=== PATIENT | female | born 1950 | race Caucasian/White ===

== ENCOUNTER 2016-09-03 08:16 | Observation (INO) ==
--- NOTE | 2016-09-03 08:42 | Emergency Department Note ---
Disposition Clinical Impression: Glomerulonephritis, NEYMAR (acute kidney injury) Disposition: Admitted As Inpatient Condition: Fair Time of Disposition: 10:10 General Adult HPI - General Chief complaint: ED Recheck/Abnormal Lab/Rx Stated complaint: Needs Steroids Time Seen by Provider: 09/03/16 08:20 Source: patient Limitations: no limitations Nursing Notes Reviewed: Yes Vital Signs Reviewed: Yes - History of Present Illness HPI Narrative: 66-year-old history of diabetes, hypertension, hypothyroid, has been evaluated by nephrology Dr. Cook, found have acute glomerulonephritis on biopsy, was sent to the ED for further evaluation including high-dose steroids, and further workup. Patient case was called into the night physician Dr. Arellano, and also stated that we are to contact Dr. Bowers. Essentially the patient at the current time is fairly symptomatic, she has had some elevated blood pressures but did not take her medications morning. Denies fever chills weight loss, hematuria, nausea vomiting diarrhea constipation Onset (ago): day(s) Pain Scale: 0 Consistency: intermittent Improves with: nothing Worsens with: nothing Associated symptoms: Reports: denies other symptoms. Denies: confusion, chest pain Treatments Prior to Arrival: none - Related Data Home Medications Medication Instructions Recorded Confirmed Lisinopril 11/25/15 11/25/15 Synthroid 11/25/15 Previous Rx's Medication Instructions Recorded Amoxicillin 875 mg PO BID #20 tablet 11/25/15 GuaiFENesin ER [Mucinex] 1,200 mg PO BID #20 tbbp.12hr 11/25/15 Loratadine [Claritin] 10 mg PO DAILY #30 tablet 11/25/15 Allergies Allergy/AdvReac Type Severity Reaction Status Date / Time codeine AdvReac Vomiting Verified 09/03/16 10:06 Review of Systems: All systems were reviewed with historian and negative except as per below, or as documented in the HPI. Constitutional: Denies: fever, chills, weight changes Eyes: Denies: vision changes, eye pain GI: Denies: abdominal pain, N/V/D/C dark urine, Denies: dysuria, hematuria MSK: Denies: back pain, neck pain, extremity pain Skin: Denies: new rashes, new lesions Neuro: Denies: FRANK, weakness, sensory changes, gait difficulty Psych: Denies: anxiety, depression All systems ED: reviewed and negative except as stated. Past Medical History - Past Medical History Attestation: Yes The following information was validated with the patient. Source: patient Medical history: Reports: diabetes, hypertension, thyroid disease Psychiatric history: Reports: anxiety - Social History Smoking Status: Never smoker Smokeless Tobacco Status: No Alcohol use: Reports: none Drug use: Reports: none Physical Exam Constitutional: Obese female in no acute distress, vital signs show elevated blood pressure. Neck: normal inspection, neck is supple, trachea midline Resp: normal chest inspection, CTA bilaterally, no resp distress CV: RRR, no m/g/r GI: Obese, normal inspection, Soft, NTND, BS present Back: normal inspection, no tenderness to palpation of CVA bilaterally Neuro: A&O3, no gross motor or sensory deficits bilaterally Skin: No rashes, skin warm, dry, intact - General Limitations: no limitations General appearance: alert, in no apparent distress Course Course Narrative: 66-year-old female with hypertension diabetes, found to have glomerulonephritis biopsy sent by nephrology, I did speak with Dr.Emily Burns and she will leave the workup, and add additional labs and pulse dose steroids at her preference, recommended admission to hospitalist service they will consult. Vital Signs Temperature 98.3 F 09/03/16 08:20 Pulse Rate 58 09/03/16 08:20 Respiratory Rate 16 09/03/16 08:20 Blood Pressure 202/104 09/03/16 08:20 O2 Sat by Pulse Oximetry 99 09/03/16 08:20 Temperature 98.3 F 09/03/16 08:20 Pulse Rate 58 09/03/16 08:20 Respiratory Rate 16 09/03/16 09:44 Blood Pressure 172/82 09/03/16 09:44 O2 Sat by Pulse Oximetry 99 09/03/16 08:20 Oxygen Delivery Oxygen Delivery Room Air Medical Decision Making - MDM Narrative Medical decision making narrative: 66-year-old female with glomerulonephritis admitted in stable condition to hospitalist service with nephrology consult. - Medical Records Medical records reviewed: Yes I reviewed the patient's medical records. - Lab Data Lab results reviewed: Yes I reviewed the patient's lab results. Result diagrams: 09/03/16 08:55 09/03/16 08:55 Lab Results 09/03/16 09/03/16 Range/Units 08:55 08:55 WBC 7.5 (4.3-11.1) K/mcL RBC 3.65 L (3.82-4.97) M/mcL Hgb 10.9 L (11.5-15.4) g/dL Hct 33.6 L (35.3-44.9) % MCV 92.1 (83.0-100.0) fL MCH 29.9 (28.0-33.3) pg MCHC 32.4 (31.6-35.5) g/dL RDW 12.8 (11.5-14.5) % Plt Count 248 (140-400) K/mcL MPV 10.7 (9.4-12.4) fL Immature Gran % 0.3 (0-4) % Seg Neutrophils % 66.3 % Lymphocytes % 20.2 % Monocytes % 9.9 % Eosinophils % 2.8 % Basophils % 0.5 % Neutrophils # 5.0 (1.6-8.9) K/mcL Lymphocytes # 1.5 (0.6-4.6) K/mcL Monocytes # 0.7 (0.0-1.3) K/mcL Eosinophils # 0.2 (0.0-0.6) K/mcL Basophils # 0.0 (0.0-0.2) K/mcL Sodium 142 (136-145) mEq/L Potassium 4.4 (3.5-4.5) mEq/L Chloride 108 (98-109) mEq/L Carbon Dioxide 24 (19-29) mEq/L BUN 40 H (7-20) mg/dL Creatinine 2.79 H (0.57-1.11) mg/dL Est GFR ( Amer) 21 L (> 60) Est GFR (Non-Af Amer) 17 L (> 60) BUN/Creatinine Ratio 14 (6-26) Glucose 115 H (70-99) mg/dL Calculated Osmolality 305 H (280-300) Calcium 8.6 (8.6-10.8) mg/dL
--- NOTE | 2016-09-03 08:49 | Emergency Department Note ---
Disposition Clinical Impression: Glomerulonephritis, NEYMAR (acute kidney injury) Disposition: Admitted As Inpatient Condition: Fair General Adult HPI - General Chief complaint: ED Recheck/Abnormal Lab/Rx Stated complaint: Needs Steroids Source: patient Limitations: no limitations - History of Present Illness Pain Scale: 0 - Related Data Home Medications Medication Instructions Recorded Confirmed Levothyroxine [Synthroid] 112 mcg PO DAILY 11/25/15 09/03/16 Cholecalciferol (D-3) [Vitamin D] 2,000 unit PO DAILY 09/03/16 09/03/16 Hydralazine HCl 50 mg PO DAILY PRN 09/03/16 09/03/16 LORazepam [Ativan] 0.5 mg PO BID PRN 09/03/16 09/03/16 Lisinopril [Zestril] 5 mg PO DAILY 09/03/16 09/03/16 Propranolol [Inderal] 40 mg PO BID 09/03/16 09/03/16 Allergies Allergy/AdvReac Type Severity Reaction Status Date / Time codeine AdvReac Vomiting Verified 09/03/16 10:06 Past Medical History - Past Medical History Medical history: Reports: diabetes, hypertension, thyroid disease Psychiatric history: Reports: anxiety - Social History Smoking Status: Never smoker Smokeless Tobacco Status: No Alcohol use: Reports: none Drug use: Reports: none Physical Exam - General Limitations: no limitations General appearance: alert, in no apparent distress Course - Reevaluation(s) Reevaluation #1: Social patient with resident, Dr. Marquez. Patient has a recent diagnosis of glomerulonephritis. Patient was sent in for pulse dose steroids. Patient denies any acute illness over the past couple of days. Patient is unremarkable. We have spoken with the airport skilled maintenance supervisor on-call to get laboratory and steroid orders. Patient will be admitted to the hospitalist service. Time: 08:48 Vital Signs Temperature 98.3 F 09/03/16 08:20 Pulse Rate 58 09/03/16 08:20 Respiratory Rate 16 09/03/16 08:20 Blood Pressure 202/104 09/03/16 08:20 O2 Sat by Pulse Oximetry 99 09/03/16 08:20 Temperature 97.4 F L 09/03/16 10:27 Pulse Rate 58 09/03/16 08:20 Respiratory Rate 16 09/03/16 10:27 Blood Pressure 133/71 09/03/16 10:27 O2 Sat by Pulse Oximetry 97 09/03/16 10:27 Oxygen Delivery Oxygen Delivery Room Air Medical Decision Making - Lab Data Result diagrams: 09/03/16 08:55 09/03/16 08:55 Lab Results 09/03/16 09/03/16 09/03/16 Range/Units 08:55 08:55 10:25 WBC 7.5 (4.3-11.1) K/mcL RBC 3.65 L (3.82-4.97) M/mcL Hgb 10.9 L (11.5-15.4) g/dL Hct 33.6 L (35.3-44.9) % MCV 92.1 (83.0-100.0) fL MCH 29.9 (28.0-33.3) pg MCHC 32.4 (31.6-35.5) g/dL RDW 12.8 (11.5-14.5) % Plt Count 248 (140-400) K/mcL MPV 10.7 (9.4-12.4) fL Immature Gran % 0.3 (0-4) % Seg Neutrophils % 66.3 % Lymphocytes % 20.2 % Monocytes % 9.9 % Eosinophils % 2.8 % Basophils % 0.5 % Neutrophils # 5.0 (1.6-8.9) K/mcL Lymphocytes # 1.5 (0.6-4.6) K/mcL Monocytes # 0.7 (0.0-1.3) K/mcL Eosinophils # 0.2 (0.0-0.6) K/mcL Basophils # 0.0 (0.0-0.2) K/mcL Sodium 142 (136-145) mEq/L Potassium 4.4 (3.5-4.5) mEq/L Chloride 108 (98-109) mEq/L Carbon Dioxide 24 (19-29) mEq/L BUN 40 H (7-20) mg/dL Creatinine 2.79 H (0.57-1.11) mg/dL Est GFR ( Amer) 21 L (> 60) Est GFR (Non-Af Amer) 17 L (> 60) BUN/Creatinine Ratio 14 (6-26) Glucose 115 H (70-99) mg/dL POC Glucose 107 H (58-89) Calculated Osmolality 305 H (280-300) Calcium 8.6 (8.6-10.8) mg/dL Attestation Statement - Attestation Attestation: I, Dr. Trent, examined this patient [id number] and my medical decision- making was reviewed with Dr. Marquez, Resident Physician. I agree with the documented findings, disposition and treatment plan as described except to the extent set forth below. Please see my progress notes for details.
[2016-09-03 09:09] LABS: Basophils % 0.5 %; Eosinophils # 0.2 K/mcL (0.0-0.6); Eosinophils % 2.8 %; Hematocrit 33.6 % (35.3-44.9); Hemoglobin 10.9 g/dL (11.5-15.4); Immature Granulocytes % 0.3 % (0-4); Lymphocytes # 1.5 K/mcL (0.6-4.6); Lymphocytes % 20.2 %; Mean Corpuscular HGB Conc 32.4 g/dL (31.6-35.5); Mean Corpuscular Hemoglobin 29.9 pg (28.0-33.3); Mean Corpuscular Volume 92.1 fL (83.0-100.0); Mean Platelet Volume 10.7 fL (9.4-12.4); Monocytes # 0.7 K/mcL (0.0-1.3); Monocytes % 9.9 %; Platelet Count 248 K/mcL (140-400); Red Blood Count 3.65 M/mcL (3.82-4.97); Red Cell Distribution Width 12.8 % (11.5-14.5); Segmented Neutrophils % 66.3 %
[2016-09-03 09:22] LABS: Calcium 8.6 mg/dL (8.6-10.8); Potassium 4.4 mEq/L (3.5-4.5)
[2016-09-03] MEDS ORDERED: Acetaminophen 325 MG TABLET PO PRN (12:48)
[2016-09-03] MEDS ORDERED: Naloxone 0.4 MG/ML INJ IVP PRN (12:48)
[2016-09-03] MEDS ORDERED: *HR* LORazepam 0.5 MG TABLET PO PRN (12:51)
[2016-09-03] MEDS: Cholecalciferol (D-3) 1,000 UNIT TABLET PO SCH (13:51)
[2016-09-03] MEDS: hydrALAZINE 25 MG TABLET PO SCH ×2 (13:51→21:20)
[2016-09-03] MEDS: methylPREDNISolone 250 MG in 0.9 % Sodium Chloride 50 ML IVPB SCH ×2 (13:52→17:22)
[2016-09-03] MEDS: Famotidine 20 MG/2 ML VIAL IVP SCH (13:52)
[2016-09-03] MEDS ORDERED: D5% in Water 1,000 ML IV PRN (14:22)
[2016-09-03] MEDS ORDERED: *HR* Dextrose 50 % in Water (Syg) 50 ML SYRINGE IVP PRN (14:22)
[2016-09-03] MEDS ORDERED: Dextrose Gel 15 GM PO PRN ×2 (14:22)
--- NOTE | 2016-09-03 14:24 | Nephrology Consult Note ---
<Sonya Hall - Last Filed: 09/03/16 16:01> Date of Encounter: 09/03/16 Time of Encounter: 12:00 Assessment and Plan (1) Glomerulonephritis Current Visit: Yes Status: Acute Patient is a patient of Dr. Cook's who had a CT-guided renal biopsy on . Dr. 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 There were also findings of underlying diabetic nephropathy as well. His initial work up on her in 2014 from [facility]: negative SPEP, U M/C ratio of 46, microscopic hematuria, BENI negative, C4 36, C3 133. He called her and instructed her to present to the ER for admission. Final pathology results are still pending. CXR negative for acute infectious process. SCr and GFR have been rising over the last several months: 03/10/16: SCr 1.52, GFR 35 07/08/16: SCr 2.11, GFR 24 08/09/16:SCr 2.33, GFR 21 09/03/16: SCr 2.79, GFR 17 08/09/16: UCr 71.2, Urine total protein 367.8, Prot/Cr ratio 5.1; UA: blood, granular and hyaline casts, amorphus sediment crystals; UC: E. 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 The patient has had worsening serum creatinine and GFR over the last month. Her GFR was 21 on and is 17 today. Will initiate steroid pulse treatment in conjunction with cyclophosphamide therapy. If the final pathology report comes back as an anti-GBM GN, the patient may require additional treatment of plasmapharesis and will need to be transferred to [facility] for this therapy as it is not offered at [facility]. Plan: -Obtain labwork: anti-gbm antibiodies, ANCA, C3 & C4 complement, BENI, Urine microalbumin, urine prot/Cr ratio, UA with micro and culture, TB Quant -Will start steroid pulse: 250mg methylprednisone IV [id number] doses (3 days) -Start cyclophosphamide 50mg BID PO -Accuchecks ACHS with steroids -Hold lisinopril -Strict I/Os and daily weights -Avoid NSAIDS and nephrotoxic agents -Renally dose medications (2) CKD (chronic kidney disease), stage IV Current Visit: Yes Status: Acute (3) NEYMAR (acute kidney injury) Current Visit: Yes Status: Acute (4) HTN (hypertension) Current Visit: Yes Status: Acute hold lisinopril Qualifiers: Hypertension type: essential hypertension Qualified Code(s): I10 - Essential (primary) hypertension (5) Diabetes mellitus Current Visit: Yes Status: Acute Qualifiers: Diabetes mellitus type: type 2 Diabetes mellitus complication status: with unspecified complications Diabetes 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 Juan Cook - History of Present Illness Ms. Oreilly is a 66 y/o female with a PMH of CKD IV, DM, HTN and hypothyroidism who presented to the ED today after receiving a call by Dr. Cook instructing her to present to the ED for admission to treat her glomerulonephritis. The patient has been seen by Dr. Cook for CKD, however did not follow up routinely. She was seen in June of this year and found to have worsening renal function with nephritis level protein in her urine. She has had worsening creatinine and GFR, that has dramatically worsened in the last 2 months. Her GFR dropped from 24 in June to 21 in July and is 17 today. The patient had a renal biopsy performed on 09/01/16 to evaluate for suspected glomerulonephritis. The renal pathologist at [facility] contacted Dr. 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 There were also findings of underlying diabetic nephropathy as well. She denies FRANK, CP, SOB, Abd pain, dysuria, hematuria. The patient denies any symptoms currently. She has been hypertensive, but has not taken her blood pressure medications today. She has a family history of a sister with CKD that is atypical HUS per the patient and has had a fistula in place anticipating a need for dialysis. She also notes a niece and nephew who both had renal transplants. Past Med Surg Social Fam HX - Past Medical History Source: patient Medical history: diabetes, hypertension, renal disease (CKD IV), thyroid disease Psychiatric history: anxiety - Social History Smoking Status: Never smoker Smokeless Tobacco Status: No Alcohol use: none Drug use: none - Family History Mother Hx Family Cancer: Yes Father Hx Family Endocrine Disorder: Yes Medications and Allergies Levothyroxine [Synthroid] 112 mcg PO DAILY 11/25/15 [History] Cholecalciferol (D-3) [Vitamin D] 2,000 unit PO DAILY 09/03/16 [History] Hydralazine HCl 50 mg PO DAILY PRN 09/03/16 [History] LORazepam [Ativan] 0.5 mg PO BID PRN 09/03/16 [History] Lisinopril [Zestril] 5 mg PO DAILY 09/03/16 [History] Propranolol [Inderal] 40 mg PO BID 09/03/16 [History] Allergies codeine Adverse Reaction (Verified 09/03/16 10:06) Vomiting Review of Systems All Systems: reviewed and no additional remarkable complaints except as stated Exam - Vital Signs Vital signs: Initial Vital Signs Temp Pulse Resp BP Pulse Ox 98.3 F 58 16 202/104 99 09/03/16 08:20 09/03/16 08:20 09/03/16 08:20 09/03/16 08:20 09/03/16 08:20 - General Appearance General appearance: well-developed, well-nourished, appears started age, obese EENT: ATNC, PERRL, mucous membranes moist Neck: no JVD, supple Respiratory: no kyphosis, no scoliosis, clear Cardiology: no murmurs, no rub, no gallops, edema (b/l LE), regular rate, regular rhythm, normal S1, normal S2 Gastrointestinal: normoactive bowel sounds, no tenderness, no guarding, obese Integumentary: no rash, warm and dry Neurologic: no focal deficit, alert and oriented x3 Musculoskeletal: no deformities, no erythema, no cyanosis, no clubbing Psychiatric: mood/affect appropriate, cooperative Results - Lab Results 09/03/16 08:55 09/03/16 08:55 Most recent lab results Calcium 8.6 mg/dL (8.6-10.8) 09/03/16 08:55 Consult Discharge Plan - Plan Referrals: Marcos Pierre MD [Primary Care Provider] - <ThomcoryEz Bowers - Last Filed: 09/05/16 14:02> Exam - Vital Signs Vital signs: Initial Vital Signs Temp Pulse Resp BP Pulse Ox 98.3 F 58 16 202/104 99 09/03/16 08:20 09/03/16 08:20 09/03/16 08:20 09/03/16 08:20 09/03/16 08:20 Vital Signs - Last 8 Hours Temp Pulse Resp BP Pulse Ox 09/05/16 11:06 97.6 F 64 18 151/78 96 09/05/16 07:05 97.9 F 64 18 160/81 96 Intake and Output 09/04/16 09/05/16 09/05/16 22:59 07:59 15:59 Intake Total 534 / 534 Output Total 0 / 0 Balance 534 / 534 Intake: IV Fluids 54 / 54 Solu-MEDROL 250 MG In 0.9 54 / 54 % Sodium Chloride 50 ML @ 108 mls/hr IVPB Q6H TY Rx#:[id number] Oral 480 / 480 Output: Urine 0 / 0 Other: Meal Lunch Percent of Meal Consumed 100% # Voids Weight Blood Glucose* 265 Patient Weight 09/06/16 00:59 Weight 122.5 kg Results - Lab Results 09/04/16 06:42 09/05/16 06:27 Most recent lab results Calcium 8.3 mg/dL (8.6-10.8) L 09/05/16 06:27 Urine Creatinine 78 mg/dL 09/03/16 21:16 Urine Total Protein 411 mg/dL (1-14) H 09/03/16 21:16 - Attending Attestation I examined this patient and my medical decision-making was reviewed with the SHOT LIGHTER/PA/Advanced Practice Nurse/Resident Physician. I agree with the documented findings, disposition and treatment plan as described except to the extent set forth below. Pt seen and examined with family (sister) at bedside. 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 SCr noted dropping rapidly consistent with RPGN. Agree with pulsed steroids, started. Pt aware of side effects as discussed in great details. will also start cytotan 50mg bid. will check quantiferon gold for TB. Will start pecid for possible acid reflux while on high dose steroids. Will monitor blood sugars as well. Will hold lisinopril for now given worsening renal fxn but resume her beta-batsheva and hydralazine for BP control. No indication for TAX ADJUSTER at this time but pt aware. Will await repeat antiGBM results along with final renal biopsy result to determine whether plasmapheresis will be needed in which case a transfer to [facility] would be needed. will also followup BENI, complements and ANCA results.
--- NOTE | 2016-09-03 14:33 | Internal Med History&Physical ---
<Tammy Herbert M - Last Filed: 09/04/16 00:52> Date of Encounter: 09/03/16 Time of Encounter: 14:24 Internal Medicine - H&P: HPI Chief complaint: kidney disease Admitted From: Emergency Dept Plans for Post Hospital Care: Home History of present illness: Ms. Oreilly is a 66 year old female with hypertension, type 2 diabetes, hypothyroid, and chronic kidney disease, who presented to the emergency room on the instruction of her pega developer after getting results of her kidney biopsy back showing acute anti-GBM glomerulopathy. Patient denies any complaints upon 11 point review of symptoms. Patient denies any recent fever, chills or sweats. Nephrology plans 3 days of pulse dose steroids. Evaluation in the ED showed BUN 40 Cr 2.79. CXR showed mild bibasilar airspace disease, mild cardiopericardial enlargement. On exam, patient is alert and oriented, in no distress. Heart has regular rate and rhythm, lungs are clear to auscultation bilaterally. (1) Acute GN - according to ECW note, biopsy results showed "findings of crescents both old and new on light microscopy and on IF there was linear staining of IgG suggestive of Anti-GBM glomerulopathy. There was also findings of underlying diabetic nephropathy as well." Nephrology is consulted and planning pulse steroids and further work up. Avoid NSAIDs and nephrotoxic agents Renal diabetic diet (2) Hypertension Hold home lisinopril. Hydralazine adjusted to 50mg BID Continue home dose of Propranolol 40mg (3) Type 2 Diabetes Patient reports she is diet controlled and just checks her morning blood sugars. However, as she will be on steroids during this admission, we will check blood sugars ACHS and put her on a sliding scale correction dose. Renal diabetic diet hypoglycemic protocol (4) DVT Prophylaxis Ambulate anti-embolic stockings Heparin 5,000u SQ TID Past Med Surg Social Fam HX - Past Medical History Medical history: diabetes, hypertension, thyroid disease Psychiatric history: anxiety - Past Surgical History Surgical History: other (tubal ligation) - Social History Smoking Status: Never smoker Smokeless Tobacco Status: No Alcohol use: none Drug use: none - Family History Mother Hx Family Cancer: Yes Father Hx Family Endocrine Disorder: Yes Internal Medicine - H&P: Meds Levothyroxine [Synthroid] 112 mcg PO DAILY 11/25/15 [History] Cholecalciferol (D-3) [Vitamin D] 2,000 unit PO DAILY 09/03/16 [History] Hydralazine HCl 50 mg PO DAILY PRN 09/03/16 [History] LORazepam [Ativan] 0.5 mg PO BID PRN 09/03/16 [History] Propranolol [Inderal] 40 mg PO BID 09/03/16 [History] Cyclophosphamide 50 mg PO BID #60 capsule 09/06/16 [Rx] PredniSONE 60 mg PO DAILY #30 tablet 09/06/16 [Rx] Sulfamethoxazole/Trimeth DS [Bactrim DS] 1 each PO 3XW #90 tablet 09/06/16 [Rx] Allergies codeine Adverse Reaction (Verified 09/03/16 10:06) Vomiting All Systems PM: A 10-system review of systems was performed and is negative for pertinent findings except as documented above in the HPI. - Constitutional Constitutional: no chills, no fever(s), no night sweats - EENT Eyes: no change in vision, no discharge, no pain, no photophobia Ears: no ear discharge, no ear pain, no tinnitus Nose, mouth and throat: no dysphagia, no nasal discharge, no neck pain, no sore throat - Cardiovascular Cardiovascular ROS IM: no chest pain, no diaphoresis, no dyspnea, no lightheadedness, no palpitations, no syncope - Respiratory Respiratory: no cough, no dyspnea, no wheezing, no excessive phlegm production - Gastrointestinal Gastrointestinal: no abdominal pain, no diarrhea, no hematemesis, no hematochezia, no melena, no nausea, no vomiting - Genitourinary Genitourinary: no change in urinary stream, no dysuria, no flank pain, no hematuria - Musculoskeletal Musculoskeletal ROS IM: no numbness, no tingling - Integumentary Integumentary IM: no rash, no unusual bruising - Neurological Neurological ROS: no confusion, no convulsions, no focal weakness, no numbness, no tingling, no tremor(s) - Hematologic/Lymphatic Hematologic/Lymphatic: no easy bruising - Constitutional Vitals: Temp Pulse Resp BP Pulse Ox 97.4 F L 58 16 133/71 97 09/03/16 10:27 09/03/16 08:20 09/03/16 10:27 09/03/16 10:27 09/03/16 10:27 General appearance: Present: A&O X 3, morbidly obese, no acute distress - Head Head exam: Present: atraumatic, normocephalic - Eye Eye exam: Present: PERRL, conjuntiva pink, sclera anicteric Pupils: Present: PERRL - Neck Neck exam general surgery: Present: supple, trachea midline. Absent: lymphadenopathy - Respiratory Respiratory exam: Present: CTAB. Absent: accessory muscle use, rales, rhonchi, wheezes - Cardiovascular Cardiovascular exam: Present: RRR, +S1, +S2. Absent: diastolic murmur, gallop, rubs, systolic murmur - GI/Abdominal GI/Abdominal exam: Present: normal bowel sounds, soft, no peritoneal signs. Absent: distended, tenderness - Extremities Exam Extremities exam: Present: warm, radial pulses palpable and symetrical. Absent : calf tenderness, cyanotic, pedal edema - Neurological Exam Neurological exam: Present: CN II-XII intact, oriented X3, no focal deficits. Absent: facial droop, speech deficit - Skin Skin exam: Present: dry, intact Internal Med - H&P Results - Labs CBC & Chem 7: 09/03/16 08:55 09/03/16 08:55 Labs: All Lab Results (24 Hours) 09/03/16 09/03/16 09/03/16 Range/Units 08:55 08:55 10:25 WBC 7.5 (4.3-11.1) K/mcL RBC 3.65 L (3.82-4.97) M/mcL Hgb 10.9 L (11.5-15.4) g/dL Hct 33.6 L (35.3-44.9) % MCV 92.1 (83.0-100.0) fL MCH 29.9 (28.0-33.3) pg MCHC 32.4 (31.6-35.5) g/dL RDW 12.8 (11.5-14.5) % Plt Count 248 (140-400) K/mcL MPV 10.7 (9.4-12.4) fL Immature Gran % 0.3 (0-4) % Seg Neutrophils % 66.3 % Lymphocytes % 20.2 % Monocytes % 9.9 % Eosinophils % 2.8 % Basophils % 0.5 % Neutrophils # 5.0 (1.6-8.9) K/mcL Lymphocytes # 1.5 (0.6-4.6) K/mcL Monocytes # 0.7 (0.0-1.3) K/mcL Eosinophils # 0.2 (0.0-0.6) K/mcL Basophils # 0.0 (0.0-0.2) K/mcL Sodium 142 (136-145) mEq/L Potassium 4.4 (3.5-4.5) mEq/L Chloride 108 (98-109) mEq/L Carbon Dioxide 24 (19-29) mEq/L BUN 40 H (7-20) mg/dL Creatinine 2.79 H (0.57-1.11) mg/dL Est GFR ( Amer) 21 L (> 60) Est GFR (Non-Af Amer) 17 L (> 60) BUN/Creatinine Ratio 14 (6-26) Glucose 115 H (70-99) mg/dL POC Glucose 107 H (58-89) Calculated Osmolality 305 H (280-300) Calcium 8.6 (8.6-10.8) mg/dL <Odilon Johnson - Last Filed: 09/07/16 10:27> Internal Medicine - H&P: HPI History of present illness: Ms. Oreilly is a 66 year old female All Systems PM: A 10-system review of systems was performed and is negative for pertinent findings except as documented above in the HPI. - Constitutional Vitals: Temp Pulse Resp BP Pulse Ox 97.9 F 60 16 146/74 95 09/06/16 11:13 09/06/16 11:13 09/06/16 11:13 09/06/16 11:13 09/06/16 11:13 Internal Med - H&P Results - Labs CBC & Chem 7: 09/04/16 06:42 09/05/16 06:27 - Attending Attestation I examined this patient and my medical decision-making was reviewed with the Advanced Practice Nurse. I agree with the documented findings, disposition and treatment plan as described except to the extent set forth below. The patient was sent by her pega developer for evaluation in the hospital for worsening renal failure and kidney biopsy suggestive of glomerulonephritis. On exam she is in no acute distress awake alert oriented. Heart is regular S1-S2, lungs are clear. We will admit the patient to our service, consult nephrology, avoid nephrotoxins, monitor kidney function.
[2016-09-03] MEDS: Insulin LISPRO 300 UNITS/3 ML VIAL SQ SCH ×2 (17:17→21:25)
[2016-09-03] MEDS: *HR* Heparin 5,000 UNIT/ML VIAL SQ SCH (17:22)
[2016-09-03 21:35] LABS: Bilirubin,Urine Negative (Negative); Blood,Urine Large (Negative); Clarity,Urine Cloudy (Clear); Color,Urine Yellow (Yellow); Glucose,Urine (UA) Normal (Normal); Ketones,Urine Negative (Negative); Leukocyte Esterase,Urine Negative (Negative); Nitrite,Urine Negative (Negative); Protein,Urine >=300 mg/dL (Neg-Trace); Specific Gravity,Urine 1.017 (1.010-1.025); Urobilinogen,Urine Normal (Normal)
[2016-09-03 21:37] LABS: Bacteria,Urine None Seen per hpf (None-Few); Hyaline Casts,Urine None Seen per lpf (None-Few); Squamous Epithelial Cell,Urine Many per lpf (None-Few)
[2016-09-03 22:09] LABS: Creatinine,Urine 78 mg/dL; Microalbum/Creatinine Ratio,Ur 2564 (0-30)
[2016-09-03 22:19] LABS: Microalbumin,Urine > 2000 mg/L
[2016-09-03 22:34] LABS: Protein/Creatinine Ratio,Urine 5.27 mg/mg (0-0.20)
[2016-09-04] MEDS: methylPREDNISolone 250 MG in 0.9 % Sodium Chloride 50 ML IVPB SCH ×4 (00:45→17:51)
[2016-09-04] MEDS: *HR* Heparin 5,000 UNIT/ML VIAL SQ SCH ×4 (00:49→22:31)
[2016-09-04 07:26] LABS: Red Blood Count 3.89 M/mcL (3.82-4.97)
[2016-09-04 07:27] LABS: Basophils % 0.1 %; Hemoglobin 11.4 g/dL (11.5-15.4); Immature Granulocytes % 1.1 % (0-4); Lymphocytes # 0.8 K/mcL (0.6-4.6); Lymphocytes % 9.4 %; Mean Corpuscular HGB Conc 32.6 g/dL (31.6-35.5); Mean Corpuscular Hemoglobin 29.3 pg (28.0-33.3); Monocytes # 0.1 K/mcL (0.0-1.3); Monocytes % 0.9 %; Neutrophils # 7.8 K/mcL (1.6-8.9); Platelet Count 255 K/mcL (140-400); Red Cell Distribution Width 12.4 % (11.5-14.5); Segmented Neutrophils % 88.5 %
[2016-09-04 07:31] LABS: Calcium 8.6 mg/dL (8.6-10.8); Potassium 4.4 mEq/L (3.5-4.5)
[2016-09-04] MEDS: hydrALAZINE 25 MG TABLET PO SCH ×2 (08:08→22:30)
[2016-09-04] MEDS: Cholecalciferol (D-3) 1,000 UNIT TABLET PO SCH (08:09)
[2016-09-04] MEDS: Famotidine 20 MG/2 ML VIAL IVP SCH (08:09)
[2016-09-04] MEDS: Insulin LISPRO 300 UNITS/3 ML VIAL SQ SCH ×4 (08:10→22:33)
--- NOTE | 2016-09-04 12:02 | Nephrology Progress Note ---
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 BENI already pending Will also check immunofixation and free light chains (2) CKD (chronic kidney disease), stage IV Current Visit: Yes Status: Acute (3) Glomerulonephritis Current Visit: Yes Status: Acute (4) HTN (hypertension) Current Visit: Yes Status: Acute Qualifiers: Hypertension type: essential hypertension Qualified Code(s): I10 - Essential (primary) hypertension Subjective Interval history: Pt seen and examined with pulsed steroids underway and being tolerated. lots of family members at bedside. Discussed in great detail lastest and final renal biopsy result which now is showing active cresentic fibrillary GN hence no plasmaphresis needed.Discussed this final diagnosis in great details with pt and family with all questions answered and additional reading materials provided via [employer] to them. Objective - Vital Signs Vital signs: Vital Signs Temp Pulse Resp BP Pulse Ox 09/04/16 11:08 97.8 F 62 18 162/82 94 L 09/04/16 06:56 97.8 F 68 18 170/72 94 L 09/04/16 04:22 97.6 F 69 18 140/76 94 L 09/04/16 00:19 97.7 F 65 16 162/81 93 L 09/03/16 21:02 97.7 F 62 16 160/85 95 Intake and Output 09/03/16 09/04/16 09/04/16 23:59 07:59 15:59 Intake Total 508 / 508 54 / 54 360 / 360 Output Total 500 / 500 300 / 300 275 / 275 Balance -246 / -246 Intake: IV Fluids 108 / 108 54 / 54 Solu-MEDROL 250 MG In 0.9 108 / 108 54 / 54 % Sodium Chloride 50 ML @ 108 mls/hr IVPB Q6H TY Rx#:[id number] Oral 400 / 400 360 / 360 Output: Urine 500 / 500 300 / 300 275 / 275 Other: Meal Breakfast Percent of Meal Consumed 100% # Voids 2 Weight 120.2 kg Blood Glucose* 216 170 242 Patient Weight 09/04/16 23:59 Weight 120.2 kg - General Appearance General appearance: Present: well-developed, well-nourished (NAD) EENT: Present: ATNC, mucous membranes moist Neck: Present: no JVD, supple Respiratory: Present: clear Cardiology: Present: no edema, normal S1, normal S2 Gastrointestinal: Present: no tenderness, no guarding Integumentary: Present: warm and dry Neurologic: Present: no focal deficit Musculoskeletal: Present: no deformities Psychiatric: Present: mood/affect appropriate - Lab 09/04/16 06:42 09/05/16 06:27 Most recent lab results Calcium 8.6 mg/dL (8.6-10.8) 09/04/16 06:42 Urine Creatinine 78 mg/dL 09/03/16 21:16 Urine Total Protein 411 mg/dL (1-14) H 09/03/16 21:16 Consult Discharge Plan - Plan Referrals: Marcos Pierre MD [Primary Care Provider] -
--- NOTE | 2016-09-04 18:14 | Internal Med Progress Note ---
Date of Encounter: 09/04/16 Time of Encounter: 18:12 - Assessment and plan (1) Glomerulonephritis Current Visit: Yes Status: Acute Assessment and plan: Biopsy results "findings of crescents both old and new on light microscopy and on IF there was linear staining of IgG suggestive of Anti-GBM glomerulopathy" admitted for pulse steroid therapy nephrology on board will follow recommendations. (2) HTN (hypertension) Current Visit: Yes Status: Acute Assessment and plan: acceptable range will continue meds hold ACEI Qualifiers: Hypertension type: essential hypertension Qualified Code(s): I10 - Essential (primary) hypertension (3) Diabetes mellitus Current Visit: Yes Status: Acute Assessment and plan: ACHS SCSI close monitoring Qualifiers: Diabetes mellitus type: type 2 Diabetes mellitus complication status: with unspecified complications Diabetes mellitus intermediate manager insulin use: without intermediate manager use Qualified Code(s): E11.8 - Type 2 diabetes mellitus with unspecified complications (4) DVT prophylaxis Current Visit: Yes Status: Acute Assessment and plan: heaprin SCD - Subjective Interval history: seen and examined no new complaints - Constitutional Vitals: Temp Pulse Resp BP Pulse Ox 97.9 F 61 18 168/83 95 09/04/16 16:52 09/04/16 16:52 09/04/16 16:52 09/04/16 16:52 09/04/16 16:52 General appearance: Present: A&O X 3, morbidly obese, no acute distress - Head Head exam: Present: atraumatic, normocephalic - Eye Eye exam: Present: PERRL, conjuntiva pink, sclera anicteric Pupils: Present: PERRL - Neck Neck exam general surgery: Present: supple, trachea midline. Absent: lymphadenopathy - Respiratory Respiratory exam: Present: CTAB. Absent: accessory muscle use, rales, rhonchi, wheezes - Cardiovascular Cardiovascular exam: Present: RRR, +S1, +S2. Absent: diastolic murmur, gallop, rubs, systolic murmur - GI/Abdominal GI/Abdominal exam: Present: normal bowel sounds, soft, no peritoneal signs. Absent: distended, tenderness - Extremities Exam Extremities exam: Present: warm, radial pulses palpable and symetrical. Absent : calf tenderness, cyanotic, pedal edema - Neurological Exam Neurological exam: Present: CN II-XII intact, oriented X3, no focal deficits. Absent: pronater drift, facial droop, speech deficit - Skin Skin exam: Present: dry, intact Internal Medicine: Result - Labs CBC & Chem 7: 09/04/16 06:42 09/04/16 06:42 Labs: Short CBC 09/04/16 Range/Units 06:42 WBC 8.8 (4.3-11.1) K/mcL Hgb 11.4 L (11.5-15.4) g/dL Hct 35.0 L (35.3-44.9) % Plt Count 255 (140-400) K/mcL Neutrophils # 7.8 (1.6-8.9) K/mcL BMP 09/04/16 06:42 Sodium 139 Potassium 4.4 Chloride 107 Carbon Dioxide 20 BUN 44 H Creatinine 3.03 H Glucose 175 H Calcium 8.6 Urine 09/03/16 Range/Units 21:21 Urine Color Yellow (Yellow) Urine Clarity Cloudy A (Clear) Urine pH 6.0 (5.0-8.0) pH Units Ur Specific [place] 1.017 (1.010-1.025) Urine Protein >=300 H (Neg-Trace) mg/dL Urine Glucose (UA) Normal (Normal) mg/dL Consult Discharge Plan - Plan Referrals: Marcos Pierre MD [Primary Care Provider] -
[2016-09-04 22:12] LABS: ANA IgG by ELISA NONE DETECTED (None Detected)
[2016-09-04 22:13] LABS: Complement Component 3 132 mg/dL (88-201); Complement Component 4 41 mg/dL (10-40)
[2016-09-05] MEDS: methylPREDNISolone 250 MG in 0.9 % Sodium Chloride 50 ML IVPB SCH ×4 (03:28→18:16)
[2016-09-05 07:12] LABS: Calcium 8.3 mg/dL (8.6-10.8); Potassium 4.6 mEq/L (3.5-4.5)
[2016-09-05] MEDS: *HR* Heparin 5,000 UNIT/ML VIAL SQ SCH ×2 (07:58→15:59)
[2016-09-05] MEDS: Cholecalciferol (D-3) 1,000 UNIT TABLET PO SCH (07:58)
[2016-09-05] MEDS: hydrALAZINE 25 MG TABLET PO SCH ×2 (07:58→22:03)
[2016-09-05] MEDS: Famotidine 20 MG/2 ML VIAL IVP SCH (07:58)
[2016-09-05] MEDS: Insulin LISPRO 300 UNITS/3 ML VIAL SQ SCH ×3 (07:58→15:59)
--- NOTE | 2016-09-05 11:20 | Nephrology Progress Note ---
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: will continue day 3 pulsed steroids Will continue cytoxan at current doses Will continue to hold lisinopril for now BENI WNL C3 WNL, C4 slightly elevated at 41 normal is 40 and under ANCA and antiGBM still pending LDH WNL Will start bactrim DS M-W- tomorrow priro to disscharge for prophylasix Will also plan for BMP within a week and followup within a week as well with Dr Cook on discharge tomorrow (2) CKD (chronic kidney disease), stage IV Current Visit: Yes Status: Acute (3) Glomerulonephritis Current Visit: Yes Status: Acute (4) HTN (hypertension) Current Visit: Yes Status: Acute Qualifiers: Hypertension type: essential hypertension Qualified Code(s): I10 - Essential (primary) hypertension Subjective Interval history: Pt seen and examined with no new complaints. Day 3 of pulsed steroids started to end tomorrow. Sugars elevated up to 200s. Objective - Vital Signs Vital signs: Vital Signs Temp Pulse Resp BP Pulse Ox 09/05/16 11:06 97.6 F 64 18 151/78 96 09/05/16 07:05 97.9 F 64 18 160/81 96 09/05/16 05:06 97.4 F L 67 16 165/87 94 L 09/05/16 00:23 98.2 F 64 16 124/72 97 09/04/16 19:35 98 F 65 18 170/70 96 09/04/16 16:52 97.9 F 61 18 168/83 95 09/04/16 11:08 97.8 F 62 18 162/82 94 L Intake and Output 09/04/16 09/05/16 09/05/16 22:59 07:59 15:59 Intake Total 240 / 240 Output Total 0 / 0 Balance 240 / 240 Intake: IV Fluids Solu-MEDROL 250 MG In 0.9 % Sodium Chloride 50 ML @ 108 mls/hr IVPB Q6H TY Rx#:[id number] Oral 240 / 240 Output: Urine 0 / 0 Other: Meal Breakfast Percent of Meal Consumed 100% # Voids Weight Blood Glucose* 265 Patient Weight 09/06/16 00:59 Weight 122.5 kg - General Appearance General appearance: Present: well-developed, well-nourished EENT: Present: ATNC, mucous membranes moist Neck: Present: no JVD, supple Respiratory: Present: clear Cardiology: Present: no edema, normal S1, normal S2 Gastrointestinal: Present: no tenderness, no guarding Integumentary: Present: warm and dry Neurologic: Present: no focal deficit Musculoskeletal: Present: no deformities Psychiatric: Present: mood/affect appropriate - Lab 09/04/16 06:42 09/05/16 06:27 Most recent lab results Calcium 8.3 mg/dL (8.6-10.8) L 09/05/16 06:27 Urine Creatinine 78 mg/dL 09/03/16 21:16 Urine Total Protein 411 mg/dL (1-14) H 09/03/16 21:16 Consult Discharge Plan - Plan Referrals: Marcos Pierre MD [Primary Care Provider] -
--- NOTE | 2016-09-05 15:42 | Internal Med Progress Note ---
Date of Encounter: 09/05/16 Time of Encounter: 15:39 - Assessment and plan (1) Glomerulonephritis Current Visit: Yes Status: Acute Assessment and plan: Biopsy results "findings of crescents both old and new on light microscopy and on IF there was linear staining of IgG suggestive of Anti-GBM glomerulopathy" admitted for pulse steroid therapy nephrology on board will follow recommendations. 09/05/2016 day 3 pulse steroids tolerating well sugars in acceptable limits. work up still pending. nephrology on board and will follow recommendations. (2) HTN (hypertension) Current Visit: Yes Status: Acute Assessment and plan: acceptable range will continue meds hold ACEI Qualifiers: Hypertension type: essential hypertension Qualified Code(s): I10 - Essential (primary) hypertension (3) Diabetes mellitus Current Visit: Yes Status: Acute Assessment and plan: ACHS SCSI close monitoring Qualifiers: Diabetes mellitus type: type 2 Diabetes mellitus complication status: with unspecified complications Diabetes mellitus skilled nursing insulin use: without beater lead use Qualified Code(s): E11.8 - Type 2 diabetes mellitus with unspecified complications (4) DVT prophylaxis Current Visit: Yes Status: Acute Assessment and plan: heaprin SCD - Subjective Interval history: seen and examined no new complaints 09/05/2016 seen and examined. no new complaints denies nausea, vomiting and diarrhea. - Constitutional Vitals: Temp Pulse Resp BP Pulse Ox 97.6 F 64 18 151/78 96 09/05/16 11:06 09/05/16 11:06 09/05/16 11:06 09/05/16 11:06 09/05/16 11:06 General appearance: Present: A&O X 3, morbidly obese, no acute distress - Head Head exam: Present: atraumatic, normocephalic - Eye Eye exam: Present: PERRL, conjuntiva pink, sclera anicteric Pupils: Present: PERRL - Neck Neck exam general surgery: Present: supple, trachea midline. Absent: lymphadenopathy - Respiratory Respiratory exam: Present: CTAB. Absent: accessory muscle use, rales, rhonchi, wheezes - Cardiovascular Cardiovascular exam: Present: RRR, +S1, +S2. Absent: diastolic murmur, gallop, rubs, systolic murmur - GI/Abdominal GI/Abdominal exam: Present: normal bowel sounds, soft, no peritoneal signs. Absent: distended, tenderness - Extremities Exam Extremities exam: Present: warm, radial pulses palpable and symetrical. Absent : calf tenderness, cyanotic, pedal edema - Neurological Exam Neurological exam: Present: CN II-XII intact, oriented X3, no focal deficits. Absent: pronater drift, facial droop, speech deficit - Skin Skin exam: Present: dry, intact Internal Medicine: Result - Labs CBC & Chem 7: 09/04/16 06:42 09/05/16 06:27 Labs: BMP 09/05/16 06:27 Sodium 137 Potassium 4.6 H Chloride 107 Carbon Dioxide 18 L BUN 59 H D Creatinine 3.24 H Glucose 177 H Calcium 8.3 L Consult Discharge Plan - Plan Referrals: Marcos Pierre MD [Primary Care Provider] -
[2016-09-06] MEDS: *HR* Heparin 5,000 UNIT/ML VIAL SQ SCH ×2 (00:28→08:02)
[2016-09-06] MEDS: methylPREDNISolone 250 MG in 0.9 % Sodium Chloride 50 ML IVPB SCH ×2 (00:29→08:01)
[2016-09-06] MEDS: Insulin LISPRO 300 UNITS/3 ML VIAL SQ SCH ×3 (06:04→12:06)
[2016-09-06] MEDS: Famotidine 20 MG/2 ML VIAL IVP SCH (08:02)
[2016-09-06] MEDS: Cholecalciferol (D-3) 1,000 UNIT TABLET PO SCH (08:02)
[2016-09-06] MEDS: hydrALAZINE 25 MG TABLET PO SCH (08:02)
[2016-09-06 11:14] VITALS: BP 146/74
--- NOTE | 2016-09-06 11:51 | Nephrology Progress Note ---
Date of Encounter: 09/06/16 Time of Encounter: 10:45 - Assessment and Plan (1) NEYMAR (acute kidney injury) Status: Acute With RPGN due to biopsy proven active cresentic fibrillary GN: s/p 3 days of pulsed steroids and now ok to discharge on prednisone 60mg daily Will continue cytoxan 50mg bid Will start bactrim DS M-W-F Will also continue pepcid 20mg daily Will start calcium supplements with vitamin D daily BMP to be done this week along with CBC Appt with Dr Cook lastjeanie by next tuesday (2) CKD (chronic kidney disease), stage IV Status: Acute (3) Glomerulonephritis Status: Acute (4) HTN (hypertension) Status: Acute Qualifiers: Hypertension type: essential hypertension Qualified Code(s): I10 - Essential (primary) hypertension Subjective Interval history: Pt seen and examined with no new complaints. Finishing up her last dosing of steroids and eager to be discharged today. Objective - Vital Signs Vital signs: Vital Signs Temp Pulse Resp BP Pulse Ox 09/06/16 11:13 97.9 F 60 16 146/74 95 09/06/16 07:27 97.6 F 86 16 166/82 90 L 09/06/16 04:42 98.2 F 62 18 146/79 95 09/06/16 00:50 97.6 F 60 18 155/75 93 L 09/05/16 20:23 97.8 F 58 16 147/65 97 09/05/16 15:52 97.7 F 61 18 161/84 97 Intake and Output 09/05/16 09/06/16 09/06/16 23:59 07:59 15:59 Intake Total 174 / 174 54 / 54 240 / 240 Output Total 400 / 400 300 / 300 Balance -226 / -226 -246 / -246 240 / 240 Intake: IV Fluids 54 / 54 54 / 54 Solu-MEDROL 250 MG In 0.9 54 / 54 54 / 54 % Sodium Chloride 50 ML @ 108 mls/hr IVPB Q6H TY Rx#:[id number] Oral 120 / 120 240 / 240 Output: Urine 400 / 400 300 / 300 Other: Meal Dinner Breakfast Percent of Meal Consumed 100% 100% # Voids 1 Weight 123.4 kg Blood Glucose* 213 187 263 Patient Weight 09/06/16 23:59 Weight 123.4 kg - General Appearance General appearance: Present: well-developed, well-nourished EENT: Present: ATNC, mucous membranes moist Neck: Present: no JVD, supple Respiratory: Present: clear Cardiology: Present: no edema, regular rate, regular rhythm, normal S1, normal S2 Gastrointestinal: Present: no tenderness, no guarding Integumentary: Present: warm and dry Neurologic: Present: no focal deficit Musculoskeletal: Present: no deformities Psychiatric: Present: mood/affect appropriate - Lab 09/04/16 06:42 09/05/16 06:27 Most recent lab results Calcium 8.3 mg/dL (8.6-10.8) L 09/05/16 06:27 Urine Creatinine 78 mg/dL 09/03/16 21:16 Urine Total Protein 411 mg/dL (1-14) H 09/03/16 21:16 Consult Discharge Plan - Plan Instructions: Acute Kidney Injury (DC), Diabetes Mellitus Type 2 in Adults (DC) , Chronic Hypertension (DC) Referrals: Marcos Pierre MD [Primary Care Provider] - Juan Cook DO [Partnered Physician] - Prescriptions: Cyclophosphamide 50 mg PO BID #60 capsule PredniSONE 60 mg PO DAILY #30 tablet Sulfamethoxazole/Trimeth DS [Bactrim DS] 1 each PO 3XW #90 tablet
[2016-09-06] MEDS ORDERED: Sulfamethoxazole/Trimeth DS 1 EACH TABLET PO ONE (11:52)
--- NOTE | 2016-09-06 15:49 | Discharge Summary ---
Date of Encounter: 09/06/16 Time of Encounter: 15:47 - Discharge Diagnosis (1) Glomerulonephritis Priority: Primary Status: Acute (2) HTN (hypertension) Priority: Secondary Status: Acute Qualifiers: Hypertension type: essential hypertension Qualified Code(s): I10 - Essential (primary) hypertension (3) Diabetes mellitus Priority: Secondary Status: Acute Qualifiers: Diabetes mellitus type: type 2 Diabetes mellitus complication status: with unspecified complications Diabetes mellitus gaming dealer insulin use: without gaming dealer use Qualified Code(s): E11.8 - Type 2 diabetes mellitus with unspecified complications (4) DVT prophylaxis Priority: Secondary Status: Acute - Discharge Medications Prescriptions: Cyclophosphamide 50 mg PO BID #60 capsule PredniSONE 60 mg PO DAILY #30 tablet Sulfamethoxazole/Trimeth DS [Bactrim DS] 1 each PO 3XW #90 tablet Home Medications: Levothyroxine [Synthroid] 112 mcg PO DAILY 11/25/15 [History] Cholecalciferol (D-3) [Vitamin D] 2,000 unit PO DAILY 09/03/16 [History] Hydralazine HCl 50 mg PO DAILY PRN 09/03/16 [History] LORazepam [Ativan] 0.5 mg PO BID PRN 09/03/16 [History] Propranolol [Inderal] 40 mg PO BID 09/03/16 [History] Cyclophosphamide 50 mg PO BID #60 capsule 09/06/16 [Rx] PredniSONE 60 mg PO DAILY #30 tablet 09/06/16 [Rx] Sulfamethoxazole/Trimeth DS [Bactrim DS] 1 each PO 3XW #90 tablet 09/06/16 [Rx] Allergies/Adverse Reactions: Allergies codeine Adverse Reaction (Verified 09/03/16 10:06) Vomiting Date of admission: 09/03/16 14:08 Primary care physician: Marcos Pierre MD Consults: 09/05/16 19:22 dietary consult [Consult to Nutrition] [CONS] Routine Comment: Consulting Provider: NUTRITION Reason for Dietary Consult: Diet Education Discharging clinician: Shamar Gutierrez - Patient Status Disposition: Home, Self-Care Condition: Fair Functional capacity at discharge: independent ambulation Overall status at discharge: patient is progressing back to baseline - Discharge Instructions Instructions: Acute Kidney Injury (DC), Diabetes Mellitus Type 2 in Adults (DC) , Chronic Hypertension (DC) Follow Up With: Marcos Pierre MD [Primary Care Provider] - Juan Cook DO [Partnered Physician] - - Diet and Activity Activity: increase activity as tolerated Diet: diabetic diet, other Interval History: Ms. 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 Patient denies any complaints upon 11 point review of symptoms. Patient denies any recent fever, chills or sweats. Nephrology plans 3 days of pulse dose steroids. Evaluation in the ED showed BUN 40 Cr 2.79. CXR showed mild bibasilar airspace disease, mild cardiopericardial enlargement. Hospital course: Ms. Oreilly is a 66 year old female was hospitalized. Acute GN - according to ECW note, biopsy results showed "findings of crescents both old and new on light microscopy and on IF there was linear staining of IgG suggestive of Anti-GBM glomerulopathy. There was also findings of underlying diabetic nephropathy as well." Nephrology is consulted and planning pulse steroids and further work up. patient received pulse steroids. work up done and some labs pending. seen by export specialist today plan home prescription printed for Cytoxan, prednisone and bactrim recommended to resume home meds, follow up with PCP and Logging Equipment Operator patient verbalized understanding no questions at the time of discharge. I was told by RN that patient went to [facility] pharmacy and cytoxan was not given to patient. this requires preauthorization I informed Dr Bowers and she told me that her office will take care of the same. - Time Spent with Patient Total time spent providing and/or coordinating discharge services: - Constitutional Vitals: Temp Pulse Resp BP Pulse Ox 97.9 F 60 16 146/74 95 09/06/16 11:13 09/06/16 11:13 09/06/16 11:13 09/06/16 11:13 09/06/16 11:13 General appearance: Present: A&O X 3, morbidly obese, no acute distress - Head Head exam: Present: atraumatic, normocephalic - Eye Eye exam: Present: PERRL, conjuntiva pink, sclera anicteric Pupils: Present: PERRL - Neck Neck exam general surgery: Present: supple, trachea midline. Absent: lymphadenopathy - Respiratory Respiratory exam: Present: CTAB. Absent: accessory muscle use, rales, rhonchi, wheezes - Cardiovascular Cardiovascular exam: Present: RRR, +S1, +S2. Absent: diastolic murmur, gallop, rubs, systolic murmur - GI/Abdominal GI/Abdominal exam: Present: normal bowel sounds, soft, no peritoneal signs. Absent: distended, tenderness - Extremities Exam Extremities exam: Present: warm, radial pulses palpable and symetrical. Absent : calf tenderness, cyanotic, pedal edema - Neurological Exam Neurological exam: Present: CN II-XII intact, oriented X3, no focal deficits. Absent: pronater drift, facial droop, speech deficit - Skin Skin exam: Present: dry, intact
[2016-09-07] MEDS ORDERED: predniSONE 20 MG TABLET PO SCH (09:00)
[2016-09-07] MEDS ORDERED: Famotidine 20 MG TABLET PO SCH (09:00)
[2016-09-08 07:35] LABS: GBM IgG Multiplex Bead Assay 0 AU/mL (0-19); Glomerular Basement Memb IgG NEGATIVE (Negative); Myeloperoxidase Ab 3 AU/mL (0-19); Serine Protease-3 Antibody 0 AU/mL (0-19)
[2016-09-08 10:53] LABS: QuantiFERON Mitogen minus NIL >10.00 IU/mL; QuantiFERON-TB minus NIL 0.05 IU/mL (0.00-0.34)
[2016-09-08 15:10] LABS: QuantiFERON NIL 0.05 IU/mL; QuantiFERON-TB Gold In-Tube NEGATIVE (Negative)
[2016-09-08 21:24] LABS: Kappa Qnt Free Light Chains 3.52 mg/dL (0.33-1.94); Lambda Qnt Free Light Chains 1.99 mg/dL (0.57-2.63)
== END 2016-09-06 17:04 | disposition home or self-care (01) | DRG 699 ==
LOC: EMEROO 08:16 → 2ANU 08:16
PROVIDERS: ADMIT Internal Medicine; ATTEND Internal Medicine

== ENCOUNTER 2016-10-05 16:45 | Inpatient (IN) ==
[2016-10-05 17:48] LABS: Hematocrit 32.1 % (35.3-44.9); Hemoglobin 11.2 g/dL (11.5-15.4); Immature Platelets 2.9 % (1.1-6.1); Mean Corpuscular HGB Conc 34.9 g/dL (31.6-35.5); Mean Corpuscular Hemoglobin 29.7 pg (28.0-33.3); Mean Corpuscular Volume 85.1 fL (83.0-100.0); Mean Platelet Volume 9.6 fL (9.4-12.4); Monocytes # 0.5 K/mcL (0.0-1.3); Platelet Count 259 K/mcL (140-400); Red Blood Count 3.77 M/mcL (3.82-4.97); Red Cell Distribution Width 12.7 % (11.5-14.5)
[2016-10-05 17:49] LABS: Neutrophils # 7.5 K/mcL (1.6-8.9)
--- NOTE | 2016-10-05 17:50 | Emergency Department Note ---
Disposition Clinical Impression: Acute on chronic renal failure, Elevated troponin Disposition: Admitted As Inpatient Condition: Good Referrals: Marcos Pierre MD [Primary Care Provider] - Forms: ED Satisfaction Letter Time of Disposition: 18:28 Recheck wound or abnormal lab - General Chief Complaint: ED Recheck/Abnormal Lab/Rx Stated Complaint: Chronic kidney failure, sent by Dr. 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 Grullon) for admission. Dr. Cook states that delfina has been experinecing weakness in addition to has bursts of tachycardia in the office and chest pain and did not have access to an EKG machine to assess. He would like patient to be admitted to the medicine service and they will consult because he will be setting her up for dialysis. Lynn is also experiencing shortnes of breath at this time. Delfina denies fever, nausea, vomitting, UTI symptoms, or neuro defecits. - Related Data Home Medications Medication Instructions Recorded Confirmed Levothyroxine [Synthroid] 112 mcg PO DAILY 11/25/15 10/05/16 Cholecalciferol (D-3) [Vitamin D] 2,000 unit PO DAILY 09/03/16 10/05/16 Hydralazine HCl 50 mg PO BID PRN 09/03/16 10/05/16 LORazepam [Ativan] 0.5 mg PO BID PRN 09/03/16 10/05/16 Propranolol [Inderal] 40 mg PO BID 09/03/16 10/05/16 Famotidine [Pepcid] 20 mg PO DAILY 10/05/16 10/05/16 PredniSONE 10 mg PO HS 10/05/16 10/05/16 PredniSONE 20 mg PO BID 10/05/16 10/05/16 Sulfamethoxazole/Trimeth DS 1 each PO MOWEFR 10/05/16 10/05/16 [Bactrim DS] Previous Rx's Medication Instructions Recorded Cyclophosphamide 50 mg PO BID #60 capsule 09/06/16 Allergies Allergy/AdvReac Type Severity Reaction Status Date / Time codeine AdvReac Vomiting Verified 10/05/16 16:51 Constitutional: Denies: fever, chills, weakness, weight change Eyes: Denies: eye pain, eye discharge, vision change ENT ED: Denies: ear pain, throat pain, dental pain, hearing loss, epistaxis, congestion, dysphagia Cardiovascular: Reports: chest pain, palpitations, dyspnea on exertion. Denies : edema, syncope Respiratory: Reports: dyspnea. Denies: cough, wheezes, hemoptysis, stridor Gastrointestinal: Denies: abdominal pain, nausea, vomiting, diarrhea, constipation, hematemesis, melena, hematochezia Genitourinary: Denies: dysuria, frequency, hematuria, discharge Musculoskeletal: Denies: back pain, neck pain, arthralgia, myalgia Integumentary: Denies: rash, abrasion, lesions Neurological: Denies: headache, weakness, numbness, paresthesias, confusion, abnormal gait, vertigo Psychiatric: Denies: anxiety, depression, suicidal thoughts, homicidal thoughts , auditory hallucinations, visual hallucinations Endocrine: Denies: fatigue Hematological/Lymphatic: Denies: easy bleeding, easy bruising Allergic/Immunologic: Denies: facial swelling, urticaria Past Medical History - Past Medical History Medical history: Reports: diabetes, hypertension, renal disease, thyroid disease Surgical history: Reports: other (tubal ligation) Psychiatric history: Reports: anxiety - Social History Smoking Status: Never smoker Smokeless Tobacco Status: No Alcohol use: Reports: rarely Drug use: Reports: none Physical Exam - General Limitations: no limitations General appearance: alert - Head Head exam: atraumatic, normocephalic, normal inspection - Eye Eye exam: Present: normal appearance, PERRL, EOMI - Expanded Eye Exam Pupils: Left: reactive - ENT ENT exam: normal exam, normal oropharynx, mucous membranes moist - Expanded ENT Exam External ear exam: Present: normal external inspection Mouth exam: Present: normal external inspection Teeth exam: Present: normal inspection Throat exam: Present: normal inspection - Neck Neck exam: Present: normal inspection, full ROM, trachea midline - Chest Chest inspection: Present: normal inspection, symmetric chest wall rise - Respiratory Respiratory exam: Present: normal lung sounds bilaterally - Cardiovascular Cardiovascular exam: Present: regular rate, normal rhythm, normal heart sounds - Abdominal Exam Abdominal exam: Present: soft, Non-Tender. Absent: tenderness, distention, guarding, rebound, rigidity - Extremities Exam Extremities exam: Present: normal inspection, full ROM. Absent: tenderness, pedal edema - Expanded Upper Extremity Exam Shoulder exam: Present: normal inspection, full ROM Arm exam: Present: normal inspection, full ROM Elbow exam: Present: normal inspection, full ROM Forearm/Wrist exam: Present: normal inspection, full ROM Hand exam: Present: normal inspection, full ROM Vascular exam: Normal: capillary refill, radial pulse - Expanded Lower Extremity Exam Hip/Pelvis exam: Present: normal inspection, full ROM Upper leg exam: Present: normal inspection, full ROM Knee exam: Present: normal inspection, full ROM Lower leg exam: Present: normal inspection, full ROM Ankle exam: Present: normal inspection, full ROM Foot/toe exam: Present: normal inspection, full ROM Neurovascular/Tendon exam: Absent: motor deficit, sensory deficit, tendon deficit - Back Exam Back exam: Present: normal inspection, full ROM. Absent: tenderness - Neurological Exam Neurological exam: Present: alert, oriented X3 - Expanded Neurological Exam Patient oriented to: Present: person, place, time Coma Scale Eye Opening: Spontaneous Coma Scale Motor Response: Obeys Commands Coma Scale Verbal Response: Oriented Coma Scale Total: 15 - Psychiatric Psychiatric exam: Present: normal affect, normal mood - Skin Skin exam: Present: warm, dry, intact, normal color Course Course Narrative: isolation precaution are being used due to decreased immunity and possible neutropenia. Delfina will have a cardiac workup for tachcyardia and admission to eh medicine service for CP r/o ACS in adiition to consult from nephro for dialysis placement. - Consultations Consultation #1: discussed case with Dr. Andrea and she has acceped delfina for admission with consult to nephro. Time: 18:27 Vital Signs Temperature 97.4 F L 10/05/16 16:48 Pulse Rate 112 10/05/16 16:48 Respiratory Rate 20 10/05/16 16:48 Blood Pressure 174/111 10/05/16 16:48 O2 Sat by Pulse Oximetry 97 10/05/16 16:48 Temperature 97.4 F L 10/05/16 16:48 Pulse Rate 112 10/05/16 16:48 Respiratory Rate 20 10/05/16 16:48 Blood Pressure 174/111 10/05/16 16:48 O2 Sat by Pulse Oximetry 97 10/05/16 16:48 Oxygen Delivery Oxygen Delivery Room Air Recheck wound or abnormal lab - Lab Data Result diagrams: 10/05/16 17:32 10/05/16 17:32 Lab Results 10/05/16 10/05/16 10/05/16 Range/Units 17:32 17:32 17:32 WBC 8.2 (4.3-11.1) K/mcL RBC 3.77 L (3.82-4.97) M/mcL Hgb 11.2 L (11.5-15.4) g/dL Hct 32.1 L (35.3-44.9) % MCV 85.1 (83.0-100.0) fL MCH 29.7 (28.0-33.3) pg MCHC 34.9 (31.6-35.5) g/dL RDW 12.7 (11.5-14.5) % Plt Count 259 (140-400) K/mcL MPV 9.6 (9.4-12.4) fL Seg Neutrophils % 92.0 % Lymphocytes % 2.0 % Monocytes % 6.0 % Neutrophils # 7.5 (1.6-8.9) K/mcL Lymphocytes # 0.2 L (0.6-4.6) K/mcL Monocytes # 0.5 (0.0-1.3) K/mcL Immature Plt Fraction 2.9 (1.1-6.1) % Sodium 132 L (136-145) mEq/L Potassium 4.7 H (3.5-4.5) mEq/L Chloride 103 (98-109) mEq/L Carbon Dioxide 14 L (19-29) mEq/L BUN 135 H (7-20) mg/dL Creatinine 5.98 H (0.57-1.11) mg/dL Est GFR ( Amer) 9 L (> 60) Est GFR (Non-Af Amer) 7 L (> 60) BUN/Creatinine Ratio 23 (6-26) Glucose 233 H (70-99) mg/dL Calculated Osmolality 325 H (280-300) Calcium 9.1 (8.6-10.8) mg/dL Total Bilirubin 0.6 (0.2-1.2) mg/dL Direct Bilirubin 0.2 (0.0-0.5) mg/dL Indirect Bilirubin 0.4 (0.0-1.2) mg/dL AST 16 (5-34) Units/L ALT 20 (0-55) Units/L Alkaline Phosphatase 50 (38-126) Units/L Troponin I (0-0.03) ng/mL Serum Total Protein 6.2 (6.0-8.3) g/dL Albumin 3.4 L (3.5-5.0) g/dL Globulin 2.8 (2.4-3.5) g/dL Albumin/Globulin Ratio 1.2 (1.1-2.2) Lipase 205 H (8-78) Units/L Specimen Rejected 10/05/16 10/05/16 Range/Units 17:32 17:32 WBC (4.3-11.1) K/mcL RBC (3.82-4.97) M/mcL Hgb (11.5-15.4) g/dL Hct (35.3-44.9) % MCV (83.0-100.0) fL MCH (28.0-33.3) pg MCHC (31.6-35.5) g/dL RDW (11.5-14.5) % Plt Count (140-400) K/mcL MPV (9.4-12.4) fL Seg Neutrophils % % Lymphocytes % % Monocytes % % Neutrophils # (1.6-8.9) K/mcL Lymphocytes # (0.6-4.6) K/mcL Monocytes # (0.0-1.3) K/mcL Immature Plt Fraction (1.1-6.1) % Sodium (136-145) mEq/L Potassium (3.5-4.5) mEq/L Chloride (98-109) mEq/L Carbon Dioxide (19-29) mEq/L BUN (7-20) mg/dL Creatinine (0.57-1.11) mg/dL Est GFR ( Amer) (> 60) Est GFR (Non-Af Amer) (> 60) BUN/Creatinine Ratio (6-26) Glucose (70-99) mg/dL Calculated Osmolality (280-300) Calcium (8.6-10.8) mg/dL Total Bilirubin (0.2-1.2) mg/dL Direct Bilirubin (0.0-0.5) mg/dL Indirect Bilirubin (0.0-1.2) mg/dL AST (5-34) Units/L ALT (0-55) Units/L Alkaline Phosphatase (38-126) Units/L Troponin I 0.28 H* (0-0.03) ng/mL Serum Total Protein (6.0-8.3) g/dL Albumin (3.5-5.0) g/dL Globulin (2.4-3.5) g/dL Albumin/Globulin Ratio (1.1-2.2) Lipase (8-78) Units/L Specimen Rejected Miscellaneous - EKG Data EKG attestation: Yes I reviewed and interpreted this EKG. EKG results narrative: NSR with rate of 95. NO STEMI. normal intervals. LAE. no old EKG. [id number]
[2016-10-05 17:55] LABS: Albumin 3.4 g/dL (3.5-5.0); Albumin/Globulin Ratio 1.2 (1.1-2.2); Bilirubin,Direct 0.2 mg/dL (0.0-0.5); Bilirubin,Indirect 0.4 mg/dL (0.0-1.2); Bilirubin,Total 0.6 mg/dL (0.2-1.2); Globulin 2.8 g/dL (2.4-3.5); Total Protein 6.2 g/dL (6.0-8.3)
[2016-10-05 18:01] LABS: Calcium 9.1 mg/dL (8.6-10.8); Potassium 4.7 mEq/L (3.5-4.5)
[2016-10-05] MEDS ORDERED: 0.9 % Sodium Chloride 1,000 ML IVC ONE (18:07)
[2016-10-05 18:09] LABS: Lymphocytes # 0.2 K/mcL (0.6-4.6)
--- NOTE | 2016-10-05 18:12 | Emergency Department Note ---
Disposition Clinical Impression: Acute on chronic renal failure, Elevated troponin Disposition: Admitted As Inpatient Condition: Good General Adult HPI - General Chief complaint: ED Recheck/Abnormal Lab/Rx Stated complaint: Chronic kidney failure, sent by Dr. Cook Time Seen by Provider: 10/05/16 17:58 Source: patient Limitations: no limitations - History of Present Illness Pain Scale: 0 - Related Data Home Medications Medication Instructions Recorded Confirmed Levothyroxine [Synthroid] 112 mcg PO DAILY 11/25/15 10/05/16 Cholecalciferol (D-3) [Vitamin D] 2,000 unit PO DAILY 09/03/16 10/05/16 Hydralazine HCl 50 mg PO BID PRN 09/03/16 10/05/16 LORazepam [Ativan] 0.5 mg PO BID PRN 09/03/16 10/05/16 Propranolol [Inderal] 40 mg PO BID 09/03/16 10/05/16 Famotidine [Pepcid] 20 mg PO DAILY 10/05/16 10/05/16 PredniSONE 10 mg PO HS 10/05/16 10/05/16 PredniSONE 20 mg PO BID 10/05/16 10/05/16 Sulfamethoxazole/Trimeth DS 1 each PO MOWEFR 10/05/16 10/05/16 [Bactrim DS] Previous Rx's Medication Instructions Recorded Cyclophosphamide 50 mg PO BID #60 capsule 09/06/16 Allergies Allergy/AdvReac Type Severity Reaction Status Date / Time codeine AdvReac Vomiting Verified 10/05/16 16:51 Constitutional: Denies: fever, chills, weakness, weight change Eyes: Denies: eye pain, eye discharge, vision change ENT ED: Denies: ear pain, throat pain, dental pain, hearing loss, epistaxis, congestion, dysphagia Cardiovascular: Reports: chest pain, palpitations, dyspnea on exertion. Denies : edema, syncope Respiratory: Reports: dyspnea. Denies: cough, wheezes, hemoptysis, stridor Gastrointestinal: Denies: abdominal pain, nausea, vomiting, diarrhea, constipation, hematemesis, melena, hematochezia Genitourinary: Denies: dysuria, frequency, hematuria, discharge Musculoskeletal: Denies: back pain, neck pain, arthralgia, myalgia Integumentary: Denies: rash, abrasion, lesions Neurological: Denies: headache, weakness, numbness, paresthesias, confusion, abnormal gait, vertigo Psychiatric: Denies: anxiety, depression, suicidal thoughts, homicidal thoughts , auditory hallucinations, visual hallucinations Endocrine: Denies: fatigue Hematological/Lymphatic: Denies: easy bleeding, easy bruising Allergic/Immunologic: Denies: facial swelling, urticaria Past Medical History - Past Medical History Medical history: Reports: diabetes, hypertension, renal disease, thyroid disease Surgical history: Reports: other (tubal ligation) Psychiatric history: Reports: anxiety - Social History Smoking Status: Never smoker Smokeless Tobacco Status: No Alcohol use: Reports: rarely Drug use: Reports: none Physical Exam - General Limitations: no limitations General appearance: alert Course - Reevaluation(s) Reevaluation #1: I saw the patient with the resident, Dr. Umaña. I spoke to the patient's real estate loan officer prior to patient arrival. The patient is on cytotoxin and steroids for a glomerulonephritis and renal functions have doubled in a very short period of time and she started to get nauseous and feeling sick. On examination the patient looks okay and physical exam is unremarkable. We ordered labs. The plan was to administer some IV fluids, get the patient admitted to the hospital, hold the other medications. We will arrange for the hospitalist to admit with a nephrology consult. Time: 18:12 Vital Signs Temperature 97.4 F L 10/05/16 16:48 Pulse Rate 112 10/05/16 16:48 Respiratory Rate 20 10/05/16 16:48 Blood Pressure 174/111 10/05/16 16:48 O2 Sat by Pulse Oximetry 97 10/05/16 16:48 Temperature 97.4 F L 10/05/16 16:48 Pulse Rate 112 10/05/16 16:48 Respiratory Rate 20 10/05/16 16:48 Blood Pressure 174/111 10/05/16 16:48 O2 Sat by Pulse Oximetry 97 10/05/16 16:48 Oxygen Delivery Oxygen Delivery Room Air Medical Decision Making - Lab Data Result diagrams: 10/05/16 17:32 10/05/16 17:32 Lab Results 10/05/16 10/05/16 10/05/16 Range/Units 17:32 17:32 17:32 WBC 8.2 (4.3-11.1) K/mcL RBC 3.77 L (3.82-4.97) M/mcL Hgb 11.2 L (11.5-15.4) g/dL Hct 32.1 L (35.3-44.9) % MCV 85.1 (83.0-100.0) fL MCH 29.7 (28.0-33.3) pg MCHC 34.9 (31.6-35.5) g/dL RDW 12.7 (11.5-14.5) % Plt Count 259 (140-400) K/mcL MPV 9.6 (9.4-12.4) fL Seg Neutrophils % 92.0 % Lymphocytes % 2.0 % Monocytes % 6.0 % Neutrophils # 7.5 (1.6-8.9) K/mcL Lymphocytes # 0.2 L (0.6-4.6) K/mcL Monocytes # 0.5 (0.0-1.3) K/mcL Immature Plt Fraction 2.9 (1.1-6.1) % Sodium 132 L (136-145) mEq/L Potassium 4.7 H (3.5-4.5) mEq/L Chloride 103 (98-109) mEq/L Carbon Dioxide 14 L (19-29) mEq/L BUN 135 H (7-20) mg/dL Creatinine 5.98 H (0.57-1.11) mg/dL Est GFR ( Amer) 9 L (> 60) Est GFR (Non-Af Amer) 7 L (> 60) BUN/Creatinine Ratio 23 (6-26) Glucose 233 H (70-99) mg/dL Calculated Osmolality 325 H (280-300) Calcium 9.1 (8.6-10.8) mg/dL Total Bilirubin 0.6 (0.2-1.2) mg/dL Direct Bilirubin 0.2 (0.0-0.5) mg/dL Indirect Bilirubin 0.4 (0.0-1.2) mg/dL AST 16 (5-34) Units/L ALT 20 (0-55) Units/L Alkaline Phosphatase 50 (38-126) Units/L Troponin I (0-0.03) ng/mL Serum Total Protein 6.2 (6.0-8.3) g/dL Albumin 3.4 L (3.5-5.0) g/dL Globulin 2.8 (2.4-3.5) g/dL Albumin/Globulin Ratio 1.2 (1.1-2.2) Lipase 205 H (8-78) Units/L Specimen Rejected 10/05/16 10/05/16 Range/Units 17:32 17:32 WBC (4.3-11.1) K/mcL RBC (3.82-4.97) M/mcL Hgb (11.5-15.4) g/dL Hct (35.3-44.9) % MCV (83.0-100.0) fL MCH (28.0-33.3) pg MCHC (31.6-35.5) g/dL RDW (11.5-14.5) % Plt Count (140-400) K/mcL MPV (9.4-12.4) fL Seg Neutrophils % % Lymphocytes % % Monocytes % % Neutrophils # (1.6-8.9) K/mcL Lymphocytes # (0.6-4.6) K/mcL Monocytes # (0.0-1.3) K/mcL Immature Plt Fraction (1.1-6.1) % Sodium (136-145) mEq/L Potassium (3.5-4.5) mEq/L Chloride (98-109) mEq/L Carbon Dioxide (19-29) mEq/L BUN (7-20) mg/dL Creatinine (0.57-1.11) mg/dL Est GFR ( Amer) (> 60) Est GFR (Non-Af Amer) (> 60) BUN/Creatinine Ratio (6-26) Glucose (70-99) mg/dL Calculated Osmolality (280-300) Calcium (8.6-10.8) mg/dL Total Bilirubin (0.2-1.2) mg/dL Direct Bilirubin (0.0-0.5) mg/dL Indirect Bilirubin (0.0-1.2) mg/dL AST (5-34) Units/L ALT (0-55) Units/L Alkaline Phosphatase (38-126) Units/L Troponin I 0.28 H* (0-0.03) ng/mL Serum Total Protein (6.0-8.3) g/dL Albumin (3.5-5.0) g/dL Globulin (2.4-3.5) g/dL Albumin/Globulin Ratio (1.1-2.2) Lipase (8-78) Units/L Specimen Rejected Miscellaneous Attestation Statement - Attestation Attestation: I, Dr. Trent, examined this patient [id number] and my medical decision- making was reviewed with Dr. Umaña, Resident Physician. I agree with the documented findings, disposition and treatment plan as described except to the extent set forth below. please see progress notes for detail
[2016-10-05 19:02] LABS: INR 0.8
[2016-10-05 19:05] LABS: Prothrombin Time 8.9 Seconds (9.4-12.1)
[2016-10-05 19:07] LABS: Activated Partial Thrombo Time 19.7 Seconds (26.0-36.0)
[2016-10-05] MEDS ORDERED: Naloxone 0.4 MG/ML INJ IVP PRN (20:20)
[2016-10-05] MEDS ORDERED: *HR* LORazepam 0.5 MG TABLET PO PRN (20:22)
[2016-10-05] MEDS ORDERED: hydrALAZINE 25 MG TABLET PO PRN (20:22)
--- NOTE | 2016-10-05 20:24 | Internal Med History&Physical ---
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 for which she follows up with Dr Bowers's group, her baseline creatinine is around 3.0, she now comes in with 5.98, in the setting of worsening symptoms concerning for her progressed renal function, she is on immunosuppressive therapy, we will admit her for IVF, nephrology consult for them to weigh in, we will also do renal dosing of all medications, avoid nephrotoxins and follow BMP (2) Hyperkalemia Current visit: Yes Status: Acute from the CKD, we will monitor and follow BMP (3) Metabolic acidosis Current visit: Yes Status: Acute from t he CKD, we will start on replacement and follow BMP (4) Diabetes mellitus Current visit: Yes Status: Chronic patient with a history of type 2 DM, not on insulin, last A1c unknown, we will check one in AM, will do basal bolus insulin regimen with FS ACHS Qualifiers: Diabetes mellitus type: type 2 Diabetes mellitus complication status: with unspecified complications Diabetes mellitus retirement insulin use: without retirement use Qualified Code(s): E11.8 - Type 2 diabetes mellitus with unspecified complications (5) HTN (hypertension) Current visit: Yes Status: Chronic labile BP on hydralazine, we will contiue this medication and monitor BP Qualifiers: Hypertension type: essential hypertension Qualified Code(s): I10 - Essential (primary) hypertension (6) CKD (chronic kidney disease), stage IV Current visit: Yes Status: Chronic 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 for which she follows up with Dr Harper group, further assessment and plan per NEYMAR on CKD (7) Hypothyroidism Current visit: Yes Status: Chronic will continue synthroid Qualifiers: Hypothyroidism type: acquired Qualified Code(s): E03.9 - Hypothyroidism, unspecified (8) GERD (gastroesophageal reflux disease) Current visit: Yes Status: Chronic we will continue home medication-famotidine Qualifiers: Esophagitis presence: without esophagitis Qualified Code(s): K21.9 - Gastro -esophageal reflux disease without esophagitis Internal Medicine - H&P: HPI Chief complaint: abnormal labs Admitted From: Emergency Dept Plans for Post Hospital Care: Home History of present illness: Ms. Oreilly is a 66 year old female with a history of CKD from fibrillary glomerulonephritis was sent to the ER from her steward racetrack's office today for abnormal labs. She has been on immunesuppressive therapy with prednisone and cyclophosphamide. Her baseline creatinine has been around 3.0 but upon lab review today she was noted to be at 5.98. She additionally complains of periorbital swelling in the morning, generalized weakness, nausea but no vomiting, abnormal skin sensation. She also reports anorexia. She however denies reduced urine output or changes in urine color, no itching has been noted. She reports cough with clear sputum production, no fever or chills. and no sick contacts. Her steward racetrack wanted her admitted for further evaluation and consideration of dialysis initiation. Past Med Surg Social Fam HX - Past Medical History Medical history: diabetes, hypertension, renal disease, thyroid disease Psychiatric history: anxiety - Past Surgical History Surgical History: other (tubal ligation) - Social History Smoking Status: Never smoker Smokeless Tobacco Status: No Alcohol use: rarely Drug use: none - Family History Mother Hx Family Cancer: Yes Father Hx Family Endocrine Disorder: Yes Internal Medicine - H&P: Meds Levothyroxine [Synthroid] 112 mcg PO DAILY 11/25/15 [History] Cholecalciferol (D-3) [Vitamin D] 2,000 unit PO DAILY 09/03/16 [History] Hydralazine HCl 50 mg PO BID PRN 09/03/16 [History] LORazepam [Ativan] 0.5 mg PO BID PRN 09/03/16 [History] Propranolol [Inderal] 40 mg PO BID 09/03/16 [History] Cyclophosphamide 50 mg PO BID #60 capsule 09/06/16 [Rx] Famotidine [Pepcid] 20 mg PO DAILY 10/05/16 [History] PredniSONE 10 mg PO HS 10/05/16 [History] PredniSONE 20 mg PO BID 10/05/16 [History] Sulfamethoxazole/Trimeth DS [Bactrim DS] 1 each PO MOWEFR 10/05/16 [History] Allergies codeine Adverse Reaction (Verified 10/05/16 16:51) Vomiting All Systems PM: A 10-system review of systems was performed and is negative for pertinent findings except as documented above in the HPI. - Constitutional Constitutional: anorexia, fatigue, malaise, weakness, no chills, no fever(s), no night sweats - EENT Eyes: no change in vision, no discharge, no pain, no photophobia Ears: no ear discharge, no ear pain, no tinnitus Nose, mouth and throat: no dysphagia, no nasal discharge, no neck pain, no sore throat - Cardiovascular Cardiovascular ROS IM: dyspnea, dyspnea on exertion, no chest pain, no diaphoresis, no lightheadedness, no palpitations, no syncope - Respiratory Respiratory: cough, dyspnea, dyspnea on exertion, other (clear sputum), no wheezing, no excessive phlegm production - Gastrointestinal Gastrointestinal: no abdominal pain, no diarrhea, no hematemesis, no hematochezia, no melena, no nausea, no vomiting - Genitourinary Genitourinary: no change in urinary stream, no dysuria, no flank pain, no hematuria - Musculoskeletal Musculoskeletal ROS IM: myalgias, no numbness, no tingling - Integumentary Integumentary IM: no rash, no unusual bruising - Neurological Neurological ROS: no confusion, no convulsions, no focal weakness, no numbness, no tingling, no tremor(s) - Psychiatric Psychiatric: change in appetite, no auditory hallucinations, no behavioral changes - Endocrine Endocrine IM: no deeping of the voice, no heat intolerance - Hematologic/Lymphatic Hematologic/Lymphatic: no easy bruising - Allergic/Immunologic Allergic/Immunologic: as per HPI - Constitutional Vitals: Temp Pulse Resp BP Pulse Ox 97.4 F L 112 20 174/111 97 10/05/16 16:48 10/05/16 16:48 10/05/16 16:48 10/05/16 16:48 10/05/16 16:48 PHYSICAL EXAMINATION: CONSTITUTIONAL: Adult female, lying in bed with no sign of distress, HEENT: NC/AT, EOMI, PERRLA, anicteric sclera, normal conjunctiva, supple, clear nares, moist mucous membranes, clear oropharynx, central uvula RESP: no chest wall tenderness with palpation, lungs are clear to auscultation bilaterally, good AE bilaterally, No crackles or wheeze CARDIO: Normal hearts sounds; S1 and 2, RRR with no murmurs, no JVD, no ankleedema GI: Soft, full, no tenderness, no organomegaly felt. MUSCULOSKELETAL: grossly normal movements bilaterally, no deformities noted, no calf tenderness EXTREMITIES: No clubbing, cyanosis or edema, NEUROLOGIC: CN 2-12 intact grossly. No motor/sensory deficit appreciated, PSYCHIATRY: AAO x 3. Mood is fair, exhibits appropriate judgement SKIN: no skin rash or ulcers noted Internal Med - H&P Results - Labs CBC & Chem 7: 10/05/16 17:32 04 17:32 - Diagnostic Studies Chest x-ray Status: image reviewed by me
[2016-10-05] MEDS ORDERED: predniSONE 10 MG TABLET PO SCH (21:00)
[2016-10-05] MEDS: Famotidine 20 MG TABLET PO SCH (22:32)
[2016-10-05] MEDS: *HR* Heparin 5,000 UNIT/ML VIAL SQ SCH (22:32)
[2016-10-05] MEDS ORDERED: *HR* Metoprolol 5 MG/5 ML VIAL IVP STA (22:55)
[2016-10-06] MEDS ORDERED: *HR* Dextrose 50 % in Water (Syg) 50 ML SYRINGE IVP PRN (01:39)
[2016-10-06] MEDS ORDERED: D5% in Water 1,000 ML IVC PRN (01:39)
[2016-10-06] MEDS ORDERED: Dextrose Gel 15 GM PO PRN ×2 (01:39)
[2016-10-06] MEDS: *HR* Heparin 5,000 UNIT/ML VIAL SQ SCH ×3 (05:55→21:18)
[2016-10-06 06:18] LABS: Bilirubin,Urine Negative (Negative); Blood,Urine Large (Negative); Clarity,Urine Cloudy (Clear); Color,Urine Yellow (Yellow); Glucose,Urine (UA) 100 mg/dL (Normal); Ketones,Urine Negative (Negative); Leukocyte Esterase,Urine Small (Negative); Nitrite,Urine Negative (Negative); PH,Urine 5.5 pH Units (5.0-8.0); Protein,Urine >=300 mg/dL (Neg-Trace); Specific Gravity,Urine 1.016 (1.010-1.025); Urobilinogen,Urine Normal (Normal)
[2016-10-06 06:20] LABS: Eosinophils % 0.2 %; Hematocrit 26.7 % (35.3-44.9); Lymphocytes # 0.2 K/mcL (0.6-4.6); Lymphocytes % 4.4 %; Mean Corpuscular HGB Conc 34.1 g/dL (31.6-35.5); Mean Corpuscular Hemoglobin 29.4 pg (28.0-33.3); Mean Corpuscular Volume 86.1 fL (83.0-100.0); Mean Platelet Volume 9.6 fL (9.4-12.4); Monocytes # 0.4 K/mcL (0.0-1.3); Monocytes % 8.8 %; Neutrophils # 4.3 K/mcL (1.6-8.9); Platelet Count 164 K/mcL (140-400); Red Cell Distribution Width 12.5 % (11.5-14.5); Segmented Neutrophils % 85.6 %
[2016-10-06 06:21] LABS: RBC,Urine 15-30 per hpf (0-3); Squamous Epithelial Cell,Urine Many per lpf (None-Few); WBC,Urine 15-30 per hpf (0-3)
[2016-10-06 06:25] LABS: Hemoglobin A1C 6.8 %
[2016-10-06 06:31] LABS: Granular Casts,Urine Few per lpf (None Seen); Hyaline Casts,Urine Few per lpf (None-Few)
[2016-10-06 06:32] LABS: Bacteria,Urine Few per hpf (None-Few); Mucus,Urine Few (Few); Oval Fat Bodies,Urine Present (Not Present)
[2016-10-06 06:35] LABS: Hemoglobin 9.1 g/dL (11.5-15.4)
[2016-10-06 06:42] LABS: Calcium 8.3 mg/dL (8.6-10.8); Magnesium 2.1 mg/dL (1.6-2.6); Phosphorous 4.8 mg/dL (2.3-4.7); Potassium 4.7 mEq/L (3.5-4.5)
[2016-10-06] MEDS ORDERED: Sulfamethoxazole/Trimeth DS 1 EACH TABLET PO SCH (09:00)
[2016-10-06] MEDS: predniSONE 20 MG TABLET PO SCH ×2 (09:05→12:33)
[2016-10-06] MEDS: Insulin LISPRO 300 UNITS/3 ML VIAL SQ SCH ×4 (09:05→21:11)
[2016-10-06] MEDS: Cholecalciferol (D-3) 1,000 UNIT TABLET PO SCH (09:17)
[2016-10-06] MEDS: CYCLOPHOSPHAMIDE 50MG PO SCH ×2 (09:17→21:11)
--- NOTE | 2016-10-06 10:07 | Internal Med Progress Note ---
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 She would be started on pulsed steroids and immunomodulator cytoxan, with follow -up labs showing worsening renal function, prompting admission. August SCr 3.24, to October 05 SCr 5.98 on admission. She is at further risk of worsening renal failure due to recalcitrant RPGN, warrants close monitoring. Nephrology team on board, to consider additional therapy, possible hemodialysis if needed. Patient requires close monitoring of weight, I/O's, renal function. (3) Immunocompromised due to corticosteroids Current Visit: Yes Status: Acute Assessment and plan: Patient was started on prednisone pulse dosing (60mg daily). She exhibits an immunocompromised state due to multiple factors. Chronic corticosteroid use from the prednisone, cytoxan immunomodulator. She was on bactrim for prophylaxis from opportunistic illnesses. Continue Bactrim DS MWF. Additionally, her worsening kidney function with evidence of proteinuria, likely losing immunoglobulins. Agree with droplet precautions. Appreciate nephrology recs. (4) Morbid obesity Current Visit: Yes Status: Acute Assessment and plan: Multifactorial, exacerbated by chronic prednisone use. Qualifiers: Obesity type: drug-induced Qualified Code(s): E66.1 - Drug-induced obesity (5) HTN (hypertension) Current Visit: Yes Status: Acute Assessment and plan: HTN, with contribution from long-term prednisone use. Cont Hydralazine and Inderal. Qualifiers: Hypertension type: essential hypertension Qualified Code(s): I10 - Essential (primary) hypertension (6) Elevated troponin Current Visit: Yes Status: Acute Assessment and plan: Trop 0.28 on admission 10/05/16. Will repeat Trop. Likely elevated in setting of HTN, worsening renal disease. (7) Metabolic acidosis Current Visit: Yes Status: Acute Assessment and plan: Worsening non-anion gap metabolic acidosis. Suspect 2* RPGN per above. Admission 10/05 Bicarb 14, now 16. Per nephrology. - Subjective Interval history: 66 yoF with significant history: RPGN per Kidney bx 09/01/16, started cytoxan, bactrim, pulsed steroids. Followed by car [facility]ive[facility]. Sent for abnml labs - SCr 5.98 from 3 in August. She affirms no fever, chills, chest pain, pressure. Had prior back pain but from lifting. Relates no LUTS, no gross hematuria. No lightheaded/dizziness, bloody stools. - Constitutional Vitals: Temp Pulse Resp BP Pulse Ox 97.5 F L 60 16 149/70 100 10/06/16 06:46 10/06/16 06:46 10/06/16 06:46 10/06/16 06:46 10/06/16 06:46 General appearance: Present: A&O X 3, pleasant - Head Head exam: Present: atraumatic, normocephalic - Eye Eye exam: Present: EOMI, sclera anicteric - ENT ENT exam: Present: mucous membranes moist - Neck Neck exam general surgery: Present: supple, trachea midline. Absent: nuchal rigidity - Respiratory Respiratory exam: Absent: rhonchi, wheezes - Cardiovascular Cardiovascular exam: Present: +S1, +S2. Absent: JVD - GI/Abdominal GI/Abdominal exam: Present: soft, no peritoneal signs. Absent: tenderness - Extremities Exam Extremities exam: Present: pedal edema (trace), warm, radial pulses palpable and symetrical Internal Medicine: Result - Labs CBC & Chem 7: 10/06/16 05:44 10/06/16 05:44 Labs: Short CBC 10/06/16 Range/Units 05:44 WBC 5.0 (4.3-11.1) K/mcL Hgb 9.1 L D (11.5-15.4) g/dL Hct 26.7 L (35.3-44.9) % Plt Count 164 (140-400) K/mcL Neutrophils # 4.3 (1.6-8.9) K/mcL BMP 10/06/16 05:44 Sodium 135 L Potassium 4.7 H Chloride 108 Carbon Dioxide 16 L BUN 121 H Creatinine 5.55 H Glucose 156 H Calcium 8.3 L Urine 10/06/16 Range/Units 06:00 Urine Color Yellow (Yellow) Urine Clarity Cloudy A (Clear) Urine pH 5.5 (5.0-8.0) pH Units Ur Specific [place] 1.016 (1.010-1.025) Urine Protein >=300 H (Neg-Trace) mg/dL Urine Glucose (UA) 100 H (Normal) mg/dL - ABG Interpretation ABG results: PT/INR, D-dimer PT 8.9 Seconds (9.4-12.1) L 10/05/16 18:09 Consult Discharge Plan - Plan Instructions: Chronic Kidney Disease (DC), Chronic Kidney Disease (GEN), Renal Failure Diet (DC), Renal Failure Diet (GEN), Hypothyroidism (DC), Diabetes Mellitus Type 2 in Adults (DC), Chronic Hypertension (DC), Post-streptococcal Glomerulonephritis (DC), Post-streptococcal Glomerulonephritis (GEN), Chronic Kidney Disease, Thermometer Production Worker (GEN), Post-streptococcal Glomerulonephritis, Thermometer Production Worker (GEN) Referrals: Marcos Pierre MD [Primary Care Provider] - <Donnell Xiong - Last Filed: 10/07/16 19:29> Date of Encounter: 10/06/16 - Constitutional Vitals: Temp Pulse Resp BP Pulse Ox 97.8 F 55 18 137/53 97 10/07/16 16:34 10/07/16 16:34 10/07/16 16:34 10/07/16 16:34 10/07/16 16:34 Internal Medicine: Result - Labs CBC & Chem 7: 10/07/16 07:32 10/07/16 07:32 Labs: Short CBC 10/07/16 Range/Units 07:32 WBC 4.1 L (4.3-11.1) K/mcL Hgb 9.3 L (11.5-15.4) g/dL Hct 27.2 L (35.3-44.9) % Plt Count 139 L (140-400) K/mcL Neutrophils # 3.5 (1.6-8.9) K/mcL BMP 10/07/16 07:32 Sodium 138 Potassium 3.8 Chloride 110 H Carbon Dioxide 16 L BUN 111 H Creatinine 5.04 H Glucose 94 Calcium 7.9 L Liver Function 10/07/16 Range/Units 07:32 Albumin 2.4 L D (3.5-5.0) g/dL - ABG Interpretation ABG results: PT/INR, D-dimer PT 8.9 Seconds (9.4-12.1) L 10/05/16 18:09 - Attending Attestation I examined this patient and my medical decision-making was reviewed with the Resident Physician on 10/06/16. I agree with the documented findings, disposition and treatment plan as described except to the extent set forth below. Ms. Oreilly is currently inpatient for worsening renal failure due to biopsy proven RPGN. She has had outpatient therapy and this has failed. She is moderate to high risk due to worsening renal function. Ms. Oreilly feels OK. No new issues. No diarrhea. Appetite OK. No pain Exam Alert. Comfortable Heart reg No wheeze I/P 1. Renal failure - 2. RPGN Further diagnoses and plan as above.
--- NOTE | 2016-10-06 10:49 | Nephrology Consult Note ---
Date of Encounter: 10/06/16 Time of Encounter: 09:45 Assessment and Plan (1) Acute on chronic renal failure Current Visit: Yes Status: Acute Patient currently showing to have an acute kidney injury/failure on top of her chronic kidney disease stage IV. She appears to have a baseline GFR around 15 with serum creatinine around 3. 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 She was started on prednisone and cyclophosphamide at that time he has continued to have nausea, vomiting, anorexia, and some weakness is beginning that regimen. She states she has not been able to eat or drink much without becoming nauseated including water. Her current acute kidney injury could certainly be from prerenal azotemia as suggested by the BUN/Creatinine ratio and patient appears dry on exam with presentation of tachycardia improved with administration of fluids, but there could be other causes for her acute kidney failure. She did see mild improvement in her kidney function following 1 L fluid repletion yesterday evening. Patient states she continues to make urine, reporting having had 2 urinations, both have filling the hat. We will continue fluid repletion with 0.45% NaCl with 75 milliequivalents sodium bicarbonate at 125 ml/hr We will obtain electrolytes in the morning Check retroperitoneal ultrasound We will repeat patient lipase We will obtain a protein/creatinine ratio from her urine Start monitoring strict I/Os Continue prophylactic Bactrim (2) Glomerulonephritis Current Visit: No Status: Acute Patient diagnosed with crescentic fibrillary glomerulonephritis one month ago previously on cyclophosphamide and prednisone. She presents the ER from her supervisor special education office due to continued symptoms associated with a cyclophosphamide and acute worsening of her renal function. Plan as above (3) Diabetes mellitus Current Visit: Yes Status: Chronic Continue blood sugar control per primary team Qualifiers: Diabetes mellitus type: type 2 Diabetes mellitus complication status: with unspecified complications Diabetes mellitus [facility] insulin use: without assistant terminal manager use Qualified Code(s): E11.8 - Type 2 diabetes mellitus with unspecified complications (4) Hyperkalemia Current Visit: Yes Status: Acute Currently no signs of hyperkalemia on EKG, will continue to monitor with daily chemistry (5) Elevated troponin Current Visit: Yes Status: Acute Elevated troponin likely due to patient kidney disease, but we will continue to trend for further evaluation (6) HTN (hypertension) Current Visit: Yes Status: Chronic Patient on hydralazine and propanolol Home anti-hypertensive medications continued per primary team Qualifiers: Hypertension type: essential hypertension Qualified Code(s): I10 - Essential (primary) hypertension (7) DVT prophylaxis Current Visit: No Status: Acute Patient on Heparin 5000 U SQ TID History of Present Illness - Reason for Consult Consult date: 10/06/16 Acute Kidney Injury, Chronic Kidney Disease, hyperkalemia, glomerulonephritis Requesting physician: Daniel Solis - Chief Complaint NEYMAR on CKD, glomerulonephritis - History of Present Illness Mrs. Oreilly presented to the ER after being sent by her supervisor special education due to worsening kidney function, N/V, and generalized weakness. She had been diagnosed about 1 month ago with crescentic fibrillary glomerulonephritis. She has CKD IV and normally has a SCr around 3 with eGFR around 15, but at presentation to the ER she appeared to have an acutely elevated SCr around 6 and eGFR at 7. She states that she has been having some nausea and vomiting, with anorexia. With this, she states that she has been feeling weak. She states that she hasn't had much of an appetite because the smell or sight of food makes her feel nauseated. She denies having any recent illness and denies any F/ C. She states that for the past 1-2 weeks she has been feeling like her HR has been elevated and this has caused her some shortness of breath when exerting herself. She denies any hematuria or dysuria recently. She states that when she was on the cyclophosphamide she feels that she had the occasional feeling of fullness and occasional urinary incontinence. She states that she frequently had frothy urine. She was having tachycardia at presentation and was given 1 L NaCl and 5 mg metoprolol. Her HR improved and she has not had any tachycardia since original admission. Past Med Surg Social Fam HX - Past Medical History Medical history: diabetes, hypertension, renal disease, thyroid disease Psychiatric history: anxiety - Past Surgical History Surgical History: other (tubal ligation) - Social History Smoking Status: Never smoker Smokeless Tobacco Status: No Alcohol use: rarely Drug use: none - Family History Mother Hx Family Cancer: Yes Father Hx Family Endocrine Disorder: Yes Medications and Allergies Levothyroxine [Synthroid] 112 mcg PO DAILY 11/25/15 [History] Cholecalciferol (D-3) [Vitamin D] 2,000 unit PO DAILY 09/03/16 [History] Hydralazine HCl 50 mg PO BID PRN 09/03/16 [History] LORazepam [Ativan] 0.5 mg PO BID PRN 09/03/16 [History] Propranolol [Inderal] 40 mg PO BID 09/03/16 [History] Cyclophosphamide 50 mg PO BID #60 capsule 09/06/16 [Rx] Famotidine [Pepcid] 20 mg PO DAILY 10/05/16 [History] PredniSONE 10 mg PO HS 10/05/16 [History] PredniSONE 20 mg PO BID 10/05/16 [History] Sulfamethoxazole/Trimeth DS [Bactrim DS] 1 each PO MOWEFR 10/05/16 [History] Allergies codeine Adverse Reaction (Verified 10/05/16 16:51) Vomiting Review of Systems Constitutional: weakness, no anorexia, no chills, no fatigue, no fever(s) Nose, mouth and throat: change in voice, no dizziness, no headache(s), no hoarseness, no sore throat Cardiovascular: as per HPI, dyspnea on exertion, palpitations, rapid heart rate , no chest pain, no chest pain at rest, no edema, no irregular heart rhythm, no lightheadedness, no orthopnea Respiratory: dyspnea on exertion, no cough, no dyspnea, no hemoptysis, no pain on inspiration Gastrointestinal: no abdominal pain, no change in bowel habits Genitourinary Female: as per HPI, urinary frequency, urinary incontinence, no dysuria, no hematuria Musculoskeletal: back pain (brief), no muscle weakness, no numbness Integumentary: no hirsutism, no striae Psychiatric: no depression, no difficulty concentrating Endocrine: palpitations Exam - Vital Signs Vital signs: Initial Vital Signs Temp Pulse Resp BP Pulse Ox 97.4 F L 112 20 174/111 97 10/05/16 16:48 10/05/16 16:48 10/05/16 16:48 10/05/16 16:48 10/05/16 16:48 Vital Signs - Last 8 Hours Temp Pulse Resp BP Pulse Ox 10/06/16 08:00 100 10/06/16 06:46 97.5 F L 60 16 149/70 100 10/06/16 04:00 97.5 F L 66 16 149/70 100 Intake and Output 10/05/16 10/06/16 10/06/16 23:59 07:59 15:59 Intake Total 240 / 240 Balance 240 / 240 Intake: Oral 240 / 240 Other: Meal Breakfast Percent of Meal Consumed 100% Weight 112.9 kg Blood Glucose* 129 Patient Weight 10/06/16 23:59 Weight 112.9 kg - General Appearance General appearance: well-developed, well-nourished, appears started age EENT: ATNC, PERRL, mucous membranes moist, vision intact Neck: no JVD, supple Cardiology: no murmurs, no rub, no gallops, no edema, regular rate, regular rhythm, normal S1, normal S2 Gastrointestinal: normoactive bowel sounds, no tenderness, no guarding, no organomegaly, no masses Integumentary: no rash, warm and dry Neurologic: no focal deficit, no asterixis, alert and oriented x3 Musculoskeletal: no deformities, no erythema, no cyanosis, no clubbing Psychiatric: mood/affect appropriate, cooperative Results - Lab Results 10/06/16 05:44 10/06/16 05:44 Most recent lab results Calcium 8.3 mg/dL (8.6-10.8) L 10/06/16 05:44 Phosphorus 4.8 mg/dL (2.3-4.7) H 10/06/16 05:44 Magnesium 2.1 mg/dL (1.6-2.6) 10/06/16 05:44 Consult Discharge Plan - Plan Instructions: Chronic Kidney Disease (DC), Chronic Kidney Disease (GEN), Renal Failure Diet (DC), Renal Failure Diet (GEN), Hypothyroidism (DC), Diabetes Mellitus Type 2 in Adults (DC), Chronic Hypertension (DC), Post-streptococcal Glomerulonephritis (DC), Post-streptococcal Glomerulonephritis (GEN), Chronic Kidney Disease, Cathead Worker (GEN), Post-streptococcal Glomerulonephritis, Cathead Worker (GEN) Referrals: Marcos Pierre MD [Primary Care Provider] -
[2016-10-06] MEDS: Sennosides/Docusate Sodium TABLET PO SCH ×2 (12:33→21:17)
[2016-10-06] MEDS ORDERED: hydrALAZINE 25 MG TABLET PO PRN (13:12)
[2016-10-06] MEDS ORDERED: Sodium Bicarbonate 75 MEQ in 0.45 % Sodium Chloride 1,000 ML IVC SCH (13:15)
--- NOTE | 2016-10-06 19:41 | Electrocardiograph Report ---
[address] [address] Test Date: 2016-10-05 Pat Name: Natalia Oreilly Department: 102 Room: 2NE28 Gender: F Healthcare Translator: : 1950 Requested By: Ariela Umaña Order Number: [id number] Reading MD: Isabela Magana Measurements Intervals [place] Rate: 95 P: 53 NE: 154 QRS: -3 QRSD: 90 T: 12 QT: 338 QTc: 391 Interpretive Statements SINUS RHYTHM Electronically Signed On 10-06-2016 19:40:06 EDT by Isabela Magana
--- NOTE | 2016-10-06 19:55 | Electrocardiograph Report ---
[place] [address] Test Date: 2016-10-05 Pat Name: Natalia Oreilly Department: 111 Room: 2NE28 Gender: F Floral Decorator: BRIA : 1950 Requested By: Donnell Xiong Order Number: [id number] Reading MD: Isabela Magana Measurements Intervals [place] Rate: 156 P: MA: 0 QRS: -10 QRSD: 93 T: 52 QT: 288 QTc: 376 Interpretive Statements ATRIAL FIBRILLATION WITH RAPID VENTRICULAR RESPONSE NONSPECIFIC ST \T\ T-WAVE ABNORMALITY ABNORMAL RHYTHM ECG Electronically Signed On 10-06-2016 19:53:45 EDT by Isabela Magana
[2016-10-06] MEDS: Famotidine 20 MG TABLET PO SCH (21:17)
[2016-10-06] MEDS ORDERED: *HR* Metoprolol 5 MG/5 ML VIAL IVP ONE (23:25)
[2016-10-07] MEDS: *HR* Heparin 5,000 UNIT/ML VIAL SQ SCH ×3 (05:41→20:32)
[2016-10-07 08:05] LABS: Eosinophils % 0.7 %; Hematocrit 27.2 % (35.3-44.9); Hemoglobin 9.3 g/dL (11.5-15.4); Immature Granulocytes % 0.7 % (0-4); Lymphocytes # 0.3 K/mcL (0.6-4.6); Lymphocytes % 6.1 %; Mean Corpuscular HGB Conc 34.2 g/dL (31.6-35.5); Mean Corpuscular Hemoglobin 29.5 pg (28.0-33.3); Mean Corpuscular Volume 86.3 fL (83.0-100.0); Mean Platelet Volume 9.2 fL (9.4-12.4); Monocytes # 0.3 K/mcL (0.0-1.3); Monocytes % 8.3 %; Neutrophils # 3.5 K/mcL (1.6-8.9); Platelet Count 139 K/mcL (140-400); Red Blood Count 3.15 M/mcL (3.82-4.97); Red Cell Distribution Width 12.9 % (11.5-14.5); Segmented Neutrophils % 84.2 %
[2016-10-07] MEDS: Insulin LISPRO 300 UNITS/3 ML VIAL SQ SCH ×4 (08:09→22:27)
[2016-10-07 08:15] LABS: Albumin 2.4 g/dL (3.5-5.0); Calcium 7.9 mg/dL (8.6-10.8); Phosphorous 4.4 mg/dL (2.3-4.7); Potassium 3.8 mEq/L (3.5-4.5)
[2016-10-07] MEDS: Cholecalciferol (D-3) 1,000 UNIT TABLET PO SCH (08:30)
[2016-10-07] MEDS: Sennosides/Docusate Sodium TABLET PO SCH ×2 (08:30→20:32)
[2016-10-07] MEDS: Sodium Bicarbonate 75 MEQ in 0.45 % Sodium Chloride 1,000 ML IVC SCH ×2 (08:30→17:38)
[2016-10-07] MEDS: CYCLOPHOSPHAMIDE 50MG PO SCH (08:31)
[2016-10-07] MEDS ORDERED: Chloraseptic Spray 177 ML BOTTLE MM PRN (10:22)
--- NOTE | 2016-10-07 10:25 | Internal Med Progress Note ---
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 She would be started on pulsed steroids and immunomodulator cytoxan, with follow -up labs showing worsening renal function, prompting admission. August SCr 3.24, to October 05 SCr 5.98 on admission. She is at further risk of worsening renal failure due to recalcitrant RPGN, warrants close monitoring. Nephrology team on board, to consider additional therapy, possible hemodialysis if needed. Patient requires close monitoring of weight, I/O's, renal function. (2) Paroxysmal atrial fibrillation with RVR Current Visit: Yes Status: Acute Assessment and plan: New onset AFib with RVR, EKG on admission 156bpm, also may suggest Aflutter. No prior documented Afib. Paroxysmal, with spontaneous conversion to NSR. Non-exertional per patient. Tropes mildly elevated 0.28, adynamic to 0.23. In setting of her renal failure, she would have loss of protein C & S and be in hypercoagulable state. Additionally, prior Cytoxan regimen side effect arrhythmias. Cytoxan dc'd. Discussed with nephrology team. Check Echo, eval for any RV strain. Check Thyroid panel, patient does report compliance and adherence to her synthroid dose and route(empty stomach) Will ambulate and check for hypoxemia. Would not order D-Dimer as it is an acute phase reactant and would be elevated in setting of her renal failure and possible infection. Would consider CTA Chest in close coordination with Nephrology team. (3) Immunocompromised due to corticosteroids Current Visit: Yes Status: Acute Assessment and plan: Patient was started on prednisone pulse dosing (60mg daily). She exhibits an immunocompromised state due to multiple factors. Chronic corticosteroid use from the prednisone, cytoxan immunomodulator. She was on bactrim for prophylaxis from opportunistic illnesses. Continue Bactrim DS MWF. Additionally, her worsening kidney function with evidence of proteinuria, likely losing immunoglobulins. Agree with droplet precautions. Appreciate nephrology recs. (4) Morbid obesity Current Visit: Yes Status: Acute Assessment and plan: Multifactorial, exacerbated by chronic prednisone use. Qualifiers: Obesity type: drug-induced Qualified Code(s): E66.1 - Drug-induced obesity (5) HTN (hypertension) Current Visit: Yes Status: Acute Assessment and plan: HTN, with contribution from long-term prednisone use. Cont Hydralazine and Inderal. Qualifiers: Hypertension type: essential hypertension Qualified Code(s): I10 - Essential (primary) hypertension (6) Elevated troponin Current Visit: Yes Status: Acute Assessment and plan: Trop 0.28 on admission 10/05/16. Trend down 0.23. Likely elevated in setting of HTN, worsening renal disease, paroxysmal AF per above. (7) Metabolic acidosis Current Visit: Yes Status: Acute Assessment and plan: Worsening non-anion gap metabolic acidosis. Suspect 2* RPGN per above. Admission 10/05 Bicarb 14, now 16. Per nephrology. - Subjective Interval history: Pt seen/eval, she voices no fever, chills, chest pain, pressure. Discussed with RN, she did have sodium bicarb IV administered since yesterday, thought not reflected in I/O. Patient reports still producing urine, no LUTS. She does have a slight sore throat, cough without sputum production. Noted going in and out of Afib RVR. Patient reports she is on inderall for BP control and possibly anxiety. - Constitutional Vitals: Temp Pulse Resp BP Pulse Ox 97.9 F 127 16 110/80 98 10/07/16 07:07 10/07/16 07:07 10/07/16 07:07 10/07/16 07:07 10/07/16 07:07 General appearance: Present: A&O X 3, pleasant - Head Head exam: Present: atraumatic, normocephalic - Eye Eye exam: Present: EOMI, sclera anicteric - ENT ENT exam: Present: mucous membranes moist Additional comments: exam with tongue depressor - no signs of lesions or thrush - Neck Neck exam general surgery: Present: supple, trachea midline - Respiratory Respiratory exam: Absent: rhonchi, wheezes - Cardiovascular Cardiovascular exam: Present: +S1, +S2. Absent: JVD - GI/Abdominal GI/Abdominal exam: Present: soft, no peritoneal signs. Absent: tenderness - Extremities Exam Extremities exam: Present: pedal edema (trace leslye LE, no erythema. No size discrepancy in calf, no My's sign elicited.), warm, radial pulses palpable and symetrical - Neurological Exam Neurological exam: Present: strengths equal and symetr throughout Internal Medicine: Result - Labs CBC & Chem 7: 10/07/16 07:32 10/07/16 07:32 Labs: Short CBC 10/07/16 Range/Units 07:32 WBC 4.1 L (4.3-11.1) K/mcL Hgb 9.3 L (11.5-15.4) g/dL Hct 27.2 L (35.3-44.9) % Plt Count 139 L (140-400) K/mcL Neutrophils # 3.5 (1.6-8.9) K/mcL BMP 10/07/16 07:32 Sodium 138 Potassium 3.8 Chloride 110 H Carbon Dioxide 16 L BUN 111 H Creatinine 5.04 H Glucose 94 Calcium 7.9 L Cardiac Enzymes 10/06/16 Range/Units 13:36 Troponin I 0.23 H* (0-0.03) ng/mL Liver Function 10/07/16 Range/Units 07:32 Albumin 2.4 L D (3.5-5.0) g/dL - ABG Interpretation ABG results: PT/INR, D-dimer PT 8.9 Seconds (9.4-12.1) L 10/05/16 18:09 - Impressions Impressions Retroperitoneum Ultrasound 10/06/16 18:00 IMPRESSION: Unremarkable ultrasound of the kidneys . Incidental note of cholelithiasis. D/ / Dianne Heller MD / Dianne Heller MD Interpreting Provider: Dianne Heller MD Consult Discharge Plan - Plan Instructions: Chronic Kidney Disease (DC), Chronic Kidney Disease (GEN), Renal Failure Diet (DC), Renal Failure Diet (GEN), Hypothyroidism (DC), Diabetes Mellitus Type 2 in Adults (DC), Chronic Hypertension (DC), Post-streptococcal Glomerulonephritis (DC), Post-streptococcal Glomerulonephritis (GEN), Chronic Kidney Disease, Manager Investment Banking (GEN), Post-streptococcal Glomerulonephritis, Manager Investment Banking (GEN) Referrals: Marcos Pierre MD [Primary Care Provider] - <Donnell Xiong A - Last Filed: 10/07/16 19:37> Date of Encounter: 10/07/16 - Assessment and plan (1) Paroxysmal atrial fibrillation with RVR Current Visit: Yes Status: Acute (2) Sore throat Current Visit: Yes Status: Acute (3) RPGN (rapidly progressive glomerulonephritis) Current Visit: Yes Status: Acute (4) Immunocompromised due to corticosteroids Current Visit: Yes Status: Acute (5) Acute on chronic renal failure Current Visit: Yes Status: Acute (6) HTN (hypertension) Current Visit: Yes Status: Acute Qualifiers: Hypertension type: essential hypertension Qualified Code(s): I10 - Essential (primary) hypertension (7) Diabetes mellitus Current Visit: Yes Status: Chronic Qualifiers: Diabetes mellitus type: type 2 Diabetes mellitus complication status: with unspecified complications Diabetes mellitus mcfp insulin use: without human resources services specialist use Qualified Code(s): E11.8 - Type 2 diabetes mellitus with unspecified complications (8) Hypothyroidism Current Visit: Yes Status: Chronic Qualifiers: Hypothyroidism type: acquired Qualified Code(s): E03.9 - Hypothyroidism, unspecified - Constitutional Vitals: Temp Pulse Resp BP Pulse Ox 97.8 F 55 18 137/53 97 10/07/16 16:34 10/07/16 16:34 10/07/16 16:34 10/07/16 16:34 10/07/16 16:34 Internal Medicine: Result - Labs CBC & Chem 7: 10/07/16 07:32 10/07/16 07:32 Labs: Short CBC 10/07/16 Range/Units 07:32 WBC 4.1 L (4.3-11.1) K/mcL Hgb 9.3 L (11.5-15.4) g/dL Hct 27.2 L (35.3-44.9) % Plt Count 139 L (140-400) K/mcL Neutrophils # 3.5 (1.6-8.9) K/mcL BMP 10/07/16 07:32 Sodium 138 Potassium 3.8 Chloride 110 H Carbon Dioxide 16 L BUN 111 H Creatinine 5.04 H Glucose 94 Calcium 7.9 L Liver Function 10/07/16 Range/Units 07:32 Albumin 2.4 L D (3.5-5.0) g/dL - ABG Interpretation ABG results: PT/INR, D-dimer PT 8.9 Seconds (9.4-12.1) L 10/05/16 18:09 - Attending Attestation I examined this patient and my medical decision-making was reviewed with the Resident Physician on 10/07/16. I agree with the documented findings, disposition and treatment plan as described except to the extent set forth below. Ms. Oreilly is currently inpatient for worsening renal function due to RPGN despite aggressive outpatient treatment. She remains moderate to high risk due to potential for worsening renal disease and immunocompromise. Ms. Oreilly is complaining of sore throat. No dysphagia. No fever or chills. No cough. No diarrhea. Her renal function is minimally better today. She is also having episodes of parox a fib/flutter. Exam Alert. Comfortable Heart reg No wheeze I/P 1. RPGN 2. Parox a fib/flutter 3 Renal failure Further diagnoses and plan as above.
[2016-10-07 13:10] LABS: Thyroid Stimulating Hormone 0.451 mcIU/mL (0.350-4.840); Triiodothyronine (T3) Free 1.13 pg/mL (1.71-3.71); Triiodothyronine (T3) Total < 0.25 ng/mL (0.58-1.59)
--- NOTE | 2016-10-07 13:30 | Nephrology Progress Note ---
Date of Encounter: 10/07/16 Time of Encounter: 10:30 - Assessment and Plan (1) Acute on chronic renal failure Current Visit: Yes Status: Acute Patient current acute kidney injury is slowly improving with fluid repletion. She reportedly has been having decreased PO or both solids and liquids in the past month, likely a result of her cyclophosphamide usage that she was taking because of her crescentic fibrillary glomerulonephritis. 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 Will continue to monitor patient renal labs closely Continue fluid repletion with normal saline with sodium bicarb Continue prednisone usage for patient GN (2) Glomerulonephritis Current Visit: No Status: Acute Patient diagnosed with crescentic fibrillary glomerulonephritis one month ago previously on cyclophosphamide and prednisone. 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 Plan as above (3) Diabetes mellitus Current Visit: Yes Status: Chronic Continue blood sugar control per primary team Qualifiers: Diabetes mellitus type: type 2 Diabetes mellitus complication status: with unspecified complications Diabetes mellitus terminal supervisor insulin use: without terminal supervisor use Qualified Code(s): E11.8 - Type 2 diabetes mellitus with unspecified complications (4) Hyperkalemia Current Visit: Yes Status: Acute Currently no signs of hyperkalemia on EKG, will continue to monitor with daily chemistry (5) Elevated troponin Current Visit: Yes Status: Acute Elevated troponin likely due to patient kidney disease. Repeat trop was slightly improved from previous, but relatively adynamic (6) HTN (hypertension) Current Visit: Yes Status: Chronic Patient on hydralazine and propanolol Home anti-hypertensive medications continued per primary team Qualifiers: Hypertension type: essential hypertension Qualified Code(s): I10 - Essential (primary) hypertension (7) DVT prophylaxis Current Visit: No Status: Acute Prophylaxis per primary team Subjective Principal diagnosis: Acute on Chronic Kidney Injury Interval history: Patient reports that she is feeling somewhat improved from yesterday, stating that the feeling of nausea is improving. She states that her feeling of altered taste is improving daily and that she is now able to take better PO. She states that she was able to eat her breakfast. She states that she continues to make a decent amount of urine without difficulty. She states that she does have episodes where she becomes short of breath when she feels her heart start to race, that she states has been going on for the past month. But, when her heart rate is normal, she does not have these problems. Objective - Vital Signs Vital signs: Vital Signs Temp Pulse Resp BP Pulse Ox 10/07/16 11:32 97.6 F 61 16 140/71 100 10/07/16 08:00 98 10/07/16 07:07 97.9 F 127 16 110/80 98 10/07/16 04:34 97.7 F 130 18 104/81 99 10/07/16 00:29 97.8 F 123 18 116/90 98 10/06/16 21:34 99 10/06/16 19:33 97.7 F 61 16 100 10/06/16 15:42 97.6 F 63 16 148/80 100 Intake and Output 10/06/16 10/07/16 10/07/16 23:59 07:59 15:59 Intake Total 240 / 240 100 / 100 240 / 240 Output Total 350 / 350 Balance -110 / -110 100 / 100 240 / 240 Intake: Oral 240 / 240 100 / 100 240 / 240 Output: Urine 350 / 350 Other: Meal Breakfast Percent of Meal Consumed 75% # Voids 0 0 # Bowel Movements 2 Weight 111.8 kg Blood Glucose* 147 103 129 Patient Weight 10/07/16 23:59 Weight 111.8 kg - General Appearance General appearance: Present: well-developed, well-nourished, appears started age EENT: Present: ATNC, mucous membranes dry (improving) Neck: Present: no JVD, supple Respiratory: Present: no kyphosis, no scoliosis, clear Cardiology: Present: no murmurs, no rub, no gallops, no edema, regular rate, regular rhythm, normal S1, normal S2 Gastrointestinal: Present: normoactive bowel sounds, no tenderness, no guarding , no organomegaly, no masses Integumentary: Present: no rash, warm and dry Neurologic: Present: no focal deficit, no asterixis, alert and oriented x3 Musculoskeletal: Present: no deformities, no erythema, no cyanosis, no clubbing Psychiatric: Present: mood/affect appropriate, cooperative - Lab 10/07/16 07:32 10/07/16 07:32 Most recent lab results Calcium 7.9 mg/dL (8.6-10.8) L 10/07/16 07:32 Phosphorus 4.4 mg/dL (2.3-4.7) 10/07/16 07:32 Magnesium 2.1 mg/dL (1.6-2.6) 10/06/16 05:44 - Imaging Kidney/bladder ultrasound: report reviewed Consult Discharge Plan - Plan Instructions: Chronic Kidney Disease (DC), Chronic Kidney Disease (GEN), Renal Failure Diet (DC), Renal Failure Diet (GEN), Hypothyroidism (DC), Diabetes Mellitus Type 2 in Adults (DC), Chronic Hypertension (DC), Post-streptococcal Glomerulonephritis (DC), Post-streptococcal Glomerulonephritis (GEN), Chronic Kidney Disease, Food And Beverage Assistant (GEN), Post-streptococcal Glomerulonephritis, Food And Beverage Assistant (GEN) Referrals: Marcos Pierre MD [Primary Care Provider] -
[2016-10-07 15:32] LABS: Adenovirus Not Detected (Not Detect); Bordetella Pertussis Not Detected (Not Detect); Chlamydophila pneumoniae Not Detected (Not Detect); Coronavirus 229E Not Detected (Not Detect); Coronavirus HKU1 Not Detected (Not Detect); Coronavirus NL63 Not Detected (Not Detect); Coronavirus OC43 Not Detected (Not Detect); Human Metapneumovirus Not Detected (Not Detect); Human Rhinovirus/Enterovirus Not Detected (Not Detect); Influenza A Subtype 2009 H1 Not Detected (Not Detect); Influenza A Untypeable Not Detected (Not Detect); Influenza B Not Detected (Not Detect); Mycoplasma pneumoniae Not Detected (Not Detect); Parainfluenza Virus 1 Not Detected (Not Detect); Parainfluenza Virus 2 Not Detected (Not Detect); Parainfluenza Virus 3 Not Detected (Not Detect); Parainfluenza Virus 4 Not Detected (Not Detect); Respiratory Syncytial Virus Not Detected (Not Detect)
[2016-10-07] MEDS ORDERED: Ondansetron ODT 4 MG TAB.RAPDIS SL PRN ×2 (15:50→15:59)
[2016-10-07] MEDS: predniSONE 20 MG TABLET PO SCH (17:11)
[2016-10-07 17:53] LABS: Protein/Creatinine Ratio,Urine 5.04 mg/mg (0-0.20)
[2016-10-07] MEDS: Famotidine 20 MG TABLET PO SCH (20:32)
[2016-10-07] MEDS: predniSONE 10 MG TABLET PO SCH (20:32)
[2016-10-08] MEDS: Sodium Bicarbonate 75 MEQ in 0.45 % Sodium Chloride 1,000 ML IVC SCH ×2 (05:25→15:40)
[2016-10-08] MEDS: *HR* Heparin 5,000 UNIT/ML VIAL SQ SCH ×3 (05:25→20:39)
[2016-10-08 05:26] LABS: Hematocrit 25.4 % (35.3-44.9); Hemoglobin 8.8 g/dL (11.5-15.4); Immature Granulocytes % 1.3 % (0-4); Lymphocytes # 0.2 K/mcL (0.6-4.6); Lymphocytes % 3.3 %; Mean Corpuscular HGB Conc 34.6 g/dL (31.6-35.5); Mean Corpuscular Volume 86.7 fL (83.0-100.0); Mean Platelet Volume 9.3 fL (9.4-12.4); Monocytes # 0.1 K/mcL (0.0-1.3); Monocytes % 2.7 %; Neutrophils # 4.2 K/mcL (1.6-8.9); Platelet Count 132 K/mcL (140-400); Red Blood Count 2.93 M/mcL (3.82-4.97); Segmented Neutrophils % 92.7 %
[2016-10-08 05:41] LABS: Albumin 2.4 g/dL (3.5-5.0); Calcium 7.9 mg/dL (8.6-10.8); Phosphorous 4.7 mg/dL (2.3-4.7); Potassium 4.3 mEq/L (3.5-4.5)
[2016-10-08 06:05] LABS: Platelet Estimate Normal (Normal)
[2016-10-08] MEDS: Sennosides/Docusate Sodium TABLET PO SCH ×2 (09:16→20:39)
[2016-10-08] MEDS: predniSONE 20 MG TABLET PO SCH ×2 (09:16→17:57)
[2016-10-08] MEDS: Cholecalciferol (D-3) 1,000 UNIT TABLET PO SCH (09:17)
[2016-10-08] MEDS: Insulin LISPRO 300 UNITS/3 ML VIAL SQ SCH ×4 (09:17→20:43)
--- NOTE | 2016-10-08 09:27 | Nephrology Progress Note ---
Date of Encounter: 10/08/16 Time of Encounter: 07:05 - Assessment and Plan (1) Acute on chronic renal failure Current Visit: Yes Status: Acute Patient current acute kidney injury is slowly improving with fluid repletion. She reportedly has been having decreased PO or both solids and liquids in the past month, likely a result of her cyclophosphamide usage that she was taking because of her crescentic fibrillary glomerulonephritis. 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 Patient SCr has bee improving 0.4-0.5 everyday with continued fluid repletion. Will continue to monitor renal function over the weekend and consider stoppin fluids if more improvement in renal value seen Continue fluid repletion with normal saline with sodium bicarb Continue prednisone usage for patient GN (2) Glomerulonephritis Current Visit: No Status: Acute Patient diagnosed with crescentic fibrillary glomerulonephritis one month ago previously on cyclophosphamide and prednisone. 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 Plan as above (3) Diabetes mellitus Current Visit: Yes Status: Chronic Continue blood sugar control per primary team Qualifiers: Diabetes mellitus type: type 2 Diabetes mellitus complication status: with unspecified complications Diabetes mellitus assisted insulin use: without intermediate project manager use Qualified Code(s): E11.8 - Type 2 diabetes mellitus with unspecified complications (4) Hyperkalemia Current Visit: Yes Status: Acute Hyperkalmeia resolved. No signs of hyperkalemia on EKG, will continue to monitor with daily chemistry (5) Elevated troponin Current Visit: Yes Status: Acute Elevated troponin likely due to patient kidney disease. Repeat trop was slightly improved from previous, but relatively adynamic (6) HTN (hypertension) Current Visit: Yes Status: Chronic Patient on hydralazine and propanolol Home anti-hypertensive medications continued per primary team Qualifiers: Hypertension type: essential hypertension Qualified Code(s): I10 - Essential (primary) hypertension (7) DVT prophylaxis Current Visit: No Status: Acute Prophylaxis per primary team Subjective Principal diagnosis: Acute on Chronic Kidney Injury Interval history: Patient reports that her appetite is improving and that she is able to eat without having much nausea at this point. She reports that her PO intake is improved. She does report that she has been having continued good urine output. She only reports having episodes of weakness and shortness of breath when she is having episodes of tachycardia. She reports that these episodes have been occurring for several weeks now, that appear to be related to starting some new medications, but she is unsure. When asked about her episodes of tachycardia, she reports that they are becoming less frequent. Objective - Vital Signs Vital signs: Vital Signs Temp Pulse Resp BP Pulse Ox 10/08/16 07:00 69 15 145/68 96 10/08/16 04:19 98.6 F 66 17 147/69 98 10/07/16 22:21 98.2 F 133 17 128/95 98 10/07/16 20:00 97 10/07/16 16:34 97.8 F 55 18 137/53 97 10/07/16 16:00 137/53 10/07/16 11:32 97.6 F 61 16 140/71 100 Intake and Output 10/07/16 10/08/16 10/08/16 23:59 07:59 15:59 Intake Total 1435 / 1435 1075 / 1075 120 / 120 Output Total 200 / 200 700 / 700 Balance 1235 / 1235 375 / 375 120 / 120 Intake: IV Fluids 1075 / 1075 1075 / 1075 Sodium Bicarbonate 75 MEQ 1075 / 1075 1075 / 1075 In 0.45% Sodium Chloride 1000 Ml 1000 Ml 1,000 ML @ 125 mls/hr IVC .[id number] [facility] Rx#:[id number] Oral 360 / 360 120 / 120 Output: Urine 200 / 200 700 / 700 Other: Meal Dinner Breakfast Percent of Meal Consumed 100% 100% Weight 112.1 kg Blood Glucose* 222 185 Patient Weight 10/08/16 23:59 Weight 112.1 kg - General Appearance General appearance: Present: well-developed, well-nourished, appears started age EENT: Present: ATNC, PERRL, mucous membranes moist Neck: Present: no JVD, supple Respiratory: Present: no kyphosis, clear Cardiology: Present: no murmurs, no rub, no gallops, edema (minor b/l LE edema) , regular rate, regular rhythm, normal S1, normal S2 Gastrointestinal: Present: normoactive bowel sounds, no tenderness, no guarding , no organomegaly, no masses Integumentary: Present: no rash, warm and dry Neurologic: Present: no focal deficit, no asterixis, alert and oriented x3, strength 5/5 Musculoskeletal: Present: no deformities, no erythema, no cyanosis, no clubbing Psychiatric: Present: mood/affect appropriate, cooperative - Lab 10/08/16 04:43 10/08/16 04:43 Most recent lab results Calcium 7.9 mg/dL (8.6-10.8) L 10/08/16 04:43 Phosphorus 4.7 mg/dL (2.3-4.7) 10/08/16 04:43 Magnesium 2.1 mg/dL (1.6-2.6) 10/06/16 05:44 Urine Creatinine 82 mg/dL 10/07/16 13:40 Urine Total Protein 413 mg/dL (1-14) H 10/07/16 13:40 Consult Discharge Plan - Plan Instructions: Chronic Kidney Disease (DC), Chronic Kidney Disease (GEN), Renal Failure Diet (DC), Renal Failure Diet (GEN), Hypothyroidism (DC), Diabetes Mellitus Type 2 in Adults (DC), Chronic Hypertension (DC), Post-streptococcal Glomerulonephritis (DC), Post-streptococcal Glomerulonephritis (GEN), Chronic Kidney Disease, Stock Turner (GEN), Post-streptococcal Glomerulonephritis, Stock [employer] (GEN) Referrals: Marcos Pierre MD [Primary Care Provider] -
--- NOTE | 2016-10-08 10:11 | Internal Med Progress Note ---
Addendum entered and electronically signed by Osito Cook DO 10/08/16 15:35: Echocardiogram reviewed: EF 60-65%, severely dilated left atrium, mild PAH, estimated RVSP 38mmHg No echocardiographic evidence of RV strain. Consideration of undiagnosed sleep apnea, with hypoxemic episodes precipitating Afib. Ordered for nocturnal pulse-ox study, to be administered by RT. 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 She would be started on pulsed steroids and immunomodulator cytoxan, with follow -up labs showing worsening renal function, prompting admission. August SCr 3.24, to October 05 SCr 5.98 on admission. She is at further risk of worsening renal failure due to recalcitrant RPGN, warrants close monitoring. Nephrology team on board, to consider additional therapy, possible hemodialysis if needed. On Prednisone 50mg QD Patient requires close monitoring of weight, I/O's, renal function. 10/08 GFR 9 (2) Paroxysmal atrial fibrillation with RVR Current Visit: Yes Status: Acute Assessment and plan: New onset AFib with RVR, EKG on admission 156bpm, also may suggest Aflutter. No prior documented Afib. Paroxysmal, with spontaneous conversion to NSR. Non-exertional per patient. Tropes mildly elevated 0.28, adynamic to 0.23. In setting of her renal failure, she would have loss of protein C & S and be in hypercoagulable state. Additionally, prior Cytoxan regimen side effect arrhythmias. Cytoxan dc'd. Discussed with nephrology team. Echo complete, report pending. Thyroid panel unremarkable, patient does report compliance and adherence to her synthroid dose and route(empty stomach) Ambulated yesterday with transient hypoxemia to 86%, since then has been 98% on RA. Would not order D-Dimer as it is an acute phase reactant and would be elevated in setting of her renal failure and possible infection. Given gradual improvement in renal function, will not send for CTA Chest. She does have chronic leslye LE swelling, but cannot r/o DVT, will send for doppler leslye LE. (3) Immunocompromised due to corticosteroids Current Visit: Yes Status: Acute Assessment and plan: Patient was started on prednisone pulse dosing (60mg daily). She exhibits an immunocompromised state due to multiple factors. Chronic corticosteroid use from the prednisone, cytoxan immunomodulator. She was on bactrim for prophylaxis from opportunistic illnesses. Continue Bactrim DS MWF. Additionally, her worsening kidney function with evidence of proteinuria, likely losing immunoglobulins. Agree with droplet precautions. Appreciate nephrology recs. (4) Morbid obesity Current Visit: Yes Status: Acute Assessment and plan: Multifactorial, exacerbated by chronic prednisone use. Qualifiers: Obesity type: drug-induced Qualified Code(s): E66.1 - Drug-induced obesity (5) HTN (hypertension) Current Visit: Yes Status: Acute Assessment and plan: HTN, with contribution from long-term prednisone use. Cont Hydralazine and Inderal. Qualifiers: Hypertension type: essential hypertension Qualified Code(s): I10 - Essential (primary) hypertension (6) Elevated troponin Current Visit: Yes Status: Acute Assessment and plan: Trop 0.28 on admission 10/05/16. Trend down 0.23. Likely elevated in setting of HTN, worsening renal disease, paroxysmal AF per above. (7) Metabolic acidosis Current Visit: Yes Status: Acute Assessment and plan: Worsening non-anion gap metabolic acidosis. Suspect 2* RPGN per above. Admission 10/05 Bicarb 14, 16 Improved 23 Per nephrology. - Subjective Interval history: Pt seen/eval, she would endorse improved appetite, with improvement in sore throat as well. Further inquiry she disclosed at home with intermittent heart racing and exertional fatigue. Similar to current setting, but denies overt chest pain/pleurisy or tightness. She does have LE swelling but no pain. Continues to make urine. - Constitutional Vitals: Temp Pulse Resp BP Pulse Ox 98.6 F 69 15 145/68 96 10/08/16 04:19 10/08/16 07:00 10/08/16 07:00 10/08/16 07:00 10/08/16 07:00 General appearance: Present: A&O X 3, pleasant - Head Head exam: Present: atraumatic, normocephalic - Eye Eye exam: Present: EOMI, sclera anicteric - ENT ENT exam: Present: mucous membranes moist - Neck Neck exam general surgery: Present: supple, trachea midline - Respiratory Respiratory exam: Absent: accessory muscle use, rhonchi, wheezes, tachypnea - Cardiovascular Cardiovascular exam: Present: distant heart sounds (2* habitus), +S1, +S2. Absent: JVD - GI/Abdominal GI/Abdominal exam: Present: soft, no peritoneal signs. Absent: tenderness - Extremities Exam Extremities exam: Present: pedal edema (mild leslye LE NPE, no pain or My's sign elicited), warm, radial pulses palpable and symetrical - Neurological Exam Neurological exam: Present: strengths equal and symetr throughout Internal Medicine: Result - Labs CBC & Chem 7: 10/08/16 04:43 10/08/16 04:43 Labs: Short CBC 10/08/16 Range/Units 04:43 WBC 4.5 (4.3-11.1) K/mcL Hgb 8.8 L (11.5-15.4) g/dL Hct 25.4 L (35.3-44.9) % Plt Count 132 L (140-400) K/mcL Neutrophils # 4.2 (1.6-8.9) K/mcL BMP 10/08/16 04:43 Sodium 137 Potassium 4.3 Chloride 106 Carbon Dioxide 23 BUN 98 H Creatinine 4.64 H Glucose 190 H Calcium 7.9 L Liver Function 10/08/16 Range/Units 04:43 Albumin 2.4 L (3.5-5.0) g/dL - ABG Interpretation ABG results: PT/INR, D-dimer PT 8.9 Seconds (9.4-12.1) L 10/05/16 18:09 Consult Discharge Plan - Plan Instructions: Chronic Kidney Disease (DC), Chronic Kidney Disease (GEN), Renal Failure Diet (DC), Renal Failure Diet (GEN), Hypothyroidism (DC), Diabetes Mellitus Type 2 in Adults (DC), Chronic Hypertension (DC), Post-streptococcal Glomerulonephritis (DC), Post-streptococcal Glomerulonephritis (GEN), Chronic Kidney Disease, Paradichlorobenzene Machine Operator (GEN), Post-streptococcal Glomerulonephritis, Paradichlorobenzene Machine Operator (GEN) Referrals: Marcos Pierre MD [Primary Care Provider] - <Donnell Xiong - Last Filed: 10/08/16 19:41> Date of Encounter: 10/08/16 - Assessment and plan (1) Paroxysmal atrial fibrillation with RVR Current Visit: Yes Status: Acute (2) Sore throat Current Visit: Yes Status: Resolved (3) RPGN (rapidly progressive glomerulonephritis) Current Visit: Yes Status: Acute (4) Immunocompromised due to corticosteroids Current Visit: Yes Status: Acute (5) Acute on chronic renal failure Current Visit: Yes Status: Acute (6) HTN (hypertension) Current Visit: Yes Status: Acute Qualifiers: Hypertension type: essential hypertension Qualified Code(s): I10 - Essential (primary) hypertension (7) Diabetes mellitus Current Visit: Yes Status: Chronic Qualifiers: Diabetes mellitus type: type 2 Diabetes mellitus complication status: with unspecified complications Diabetes mellitus buttermilk drier operator insulin use: without buttermilk drier operator use Qualified Code(s): E11.8 - Type 2 diabetes mellitus with unspecified complications (8) Hypothyroidism Current Visit: Yes Status: Chronic Qualifiers: Hypothyroidism type: acquired Qualified Code(s): E03.9 - Hypothyroidism, unspecified - Constitutional Vitals: Temp Pulse Resp BP Pulse Ox 98.3 F 63 17 147/68 100 10/08/16 16:00 10/08/16 16:00 10/08/16 16:00 10/08/16 16:00 10/08/16 16:00 Internal Medicine: Result - Labs CBC & Chem 7: 10/08/16 04:43 10/08/16 04:43 Labs: Short CBC 10/08/16 Range/Units 04:43 WBC 4.5 (4.3-11.1) K/mcL Hgb 8.8 L (11.5-15.4) g/dL Hct 25.4 L (35.3-44.9) % Plt Count 132 L (140-400) K/mcL Neutrophils # 4.2 (1.6-8.9) K/mcL BMP 10/08/16 04:43 Sodium 137 Potassium 4.3 Chloride 106 Carbon Dioxide 23 BUN 98 H Creatinine 4.64 H Glucose 190 H Calcium 7.9 L Liver Function 10/08/16 Range/Units 04:43 Albumin 2.4 L (3.5-5.0) g/dL - ABG Interpretation ABG results: PT/INR, D-dimer PT 8.9 Seconds (9.4-12.1) L 10/05/16 18:09 - Attending Attestation I examined this patient and my medical decision-making was reviewed with the Resident Physician on 10/08/16. I agree with the documented findings, disposition and treatment plan as described except to the extent set forth below. Ms. Oreilly is currently admitted for acute renal failure and hyperkalemia due to RPGN. She is high risk due to potential for worsening renal issues. Ms. Oreilly feels OK today. No new issues. Still with episodes of parox a fib. To have nocturnal pulse ox study. Exam Alert. Comfortable Heart reg No wheeze I/P 1. RPGN 2. Parox a fib Further diagnoses and plan as above.
[2016-10-08] MEDS: Sulfamethoxazole/Trimeth SS 1 TAB PO SCH (11:18)
--- NOTE | 2016-10-08 14:12 | ECHO - Doppler Report ---
Echocardiogram Name: Natalia Oreilly Date of Study: 10/07/2016 Date: 1950 Ht: 63.0 in Medical Record#: [id number] Age: 66 Wt: 246.0 lb Gender: Female BSA: 2.11 Order #: [id number] Location: [facility] Room #: [id number] Reading Physician: Angel Oh DO, NURIS GALVAN Ramp Lead: Almita Ibarra Ordering Physician: Osito Cook DO Primary Physician: Marcos Pierre MD Indications: New onset AF, risk factors for PE Impressions: LVEF 60-65%. Normal LV chamber size, wall thickness and function. Mild left ventricular diastolic dysfunction. Normal right ventricular structure and function. Severely dilated left atrium. Mild pulmonary hypertension. Estimated RVSP is 38 mmHg. Left Ventricular Wall Motion: Rest Echo Findings All wall segments showed normal motion. Findings: Study Quality * Technically adequate exam. ECG Findings * Normal sinus rhythm, periods of atrial fibrillation. Left Ventricle * LVEF 60-65%. * Normal LV chamber size, wall thickness and function. * Mild left ventricular diastolic dysfunction. Right Ventricle * Normal right ventricular structure and function. Left Atrium * Severely dilated left atrium. Right Atrium * Mildly dilated right atrium. Interatrial Septum * Interatrial septum not well evaluated. Aortic Valve * Trileaflet aortic valve with normal function. * No aortic stenosis. * Trace aortic regurgitation. Mitral Valve * Normal mitral valve structure and function. * Trace mitral regurgitation. * No mitral stenosis. Tricuspid Valve * Normal tricuspid valve structure and function. * Trace tricuspid regurgitation. * Mild pulmonary hypertension. * Estimated RVSP is 38 mmHg. * Estimated RA pressure is 5 mmHg. Pulmonic Valve * Pulmonic valve is not well visualized. * Trace pulmonic regurgitation. Aorta * Normally sized aortic root. Pericardium * The pericardium appears normal. IVC * Normal IVC dimensions and inspiratory collapse. Pulmonary Artery * Normal visualized portions of the main pulmonary artery. History Hypertension Diabetes Family History of CAD Measurements: BP: 140/ 71 2D Normal Values RVIDd: 3.30 cm <2.7 cm IVSd: 1.10 cm 0.6 - 1.0 cm LVIDd: 5.30 cm 3.7 - 5.6 cm LVPWd: 1.20 cm 0.6 - 1.1 cm LVIDs: 2.60 cm 1.5 - 3.6 cm AO: 2.90 cm < 4.0 cm LA: 4.40 cm 2.0 - 4.0cm %FS: 50.90 cm >25 % LA volume: 109 Mitral Valve Peak E:1.02 m/sec Peak A:1.10 m/sec E/A Ratio:0.9 Peak E' Lat Yeyo:7.51 cm/s Peak E' Med Yeyo:6.04 cm/s E/E' Lat Ratio:13.6 E/E' Med Ratio:16.9 Tricuspid Valve TV Regurg Peak Grad: 32.00mmHg TV Regurg Peak Yeyo: 2.81m/sec Updated by Angel Oh DO, FACPaola, NURIS, AJ on 10/08/2016 2:06:45 PM electronically signed on 10/08/2016 2:08:28 PM with status of Final Wall Motion Brock: 1=Normal, 2=Hypokinesis, 3=Akinesis, 4=Dyskinesis, 5=Aneurysmal, 6=Hyperkinetic, X=Not Visualized (Blank)=Missing
--- NOTE | 2016-10-08 17:26 | Venous Imaging Report ---
LE Venous Duplex Patient Name:Natalia Oreilly Order Number:[id number] Procedure Date:10/08/2016 Date:1950Age:66 yrs Gender:Female Location:[facility] Room #: [id number] Stick Roller:Nubia Santos RDCS Referring MD:Osito Cook DO health analyst:Marcos Pierre MD Reading MD:Fredi Ayoub MD Primary Indications:Swelling of limb Secondary Indications: Risk Factors Yes/No Hx of Chemotherapy Yes Impressions: Normal bilateral lower extremity deep and superficial venous exam. Recommendations: Preliminary given to RN and noted as preliminary in pt EMR. Findings Venous Duplex Results: Right: Venous imaging of the lower extremity reveals full patency and normal vessel compressibility of the right distal iliac, right common femoral, right superficial femoral, right popliteal, right posterior tibial, right peroneal, right great saphenous and right lesser saphenous. Doppler signals in the evaluated veins were normal. Left: Venous imaging of the lower extremity reveals full patency and normal vessel compressibility of the left distal iliac, left common femoral, left superficial femoral, left popliteal, left posterior tibial, left peroneal, left great saphenous and left lesser saphenous. Doppler signals in the evaluated veins were normal. Prior Study: No prior study available for comparison. Lower Extremity Venous Duplex Side Vein Compress Spontaneous Flow Augment Diameter (cm) Depth (cm) Right Distal Iliac Normal Yes Phasic Yes Right Common Femoral Normal Yes Phasic Yes Right Superficial Femoral Normal Yes Phasic Yes Right Popliteal Normal Yes Phasic Yes Right Posterior Tibial Normal Yes Phasic Yes Right Peroneal Normal Yes Phasic Yes Right Great Saphenous Normal Yes Phasic Yes Right Lesser Saphenous Normal Yes Phasic Yes Left Distal Iliac Normal Yes Phasic Yes Left Common Femoral Normal Yes Phasic Yes Left Superficial Femoral Normal Yes Phasic Yes Left Popliteal Normal Yes Phasic Yes Left Posterior Tibial Normal Yes Phasic Yes Left Peroneal Normal Yes Phasic Yes Left Great Saphenous Normal Yes Phasic Yes Left Lesser Saphenous Normal Yes Phasic Yes Updated by Fredi Ayoub MD on 10/08/2016 5:20:39 PM electronically signed on 10/08/2016 5:20:58 PM with status of Final
[2016-10-08] MEDS: Famotidine 20 MG TABLET PO SCH (20:39)
[2016-10-08] MEDS: predniSONE 10 MG TABLET PO SCH (20:39)
[2016-10-09] MEDS: Sodium Bicarbonate 75 MEQ in 0.45 % Sodium Chloride 1,000 ML IVC SCH (01:26)
[2016-10-09] MEDS: *HR* Metoprolol 5 MG/5 ML VIAL IVP PRN (02:44)
[2016-10-09] MEDS: *HR* Heparin 5,000 UNIT/ML VIAL SQ SCH ×3 (05:37→21:29)
[2016-10-09 06:42] LABS: Hematocrit 24.7 % (35.3-44.9); Hemoglobin 8.4 g/dL (11.5-15.4); Mean Corpuscular Hemoglobin 29.8 pg (28.0-33.3); Mean Corpuscular Volume 87.6 fL (83.0-100.0); Mean Platelet Volume 9.5 fL (9.4-12.4); Platelet Count 129 K/mcL (140-400); Red Blood Count 2.82 M/mcL (3.82-4.97)
[2016-10-09 06:49] LABS: Albumin 2.3 g/dL (3.5-5.0); Calcium 7.7 mg/dL (8.6-10.8); Phosphorous 4.4 mg/dL (2.3-4.7); Potassium 4.1 mEq/L (3.5-4.5)
[2016-10-09 07:15] LABS: Monocytes # 0.1 K/mcL (0.0-1.3); Neutrophils # 6.6 K/mcL (1.6-8.9); Platelet Estimate Slight Decrease (Normal)
[2016-10-09] MEDS: Sennosides/Docusate Sodium TABLET PO SCH ×2 (07:54→21:27)
[2016-10-09] MEDS: predniSONE 20 MG TABLET PO SCH ×2 (07:55→17:02)
[2016-10-09] MEDS: Cholecalciferol (D-3) 1,000 UNIT TABLET PO SCH (07:55)
[2016-10-09] MEDS: Insulin LISPRO 300 UNITS/3 ML VIAL SQ SCH ×4 (07:59→21:34)
--- NOTE | 2016-10-09 10:29 | Internal Med Progress Note ---
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 She would be started on pulsed steroids and immunomodulator cytoxan, with follow -up labs showing worsening renal function, prompting admission. August SCr 3.24, to October 05 SCr 5.98 on admission. She is at further risk of worsening renal failure due to recalcitrant RPGN, warrants close monitoring. Nephrology team on board, to consider additional therapy, possible hemodialysis if needed. On Prednisone 50mg total daily in 3 doses Patient requires close monitoring of weight, I/O's, renal function. 10/09 GFR 10 (2) Paroxysmal atrial fibrillation with RVR Current Visit: Yes Status: Acute Assessment and plan: New onset AFib with RVR, EKG on admission 156bpm, also may suggest Aflutter. No prior documented Afib. Paroxysmal, with spontaneous conversion to NSR. Non-exertional per patient. Tropes mildly elevated 0.28, adynamic to 0.23. In setting of her renal failure, she would have loss of protein C & S and be in hypercoagulable state. Additionally, prior Cytoxan regimen side effect arrhythmias. Cytoxan dc'd. Discussed with nephrology team. EF 60-65%, severely dilated left atrium, mild PAH, estimated RVSP 38mmHg. No echocardiographic evidence of RV strain. LE doppler negative for DVT. Thyroid panel unremarkable, patient does report compliance and adherence to her synthroid dose and route(empty stomach) Ambulated yesterday with transient hypoxemia to 86%, since then has been 98% on RA. Would not order D-Dimer as it is an acute phase reactant and would be elevated in setting of her renal failure and possible infection. Given gradual improvement in renal function, will not send for CTA Chest. (3) Immunocompromised due to corticosteroids Current Visit: Yes Status: Acute Assessment and plan: Patient was started on prednisone pulse dosing (60mg daily). She exhibits an immunocompromised state due to multiple factors. Chronic corticosteroid use from the prednisone, cytoxan immunomodulator. She was on bactrim for prophylaxis from opportunistic illnesses. Continue Bactrim DS MWF. Additionally, her worsening kidney function with evidence of proteinuria, likely losing immunoglobulins. Agree with droplet precautions. Appreciate nephrology recs. (4) Morbid obesity Current Visit: Yes Status: Acute Assessment and plan: Multifactorial, exacerbated by chronic prednisone use. Qualifiers: Obesity type: drug-induced Qualified Code(s): E66.1 - Drug-induced obesity (5) HTN (hypertension) Current Visit: Yes Status: Acute Assessment and plan: HTN, with contribution from long-term prednisone use. Cont Hydralazine and Inderal. Qualifiers: Hypertension type: essential hypertension Qualified Code(s): I10 - Essential (primary) hypertension (6) Elevated troponin Current Visit: Yes Status: Acute Assessment and plan: Trop 0.28 on admission 10/05/16. Trend down 0.23. Likely elevated in setting of HTN, worsening renal disease, paroxysmal AF per above. (7) Metabolic acidosis Current Visit: Yes Status: Resolved Assessment and plan: Suspect 2* RPGN per above. Admission 10/05 Bicarb 14, 16 Improved 26 Per nephrology. - Subjective Interval history: Patient seen and examined. Continues to have metallic taste in mouth and foods do not taste good but with improved appetite. - Constitutional Vitals: Temp Pulse Resp BP Pulse Ox 97.5 F L 78 16 152/70 94 10/09/16 07:15 10/09/16 07:15 10/09/16 07:15 10/09/16 07:15 10/09/16 07:15 General appearance: Present: A&O X 3, pleasant - Head Head exam: Present: atraumatic, normocephalic - Eye Eye exam: Present: EOMI, PERRL, sclera anicteric - ENT ENT exam: Present: mucous membranes moist - Neck Neck exam general surgery: Present: supple - Respiratory Respiratory exam: Present: CTAB. Absent: accessory muscle use, wheezes - Cardiovascular Cardiovascular exam: Present: distant heart sounds (2* habitus), +S1, +S2 - GI/Abdominal GI/Abdominal exam: Present: normal bowel sounds, soft. Absent: tenderness - Extremities Exam Extremities exam: Present: warm. Absent: pedal edema, tenderness - Neurological Exam Neurological exam: Present: alert, CN II-XII intact, oriented X3, no focal deficits - Skin Skin exam: Present: dry, intact, warm Internal Medicine: Result - Labs CBC & Chem 7: 10/09/16 04:37 10/09/16 04:37 Labs: Short CBC 10/09/16 Range/Units 04:37 WBC 6.7 (4.3-11.1) K/mcL Hgb 8.4 L (11.5-15.4) g/dL Hct 24.7 L (35.3-44.9) % Plt Count 129 L (140-400) K/mcL Neutrophils # 6.6 (1.6-8.9) K/mcL BMP 10/09/16 04:37 Sodium 141 Potassium 4.1 Chloride 105 Carbon Dioxide 26 BUN 89 H Creatinine 4.24 H Glucose 176 H Calcium 7.7 L Liver Function 10/09/16 Range/Units 04:37 Albumin 2.3 L (3.5-5.0) g/dL - ABG Interpretation ABG results: PT/INR, D-dimer PT 8.9 Seconds (9.4-12.1) L 10/05/16 18:09 Consult Discharge Plan - Plan Instructions: Chronic Kidney Disease (DC), Chronic Kidney Disease (GEN), Renal Failure Diet (DC), Renal Failure Diet (GEN), Hypothyroidism (DC), Diabetes Mellitus Type 2 in Adults (DC), Chronic Hypertension (DC), Post-streptococcal Glomerulonephritis (DC), Post-streptococcal Glomerulonephritis (GEN), Chronic Kidney Disease, Deployment Engineer (GEN), Post-streptococcal Glomerulonephritis, Deployment Engineer (GEN) Referrals: Marcos Pierre MD [Primary Care Provider] - <Donnell Xiong - Last Filed: 10/09/16 16:04> Date of Encounter: 10/09/16 - Assessment and plan (1) Paroxysmal atrial fibrillation with RVR Current Visit: Yes Status: Acute (2) RPGN (rapidly progressive glomerulonephritis) Current Visit: Yes Status: Acute (3) Immunocompromised due to corticosteroids Current Visit: Yes Status: Acute (4) Acute on chronic renal failure Current Visit: Yes Status: Acute (5) HTN (hypertension) Current Visit: Yes Status: Acute Qualifiers: Hypertension type: essential hypertension Qualified Code(s): I10 - Essential (primary) hypertension (6) Diabetes mellitus Current Visit: Yes Status: Chronic Qualifiers: Diabetes mellitus type: type 2 Diabetes mellitus complication status: with unspecified complications Diabetes mellitus technician terminal and repeater insulin use: without senior care use Qualified Code(s): E11.8 - Type 2 diabetes mellitus with unspecified complications (7) Hypothyroidism Current Visit: Yes Status: Chronic Qualifiers: Hypothyroidism type: acquired Qualified Code(s): E03.9 - Hypothyroidism, unspecified - Constitutional Vitals: Temp Pulse Resp BP Pulse Ox 97.6 F 68 14 142/73 94 10/09/16 11:09 10/09/16 14:49 10/09/16 14:49 10/09/16 14:49 10/09/16 07:15 Internal Medicine: Result - Labs CBC & Chem 7: 10/09/16 04:37 10/09/16 04:37 Labs: Short CBC 10/09/16 Range/Units 04:37 WBC 6.7 (4.3-11.1) K/mcL Hgb 8.4 L (11.5-15.4) g/dL Hct 24.7 L (35.3-44.9) % Plt Count 129 L (140-400) K/mcL Neutrophils # 6.6 (1.6-8.9) K/mcL BMP 10/09/16 04:37 Sodium 141 Potassium 4.1 Chloride 105 Carbon Dioxide 26 BUN 89 H Creatinine 4.24 H Glucose 176 H Calcium 7.7 L Liver Function 10/09/16 Range/Units 04:37 Albumin 2.3 L (3.5-5.0) g/dL - ABG Interpretation ABG results: PT/INR, D-dimer PT 8.9 Seconds (9.4-12.1) L 10/05/16 18:09 - Attending Attestation I examined this patient and my medical decision-making was reviewed with the Resident Physician on 10/09/16. I agree with the documented findings, disposition and treatment plan as described except to the extent set forth below. Ms. Oreilly is currently admitted for acute progressive renal failure due to RPGN. She remains moderate to high risk due to potential for worsening renal failure. Ms. Oreilly is resting comfortably. No new issues overnight. She is tolerating IV fluids and steroids. No GI symptoms. No fever or chills. Exam Alert. Comfortable Heart reg No wheeze I/P 1. RPGN 2. Parox a fib Further diagnoses and plan as above.
--- NOTE | 2016-10-09 10:32 | Nephrology Progress Note ---
Date of Encounter: 10/09/16 Time of Encounter: 10:31 - Assessment and Plan (1) Acute on chronic renal failure Current Visit: Yes Status: Acute Patient with NEYMAR on CKD likely from dehydration secondary to nausea from Cytoxan. Cytoxan has been discontinued an she is feeling better with decreased nausea. Her renal function is improving with IV hydration, but she still has a metallic taste to her food. She has no immediate need for dialysis, but will continue to monitor. (2) HTN (hypertension) Current Visit: Yes Status: Acute Permissive hypertension while her renal function is improving. Qualifiers: Hypertension type: essential hypertension Qualified Code(s): I10 - Essential (primary) hypertension (3) Morbid obesity Current Visit: Yes Status: Acute outpatient management. Qualifiers: Obesity type: drug-induced Qualified Code(s): E66.1 - Drug-induced obesity (4) RPGN (rapidly progressive glomerulonephritis) Current Visit: Yes Status: Acute continue prednisone for now. (5) Diabetes mellitus Current Visit: Yes Status: Chronic per primary team. 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 She reports that her nausea is improving, but she still has a metallic taste to her food. She denies emesis. ROS otherwise stable or negative. Objective - Vital Signs Vital signs: Vital Signs Temp Pulse Resp BP Pulse Ox 10/09/16 07:15 97.5 F L 78 16 152/70 94 10/09/16 04:15 97.4 F L 81 18 145/72 97 10/08/16 21:14 100 10/08/16 21:00 99 10/08/16 20:35 97.7 F 58 18 154/72 99 10/08/16 16:00 98.3 F 63 17 147/68 100 10/08/16 15:47 65 147/68 10/08/16 11:21 63 17 163/76 96 Intake and Output 10/08/16 10/09/16 10/09/16 23:59 07:59 15:59 Intake Total 100 / 100 1175 / 1175 120 / 120 Output Total 250 / 250 400 / 400 Balance 100 / 100 925 / 925 -280 / -280 Intake: IV Fluids 1075 / 1075 Sodium Bicarbonate 75 MEQ 1075 / 1075 In 0.45% Sodium Chloride 1000 Ml 1000 Ml 1,000 ML @ 125 mls/hr IVC .[id number] TY Rx#:[id number] Oral 100 / 100 100 / 100 120 / 120 Output: Urine 250 / 250 400 / 400 Other: Meal Breakfast Percent of Meal Consumed 80% # Voids 0 Weight 113.4 kg Blood Glucose* 126 151 Patient Weight 10/09/16 23:59 Weight 113.4 kg - General Appearance General appearance: Present: well-developed, well-nourished Neck: Present: supple Respiratory: Present: clear Cardiology: Present: no rub, regular rate, regular rhythm Gastrointestinal: Present: no tenderness Integumentary: Present: warm and dry Neurologic: Present: alert and oriented x3 Musculoskeletal: Present: no cyanosis Psychiatric: Present: mood/affect appropriate - Lab 10/09/16 04:37 10/09/16 04:37 Most recent lab results Calcium 7.7 mg/dL (8.6-10.8) L 10/09/16 04:37 Phosphorus 4.4 mg/dL (2.3-4.7) 10/09/16 04:37 Magnesium 2.1 mg/dL (1.6-2.6) 10/06/16 05:44 Urine Creatinine 82 mg/dL 10/07/16 13:40 Urine Total Protein 413 mg/dL (1-14) H 10/07/16 13:40 Consult Discharge Plan - Plan Instructions: Chronic Kidney Disease (DC), Chronic Kidney Disease (GEN), Renal Failure Diet (DC), Renal Failure Diet (GEN), Hypothyroidism (DC), Diabetes Mellitus Type 2 in Adults (DC), Chronic Hypertension (DC), Post-streptococcal Glomerulonephritis (DC), Post-streptococcal Glomerulonephritis (GEN), Chronic Kidney Disease, Heavy Equipment Technician (GEN), Post-streptococcal Glomerulonephritis, Heavy Equipment Technician (GEN) Referrals: Marcos Pierre MD [Primary Care Provider] -
[2016-10-09] MEDS: Famotidine 20 MG TABLET PO SCH (21:27)
[2016-10-09] MEDS: predniSONE 10 MG TABLET PO SCH (21:28)
[2016-10-10] MEDS: Sodium Bicarbonate 75 MEQ in 0.45 % Sodium Chloride 1,000 ML IVC SCH ×2 (01:36→10:22)
[2016-10-10] MEDS: *HR* Metoprolol 5 MG/5 ML VIAL IVP PRN (04:25)
[2016-10-10 04:49] LABS: Hematocrit 25.3 % (35.3-44.9); Hemoglobin 8.6 g/dL (11.5-15.4); Immature Granulocytes % 2.3 % (0-4); Lymphocytes # 0.2 K/mcL (0.6-4.6); Lymphocytes % 3.1 %; Mean Corpuscular Hemoglobin 29.7 pg (28.0-33.3); Mean Corpuscular Volume 87.2 fL (83.0-100.0); Mean Platelet Volume 9.7 fL (9.4-12.4); Monocytes # 0.3 K/mcL (0.0-1.3); Monocytes % 4.9 %; Neutrophils # 6.3 K/mcL (1.6-8.9); Platelet Count 134 K/mcL (140-400); Segmented Neutrophils % 89.7 %
[2016-10-10 05:05] LABS: Albumin 2.5 g/dL (3.5-5.0); Calcium 7.9 mg/dL (8.6-10.8); Phosphorous 4.1 mg/dL (2.3-4.7); Potassium 4.1 mEq/L (3.5-4.5)
[2016-10-10] MEDS: *HR* Heparin 5,000 UNIT/ML VIAL SQ SCH ×3 (06:25→22:10)
[2016-10-10] MEDS: Sennosides/Docusate Sodium TABLET PO SCH ×2 (07:59→22:09)
[2016-10-10] MEDS: Cholecalciferol (D-3) 1,000 UNIT TABLET PO SCH (07:59)
[2016-10-10] MEDS: predniSONE 20 MG TABLET PO SCH ×2 (07:59→17:36)
[2016-10-10] MEDS: Insulin LISPRO 300 UNITS/3 ML VIAL SQ SCH ×4 (08:00→22:23)
--- NOTE | 2016-10-10 09:51 | Internal Med Progress Note ---
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 She would be started on pulsed steroids and immunomodulator cytoxan, with follow -up labs showing worsening renal function, prompting admission. August SCr 3.24, to October 05 SCr 5.98 on admission. She is at further risk of worsening renal failure due to recalcitrant RPGN, warrants close monitoring. Nephrology team on board, to consider additional therapy, possible hemodialysis if needed. On Prednisone 50mg total daily in 3 doses Patient requires close monitoring of weight, I/O's, renal function. 10/10 GFR 11 (2) Paroxysmal atrial fibrillation with RVR Current Visit: Yes Status: Acute Assessment and plan: New onset AFib with RVR, EKG on admission 156bpm, also may suggest Aflutter. No prior documented Afib. Paroxysmal, with spontaneous conversion to NSR. Non-exertional per patient. Tropes mildly elevated 0.28, adynamic to 0.23. In setting of her renal failure, she would have loss of protein C & S and be in hypercoagulable state. Additionally, prior Cytoxan regimen side effect arrhythmias. Cytoxan dc'd. Discussed with nephrology team. EF 60-65%, severely dilated left atrium, mild PAH, estimated RVSP 38mmHg. No echocardiographic evidence of RV strain. LE doppler negative for DVT. Thyroid panel unremarkable, patient does report compliance and adherence to her synthroid dose and route(empty stomach) Ambulated yesterday with transient hypoxemia to 86%, since then has been 98% on RA. Would not order D-Dimer as it is an acute phase reactant and would be elevated in setting of her renal failure and possible infection. Given gradual improvement in renal function, will not send for CTA Chest. 10/10 patient went into A. fib with RVR last night and did not self convert to normal sinus rhythm. She was given 5 mg of IV Lopressor which also did not convert her or lower her heart rate. Cardizem drip was started. This morning she is rate controlled A. fib. Cardiology consulted, appreciate recommendations. (3) Immunocompromised due to corticosteroids Current Visit: Yes Status: Acute Assessment and plan: Patient was started on prednisone pulse dosing (60mg daily). She exhibits an immunocompromised state due to multiple factors. Chronic corticosteroid use from the prednisone, cytoxan immunomodulator. She was on bactrim for prophylaxis from opportunistic illnesses. Continue Bactrim DS MWF. Additionally, her worsening kidney function with evidence of proteinuria, likely losing immunoglobulins. Agree with droplet precautions. Appreciate nephrology recs. (4) Morbid obesity Current Visit: Yes Status: Acute Assessment and plan: Multifactorial, exacerbated by chronic prednisone use. Qualifiers: Obesity type: drug-induced Qualified Code(s): E66.1 - Drug-induced obesity (5) HTN (hypertension) Current Visit: Yes Status: Acute Assessment and plan: HTN, with contribution from long-term prednisone use. Cont Hydralazine and Inderal. --Inderal may or may not be changed due to cardiology recommendations regarding atrial fibrillation Qualifiers: Hypertension type: essential hypertension Qualified Code(s): I10 - Essential (primary) hypertension (6) Elevated troponin Current Visit: Yes Status: Acute Assessment and plan: Trop 0.28 on admission 10/05/16. Trend down 0.23. Likely elevated in setting of HTN, worsening renal disease, paroxysmal AF per above. (7) Metabolic acidosis Current Visit: Yes Status: Resolved Assessment and plan: Suspect 2* RPGN per above. Admission 10/05 Bicarb 14, 16 Bicarbonate elevated today at 32 Per nephrology. - Subjective Interval history: Patient seen and examined. Went into A. fib with RVR last night. Cardizem drip initiated. - Constitutional Vitals: Temp Pulse Resp BP Pulse Ox 97.5 F L 74 17 154/67 100 10/10/16 04:15 10/10/16 07:00 10/10/16 07:00 10/10/16 07:00 10/10/16 07:00 General appearance: Present: A&O X 3, pleasant, answers questions appropriately - Head Head exam: Present: atraumatic, normocephalic - Eye Eye exam: Present: EOMI, PERRL, sclera anicteric - Neck Neck exam general surgery: Present: supple - Respiratory Respiratory exam: Present: CTAB - Cardiovascular Cardiovascular exam: Present: irregular rhythm, +S1, +S2 - GI/Abdominal GI/Abdominal exam: Present: normal bowel sounds, soft. Absent: tenderness, no peritoneal signs - Extremities Exam Extremities exam: Present: warm. Absent: tenderness - Neurological Exam Neurological exam: Present: alert, CN II-XII intact, oriented X3, no focal deficits - Skin Skin exam: Present: dry, intact, warm Internal Medicine: Result - Labs CBC & Chem 7: 10/10/16 04:29 10/10/16 04:29 Labs: Short CBC 10/10/16 Range/Units 04:29 WBC 7.0 (4.3-11.1) K/mcL Hgb 8.6 L (11.5-15.4) g/dL Hct 25.3 L (35.3-44.9) % Plt Count 134 L (140-400) K/mcL Neutrophils # 6.3 (1.6-8.9) K/mcL BMP 10/10/16 04:29 Sodium 140 Potassium 4.1 Chloride 103 Carbon Dioxide 32 H BUN 81 H Creatinine 4.04 H Glucose 156 H Calcium 7.9 L Liver Function 10/10/16 Range/Units 04:29 Albumin 2.5 L (3.5-5.0) g/dL - ABG Interpretation ABG results: PT/INR, D-dimer PT 8.9 Seconds (9.4-12.1) L 10/05/16 18:09 Consult Discharge Plan - Plan Instructions: Chronic Kidney Disease (DC), Chronic Kidney Disease (GEN), Renal Failure Diet (DC), Renal Failure Diet (GEN), Hypothyroidism (DC), Diabetes Mellitus Type 2 in Adults (DC), Chronic Hypertension (DC), Post-streptococcal Glomerulonephritis (DC), Post-streptococcal Glomerulonephritis (GEN), Chronic Kidney Disease, Consulting Systems Engineer (GEN), Post-streptococcal Glomerulonephritis, Consulting Systems Engineer (GEN) Referrals: Marcos Pierre MD [Primary Care Provider] - <Donnell Xiong - Last Filed: 10/10/16 13:34> Date of Encounter: 10/10/16 - Assessment and plan (1) Paroxysmal atrial fibrillation with RVR Current Visit: Yes Status: Acute (2) RPGN (rapidly progressive glomerulonephritis) Current Visit: Yes Status: Acute (3) Immunocompromised due to corticosteroids Current Visit: Yes Status: Acute (4) Acute on chronic renal failure Current Visit: Yes Status: Acute (5) HTN (hypertension) Current Visit: Yes Status: Acute Qualifiers: Hypertension type: essential hypertension Qualified Code(s): I10 - Essential (primary) hypertension (6) Diabetes mellitus Current Visit: Yes Status: Chronic Qualifiers: Diabetes mellitus type: type 2 Diabetes mellitus complication status: with unspecified complications Diabetes mellitus halfway insulin use: without manager med surg use Qualified Code(s): E11.8 - Type 2 diabetes mellitus with unspecified complications (7) Hypothyroidism Current Visit: Yes Status: Chronic Qualifiers: Hypothyroidism type: acquired Qualified Code(s): E03.9 - Hypothyroidism, unspecified - Constitutional Vitals: Temp Pulse Resp BP Pulse Ox 97.5 F L 74 17 154/67 100 10/10/16 04:15 10/10/16 07:00 10/10/16 07:00 10/10/16 07:00 10/10/16 07:00 Internal Medicine: Result - Labs CBC & Chem 7: 10/10/16 04:29 10/10/16 04:29 Labs: Short CBC 10/10/16 Range/Units 04:29 WBC 7.0 (4.3-11.1) K/mcL Hgb 8.6 L (11.5-15.4) g/dL Hct 25.3 L (35.3-44.9) % Plt Count 134 L (140-400) K/mcL Neutrophils # 6.3 (1.6-8.9) K/mcL BMP 10/10/16 04:29 Sodium 140 Potassium 4.1 Chloride 103 Carbon Dioxide 32 H BUN 81 H Creatinine 4.04 H Glucose 156 H Calcium 7.9 L Liver Function 10/10/16 Range/Units 04:29 Albumin 2.5 L (3.5-5.0) g/dL - ABG Interpretation ABG results: PT/INR, D-dimer PT 8.9 Seconds (9.4-12.1) L 10/05/16 18:09 - Attending Attestation I examined this patient and my medical decision-making was reviewed with the Resident Physician on 10/10/16. I agree with the documented findings, disposition and treatment plan as described except to the extent set forth below. Ms. Oreilly is currently admitted for worsening renal failure related to RPGN. She developed sustained a fib with RVR last evening. She is moderate to high risk due to potential for worsening cardiac and renal issues. Ms. Oreilly was placed on Cardizem drip for rapid a fib last evening. She feels OK now and heart rate in 60s. Denies CP or SOB. Feels "puffy" today. No abd pain. No fever or chills. No GI symptoms. Exam Alert. Comfortable Heart irreg but not tachy Lungs clear I/P 1. Parox a fib - card to see today. Rate better controlled 2. RPGN Further diagnoses and plan as above.
--- NOTE | 2016-10-10 11:27 | Cardiology Consult Note ---
Date of Encounter: 10/10/16 Time of Encounter: 11:20 Assessment and Plan (1) PAF (paroxysmal atrial fibrillation) Current Visit: Yes Status: Acute Newly noted PAF in the setting of NEYMAR secondary to RPGN. Reports palpitations for the past month. PAF noted since admission; however required cardizem gtt overnight due to uncontrolled rates. SR upon exam, cardizem gtt is off. Recommend rate control, will start Cardizem 120 mg daily. TSH normal, on synthroid. TTE 10/07/16: EF 60-65%, normal RV structure and function, severely dilated left atrium, mild PH (est RVSP=38 mmHg), normal wall motion. CHA2Ds Vasc=3 (female, HTN, DMII). Discussed with Dr. Souza, she is not an ideal candidate for full anticoagulation due to anemia--H/H continues to decline since admission (8.6/25.3). Thrombocytopenia also noted, with PLT 134. Recommend low dose ASA if okay by Nephrology. She is aware of increased risk for CVA. If anemia improves in the outpatient setting, recommend consideration of full anticoagulation. (2) Anemia Current Visit: Yes Status: Acute H/H continues to decline, may be secondary to CKD. Further mgmt per primary service. Qualifiers: Anemia type: unspecified type Qualified Code(s): D64.9 - Anemia, unspecified (3) RPGN (rapidly progressive glomerulonephritis) Current Visit: Yes Status: Acute Nephrology following. Discussion w patient/family: The assessment and plan as outlined above was discussed with the patient and/or family members who expressed understanding and agreement. All questions were answered. Thank you for involving us in the care of your patient. Please call with any questions. The patient will be discussed and reviewed with Dr. Souza; changes to be made accordingly. History of Present Illness Consult date: 10/10/16 Requesting physician: Vilma Rocha Consult reason: PAF Chief complaint: Palpitations History of present illness: Ms. Oreilly is a 66 year old female with PMH significant for rapidly progressive glomerulonephritis (dx August 2016), HTN, DMII, depression who presented to [facility] on 10/05/16 with worsening nausea, vomiting, fatigue, and weakness felt to be secondary to prednisone and cytoxan that was recently started for RPGN. Upon arrival to ED, SCr was 5.88; since admission, she has been on IVF with improvement to SCr. Cardiology consulted today for PAF. Patient reports 1 month history of intermittent racing heart rates, feeling "jittery," and palpitations. She first noted symptoms after started prednisone and cytoxan. Past Med Surg Social Fam HX - Past Medical History Medical history: diabetes, hypertension, renal disease, thyroid disease Psychiatric history: anxiety, depression - Past Surgical History Surgical History: other (tubal ligation) - Social History Smoking Status: Never smoker Smokeless Tobacco Status: No Alcohol use: rarely Drug use: none - Family History Mother Hx Family Cancer: Yes Father Hx Family Endocrine Disorder: Yes Medications and Allergies Levothyroxine [Synthroid] 112 mcg PO DAILY 11/25/15 [History] Cholecalciferol (D-3) [Vitamin D] 2,000 unit PO DAILY 09/03/16 [History] Hydralazine HCl 50 mg PO BID PRN 09/03/16 [History] LORazepam [Ativan] 0.5 mg PO BID PRN 09/03/16 [History] Propranolol [Inderal] 40 mg PO BID 09/03/16 [History] Cyclophosphamide 50 mg PO BID #60 capsule 09/06/16 [Rx] Famotidine [Pepcid] 20 mg PO DAILY 10/05/16 [History] PredniSONE 10 mg PO HS 10/05/16 [History] PredniSONE 20 mg PO BID 10/05/16 [History] Sulfamethoxazole/Trimeth DS [Bactrim DS] 1 each PO MOWEFR 10/05/16 [History] Allergies codeine Adverse Reaction (Verified 10/05/16 16:51) Vomiting All Systems Review: A 10-system review of systems was performed and is negative for pertinent findings except as documented above in the HPI. - Cardiovascular Cardiovascular: as per HPI Physical Examination General: Conversant, No Apparent Distress HEENT: Atraumatic, Normocephaly Cardiac: Reg Rate and Rhythm, Normal S1 and S2 Lungs: Normal Breath Sounds Neuro: Alert and responsive Abdomen: Soft Skin: No rashes noted on visualized skin Musculoskeletal: No Chest Wall Tenderness Extremities: Normal Pulses, Other (mild pre-tibial BLE edema. ) Results 10/10/16 04:29 10/10/16 04:29 Lab Results 10/10/16 10/10/16 04:29 04:29 WBC 7.0 Hgb 8.6 L Hct 25.3 L Plt Count 134 L Sodium 140 Potassium 4.1 Chloride 103 Carbon Dioxide 32 H BUN 81 H Creatinine 4.04 H Glucose 156 H Calcium 7.9 L - Imaging and Cardiology Echo: report reviewed Other Results: 24 hour tele: avg HR=80 PAF noted. - EKG Interpretation EKG results cardiology: personally reviewed Consult Discharge Plan - Plan Instructions: Chronic Kidney Disease (DC), Chronic Kidney Disease (GEN), Renal Failure Diet (DC), Renal Failure Diet (GEN), Hypothyroidism (DC), Diabetes Mellitus Type 2 in Adults (DC), Chronic Hypertension (DC), Post-streptococcal Glomerulonephritis (DC), Post-streptococcal Glomerulonephritis (GEN), Chronic Kidney Disease, Scrap Collector (GEN), Post-streptococcal Glomerulonephritis, Scrap Collector (GEN) Referrals: Marcos Pierre MD [Primary Care Provider] -
[2016-10-10] MEDS: Diltiazem CD (24hr) 120 MG CAPSULE PO SCH (11:53)
--- NOTE | 2016-10-10 12:25 | Nephrology Progress Note ---
Date of Encounter: 10/10/16 Time of Encounter: 12:23 - Assessment and Plan (1) Acute on chronic renal failure Current Visit: Yes Status: Acute Patient with NEYMAR on CKD likely from dehydration secondary to nausea from Cytoxan. Cytoxan has been discontinued and she is feeling better with decreased , but unfortunately persistent nausea. Her renal function is improving with IV hydration, but she still has a metallic taste to her food. She has no immediate need for dialysis, but will continue to monitor. Will discontinue hydration as she is likely euvolemic or possibly slightly hypervolemic. If she does not continue to improve she will likely need renal replacement therapy. She is interested in CAPD secondary to her desire to travel. (2) HTN (hypertension) Current Visit: Yes Status: Acute Permissive hypertension while her renal function is improving. Qualifiers: Hypertension type: essential hypertension Qualified Code(s): I10 - Essential (primary) hypertension (3) Morbid obesity Current Visit: Yes Status: Acute outpatient management. Qualifiers: Obesity type: drug-induced Qualified Code(s): E66.1 - Drug-induced obesity (4) RPGN (rapidly progressive glomerulonephritis) Current Visit: Yes Status: Acute continue prednisone for now. Once her nausea has improved can consider another immunosuppressive agent such as mycophenolate. (5) Diabetes mellitus Current Visit: Yes Status: Chronic per primary team. Qualifiers: Diabetes mellitus type: type 2 Diabetes mellitus complication status: with unspecified complications Diabetes mellitus snf insulin use: without snf use Qualified Code(s): E11.8 - Type 2 diabetes mellitus with unspecified complications Subjective Principal diagnosis: Acute on Chronic Kidney Injury Interval history: Patient feels better this am. She reports that her nausea is improving, but she still has a metallic taste to her food. She denies emesis. ROS otherwise stable or negative. She is willing to go on dialysis as needed. She is concerned about her insurance coverage if she wants to travel out of [place] ([facility]). She is interested in CAPD. Objective - Vital Signs Vital signs: Vital Signs Temp Pulse Resp BP Pulse Ox 10/10/16 07:00 74 17 154/67 100 10/10/16 06:35 82 155/67 10/10/16 06:29 84 156/68 10/10/16 04:15 97.5 F L 133 18 148/100 96 10/09/16 21:17 97 10/09/16 19:41 97.9 F 58 18 157/81 97 10/09/16 14:49 97.5 F L 68 14 142/73 Intake and Output 10/09/16 10/10/16 10/10/16 23:59 07:59 15:59 Intake Total 220 / 220 1075 / 1075 1360 / 1360 Output Total 350 / 350 500 / 500 Balance -130 / -130 575 / 575 1360 / 1360 Intake: IV Fluids 1075 / 1075 1000 / 1000 Sodium Bicarbonate 75 MEQ 1075 / 1075 1000 / 1000 In 0.45% Sodium Chloride 1000 Ml 1000 Ml 1,000 ML @ 125 mls/hr IVC .[id number] TY Rx#:[id number] Oral 220 / 220 0 / 0 360 / 360 Output: Urine 350 / 350 500 / 500 Other: Meal Dinner Breakfast Percent of Meal Consumed 75% 100% # Bowel Movements 1 Weight 114.6 kg Blood Glucose* 224 156 256 Patient Weight 10/10/16 23:59 Weight 114.6 kg - General Appearance General appearance: Present: well-developed, well-nourished EENT: Present: ATNC Neck: Present: supple Additional Comments: respirations are unlabored. Cardiology: Present: regular rate Integumentary: Present: warm and dry Neurologic: Present: alert and oriented x3 Musculoskeletal: Present: no cyanosis Psychiatric: Present: mood/affect appropriate - Lab 10/10/16 04:29 10/10/16 04:29 Most recent lab results Calcium 7.9 mg/dL (8.6-10.8) L 10/10/16 04:29 Phosphorus 4.1 mg/dL (2.3-4.7) 10/10/16 04:29 Magnesium 2.1 mg/dL (1.6-2.6) 10/06/16 05:44 Urine Creatinine 82 mg/dL 10/07/16 13:40 Urine Total Protein 413 mg/dL (1-14) H 10/07/16 13:40 Consult Discharge Plan - Plan Instructions: Chronic Kidney Disease (DC), Chronic Kidney Disease (GEN), Renal Failure Diet (DC), Renal Failure Diet (GEN), Hypothyroidism (DC), Diabetes Mellitus Type 2 in Adults (DC), Chronic Hypertension (DC), Post-streptococcal Glomerulonephritis (DC), Post-streptococcal Glomerulonephritis (GEN), Chronic Kidney Disease, Wellness Assistant (GEN), Post-streptococcal Glomerulonephritis, Wellness Assistant (GEN) Referrals: Marcos Pierre MD [Primary Care Provider] -
[2016-10-10] MEDS: Famotidine 20 MG TABLET PO SCH (22:10)
[2016-10-10] MEDS: predniSONE 10 MG TABLET PO SCH (22:10)
[2016-10-11] MEDS: predniSONE 20 MG TABLET PO SCH ×2 (09:09→16:23)
[2016-10-11] MEDS: Diltiazem CD (24hr) 120 MG CAPSULE PO SCH (09:09)
[2016-10-11] MEDS: Cholecalciferol (D-3) 1,000 UNIT TABLET PO SCH (09:10)
[2016-10-11] MEDS: Sennosides/Docusate Sodium TABLET PO SCH ×2 (09:10→21:41)
[2016-10-11] MEDS: Insulin LISPRO 300 UNITS/3 ML VIAL SQ SCH ×4 (09:11→21:41)
[2016-10-11] MEDS: *HR* Heparin 5,000 UNIT/ML VIAL SQ SCH ×3 (09:11→21:41)
--- NOTE | 2016-10-11 09:43 | Cardiology Progress Note ---
Date of Encounter: 10/11/16 Time of Encounter: 09:10 Assessment and Plan (1) PAF (paroxysmal atrial fibrillation) Current Visit: Yes Status: Acute Newly noted PAF in the setting of NEYMAR secondary to RPGN. Reports palpitations for the past month. PAF noted since admission; however temporarily required cardizem gtt over the weekend due to RVR. Recommend rate control, oral cardizem started, inderal d/c'ed. TSH normal, on synthroid. TTE 10/07/16: EF 60-65%, normal RV structure and function, severely dilated left atrium, mild PH (est RVSP=38 mmHg), normal wall motion. 12 hour tele: avg HR=61 SR. PAF noted between 6-7 AM, will increase cardizem to 180 mg daily. CHA2Ds Vasc=3 (female, HTN, DMII). Discussed with Dr. Souza, she is not an ideal candidate for full anticoagulation due to anemia--H/H continues to decline since admission (8.6/25.3). Thrombocytopenia also noted, with PLT 134. Recommend low dose ASA if okay by Nephrology. She is aware of increased risk for CVA. If anemia improves in the outpatient setting, recommend consideration of full anticoagulation. No further inpatient Cardiology recommendations, will sign-off. Will coordinate follow-up appointment in the outpatient setting. (2) Anemia Current Visit: Yes Status: Acute H/H continues to decline, may be secondary to CKD. Further mgmt per primary service. Qualifiers: Anemia type: unspecified type Qualified Code(s): D64.9 - Anemia, unspecified (3) RPGN (rapidly progressive glomerulonephritis) Current Visit: Yes Status: Acute Nephrology following. Discussion w patient/family: The assessment and plan as outlined above was discussed with the patient and/or family members who expressed understanding and agreement. All questions were answered. Thank you for involving us in the care of your patient. Please call with any questions. The patient was discussed and reviewed with Dr. Souza; Cardiology will sign-off, will coordinate follow-up. Subjective Principal diagnosis: Acute on Chronic Kidney Injury, PAF Interval history: Seen and examined earlier this morning. States she feels much better today, only noted 1 episode of PAF this morning. Nausea/metallic taste improved. Denies chest pain/discomfort, dyspnea, dizziness, or syncope. Objective Vital Signs, Last 4 Hours Temp Pulse Resp BP Pulse Ox 10/11/16 08:00 97.1 F L 72 20 120/74 98 10/11/16 05:49 98.0 F 51 16 132/66 96 General: Conversant HEENT: Atraumatic, Normocephaly Cardiac: Reg Rate and Rhythm, Normal S1 and S2 Lungs: Normal Breath Sounds Neuro: Alert and responsive Abdomen: Soft Skin: No rashes noted on visualized skin Musculoskeletal: No Chest Wall Tenderness Extremities: Other (LE pre-tibial edema, mild edema bilateral hands. ) Results 10/10/16 04:29 10/10/16 04:29 Active Medications Calcium Carbonate (Tums) 1,000 mg PO Q4HR PRN; Protocol PRN Reason: Heartburn Stop: 04/10/17 02:30 Last Admin: 10/09/16 02:41 Dose: 1,000 mg Dextrose/Water (Dextrose 50% (Syg)) 25 ml IVP AD PRN PRN Reason: Hypoglycemia Stop: 04/07/17 01:40 Diltiazem HCl (Cardizem Cd) 120 mg PO DAILY [facility] Stop: 04/11/17 11:31 Last Admin: 10/11/16 09:09 Dose: 120 mg Famotidine (Pepcid) 20 mg PO HS TY PRN Reason: Protocol Stop: 04/06/17 22:16 Last Admin: 10/10/16 22:10 Dose: 20 mg Glucagon (Glucagen) 1 mg IM ONCE PRN PRN Reason: Hypoglycemia Stop: 04/07/17 01:40 Glucose (Gluctose) 15 gm PO ONCE PRN PRN Reason: Hypoglycemia Stop: 04/07/17 01:40 Glucose (Gluctose) 30 gm PO ONCE PRN PRN Reason: Hypoglycemia Stop: 04/07/17 01:40 Heparin Sodium (Porcine) (Heparin) 5,000 unit SQ Q8H TY Stop: 04/06/17 22:01 Last Admin: 10/11/16 09:11 Dose: 5,000 unit Hydralazine HCl (Hydralazine) 50 mg PO BID PRN PRN Reason: Hypertension SBP>180 Dextrose (Dextrose 5%) 1,000 mls @ 100 mls/hr IVC .Q10H PRN PRN Reason: HYPOGLYCEMIA Stop: 04/07/17 01:40 Insulin Human Lispro (Humalog) 0 units SQ HS TY PRN Reason: Protocol Stop: 04/07/17 21:01 Last Admin: 10/10/16 22:23 Dose: 3 units Insulin Human Lispro (Humalog) 0 units SQ TIDAC TY PRN Reason: Protocol Stop: 04/07/17 07:31 Last Admin: 10/11/16 09:11 Dose: Not Given Levothyroxine Sodium (Synthroid) 112 mcg PO 0630 TY Stop: 04/07/17 06:31 Last Admin: 10/11/16 09:09 Dose: 112 mcg Lorazepam (Ativan) 0.5 mg PO BID PRN PRN Reason: Anxiety Stop: 04/06/17 20:23 Metoprolol Tartrate (Lopressor) 5 mg IVP Q4H PRN PRN Reason: Heart Rate- High Stop: 04/09/17 00:38 Last Admin: 10/10/16 04:25 Dose: 5 mg Multi-Ingredient Mucositis [place] (Chloraseptic) 2 spray MM QID PRN PRN Reason: Sore Throat Stop: 04/08/17 10:23 Naloxone HCl (Narcan) 0.4 mg IVP Q2MIN PRN PRN Reason: Opioid Reversal Stop: 04/06/17 20:21 Ondansetron HCl (Zofran Odt) 4 mg SL Q6HR PRN PRN Reason: Nausea And Vomiting Stop: 04/08/17 15:51 Last Admin: 10/07/16 17:35 Dose: 4 mg Prednisone (Prednisone) 20 mg PO BIDWM [facility] Stop: 04/08/17 17:01 Last Admin: 10/11/16 09:09 Dose: 20 mg Prednisone (Prednisone) 10 mg PO HS [facility] Stop: 04/08/17 21:01 Last Admin: 10/10/16 22:10 Dose: 10 mg Promethazine HCl (Phenergan) 12.5 mg PO Q8HR PRN PRN Reason: Nausea And Vomiting Stop: 04/08/17 15:52 Senna/Docusate Sodium (Senna Plus) 2 each PO BID TY PRN Reason: Protocol Stop: 04/07/17 10:31 Last Admin: 10/11/16 09:10 Dose: 2 each Sodium Bicarbonate (Sodium Bicarbonate) 650 mg PO TID [facility] Stop: 04/07/17 09:01 Last Admin: 10/11/16 09:09 Dose: 650 mg Trimethoprim/Sulfamethoxazole (Bactrim Ss) 1 tab PO MOWEFR TY Stop: 04/07/17 09:01 Last Admin: 10/08/16 11:18 Dose: 1 tab Vitamin D (Vitamin D) 2,000 unit PO DAILY TY Stop: 04/07/17 09:01 Last Admin: 10/11/16 09:10 Dose: 2,000 unit - Imaging and Cardiology Echo: report reviewed Other Results: 12 hour tele: avg HR=61 SR. Episode of PAF noted between 6-7AM - EKG Interpretation EKG results cardiology: personally reviewed Consult Discharge Plan - Plan Instructions: Chronic Kidney Disease (DC), Chronic Kidney Disease (GEN), Renal Failure Diet (DC), Renal Failure Diet (GEN), Hypothyroidism (DC), Diabetes Mellitus Type 2 in Adults (DC), Chronic Hypertension (DC), Post-streptococcal Glomerulonephritis (DC), Post-streptococcal Glomerulonephritis (GEN), Chronic Kidney Disease, Counter Checker (GEN), Post-streptococcal Glomerulonephritis, Counter Checker (GEN) Referrals: Marcos Pierre MD [Primary Care Provider] -
[2016-10-11 09:52] LABS: Basophils % 0.1 %; Hematocrit 27.2 % (35.3-44.9); Hemoglobin 9.3 g/dL (11.5-15.4); Immature Granulocytes % 3.3 % (0-4); Immature Platelets 3.3 % (1.1-6.1); Lymphocytes # 0.4 K/mcL (0.6-4.6); Lymphocytes % 4.3 %; Mean Corpuscular HGB Conc 34.2 g/dL (31.6-35.5); Mean Corpuscular Hemoglobin 30.3 pg (28.0-33.3); Mean Corpuscular Volume 88.6 fL (83.0-100.0); Mean Platelet Volume 9.5 fL (9.4-12.4); Monocytes # 0.6 K/mcL (0.0-1.3); Monocytes % 7.2 %; Neutrophils # 7.3 K/mcL (1.6-8.9); Platelet Count 165 K/mcL (140-400); Red Blood Count 3.07 M/mcL (3.82-4.97); Red Cell Distribution Width 13.1 % (11.5-14.5); Segmented Neutrophils % 85.1 %
[2016-10-11 10:05] LABS: Calcium 7.8 mg/dL (8.6-10.8); Potassium 3.8 mEq/L (3.5-4.5)
--- NOTE | 2016-10-11 10:06 | Internal Med Progress Note ---
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 She would be started on pulsed steroids and immunomodulator cytoxan, with follow -up labs showing worsening renal function, prompting admission. August SCr 3.24, to October 05 SCr 5.98 on admission. She is at further risk of worsening renal failure due to recalcitrant RPGN, warrants close monitoring. Nephrology team on board, to consider additional therapy, possible hemodialysis if needed. On Prednisone 50mg total daily in 3 doses Patient requires close monitoring of weight, I/O's, renal function. 10/11 GFR 11 Per documentation, since admission she is +8.3 L. Exhibiting signs fluid overload as well. GFR may be dilutional. Appreciate nephro recs. (2) Paroxysmal atrial fibrillation with RVR Current Visit: Yes Status: Acute Assessment and plan: New onset AFib with RVR, EKG on admission 156bpm, also may suggest Aflutter. No prior documented Afib. Paroxysmal, with spontaneous conversion to NSR. Non-exertional per patient. Tropes mildly elevated 0.28, adynamic to 0.23. In setting of her renal failure, she would have loss of protein C & S and be in hypercoagulable state. Additionally, prior Cytoxan regimen side effect arrhythmias. Cytoxan dc'd. Discussed with nephrology team. EF 60-65%, severely dilated left atrium, mild PAH, estimated RVSP 38mmHg. No echocardiographic evidence of RV strain. LE doppler negative for DVT. Thyroid panel unremarkable, patient does report compliance and adherence to her synthroid dose and route(empty stomach) Ambulated yesterday with transient hypoxemia to 86%, since then has been 98% on RA. Would not order D-Dimer as it is an acute phase reactant and would be elevated in setting of her renal failure and possible infection. Given gradual improvement in renal function, will not send for CTA Chest. 10/10 patient went into A. fib with RVR last night and did not self convert to normal sinus rhythm. She was given 5 mg of IV Lopressor which also did not convert her or lower her heart rate. Cardizem drip was started. This morning she is rate controlled A. fib. Cardiology consulted, appreciate recommendations. She was transitioned from cardizem gtt to PO 180 CD. Had lopressor 5mg IV x 3. D/W Cardiology team, will observe o/n, if sustained AF, may increase cardizem dose. Deferring long-term a/c at this time given anemia. (3) Immunocompromised due to corticosteroids Current Visit: Yes Status: Acute Assessment and plan: Patient was started on prednisone pulse dosing (60mg daily). She exhibits an immunocompromised state due to multiple factors. Chronic corticosteroid use from the prednisone, cytoxan immunomodulator. She was on bactrim for prophylaxis from opportunistic illnesses. Continue Bactrim DS MWF. Additionally, her worsening kidney function with evidence of proteinuria, likely losing immunoglobulins. Agree with droplet precautions. Appreciate nephrology recs. (4) Morbid obesity Current Visit: Yes Status: Acute Assessment and plan: Multifactorial, exacerbated by chronic prednisone use. Qualifiers: Obesity type: drug-induced Qualified Code(s): E66.1 - Drug-induced obesity (5) HTN (hypertension) Current Visit: Yes Status: Acute Assessment and plan: HTN, with contribution from long-term prednisone use. Cont Hydralazine and Inderal. --Inderal may or may not be changed due to cardiology recommendations regarding atrial fibrillation Qualifiers: Hypertension type: essential hypertension Qualified Code(s): I10 - Essential (primary) hypertension (6) Elevated troponin Current Visit: Yes Status: Acute Assessment and plan: Trop 0.28 on admission 10/05/16. Trend down 0.23. Likely elevated in setting of HTN, worsening renal disease, paroxysmal AF per above. (7) Metabolic acidosis Current Visit: Yes Status: Resolved Assessment and plan: Suspect 2* RPGN per above. Admission 10/05 Bicarb 14, 16 Bicarbonate elevated today at 32 Per nephrology. - Subjective Interval history: Pt seen/eval, over the weekend would endorse feeling swelling and sense of fullness. Would also have pAF HR 150s, since started on Cardizem gtt. Her cough is improved. No chest pain/press, nvd. Reports palpitations during pAF episodes. - Constitutional Vitals: Temp Pulse Resp BP Pulse Ox 97.1 F L 72 20 120/74 98 10/11/16 08:00 10/11/16 08:00 10/11/16 08:00 10/11/16 08:00 10/11/16 08:00 General appearance: Present: A&O X 3, pleasant, answers questions appropriately - Head Head exam: Present: atraumatic, normocephalic - Eye Eye exam: Present: EOMI, sclera anicteric - ENT ENT exam: Present: mucous membranes moist - Respiratory Respiratory exam: Present: decreased breath sounds (2* habitus). Absent: rhonchi, wheezes, tachypnea - Cardiovascular Cardiovascular exam: Present: +S1, +S2, tachycardia (c/w AF). Absent: irregular rhythm, JVD - GI/Abdominal GI/Abdominal exam: Present: soft, no peritoneal signs. Absent: tenderness - Extremities Exam Extremities exam: Present: pedal edema (trace pitting leslye LE, also on hands), warm, radial pulses palpable and symetrical Internal Medicine: Result - Labs CBC & Chem 7: 10/11/16 09:44 10/11/16 09:44 Labs: Short CBC 10/11/16 Range/Units 09:44 WBC 8.6 (4.3-11.1) K/mcL Hgb 9.3 L (11.5-15.4) g/dL Hct 27.2 L (35.3-44.9) % Plt Count 165 (140-400) K/mcL Neutrophils # 7.3 (1.6-8.9) K/mcL - ABG Interpretation ABG results: PT/INR, D-dimer PT 8.9 Seconds (9.4-12.1) L 10/05/16 18:09 Consult Discharge Plan - Plan Instructions: Chronic Kidney Disease (DC), Chronic Kidney Disease (GEN), Renal Failure Diet (DC), Renal Failure Diet (GEN), Hypothyroidism (DC), Diabetes Mellitus Type 2 in Adults (DC), Chronic Hypertension (DC), Post-streptococcal Glomerulonephritis (DC), Post-streptococcal Glomerulonephritis (GEN), Chronic Kidney Disease, Whiskey Filterer (GEN), Post-streptococcal Glomerulonephritis, Whiskey Filterer (GEN) Referrals: Marcos Pierre MD [Primary Care Provider] - Sharon Dorman CNP [Partnered Physician] - 11/03/16 9:00 am <Donnell Xiong - Last Filed: 10/11/16 18:01> Date of Encounter: 10/11/16 - Assessment and plan (1) Paroxysmal atrial fibrillation with RVR Current Visit: Yes Status: Acute (2) RPGN (rapidly progressive glomerulonephritis) Current Visit: Yes Status: Acute (3) Immunocompromised due to corticosteroids Current Visit: Yes Status: Acute (4) Acute on chronic renal failure Current Visit: Yes Status: Acute (5) HTN (hypertension) Current Visit: Yes Status: Acute Qualifiers: Hypertension type: essential hypertension Qualified Code(s): I10 - Essential (primary) hypertension (6) Diabetes mellitus Current Visit: Yes Status: Chronic Qualifiers: Diabetes mellitus type: type 2 Diabetes mellitus complication status: with unspecified complications Diabetes mellitus buttermaker insulin use: without buttermaker use Qualified Code(s): E11.8 - Type 2 diabetes mellitus with unspecified complications (7) Hypothyroidism Current Visit: Yes Status: Chronic Qualifiers: Hypothyroidism type: acquired Qualified Code(s): E03.9 - Hypothyroidism, unspecified - Constitutional Vitals: Temp Pulse Resp BP Pulse Ox 97.9 F 64 18 127/70 97 10/11/16 16:08 10/11/16 16:08 10/11/16 16:08 10/11/16 16:08 10/11/16 16:08 Internal Medicine: Result - Labs CBC & Chem 7: 10/11/16 09:44 10/11/16 09:44 Labs: Short CBC 10/11/16 Range/Units 09:44 WBC 8.6 (4.3-11.1) K/mcL Hgb 9.3 L (11.5-15.4) g/dL Hct 27.2 L (35.3-44.9) % Plt Count 165 (140-400) K/mcL Neutrophils # 7.3 (1.6-8.9) K/mcL BMP 10/11/16 09:44 Sodium 141 Potassium 3.8 Chloride 101 Carbon Dioxide 31 H BUN 75 H Creatinine 4.16 H Glucose 217 H Calcium 7.8 L - ABG Interpretation ABG results: PT/INR, D-dimer PT 8.9 Seconds (9.4-12.1) L 10/05/16 18:09 - Attending Attestation I examined this patient and my medical decision-making was reviewed with the Resident Physician on 10/11/16. I agree with the documented findings, disposition and treatment plan as described except to the extent set forth below. Ms. Oreilly is currently admitted for progressive renal failure from RPGN. She is moderate to high risk due to potential for worsening renal status. Ms. Oreilly is doing OK. Fluids stopped yesterday. Renal function about the same. No CP or SOB. Exam Alert. Comfortable Heart reg - had rapid a fib again this AM now resolved No wheeze I/P 1. Renal failure 2. Parox a fib 3. RPGN Further diagnoses and plan as above.
[2016-10-11] MEDS: *HR* Metoprolol 5 MG/5 ML VIAL IVP SCH ×3 (10:21→10:38)
[2016-10-11] MEDS: Sulfamethoxazole/Trimeth SS 1 TAB PO SCH (10:30)
[2016-10-11] MEDS ORDERED: dilTIAZem HCl 60 MG TABLET PO ONE (12:00)
--- NOTE | 2016-10-11 13:21 | Nephrology Progress Note ---
<Adán Dowd - Last Filed: 10/11/16 14:12> Date of Encounter: 10/11/16 Time of Encounter: 09:00 - Assessment and Plan (1) Acute on chronic renal failure Status: Acute Patient acute on chronic renal failure likely due to dehydration that resulted from nausea and vomiting with cyclophosphamide usage, that she had been receiving as treatment for fibrillary, crescentic GN. She reports feeling much improved since stopping the cyclophosphamide, stating she is almost back to normal. She states that she has had some resolution of the metallic taste for food. She appeared to respond well to IV fluid hydration, this was stopped this past weekend. Patient kidney function has been trending downward and the duration of her admission, but today stayed relatively stable (went up slightly). Patient reports continuing to have good urine output. Every time patient seen there appears to be at least 400 mL of urine collected. I have currently unsure of the accuracy of I/Os. Patient does not seem to be uremic and with continued urine output is not hypervolemic. No acute need for dialysis at this time, will continue to monitor kidney function closely. If patient unable to maintain adequate renal function she will likely need renal replacement therapy. We will continue to monitor renal function closely Continue prednisone therapy (2) RPGN (rapidly progressive glomerulonephritis) Status: Acute Patient previously on cyclophosphamide and prednisone. Cyclophosphamide caused to severe side effects. Patient currently continued on prednisone, but some resolution of patient nausea observed. We will continue to monitor patient renal function and consider addition of an additional immunosuppressive agent (3) HTN (hypertension) Status: Chronic Patient on hydralazine and propanolol. Patient started on Cardizem this weekend for treatment of her atrial fibrillation with rapid ventricular response. Patient blood pressure currently controlled Per primary team Qualifiers: Hypertension type: essential hypertension Qualified Code(s): I10 - Essential (primary) hypertension (4) Diabetes mellitus Status: Chronic Continue blood sugar control per primary team Qualifiers: Diabetes mellitus type: type 2 Diabetes mellitus complication status: with unspecified complications Diabetes mellitus detention insulin use: without detention use Qualified Code(s): E11.8 - Type 2 diabetes mellitus with unspecified complications Subjective Principal diagnosis: Acute on Chronic Kidney Injury, PAF Interval history: Patient reports continuing to feel better every day. She sees improvement of her nausea and states that the metallic taste in her mouth that she had with food has resolved. Over the weekend she had an episode of atrial fibrillation with RVR that could not be controlled with metoprolol, she was placed on a Cardizem drip and then converted to by mouth Cardizem. Since this point she states she has not had any additional episodes of tachycardia Objective - Vital Signs Vital signs: Vital Signs Temp Pulse Resp BP Pulse Ox 10/11/16 08:00 97.1 F L 72 20 120/74 98 10/11/16 05:49 98.0 F 51 16 132/66 96 10/10/16 21:30 100 10/10/16 19:00 97.7 F 58 16 141/66 96 10/10/16 16:00 59 18 153/85 100 Intake and Output 10/10/16 10/11/16 10/11/16 23:59 07:59 15:59 Intake Total 240 / 240 Output Total 350 / 350 Balance -350 / -350 240 / 240 Intake: Oral 240 / 240 Output: Urine 350 / 350 Other: Meal Breakfast Percent of Meal Consumed 95% Stool Size Moderate # Bowel Movements 2 Weight 121.1 kg Blood Glucose* 222 Patient Weight 10/11/16 23:59 Weight 121.1 kg - General Appearance General appearance: Present: well-developed, well-nourished, appears started age EENT: Present: ATNC, PERRL, mucous membranes moist, hearing intact Neck: Present: supple Respiratory: Present: no kyphosis, clear. Absent: wheezing, rales, rhonchi Cardiology: Present: no murmurs, no rub, no gallops, edema (mild, b/l LE), regular rate, regular rhythm, normal S1, normal S2 Gastrointestinal: Present: normoactive bowel sounds, no tenderness Integumentary: Present: no rash, warm and dry Neurologic: Present: no focal deficit, no asterixis, alert and oriented x3 Musculoskeletal: Present: no deformities, no erythema, no cyanosis, no clubbing Psychiatric: Present: mood/affect appropriate, cooperative - Lab 10/11/16 09:44 10/11/16 09:44 Most recent lab results Calcium 7.8 mg/dL (8.6-10.8) L 10/11/16 09:44 Phosphorus 4.1 mg/dL (2.3-4.7) 10/10/16 04:29 Magnesium 2.1 mg/dL (1.6-2.6) 10/06/16 05:44 Urine Creatinine 82 mg/dL 10/07/16 13:40 Urine Total Protein 413 mg/dL (1-14) H 10/07/16 13:40 Consult Discharge Plan - Plan Instructions: Sulfamethoxazole/Trimethoprim (By mouth), Diltiazem (By mouth), Lorazepam (By mouth), Glipizide (By mouth), Prednisone (By mouth), Laxative, Stimulant (By mouth), Hydralazine (By mouth), Ondansetron (By mouth), Magnesium Oxide (By mouth), Vitamin D (By mouth), Sodium Bicarbonate (By mouth), Chronic Kidney Disease (DC), Chronic Kidney Disease (GEN), Renal Failure Diet (DC), Renal Failure Diet (GEN), Hypothyroidism (DC), Diabetes Mellitus Type 2 in Adults (DC), Chronic Hypertension (DC), Post-streptococcal Glomerulonephritis ( DC), Post-streptococcal Glomerulonephritis (GEN), Chronic Kidney Disease, Stars Analytical Lead (GEN), Post-streptococcal Glomerulonephritis, Stars Analytical Lead ( GEN) Additional Instructions: Follow up with Dr. Cook as arranged - 1 to 2 weeks. Contact office for labwork prior to visit. Referrals: Marcos Pierre MD [Primary Care Provider] - 10/21/16 2:00 pm Juan Cook DO [Partnered Physician] - 10/27/16 2:55 pm Sharon Dorman CNP [Partnered Physician] - 11/03/16 9:00 am Prescriptions: Ondansetron ODT [Zofran ODT] 4 mg SL Q6HR PRN #30 tab.rapdis PRN Reason: Nausea And Vomiting Cholecalciferol (D-3) [Vitamin D] 2,000 unit PO DAILY #30 tablet GlipiZIDE [Glipizide Xl] 5 mg PO DAILY #30 tab.er.24 Hydralazine HCl 50 mg PO BID PRN #60 tablet PRN Reason: Hypotension LORazepam [Ativan] 0.5 mg PO BID PRN #30 tablet PRN Reason: Anxiety Magnesium Oxide [Mag-Ox] 400 mg PO BID #60 tablet PredniSONE 10 mg PO HS #30 tablet PredniSONE 20 mg PO BID #60 tablet Sennosides/Docusate Sodium [Senna Plus] 2 each PO BID #120 tablet Sodium Bicarbonate 650 mg PO TID #90 tablet Sulfamethoxazole/Trimeth SS [Bactrim SS] 1 tab PO MOWEFR #30 tablet <Ez Ag - Last Filed: 10/28/16 16:20> Date of Encounter: 10/11/16 Objective - Lab 10/12/16 05:26 10/12/16 05:26 Most recent lab results Calcium 7.3 mg/dL (8.6-10.8) L 10/12/16 05:26 Phosphorus 4.1 mg/dL (2.3-4.7) 10/10/16 04:29 Magnesium 1.2 mg/dL (1.6-2.6) L 10/12/16 05:26 Urine Creatinine 82 mg/dL 10/07/16 13:40 Urine Total Protein 413 mg/dL (1-14) H 10/07/16 13:40 - Attending Attestation I examined this patient and my medical decision-making was reviewed with the PROMOTIONS ASSOCIATE/PA/Advanced Practice Nurse/Resident Physician. I agree with the documented findings, disposition and treatment plan as described except to the extent set forth below. Pt seen and examined with interim events reviewed. Scr appears to have stabilized around 4 with no more signs of improvement despite fluids. Will continue to avoid nephrotoxins and discuss other immunosuppressive agents to be used now that cytotax cannot be tolerated.
--- NOTE | 2016-10-11 21:31 | Electrocardiograph Report ---
[place] [id number] Test Date: 2016-10-10 Pat Name: Natalia Oreilly Department: 111 Room: [id number] Gender: F Phone Manager: [id number] : 1950 Requested By: Donnell Xiong Order Number: [id number] Reading MD: Campbell Souza MD Measurements Intervals [place] Rate: 132 P: CO: 0 QRS: -5 QRSD: 92 T: 12 QT: 311 QTc: 389 Interpretive Statements ATRIAL FIBRILLATION WITH RAPID VENTRICULAR RESPONSE Electronically Signed On 10-11-2016 21:30:05 EDT by Campbell Souza MD
[2016-10-11] MEDS: Famotidine 20 MG TABLET PO SCH (21:41)
[2016-10-11] MEDS: predniSONE 10 MG TABLET PO SCH (21:41)
[2016-10-12 06:00] LABS: Hematocrit 23.7 % (35.3-44.9); Hemoglobin 8.1 g/dL (11.5-15.4); Mean Corpuscular HGB Conc 34.2 g/dL (31.6-35.5); Mean Corpuscular Hemoglobin 29.9 pg (28.0-33.3); Mean Corpuscular Volume 87.5 fL (83.0-100.0); Mean Platelet Volume 9.9 fL (9.4-12.4); Platelet Count 120 K/mcL (140-400); Red Blood Count 2.71 M/mcL (3.82-4.97); Red Cell Distribution Width 12.7 % (11.5-14.5)
[2016-10-12] MEDS: *HR* Heparin 5,000 UNIT/ML VIAL SQ SCH (06:10)
[2016-10-12 06:15] LABS: Calcium 7.3 mg/dL (8.6-10.8); Magnesium 1.2 mg/dL (1.6-2.6); Potassium 3.9 mEq/L (3.5-4.5)
[2016-10-12 06:25] LABS: Monocytes # 0.3 K/mcL (0.0-1.3); Neutrophils # 6.9 K/mcL (1.6-8.9)
[2016-10-12 06:32] LABS: Platelet Estimate Normal (Normal)
--- NOTE | 2016-10-12 06:42 | Electrocardiograph Report ---
[place] [id number] Test Date: 2016-10-11 Pat Name: Natalia Oreilly Department: 111 Room: [id number] Gender: F Marzipan Maker: MAKENZIE : 1950 Requested By: Donnell Xiong Order Number: [id number] Reading MD: Campbell Souza MD Measurements Intervals [place] Rate: 155 P: NM: 0 QRS: -4 QRSD: 109 T: 32 QT: 251 QTc: 338 Interpretive Statements ATRIAL FIBRILLATION WITH RAPID VENTRICULAR RESPONSE Electronically Signed On 10-12-2016 6:40:54 EDT by Campbell Souza MD
[2016-10-12 07:08] VITALS: BP 146/65
[2016-10-12] MEDS: Insulin LISPRO 300 UNITS/3 ML VIAL SQ SCH ×2 (08:26→12:24)
[2016-10-12] MEDS ORDERED: Diltiazem CD (24hr) 180 MG CAPSULE PO SCH (09:00)
[2016-10-12] MEDS ORDERED: Magnesium Oxide 400 MG TABLET PO SCH (09:00)
[2016-10-12] MEDS: *HR* Metoprolol 5 MG/5 ML VIAL IVP SCH (09:39)
--- NOTE | 2016-10-12 10:05 | Internal Med Progress Note ---
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 She would be started on pulsed steroids and immunomodulator cytoxan, with follow -up labs showing worsening renal function, prompting admission. August SCr 3.24, to October 05 SCr 5.98 on admission. She is at further risk of worsening renal failure due to recalcitrant RPGN, warrants close monitoring. Nephrology team on board, to consider additional therapy, possible hemodialysis if needed. On Prednisone 50mg total daily in 3 doses Patient requires close monitoring of weight, I/O's, renal function. 10/12 GFR 11 IVF dc'd. Discussed with nephrology team, consideration of other immunomodulator agent. Appreciate nephro recs. (2) Paroxysmal atrial fibrillation with RVR Current Visit: Yes Status: Acute Assessment and plan: New onset AFib with RVR, EKG on admission 156bpm, also may suggest Aflutter. No prior documented Afib. Paroxysmal, with spontaneous conversion to NSR. Non-exertional per patient. Tropes mildly elevated 0.28, adynamic to 0.23. In setting of her renal failure, she would have loss of protein C & S and be in hypercoagulable state. Additionally, prior Cytoxan regimen side effect arrhythmias. Cytoxan dc'd. Discussed with nephrology team. EF 60-65%, severely dilated left atrium, mild PAH, estimated RVSP 38mmHg. No echocardiographic evidence of RV strain. LE doppler negative for DVT. Thyroid panel unremarkable, patient does report compliance and adherence to her synthroid dose and route(empty stomach) Ambulated yesterday with transient hypoxemia to 86%, since then has been 98% on RA. Would not order D-Dimer as it is an acute phase reactant and would be elevated in setting of her renal failure and possible infection. Given gradual improvement in renal function, will not send for CTA Chest. 10/10 patient went into A. fib with RVR last night and did not self convert to normal sinus rhythm. She was given 5 mg of IV Lopressor which also did not convert her or lower her heart rate. Cardizem drip was started. This morning she is rate controlled A. fib. Cardiology consulted, appreciate recommendations. She was transitioned from cardizem gtt to PO 180 CD. Had lopressor 5mg IV x 3. 10/12/16 Controlled on cardizem 180 CD, rate 60-80's, converted to sinus. Deferring long-term a/c at this time given anemia. (3) Immunocompromised due to corticosteroids Current Visit: Yes Status: Acute Assessment and plan: Patient was started on prednisone pulse dosing (60mg daily). She exhibits an immunocompromised state due to multiple factors. Chronic corticosteroid use from the prednisone, cytoxan immunomodulator. She was on bactrim for prophylaxis from opportunistic illnesses. Continue Bactrim DS MWF. Additionally, her worsening kidney function with evidence of proteinuria, likely losing immunoglobulins. Agree with droplet precautions. Appreciate nephrology recs. (4) Morbid obesity Current Visit: Yes Status: Acute Assessment and plan: Multifactorial, exacerbated by chronic prednisone use. Qualifiers: Obesity type: drug-induced Qualified Code(s): E66.1 - Drug-induced obesity (5) HTN (hypertension) Current Visit: Yes Status: Acute Assessment and plan: HTN, with contribution from long-term prednisone use. Cont Hydralazine and Inderal. Cardizem 180CD QD Qualifiers: Hypertension type: essential hypertension Qualified Code(s): I10 - Essential (primary) hypertension (6) Elevated troponin Current Visit: Yes Status: Acute Assessment and plan: Trop 0.28 on admission 10/05/16. Trend down 0.23. Likely elevated in setting of HTN, worsening renal disease, paroxysmal AF per above. (7) Metabolic acidosis Current Visit: Yes Status: Resolved Assessment and plan: Suspect 2* RPGN per above. Admission 10/05 Bicarb 14, 16 Bicarbonate wnl 29 Per nephrology. - Subjective Interval history: Pt seen/eval, she would endorse continued LE swelling, though mildly improved. Eating well. Denies any chest pain or other concerns. - Constitutional Vitals: Temp Pulse Resp BP Pulse Ox 97.5 F L 61 18 146/65 98 10/12/16 07:00 10/12/16 07:00 10/12/16 07:00 10/12/16 07:00 10/12/16 07:00 General appearance: Present: A&O X 3, pleasant, answers questions appropriately - Head Head exam: Present: atraumatic, normocephalic - Eye Eye exam: Present: EOMI, sclera anicteric - ENT ENT exam: Present: mucous membranes moist - Neck Neck exam general surgery: Present: supple, trachea midline - Respiratory Respiratory exam: Absent: rhonchi, wheezes - Cardiovascular Cardiovascular exam: Present: +S1, +S2. Absent: irregular rhythm Additional comments: sinus 60-80's - GI/Abdominal GI/Abdominal exam: Present: soft, no peritoneal signs. Absent: tenderness - Extremities Exam Extremities exam: Present: pedal edema (mild leslye pitting LE), warm, radial pulses palpable and symetrical Internal Medicine: Result - Labs CBC & Chem 7: 10/12/16 05:26 10/12/16 05:26 Labs: Short CBC 10/12/16 Range/Units 05:26 WBC 8.2 (4.3-11.1) K/mcL Hgb 8.1 L (11.5-15.4) g/dL Hct 23.7 L (35.3-44.9) % Plt Count 120 L (140-400) K/mcL Neutrophils # 6.9 (1.6-8.9) K/mcL BMP 10/11/16 10/12/16 09:44 05:26 Sodium 141 136 Potassium 3.8 3.9 Chloride 101 99 Carbon Dioxide 31 H 29 BUN 75 H 72 H Creatinine 4.16 H 4.06 H Glucose 217 H 164 H Calcium 7.8 L 7.3 L - ABG Interpretation ABG results: PT/INR, D-dimer PT 8.9 Seconds (9.4-12.1) L 10/05/16 18:09 Consult Discharge Plan - Plan Instructions: Chronic Kidney Disease (DC), Chronic Kidney Disease (GEN), Renal Failure Diet (DC), Renal Failure Diet (GEN), Hypothyroidism (DC), Diabetes Mellitus Type 2 in Adults (DC), Chronic Hypertension (DC), Post-streptococcal Glomerulonephritis (DC), Post-streptococcal Glomerulonephritis (GEN), Chronic Kidney Disease, [employer] (GEN), Post-streptococcal Glomerulonephritis, [employer] (GEN) Referrals: Marcos Pierre MD [Primary Care Provider] - Sharon Dorman CNP [Partnered Physician] - 11/03/16 9:00 am
[2016-10-12] MEDS: Cholecalciferol (D-3) 1,000 UNIT TABLET PO SCH (10:13)
[2016-10-12] MEDS: Sennosides/Docusate Sodium TABLET PO SCH (10:13)
[2016-10-12] MEDS: predniSONE 20 MG TABLET PO SCH (10:13)
--- NOTE | 2016-10-12 13:11 | Nephrology Progress Note ---
<Adán Dowd - Last Filed: 10/12/16 14:27> Date of Encounter: 10/12/16 Time of Encounter: 09:30 - Assessment and Plan (1) Acute on chronic renal failure Status: Resolved Patient acute on chronic renal failure likely due to dehydration that resulted from nausea and vomiting with cyclophosphamide use. She had been receiving cyclophosphamide as treatment for fibrillary, crescentic GN. She reports feeling much improved since stopping the cyclophosphamide, stating she is almost back to normal. She appeared to respond well to IV fluid hydration, this was stopped this past weekend. Patient kidney function has been slowly improving since admission, but has remained stable the last 3 days at GFR 11. Patient reports continuing to have good urine output. Patient does not seem to be uremic and with continued urine output is not hypervolemic. No acute need for dialysis at this time, will continue to monitor kidney function closely. Given patient kidney status it is forseeable that she might require hemodialysis in the future iand the options of HD versus PD were discussed with her, including some pros and cons of both. Her renal function has remained stable, and she is stable for discharge with continued prednisone therapy and initiation of mycophenolate Close follow-up with her bereavement counselor, Dr. Juan Cook, in 1-2 weeks is recommended Recommend repeat blood work prior to appointment with bereavement counselor Continue prednisone therapy (2) RPGN (rapidly progressive glomerulonephritis) Status: Acute Patient previously on cyclophosphamide and prednisone. Cyclophosphamide caused to significant side effects. Patient currently continued on prednisone, but some resolution of patient nausea observed. We will start mycophenolate and continue prednisone and have follow-up with her bereavement counselor in 1-2 weeks (3) HTN (hypertension) Status: Chronic Patient on hydralazine and propanolol. Patient started on Cardizem this weekend for treatment of her atrial fibrillation with rapid ventricular response. Patient blood pressure currently controlled Per primary team Qualifiers: Hypertension type: essential hypertension Qualified Code(s): I10 - Essential (primary) hypertension (4) Diabetes mellitus Status: Chronic Continue blood sugar control per primary team Qualifiers: Diabetes mellitus type: type 2 Diabetes mellitus complication status: with unspecified complications Diabetes mellitus group billing coordinator insulin use: without group billing coordinator use Qualified Code(s): E11.8 - Type 2 diabetes mellitus with unspecified complications Subjective Principal diagnosis: Acute on Chronic Kidney Injury, PAF Interval history: Patient states she has had almost complete resolution of the metallic taste in her mouth with food. No complaints of nausea/vomiting. She states she has no further episodes of tachycardia (which were previously associated with shortness of breath, weakness, and feelings of palpitations). Overall, she says she is feeling better than she did previously. She does report having some puffiness around her eyes. Objective - Vital Signs Vital signs: Vital Signs Temp Pulse Resp BP Pulse Ox 10/12/16 07:00 97.5 F L 61 18 146/65 98 10/12/16 04:55 97.6 F 54 16 149/73 98 10/12/16 00:27 20 96 10/12/16 00:19 132/57 10/11/16 21:19 97.3 F L 56 16 176/90 97 10/11/16 16:08 97.9 F 64 18 127/70 97 Intake and Output 10/11/16 10/12/16 10/12/16 23:59 07:59 15:59 Intake Total 0 / 0 120 / 120 Output Total 475 / 475 600 / 600 200 / 200 Balance -475 / -475 -600 / -600 -80 / -80 Intake: Oral 0 / 0 120 / 120 Output: Urine 475 / 475 600 / 600 200 / 200 Other: Meal Breakfast Percent of Meal Consumed 100% Weight 125 kg 115.6 kg Blood Glucose* 272 165 223 Patient Weight 10/12/16 23:59 Weight 115.6 kg - General Appearance Exam: General: Cooperative, pleasant, no acute distress, alert and oriented 3, answers questions appropriately Head: Normocephalic, atraumatic Eye: Conjunctiva pink, sclera anicteric, EOMI Neck: Supple, trachea midline Respiratory: No accessory muscle usage, clear to auscultation bilaterally, no wheezes/rhonchi/rales appreciated Cardiovascular: Regular rate and rhythm, S1 and S2 present, no murmurs/rubs/ gallops/clicks appreciated GI/abdominal: Nondistended, nontender, soft, normal bowel sounds, no peritoneal signs Extremities: No calf tenderness, noncyanotic, +1 pedal edema appreciated, warm, lower extremity pulses palpable and symmetrical Neurological: Alert and oriented 3, no facial droop, no focal deficits Skin: Dry, intact, normal color - Lab 10/12/16 05:26 10/12/16 05:26 Most recent lab results Calcium 7.3 mg/dL (8.6-10.8) L 10/12/16 05:26 Phosphorus 4.1 mg/dL (2.3-4.7) 10/10/16 04:29 Magnesium 1.2 mg/dL (1.6-2.6) L 10/12/16 05:26 Urine Creatinine 82 mg/dL 10/07/16 13:40 Urine Total Protein 413 mg/dL (1-14) H 10/07/16 13:40 Consult Discharge Plan - Plan Instructions: Sulfamethoxazole/Trimethoprim (By mouth), Diltiazem (By mouth), Lorazepam (By mouth), Glipizide (By mouth), Prednisone (By mouth), Laxative, Stimulant (By mouth), Hydralazine (By mouth), Ondansetron (By mouth), Magnesium Oxide (By mouth), Vitamin D (By mouth), Sodium Bicarbonate (By mouth), Chronic Kidney Disease (DC), Chronic Kidney Disease (GEN), Renal Failure Diet (DC), Renal Failure Diet (GEN), Hypothyroidism (DC), Diabetes Mellitus Type 2 in Adults (DC), Chronic Hypertension (DC), Post-streptococcal Glomerulonephritis ( DC), Post-streptococcal Glomerulonephritis (GEN), Chronic Kidney Disease, Educational Manager (GEN), Post-streptococcal Glomerulonephritis, Educational Manager ( GEN) Additional Instructions: Follow up with Dr. Cook as arranged - 1 to 2 weeks. Contact office for labwork prior to visit. Referrals: Marcos Pierre MD [Primary Care Provider] - 10/21/16 2:00 pm Juan Cook DO [Partnered Physician] - 10/27/16 2:55 pm Sharon Dorman CNP [Partnered Physician] - 11/03/16 9:00 am Prescriptions: Ondansetron ODT [Zofran ODT] 4 mg SL Q6HR PRN #30 tab.rapdis PRN Reason: Nausea And Vomiting Cholecalciferol (D-3) [Vitamin D] 2,000 unit PO DAILY #30 tablet GlipiZIDE [Glipizide Xl] 5 mg PO DAILY #30 tab.er.24 Hydralazine HCl 50 mg PO BID PRN #60 tablet PRN Reason: Hypotension LORazepam [Ativan] 0.5 mg PO BID PRN #30 tablet PRN Reason: Anxiety Magnesium Oxide [Mag-Ox] 400 mg PO BID #60 tablet PredniSONE 10 mg PO HS #30 tablet PredniSONE 20 mg PO BID #60 tablet Sennosides/Docusate Sodium [Senna Plus] 2 each PO BID #120 tablet Sodium Bicarbonate 650 mg PO TID #90 tablet Sulfamethoxazole/Trimeth SS [Bactrim SS] 1 tab PO MOWEFR #30 tablet <Ez Ag Elissa - Last Filed: 10/28/16 16:22> Date of Encounter: 10/12/16 Objective - Lab 10/12/16 05:26 10/12/16 05:26 Most recent lab results Calcium 7.3 mg/dL (8.6-10.8) L 10/12/16 05:26 Phosphorus 4.1 mg/dL (2.3-4.7) 10/10/16 04:29 Magnesium 1.2 mg/dL (1.6-2.6) L 10/12/16 05:26 Urine Creatinine 82 mg/dL 10/07/16 13:40 Urine Total Protein 413 mg/dL (1-14) H 10/07/16 13:40 - Attending Attestation I examined this patient and my medical decision-making was reviewed with the DIRECTOR OF LAND/PA/Advanced Practice Nurse/Resident Physician. I agree with the documented findings, disposition and treatment plan as described except to the extent set forth below. Pt seen and examined. Given stable SCr around 4.0, there is no acute indication for FINANCE EFFECTIVENESS MANAGER, hence can be discharge with immediate followup with Dr Cook within 2 weeks with lans within a week to discuss further immunosuppressive therapy for her condition.
[2016-10-12] MEDS ORDERED: Magnesium Sulfate 1 GM in D5% in Water 100 ML IV ONE (13:27)
--- NOTE | 2016-10-12 13:47 | Discharge Summary ---
Date of Encounter: 10/12/16 Time of Encounter: 13:30 - Discharge Diagnosis (1) RPGN (rapidly progressive glomerulonephritis) Priority: Primary Status: Acute (2) Paroxysmal atrial fibrillation with RVR Priority: Primary Status: Acute (3) Immunocompromised due to corticosteroids Priority: Secondary Status: Acute (4) Acute on chronic renal failure Priority: Secondary Status: Resolved (5) HTN (hypertension) Priority: Secondary Status: Acute Qualifiers: Hypertension type: essential hypertension Qualified Code(s): I10 - Essential (primary) hypertension (6) Diabetes mellitus Priority: Secondary Status: Chronic Qualifiers: Diabetes mellitus type: type 2 Diabetes mellitus complication status: with unspecified complications Diabetes mellitus control tower radio operator insulin use: without control tower radio operator use Qualified Code(s): E11.8 - Type 2 diabetes mellitus with unspecified complications (7) Hypothyroidism Priority: Secondary Status: Chronic Qualifiers: Hypothyroidism type: acquired Qualified Code(s): E03.9 - Hypothyroidism, unspecified (8) CKD (chronic kidney disease), stage IV Priority: Primary Status: Chronic (9) HTN (hypertension) Priority: Secondary Status: Chronic Qualifiers: Hypertension type: essential hypertension Qualified Code(s): I10 - Essential (primary) hypertension (10) Hyperkalemia Priority: Secondary Status: Resolved (11) Morbid obesity Priority: Secondary Status: Acute Qualifiers: Obesity type: drug-induced Qualified Code(s): E66.1 - Drug-induced obesity (12) Metabolic acidosis Priority: Secondary Status: Resolved - Discharge Medications Prescriptions: Ondansetron ODT [Zofran ODT] 4 mg SL Q6HR PRN #30 tab.rapdis PRN Reason: Nausea And Vomiting Cholecalciferol (D-3) [Vitamin D] 2,000 unit PO DAILY #30 tablet Diltiazem CD (24hr) [Cardizem CD] 180 mg PO DAILY #60 cap.er.24h GlipiZIDE [Glipizide Xl] 5 mg PO DAILY #30 tab.er.24 Hydralazine HCl 50 mg PO BID PRN #60 tablet PRN Reason: Hypotension LORazepam [Ativan] 0.5 mg PO BID PRN #30 tablet PRN Reason: Anxiety Magnesium Oxide [Mag-Ox] 400 mg PO BID #60 tablet PredniSONE 10 mg PO HS #30 tablet PredniSONE 20 mg PO BID #60 tablet Sennosides/Docusate Sodium [Senna Plus] 2 each PO BID #120 tablet Sodium Bicarbonate 650 mg PO TID #90 tablet Sulfamethoxazole/Trimeth SS [Bactrim SS] 1 tab PO MOWEFR #30 tablet Home Medications: Levothyroxine [Synthroid] 112 mcg PO DAILY 11/25/15 [History] Famotidine [Pepcid] 20 mg PO DAILY 10/05/16 [History] Calcium Carbonate [Tums] 1,000 mg PO Q4HR PRN #0 tab.chew 10/12/16 [Rx] Cholecalciferol (D-3) [Vitamin D] 2,000 unit PO DAILY #30 tablet 10/12/16 [Rx] Diltiazem CD (24hr) [Cardizem CD] 180 mg PO DAILY #60 cap.er.24h 10/12/16 [Rx] GlipiZIDE [Glipizide Xl] 5 mg PO DAILY #30 tab.er.24 10/12/16 [Rx] Hydralazine HCl 50 mg PO BID PRN #60 tablet 10/12/16 [Rx] LORazepam [Ativan] 0.5 mg PO BID PRN #30 tablet 10/12/16 [Rx] Magnesium Oxide [Mag-Ox] 400 mg PO BID #60 tablet 10/12/16 [Rx] Ondansetron ODT [Zofran ODT] 4 mg SL Q6HR PRN #30 tab.rapdis 10/12/16 [Rx] PredniSONE 10 mg PO HS #30 tablet 10/12/16 [Rx] PredniSONE 20 mg PO BID #60 tablet 10/12/16 [Rx] Sennosides/Docusate Sodium [Senna Plus] 2 each PO BID #120 tablet 10/12/16 [Rx] Sodium Bicarbonate 650 mg PO TID #90 tablet 10/12/16 [Rx] Sulfamethoxazole/Trimeth SS [Bactrim SS] 1 tab PO MOWEFR #30 tablet 10/12/16 [Rx ] Allergies/Adverse Reactions: Allergies codeine Adverse Reaction (Verified 10/05/16 16:51) Vomiting Procedures/tests Complete & Pending: Procedures Performed prior 72 hours Category Date Time Status ECG 12 lead ECG [ECG] Routine Y 10/10/16 04:44 Completed ECG 12 lead ECG [ECG] Routine Y 10/11/16 10:20 Completed Date of admission: 10/05/16 21:24 Primary care physician: Marcos Pierre MD Consults: 10/08/16 15:17 Consult to Respiratory Therapy [CONS] Routine Reason for Consult: Suspect sleep apnea. Consult for nocturnal pulse- oximetry study please, thanks. Call Completed: No 10/10/16 08:25 Consult to Cardiology [CONS] Routine Comment: Consulting Provider: Shon Aslhey Reason for Consult: a fib (RVR) Time Notified: 08:26 Call Completed: Yes 10/12/16 13:29 Consult to Smooth Stucco Resurfacer [CONS] Routine Reason for SW Consult: homecare Discharging clinician: Donnell Xiong Anticipated date of discharge: 10/12/16 - Patient Status Disposition: Home Health Service Condition: Good Functional capacity at discharge: independent ambulation Overall status at discharge: patient is progressing back to baseline - Discharge Instructions Instructions: Chronic Kidney Disease (DC), Chronic Kidney Disease (GEN), Renal Failure Diet (DC), Renal Failure Diet (GEN), Hypothyroidism (DC), Diabetes Mellitus Type 2 in Adults (DC), Chronic Hypertension (DC), Post-streptococcal Glomerulonephritis (DC), Post-streptococcal Glomerulonephritis (GEN), Chronic Kidney Disease, [employer] (GEN), Post-streptococcal Glomerulonephritis, [employer] (GEN) Follow Up With: Marcos Pierre MD [Primary Care Provider] - Sharon Dorman CNP [Partnered Physician] - 11/03/16 9:00 am Additional Instructions: Follow up with Dr. Cook as arranged - 1 to 2 weeks. Contact office for labwork prior to visit. - Diet and Activity Activity: increase activity as tolerated Diet: diabetic diet Hospital course: Ms. Oreilly is a 66 year old female with a history of RPGN admitted to the hospital due to hyperkalemia and worsening renal function. She was recently diagnosed with RPGN via renal biopsy. She had been on Cytoxan as an outpatient but renal function continued to worsen. Potassium increased and she was subsequently admitted. Ms. Oreilly was admitted to [facility]. She was started on aggressive IV fluids and PO steroids. Cytoxan was held. She had slow improvement in her renal function to CKD 4 (about the same as prior). IV fluids were stopped and the plan is for another immunosuppresant as outpatient. She also had parox a fib during this hospitalization. Overnight pulse ox study did not reveal desaturation. She is not a candidate for anticoagulation due to anemia. She was started on Cardizem with improvement in her rate. On 10/11/16 she felt well. Her vitals were stable and she was afebrile. She was felt ready for d/c home with outpatient follow up. - Time Spent with Patient Total time spent providing and/or coordinating discharge services: 42min - Constitutional Vitals: Temp Pulse Resp BP Pulse Ox 97.5 F L 61 18 146/65 98 10/12/16 07:00 10/12/16 07:00 10/12/16 07:00 10/12/16 07:00 10/12/16 07:00 General appearance: Present: A&O X 3, pleasant, answers questions appropriately - Head Head exam: Present: normocephalic - Eye Eye exam: Present: EOMI, conjuntiva pink - ENT ENT exam: Present: mucous membranes moist - Respiratory Respiratory exam: Present: decreased breath sounds. Absent: rhonchi, wheezes - Cardiovascular Cardiovascular exam: Present: irregular rhythm. Absent: tachycardia - GI/Abdominal GI/Abdominal exam: Present: soft. Absent: tenderness - Extremities Exam Extremities exam: Present: pedal edema, warm - Neurological Exam Neurological exam: Present: alert, oriented X3, no focal deficits - Psychiatric Psychiatric exam: Present: normal affect, normal mood - Skin Skin exam: Present: warm. Absent: rash
--- NOTE | 2016-10-12 14:47 | Physician Discharge Referral ---
Home Health/Hosp Referral Info Transfer to: Home Health Attending Provider: Donnell Xiong DO Provider in Charge Post Discharge: PCP - Diagnosis (1) RPGN (rapidly progressive glomerulonephritis) Priority: Primary Status: Acute (2) Paroxysmal atrial fibrillation with RVR Priority: Primary Status: Acute (3) Immunocompromised due to corticosteroids Priority: Secondary Status: Acute (4) Acute on chronic renal failure Priority: Secondary Status: Resolved (5) HTN (hypertension) Priority: Secondary Status: Acute (6) Diabetes mellitus Priority: Secondary Status: Chronic (7) Hypothyroidism Priority: Secondary Status: Chronic (8) CKD (chronic kidney disease), stage IV Priority: Secondary Status: Chronic (9) HTN (hypertension) Priority: Secondary Status: Chronic (10) Hyperkalemia Priority: Secondary Status: Resolved (11) Morbid obesity Priority: Secondary Status: Acute (12) Metabolic acidosis Priority: Secondary Status: Resolved - Respiratory Orders Smoking Cessation: Smoking cessation has been advised. For more information, call the [employer] Quit Line at [phone]. - Diet/Nutrition Diet/Nutrition Orders: Cardiac, No Concentrated Sweets - Activity Activity Orders: Up ad josemanuel - Services Needed Following services are medically necessary services: Nursing, Physical Therapy - Transfer Medications Prescriptions: Ondansetron ODT [Zofran ODT] 4 mg SL Q6HR PRN #30 tab.rapdis PRN Reason: Nausea And Vomiting Cholecalciferol (D-3) [Vitamin D] 2,000 unit PO DAILY #30 tablet Diltiazem CD (24hr) [Cardizem CD] 180 mg PO DAILY #60 cap.er.24h GlipiZIDE [Glipizide Xl] 5 mg PO DAILY #30 tab.er.24 Hydralazine HCl 50 mg PO BID PRN #60 tablet PRN Reason: Hypotension LORazepam [Ativan] 0.5 mg PO BID PRN #30 tablet PRN Reason: Anxiety Magnesium Oxide [Mag-Ox] 400 mg PO BID #60 tablet PredniSONE 10 mg PO HS #30 tablet PredniSONE 20 mg PO BID #60 tablet Sennosides/Docusate Sodium [Senna Plus] 2 each PO BID #120 tablet Sodium Bicarbonate 650 mg PO TID #90 tablet Sulfamethoxazole/Trimeth SS [Bactrim SS] 1 tab PO MOWEFR #30 tablet Home Medications: Levothyroxine [Synthroid] 112 mcg PO DAILY 11/25/15 [History] Famotidine [Pepcid] 20 mg PO DAILY 10/05/16 [History] Calcium Carbonate [Tums] 1,000 mg PO Q4HR PRN #0 tab.chew 10/12/16 [Rx] Cholecalciferol (D-3) [Vitamin D] 2,000 unit PO DAILY #30 tablet 10/12/16 [Rx] Diltiazem CD (24hr) [Cardizem CD] 180 mg PO DAILY #60 cap.er.24h 10/12/16 [Rx] GlipiZIDE [Glipizide Xl] 5 mg PO DAILY #30 tab.er.24 10/12/16 [Rx] Hydralazine HCl 50 mg PO BID PRN #60 tablet 10/12/16 [Rx] LORazepam [Ativan] 0.5 mg PO BID PRN #30 tablet 10/12/16 [Rx] Magnesium Oxide [Mag-Ox] 400 mg PO BID #60 tablet 10/12/16 [Rx] Ondansetron ODT [Zofran ODT] 4 mg SL Q6HR PRN #30 tab.rapdis 10/12/16 [Rx] PredniSONE 10 mg PO HS #30 tablet 10/12/16 [Rx] PredniSONE 20 mg PO BID #60 tablet 10/12/16 [Rx] Sennosides/Docusate Sodium [Senna Plus] 2 each PO BID #120 tablet 10/12/16 [Rx] Sodium Bicarbonate 650 mg PO TID #90 tablet 10/12/16 [Rx] Sulfamethoxazole/Trimeth SS [Bactrim SS] 1 tab PO MOWEFR #30 tablet 10/12/16 [Rx ] Allergies/Adverse Reactions: Allergies codeine Adverse Reaction (Verified 10/05/16 16:51) Vomiting Certification: Further, I certify that my clinical findings support that this patient is homebound (i.e. absences from home require considerable and taxing effort and are for medical reasons or christianity services or infrequently or short duration when for other reasons) because: Homebound Reason: Patient requires assistance of a person or device to safely leave home, Leaving home requires considerable and taxing effort due to condition, Severity of cardiac or pulmonary status limits activity tolerance Attestation: My signature below is to certify that this patient is under my care and that I, or nurse practitioner, or a physician's public services assistant working with me, has a face-to -face encounter with this patient.
== END 2016-10-12 16:20 | disposition home health service (06) | DRG 683 ==
LOC: 2NENU 16:45 → EMEROO 16:45 → 2NENU 20:46
PROVIDERS: ADMIT Internal Medicine Endocrinology, Diabetes & Metabolism; ATTEND Internal Medicine

== ENCOUNTER 2016-10-24 00:32 | Observation (INO) ==
[2016-10-24] MEDS ORDERED: 0.9 % Sodium Chloride 1,000 ML IVC ONE (01:11)
--- NOTE | 2016-10-24 01:14 | Emergency Department Note ---
Disposition Clinical Impression: Atrial fibrillation with RVR, Elevated troponin CKD (chronic kidney disease) Qualifiers: Chronic kidney disease stage: unspecified stage Qualified Code(s): N18.9 - Chronic kidney disease, unspecified Disposition: Admitted As Inpatient Condition: Fair Arrhythmia/Palpitations HPI - General Chief Complaint: ED Arrhythmia/Palpitations Stated Complaint: LUDY and Superventricular tachycardia Time Seen by Provider: 10/24/16 00:55 Source: patient Mode of arrival: EMS Limitations: no limitations Nursing Notes Reviewed: Yes Vital Signs Reviewed: Yes - History of Present Illness HPI Narrative: 66-year-old female with a history of A. fib presents for evaluation of shortness of breath and arrhythmia. Patient notes the arrhythmia started 2 days ago in contact with the cardiology office. Patient states it she was instructed to increase the dose of her diltiazem from 180 mg daily to 240 mg daily. Notes that the patient's been taking the recommended dose without significant relief in her heart rate. Patient family at bedside states the patient's heart rate has been a regular jumping from the 90s up into the 160s. Patient denies any chest pain but does note some palpitations. No fevers or cough. No nausea or vomiting. Patient is not on any type of anticoagulation. Patient does have a history of RPGN is on steroids and follows with nephrology. - Related Data Home Medications Medication Instructions Recorded Confirmed Levothyroxine [Synthroid] 112 mcg PO DAILY 11/25/15 10/05/16 Famotidine [Pepcid] 20 mg PO DAILY 10/05/16 10/05/16 Previous Rx's Medication Instructions Recorded Calcium Carbonate [Tums] 1,000 mg PO Q4HR PRN #0 tab.chew 10/12/16 Cholecalciferol (D-3) [Vitamin D] 2,000 unit PO DAILY #30 tablet 10/12/16 Diltiazem CD (24hr) [Cardizem CD] 180 mg PO DAILY #60 cap.er.24h 10/12/16 GlipiZIDE [Glipizide Xl] 5 mg PO DAILY #30 tab.er.24 10/12/16 Hydralazine HCl 50 mg PO BID PRN #60 tablet 10/12/16 LORazepam [Ativan] 0.5 mg PO BID PRN #30 tablet 10/12/16 Magnesium Oxide [Mag-Ox] 400 mg PO BID #60 tablet 10/12/16 Ondansetron ODT [Zofran ODT] 4 mg SL Q6HR PRN #30 tab.rapdis 10/12/16 PredniSONE 10 mg PO HS #30 tablet 10/12/16 PredniSONE 20 mg PO BID #60 tablet 10/12/16 Sennosides/Docusate Sodium [Senna 2 each PO BID #120 tablet 10/12/16 Plus] Sodium Bicarbonate 650 mg PO TID #90 tablet 10/12/16 Sulfamethoxazole/Trimeth SS 1 tab PO MOWEFR #30 tablet 10/12/16 [Bactrim SS] Allergies Allergy/AdvReac Type Severity Reaction Status Date / Time codeine AdvReac Vomiting Verified 10/24/16 00:46 All systems ED: reviewed and negative except as stated. Constitutional: Reports: as per HPI. Denies: fever Eyes: Reports: as per HPI ENT ED: Reports: as per HPI Cardiovascular: Reports: as per HPI, palpitations Respiratory: Reports: as per HPI, dyspnea Gastrointestinal: Reports: as per HPI. Denies: abdominal pain, nausea, vomiting Genitourinary: Reports: as per HPI Musculoskeletal: Reports: as per HPI Integumentary: Reports: as per HPI Neurological: Reports: as per HPI Psychiatric: Reports: as per HPI Endocrine: Reports: as per HPI Hematological/Lymphatic: Reports: as per HPI Past Medical History - Past Medical History Medical history: Reports: atrial fibrillation, hypertension, renal disease, thyroid disease Surgical history: Reports: other (tubal ligation) Psychiatric history: Reports: anxiety, depression - Social History Smoking Status: Never smoker Smokeless Tobacco Status: No Alcohol use: Reports: rarely Drug use: Reports: none Physical Exam - General Limitations: no limitations General appearance: alert, in no apparent distress - Head Head exam: atraumatic, normal inspection - Eye Eye exam: Present: normal appearance, EOMI - ENT ENT exam: normal exam, mucous membranes moist - Neck Neck exam: Present: normal inspection, trachea midline - Chest Chest inspection: Present: normal inspection, symmetric chest wall rise - Respiratory Respiratory exam: Present: normal lung sounds bilaterally. Absent: respiratory distress - Cardiovascular Cardiovascular exam: Present: tachycardia, irregular rhythm. Absent: systolic murmur - Abdominal Exam Abdominal exam: Present: soft, Non-Tender - Extremities Exam Extremities exam: Present: normal inspection, pedal edema (2+ pitting edema) - Back Exam Back exam: Present: normal inspection. Absent: CVA tenderness (R), CVA tenderness (L) - Neurological Exam Neurological exam: Present: alert, oriented X3 - Skin Skin exam: Present: warm, dry, intact, normal color Course Course Narrative: Patient seen and examined. Patient in no acute distress. Patient is tachycardic with an irregular heart rate. Patient's blood pressure is normal. Patient does have A. fib and a history of. Patient will get basic lab work, EKG , chest x-ray IV fluid hydration as well as antiarrhythmics to help with rate control. - Reevaluation(s) Reevaluation #1: Patient seen and examined. Risks and no acute distress. Patient's blood pressure was high responded with Cardizem and fluids. Time: 03:03 Vital Signs Temperature 98 F 10/24/16 00:41 Pulse Rate 150 10/24/16 00:41 Respiratory Rate 22 10/24/16 00:41 Blood Pressure 158/82 10/24/16 00:41 O2 Sat by Pulse Oximetry 98 10/24/16 00:41 Temperature 98 F 10/24/16 00:41 Pulse Rate 114 10/24/16 04:31 Respiratory Rate 20 10/24/16 04:31 Blood Pressure 140/102 10/24/16 04:31 O2 Sat by Pulse Oximetry 95 10/24/16 04:31 Oxygen Delivery Oxygen Delivery Room Air Arrhythmia/Palpitations - [facility] Narrative Medical decision making narrative: 66 female presents for evaluation of rapid heart rate. Patient does have known A. fib. Patient had a recent medication change with gradually increased dose of her diltiazem. Patient states she has been taking it as directed. Patient noted this morning that her heart rate was fast. On arrival the patient was in A. fib with RVR with a regular rate ranging from the 90s to the 160s. Patient' s blood pressure was stable. Patient's lung exam shows no acute abnormalities. Patient had IV fluid bolus as well as a bolus of Cardizem. Patient's heart rate responded. Patient's blood pressure remained stable. The patient had lab work which showed an elevated troponin similar to the troponin elevations in the past. Less likely this is an acute troponin elevation given the patient does have CKD. The patient also has stable anemia. Patient will be admitted to the hospital service for further evaluation and monitoring. Less likely this is not triggered A. fib for many pulmonary etiology such as pulmonary embolism. - Lab Data Lab results reviewed: Yes I reviewed the patient's lab results. Result diagrams: 10/24/16 01:12 10/24/16 01:12 Lab Results 10/24/16 10/24/16 10/24/16 Range/Units 01:12 01:12 01:12 WBC 13.4 H (4.3-11.1) K/mcL RBC 2.95 L (3.82-4.97) M/mcL Hgb 8.8 L (11.5-15.4) g/dL Hct 26.0 L (35.3-44.9) % MCV 88.1 (83.0-100.0) fL MCH 29.8 (28.0-33.3) pg MCHC 33.8 (31.6-35.5) g/dL RDW 13.5 (11.5-14.5) % Plt Count 176 (140-400) K/mcL MPV 10.1 (9.4-12.4) fL Immature Gran % 3.4 (0-4) % Seg Neutrophils % 87.3 % Lymphocytes % 1.8 % Monocytes % 7.4 % Eosinophils % 0.0 % Basophils % 0.1 % Neutrophils # 11.7 H (1.6-8.9) K/mcL Lymphocytes # 0.2 L (0.6-4.6) K/mcL Monocytes # 1.0 (0.0-1.3) K/mcL Eosinophils # 0.0 (0.0-0.6) K/mcL Basophils # 0.0 (0.0-0.2) K/mcL PT TNP INR TNP APTT TNP Heparin Anti-Xa, Unfract TNP Sodium 137 (136-145) mEq/L Potassium 4.0 (3.5-4.5) mEq/L Chloride 95 L (98-109) mEq/L Carbon Dioxide 28 (19-29) mEq/L BUN 80 H (7-20) mg/dL Creatinine 4.89 H (0.57-1.11) mg/dL Est GFR ( Amer) 11 L (> 60) Est GFR (Non-Af Amer) 9 L (> 60) BUN/Creatinine Ratio 16 (6-26) Glucose 223 H (70-99) mg/dL Calculated Osmolality 315 H (280-300) Calcium 9.5 (8.6-10.8) mg/dL Phosphorus 4.5 (2.3-4.7) mg/dL Magnesium 2.6 (1.6-2.6) mg/dL Troponin I (0-0.03) ng/mL TSH 0.527 (0.350-4.840) mcIU/mL 10/24/16 10/24/16 Range/Units 01:12 02:05 WBC (4.3-11.1) K/mcL RBC (3.82-4.97) M/mcL Hgb (11.5-15.4) g/dL Hct (35.3-44.9) % MCV (83.0-100.0) fL MCH (28.0-33.3) pg MCHC (31.6-35.5) g/dL RDW (11.5-14.5) % Plt Count (140-400) K/mcL MPV (9.4-12.4) fL Immature Gran % (0-4) % Seg Neutrophils % % Lymphocytes % % Monocytes % % Eosinophils % % Basophils % % Neutrophils # (1.6-8.9) K/mcL Lymphocytes # (0.6-4.6) K/mcL Monocytes # (0.0-1.3) K/mcL Eosinophils # (0.0-0.6) K/mcL Basophils # (0.0-0.2) K/mcL PT 9.2 L INR 0.9 APTT 19.4 L Heparin Anti-Xa, Unfract Sodium (136-145) mEq/L Potassium (3.5-4.5) mEq/L Chloride (98-109) mEq/L Carbon Dioxide (19-29) mEq/L BUN (7-20) mg/dL Creatinine (0.57-1.11) mg/dL Est GFR ( Amer) (> 60) Est GFR (Non-Af Amer) (> 60) BUN/Creatinine Ratio (6-26) Glucose (70-99) mg/dL Calculated Osmolality (280-300) Calcium (8.6-10.8) mg/dL Phosphorus (2.3-4.7) mg/dL Magnesium (1.6-2.6) mg/dL Troponin I 0.35 H* (0-0.03) ng/mL TSH (0.350-4.840) mcIU/mL - Radiology Data Radiology results reviewed: Yes I reviewed the patient's radiology results. Chest X-Ray 10/24/16 01:11 IMPRESSION: No acute process. Stable cardiomegaly. D/ / Keyana Frost MD / Keyana Frots MD Interpreting Provider: Keyana Frost MD - EKG Data EKG attestation: Yes I reviewed and interpreted this EKG. Rate: tachycardia Rhythm: A.Fib Hellier/QRS: left axis deviation Voltage: c/w LVH Q waves: III, aVF When compared to previous EKG there are: no significant changes Interpretation: unchanged when compared to prior tracing (date) (10/11), nonspecific ST-T wave changes Critical Care Time Critical Care Time: Yes Total Critical Care Time: 45 Attestation: Critical care performed: Time is exclusive of separately billable procedures. Time includes: direct patient care, patient reassessment, coordination of patient care, interpretation of data (laboratory data, radiology data, and respiratory data), review of patient's medical records, medical consultation and documentation of patient care. Procedures included in critical care time: Procedures excluded from critical care time: S.B.A.R. - S.B.A.RElmer Situation: Demographics Background: Presenting Complaint Assessment: Vital Signs, Course and respsone to treatment, Exam Concerns, Patient/Family Expectation, Pertinant Lab Results Recommendation: Barrier(s) to disposition, Recommendation based on pending studies, treatments, or consults S.B.A.RElmer Report Given to: Dr. Brigid AguilarBElmerAMartha Repor Time: 03:56 Attestation Statement - Attestation Attestation: I, Gary Randall MD, personally evaluated this patient and discussed their management with the resident physician. I reviewed the resident's note and agree with the documented findings, medical decision making, and plan of care. 66-year-old female presents to the emergency department with a complaint of palpitations and shortness of breath secondary to atrial fibrillation for the past 3 days. She denies any chest pain. She states that she noticed some palpitations off and on. She called her doctor Tuesday and had her Cardizem increased Tuesday evening. This seemed to help until about 2 PM today which is Tuesday when the palpitations and shortness of breath returned and has been worse than usual and constant all evening. She has a history of atrial fibrillation with RVR. On examination patient is a well-developed obese elderly female in no acute distress. She is alert and oriented 3. There is no cyanosis or diaphoresis. Breath sounds are clear and equal bilaterally. Heart is irregularly irregular with mild to moderate tachycardia. Abdomen is soft and nontender with normal bowel sounds. EKG shows atrial fibrillation with RVR. Labs reviewed. Chronic renal failure. Elevated troponin. Patient received IV Cardizem bolus and was placed on a Cardizem infusion. The hospitalist, Dr. Rainey, was consulted and accepted admission of the patient.
[2016-10-24 01:22] LABS: Basophils % 0.1 %; Hemoglobin 8.8 g/dL (11.5-15.4); Immature Granulocytes % 3.4 % (0-4); Lymphocytes # 0.2 K/mcL (0.6-4.6); Lymphocytes % 1.8 %; Mean Corpuscular HGB Conc 33.8 g/dL (31.6-35.5); Mean Corpuscular Hemoglobin 29.8 pg (28.0-33.3); Mean Corpuscular Volume 88.1 fL (83.0-100.0); Mean Platelet Volume 10.1 fL (9.4-12.4); Monocytes % 7.4 %; Neutrophils # 11.7 K/mcL (1.6-8.9); Platelet Count 176 K/mcL (140-400); Red Blood Count 2.95 M/mcL (3.82-4.97); Red Cell Distribution Width 13.5 % (11.5-14.5); Segmented Neutrophils % 87.3 %
[2016-10-24 01:35] LABS: Calcium 9.5 mg/dL (8.6-10.8); Magnesium 2.6 mg/dL (1.6-2.6); Phosphorous 4.5 mg/dL (2.3-4.7)
[2016-10-24 01:57] LABS: Thyroid Stimulating Hormone 0.527 mcIU/mL (0.350-4.840)
[2016-10-24 02:20] LABS: Activated Partial Thrombo Time 19.4 Seconds (26.0-36.0)
[2016-10-24 02:26] LABS: INR 0.9; Prothrombin Time 9.2 Seconds (9.4-12.1)
[2016-10-24] MEDS ORDERED: Aspirin 81 MG TAB.CHEW PO ONE (03:05)
[2016-10-24] MEDS ORDERED: 0.9 % Sodium Chloride 250 ML ONE (04:11)
[2016-10-24] MEDS: 0.9 % Sodium Chloride 250 ML IVC ONE ×2 (04:22→04:28)
[2016-10-24] MEDS ORDERED: Naloxone 0.4 MG/ML INJ IVP PRN (06:58)
[2016-10-24] MEDS ORDERED: Ondansetron ODT 4 MG TAB.RAPDIS SL PRN (07:01)
[2016-10-24] MEDS ORDERED: *HR* LORazepam 0.5 MG TABLET PO PRN (07:01)
[2016-10-24] MEDS ORDERED: hydrALAZINE 25 MG TABLET PO PRN (07:01)
[2016-10-24] MEDS ORDERED: Dextrose Gel 15 GM PO PRN ×2 (07:04)
[2016-10-24] MEDS ORDERED: *HR* Dextrose 50 % in Water (Syg) 50 ML SYRINGE IVP PRN (07:04)
[2016-10-24] MEDS ORDERED: D5% in Water 1,000 ML IVC PRN (07:04)
--- NOTE | 2016-10-24 07:22 | Internal Med History&Physical ---
Date of Encounter: 10/24/16 Time of Encounter: 06:00 Assessment and Plan (1) Atrial fibrillation with RVR Current visit: Yes Status: Acute TSH is normal. Patient has history of paroxysmal atrial fibrillation. Now has RVR. Pt is on diltiazem infusion, will switch her to PO diltiazem, when the HR improves. Cardiology consult for management of A fib and advice on anticoagulation. (2) Elevated troponin Current visit: Yes Status: Acute Likely due to atrial fibrillation with rapid ventricular response / demand ischemia. Trend troponins. Cardiology consult (3) CKD (chronic kidney disease) Current visit: Yes Status: Chronic No significant worsening. Monitor renal function Qualifiers: Chronic kidney disease stage: unspecified stage Qualified Code(s): N18.9 - Chronic kidney disease, unspecified (4) Anemia Current visit: Yes Status: Chronic Normocytic anemia - likely due to anemia of chronic disease/CKD Qualifiers: Anemia type: unspecified type Qualified Code(s): D64.9 - Anemia, unspecified (5) Glomerulonephritis Current visit: Yes Status: Chronic Continue steroid therapy (6) RPGN (rapidly progressive glomerulonephritis) Current visit: Yes Status: Chronic COntinue steroid therapy (7) Morbid obesity Current visit: Yes Status: Chronic Supportive care Qualifiers: Obesity type: drug-induced Qualified Code(s): E66.1 - Drug-induced obesity (8) Diabetes mellitus Current visit: Yes Status: Chronic Start insulin sliding scale Qualifiers: Diabetes mellitus type: type 2 Diabetes mellitus complication status: with unspecified complications 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 Oreilly is a 66 year old female with past medical history significant for Rapidly progressive glomerulonephritis, paroxysmal atrial fibrillation, chronic kidney disease stage 4, hypertension, diabetes mellitus, hypothyroidism. She was recently admitted to this hospital and was discharged home on diltiazem 180 mg a day for atrial fibrillation. On 10/22/16, Apparently she was noted to have tachycardia with heart rate in the 130s, on the pulse oximetry at home. She contacted cardiology team and was instructed to increase Cardizem to 240 mg a day. Tonight her heart rate worsened, with heart rate of about 160s. He reports palpitations, shortness of breath on minimal exertion like walking to the bathroom. She denies chest pain, dizziness, syncope. She has cough with whitish expectoration. She denies fever, chills, nausea, vomiting, abdominal pain, dysuria, hematuria or bowel problems. She was evaluated in the emergency department and was noted to have atrial fibrillation. Did not respond to bolus doses of diltiazem and started on diltiazem infusion. She is objectives hospitalist service for further management. Past Med Surg Social Fam HX - Past Medical History Medical history: atrial fibrillation, hypertension, renal disease, thyroid disease Psychiatric history: anxiety, depression - Past Surgical History Surgical History: other - Social History Smoking Status: Never smoker Smokeless Tobacco Status: No Alcohol use: rarely Drug use: none - Family History Mother Hx Family Cancer: Yes Father Hx Family Endocrine Disorder: Yes Internal Medicine - H&P: Meds Levothyroxine [Synthroid] 112 mcg PO DAILY 11/25/15 [History] Famotidine [Pepcid] 20 mg PO DAILY 10/05/16 [History] Calcium Carbonate [Tums] 1,000 mg PO Q4HR PRN #0 tab.chew 10/12/16 [Rx] Cholecalciferol (D-3) [Vitamin D] 2,000 unit PO DAILY #30 tablet 10/12/16 [Rx] Diltiazem CD (24hr) [Cardizem CD] 180 mg PO DAILY #60 cap.er.24h 10/12/16 [Rx] GlipiZIDE [Glipizide Xl] 5 mg PO DAILY #30 tab.er.24 10/12/16 [Rx] Hydralazine HCl 50 mg PO BID PRN #60 tablet 10/12/16 [Rx] LORazepam [Ativan] 0.5 mg PO BID PRN #30 tablet 10/12/16 [Rx] Magnesium Oxide [Mag-Ox] 400 mg PO BID #60 tablet 10/12/16 [Rx] Ondansetron ODT [Zofran ODT] 4 mg SL Q6HR PRN #30 tab.rapdis 10/12/16 [Rx] PredniSONE 10 mg PO HS #30 tablet 10/12/16 [Rx] PredniSONE 20 mg PO BID #60 tablet 10/12/16 [Rx] Sennosides/Docusate Sodium [Senna Plus] 2 each PO BID #120 tablet 10/12/16 [Rx] Sodium Bicarbonate 650 mg PO TID #90 tablet 10/12/16 [Rx] Sulfamethoxazole/Trimeth SS [Bactrim SS] 1 tab PO MOWEFR #30 tablet 10/12/16 [Rx ] Allergies codeine Adverse Reaction (Verified 10/24/16 00:46) Vomiting All Systems PM: A 10-system review of systems was performed and is negative for pertinent findings except as documented above in the HPI. - Constitutional Vitals: Temp Pulse Resp BP Pulse Ox 97.6 F 70 18 148/85 96 10/24/16 05:40 10/24/16 05:40 10/24/16 05:40 10/24/16 05:40 10/24/16 05:40 Exam: General: Not in acute distress at the time of my evaluation HEENT: Oral mucosa is moist. No conjunctival palor or scleral icterus Neck: No obvious neck swellings Lungs: Clear to auscultation Cardiac: Irregular rhythm. possible systolic murmur Abdomen: Soft, non tender. Bowel sounds present Genitourinary: No brooks catheter Neurological: Alert and oriented. No gross localizing deficits Psych: Not aggressive or agitated Extremities: B/L pitting leg edema present Skin: No generalized rash Internal Med - H&P Results - Labs CBC & Chem 7: 10/24/16 01:12 10/24/16 01:12 - EKG Data -: EKG Interpreted by Myself - EKG Data EKG comments: Atrial flutter / fibrillation with RVR - HR in the 130s 10/24/16 08:11 - Impressions ITS Impressions Chest X-Ray 10/24/16 01:11 IMPRESSION: No acute process. Stable cardiomegaly. D/ / Keyana Frost MD / Keyana Frost MD Interpreting Provider: Keyana Frost MD
[2016-10-24] MEDS: Cholecalciferol (D-3) 1,000 UNIT TABLET PO SCH (08:29)
[2016-10-24] MEDS: Famotidine 20 MG TABLET PO SCH (08:29)
[2016-10-24] MEDS: Magnesium Oxide 400 MG TABLET PO SCH ×2 (08:29→22:44)
[2016-10-24] MEDS: predniSONE 20 MG TABLET PO SCH ×2 (08:30→22:45)
[2016-10-24] MEDS: Sennosides/Docusate Sodium TABLET PO SCH ×2 (08:30→22:45)
[2016-10-24] MEDS: Insulin LISPRO 300 UNITS/3 ML VIAL SQ SCH ×4 (08:31→22:49)
[2016-10-24] MEDS: Diltiazem CD (24hr) 240 MG CAPSULE PO SCH (08:59)
[2016-10-24] MEDS ORDERED: Diltiazem CD (24hr) 240 MG CAPSULE PO SCH (09:00)
--- NOTE | 2016-10-24 10:02 | Event Note ---
Date of Encounter: 10/24/16 Time of Encounter: 09:43 Pt is a 66y/o female with PMH of RPGN, paroxysmal Afib, CKD stage 4, HTN, DM, Hypothyroidism admitted for atrial fibrillation with RVR rate uncontrolled. Patient seen and examined at bedside. Resting comfortably in bed and reports of feeling better at this time. Noted to have bilateral LE edema which she states it is chronic in nature. Reports of being on Lasix at home however medication not listed as part of her home regimen. She was started on cardizem gtt with achievement of rate control. Currently HR in 60s, will discontinue cardizem gtt and start home dose of Cardizem 240mg PO qd. Cardiology consultation requested will continue home medications and closely monitor Renal function appears to be at baseline, if further deterioration occurs, will consider Nephrology evaluation.
--- NOTE | 2016-10-24 11:40 | Cardiology Consult Note ---
Date of Encounter: 10/24/16 Time of Encounter: 11:00 Assessment and Plan (1) Atrial fibrillation with RVR Current Visit: Yes Status: Acute Per cardiology: -KNown atrial fibrillation with recent admission September. -Patient with weakness at home and high HR. -ECG with atrial fibrillation, RVR, HR 137. -Patient started on cardizem drip and converted to SR around 0531 this morning. -Started on cardizem CD 240mg per primary service. Cardizem drip stopped. -[id number] score 4 (age, female, HTN, DM), would normally recommend residential anticoagulation, however has not been anticoagualted due to anema. Hemoglobin 09/01/16 11.5, 10/05/16 11.2, current 8.8. Patient denies active bleeding. Patient states anemia is new for her and she has not had outpateint follow up for anemia. Patient states she does not take asa at home per nephrology due to poor renal function. Patient educated on increased risk of stroke with atrial fibrillation, however unable to anticoagulate at this point due to anemia. 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 Discussed with . -Will add lopressor 25mg BID. -Can consider adding residential anticoagulation in outpatient setting pending anemia work up. (2) Elevated troponin Current Visit: No Status: Acute Per cardiology: -ELevated troponin in the setting of atrial fibrillation with RVR, anemia, and CKD. -Troponins 0.35, 0.41. Third troponin pending. Scheduled to be drawn at 1300. -ECG with no ischemic changes. -Denies chest pain. -Echocardiogram 10/07/16 with LVEF 60-65%, mild left ventricular diastolic dysfunction, severely dilated left atrium, mild pulmonary hypertension, all wall segments with normal motion, no significant valvular dysfunction. -Further recommnedations pending third troponin. -At this time, patient is not a candidate for LHC due to anemia and CKD stage IV. (3) CKD (chronic kidney disease), stage IV Current Visit: No Status: Chronic Per cardiology: -Known CKD stage IV. -Creatinine 4.89. -Pateint had NEYMAR 10/05/16 with creatinine increase to 5. -Previous baseline creatiine 3-4. -Can consider nephrology consult. -May be contributing to elevated troponin. -Management per primary service. (4) RPGN (rapidly progressive glomerulonephritis) Current Visit: Yes Status: Chronic Per cardiology: -KNwon history of RPGN, recently diagnosed. -Management per primary service. (5) Anemia Current Visit: Yes Status: Chronic Per cardiology: -Recent worsening of anemia. -Baseline hemoglobin 11s. -Hemoglobin October 05 admission noted to be 8-11. -Hemoglobin this admission noted to be 8.8. -May be contributing to elevated troponin. -Management per primary service. (6) HTN (hypertension) Current Visit: Yes Status: Chronic Per cardiology: -Known history of HTN. -ON calcium channel batsheva and hydralazine at home. -Beta batsheva added. -Will continue to monitor HR and BP. Qualifiers: Hypertension type: essential hypertension Qualified Code(s): I10 - Essential (primary) hypertension Discussion w patient/family: The assessment and plan as outlined above was discussed with the patient who expressed understanding and agreement. All questions were answered. Thank you for involving us in the care of your patient. Please call with any questions. Discussed and reviewed with . History of Present Illness Consult date: 10/24/16 Requesting physician: Duarte Rainey Consult reason: a.fib RVR Chief complaint: weakness History of present illness: Ms. Oreilly is a 66 year old female with a relevant past medical history of rapidly progressive glomerulonephiritis diagnosed August 2016, HTN, DM, depression, atrial fibrillation. Patient was recently discharged for atrial fibrillation. Patient called cardiology office on Tuesday and stated her heart rate had been increasing. Call was triaged and was sent to Sharon Dorman CNP. Sharon increased pateint's cardizem dose from 180mg to 240mg. Patient states she took the increased cardizem dose without resolution of tachycardia. Patient' s daughter called office answering service last night and paged regarding tachycardia. Daughter stated to that her mothers HR was going up to the 160s and mother felt weak. recommended that patient be evaluated in ER. Patient went to ER and was admitted. CArdiology was consulted for a.fib RVR. Patient was started on cardizem drip. Patient converted to sinus rhythm around 0531 this morning. Patient denies chest pain. Patient denies current weakness. Patient reports lower extremity edema is about baseline or slightly worse. Patient denies current palpitations. Patient denies bleeding. Past Med Surg Social Fam HX - Past Medical History Attestation: Yes The following information was validated with the patient. Source: patient, old records reviewed Medical history: atrial fibrillation, hypertension, renal disease, thyroid disease Psychiatric history: anxiety, depression - Past Surgical History Surgical History: other - Social History Smoking Status: Never smoker Smokeless Tobacco Status: No Alcohol use: rarely Drug use: none - Family History Mother Hx Family Cancer: Yes Father Hx Family Endocrine Disorder: Yes Medications and Allergies Levothyroxine [Synthroid] 112 mcg PO DAILY 11/25/15 [History] Famotidine [Pepcid] 20 mg PO QPM 10/05/16 [History] Calcium Carbonate [Tums] 1,000 mg PO Q4HR PRN #0 tab.chew 10/12/16 [Rx] Cholecalciferol (D-3) [Vitamin D] 2,000 unit PO DAILY #30 tablet 10/12/16 [Rx] GlipiZIDE [Glipizide Xl] 5 mg PO DAILY #30 tab.er.24 10/12/16 [Rx] Hydralazine HCl 50 mg PO BID PRN #60 tablet 10/12/16 [Rx] LORazepam [Ativan] 0.5 mg PO BID PRN #30 tablet 10/12/16 [Rx] Magnesium Oxide [Mag-Ox] 400 mg PO BID #60 tablet 10/12/16 [Rx] Ondansetron ODT [Zofran ODT] 4 mg SL Q6HR PRN #30 tab.rapdis 10/12/16 [Rx] PredniSONE 10 mg PO HS #30 tablet 10/12/16 [Rx] PredniSONE 20 mg PO BID #60 tablet 10/12/16 [Rx] Sennosides/Docusate Sodium [Senna Plus] 2 each PO BID #120 tablet 10/12/16 [Rx] Sodium Bicarbonate 650 mg PO TID #90 tablet 10/12/16 [Rx] Sulfamethoxazole/Trimeth SS [Bactrim SS] 1 tab PO MOWEFR #30 tablet 10/12/16 [Rx ] Diltiazem HCl [Diltiazem ER] 240 mg PO DAILY 10/24/16 [History] Furosemide [Lasix] 20 mg PO DAILY PRN 10/24/16 [History] Sennosides/Docusate Sodium [Senna Plus] 2 tab PO BID 10/24/16 [History] Allergies codeine Adverse Reaction (Verified 10/24/16 00:46) Vomiting All Systems Review: A 10-system review of systems was performed and is negative for pertinent findings except as documented above in the HPI. - Constitutional Constitutional: weakness - Cardiovascular Cardiovascular: as per HPI, irregular heart rhythm Physical Examination Vital Signs, Last 4 Hours Temp Pulse Resp BP Pulse Ox 10/24/16 07:53 97.4 F L 67 16 146/72 98 General: Conversant, No Apparent Distress HEENT: Atraumatic, Normocephaly, Mucus Membranes Moist Neck: No JVD, Normal carotid pulses Cardiac: Reg Rate and Rhythm, Normal S1 and S2, No Murmur Lungs: Normal Breath Sounds, No Wheeze, Rales, Rhonchi Neuro: Alert and responsive, No focal deficits noted Abdomen: Soft, Non-Tender Skin: No rashes noted on visualized skin Musculoskeletal: No Chest Wall Tenderness Extremities: No Clubbing, No Cyanosis, Normal Pulses, Other (Moderate bilateral lower extremity, non-pitting edema. ) Results 10/24/16 01:12 10/24/16 01:12 Lab Results Impressions Chest X-Ray 10/24/16 01:11 IMPRESSION: No acute process. Stable cardiomegaly. D/ / Keyana Frost MD / Keyana Frost MD Interpreting Provider: Keyana Frost MD Active Medications Calcium Carbonate (Tums) 1,000 mg PO Q4HR PRN; Protocol PRN Reason: Heartburn Stop: 04/25/17 07:02 Dextrose/Water (Dextrose 50% (Syg)) 25 ml IVP AD PRN PRN Reason: Hypoglycemia Stop: 04/25/17 07:05 Diltiazem HCl (Cardizem Cd) 240 mg PO DAILY TY Stop: 04/25/17 09:01 Last Admin: 10/24/16 08:59 Dose: 240 mg Famotidine (Pepcid) 20 mg PO DAILY TY PRN Reason: Protocol Stop: 04/25/17 09:01 Last Admin: 10/24/16 08:29 Dose: 20 mg Glucagon (Glucagen) 1 mg IM ONCE PRN PRN Reason: Hypoglycemia Stop: 04/25/17 07:05 Glucose (Gluctose) 15 gm PO ONCE PRN PRN Reason: Hypoglycemia Stop: 04/25/17 07:05 Glucose (Gluctose) 30 gm PO ONCE PRN PRN Reason: Hypoglycemia Stop: 04/25/17 07:05 Heparin Sodium (Porcine) (Heparin) 5,000 unit SQ Q8HCO [facility] Stop: 04/25/17 14:01 Hydralazine HCl (Hydralazine) 50 mg PO BID PRN PRN Reason: Hypotension Sodium Chloride (0.9 % Sodium Chloride) 250 mls @ 15 mls/hr IVC .[id number] ONE Stop: 10/24/16 20:56 Last Admin: 10/24/16 04:28 Dose: 15 mls/hr Dextrose (Dextrose 5%) 1,000 mls @ 100 mls/hr IVC .Q10H PRN PRN Reason: HYPOGLYCEMIA Stop: 04/25/17 07:05 Insulin Human Lispro (Humalog) 0 units SQ HS [facility] PRN Reason: Protocol Stop: 04/25/17 21:01 Insulin Human Lispro (Humalog) 0 units SQ TIDAC [facility] PRN Reason: Protocol Stop: 04/25/17 07:31 Last Admin: 10/24/16 08:31 Dose: Not Given Levothyroxine Sodium (Synthroid) 112 mcg PO DAILY [facility] Stop: 04/25/17 09:01 Last Admin: 10/24/16 08:29 Dose: Not Given Lorazepam (Ativan) 0.5 mg PO BID PRN PRN Reason: Anxiety Stop: 04/25/17 07:02 Magnesium Oxide (Mag-Ox) 400 mg PO BID [facility] PRN Reason: Protocol Stop: 04/25/17 09:01 Last Admin: 10/24/16 08:29 Dose: 400 mg Metoprolol Tartrate (Lopressor) 25 mg PO BID [facility] Stop: 04/25/17 11:46 Naloxone HCl (Narcan) 0.4 mg IVP Q2MIN PRN PRN Reason: Opioid Reversal Stop: 04/25/17 06:59 Ondansetron HCl (Zofran Odt) 4 mg SL Q6HR PRN PRN Reason: Nausea And Vomiting Stop: 04/25/17 07:02 Prednisone (Prednisone) 10 mg PO HS TY Stop: 04/25/17 21:01 Prednisone (Prednisone) 20 mg PO BID TY Stop: 04/25/17 09:01 Last Admin: 10/24/16 08:30 Dose: 20 mg Senna/Docusate Sodium (Senna Plus) 2 each PO BID TY PRN Reason: Protocol Stop: 04/25/17 09:01 Last Admin: 10/24/16 08:30 Dose: 2 each Sodium Bicarbonate (Sodium Bicarbonate) 650 mg PO TID TY Stop: 04/25/17 09:01 Last Admin: 10/24/16 08:30 Dose: 650 mg Trimethoprim/Sulfamethoxazole (Bactrim Ss) 1 tab PO MOWEFR [facility] Stop: 04/26/17 07:02 Vitamin D (Vitamin D) 2,000 unit PO DAILY TY Stop: 04/25/17 09:01 Last Admin: 10/24/16 08:29 Dose: 2,000 unit - Imaging and Cardiology Chest Xray: report reviewed Echo: report reviewed - EKG Interpretation EKG results cardiology: personally reviewed (ECG 10/24 0045 with atrial fibrillation with RVR, HR 137. ECG 10/24 0811 with sinus rhythm.), other ( Telemetry reviewed with average HR 71. Longest pause noted to be 2.1 seconds. Patient converted from atrial fibrillation to sinus rhythm around 0531 this morning.) Consult Discharge Plan - Plan Referrals: Marcos Pierre MD [Primary Care Provider] - (Web Requested 10-24-16)
[2016-10-24] MEDS: *HR* Heparin 5,000 UNIT/ML VIAL SQ SCH ×2 (15:11→22:47)
[2016-10-24] MEDS ORDERED: Furosemide 20 MG TABLET PO ONE (16:46)
--- NOTE | 2016-10-24 17:59 | Electrocardiograph Report ---
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
[2016-10-24] MEDS: predniSONE 10 MG TABLET PO SCH (22:44)
[2016-10-25 03:43] LABS: Eosinophils % 0.1 %; Hematocrit 21.1 % (35.3-44.9); Immature Granulocytes % 3.8 % (0-4); Lymphocytes # 0.3 K/mcL (0.6-4.6); Lymphocytes % 3.2 %; Mean Corpuscular HGB Conc 33.6 g/dL (31.6-35.5); Mean Corpuscular Hemoglobin 30.1 pg (28.0-33.3); Mean Corpuscular Volume 89.4 fL (83.0-100.0); Mean Platelet Volume 10.6 fL (9.4-12.4); Monocytes # 0.7 K/mcL (0.0-1.3); Monocytes % 7.8 %; Neutrophils # 7.2 K/mcL (1.6-8.9); Platelet Count 117 K/mcL (140-400); Red Blood Count 2.36 M/mcL (3.82-4.97); Red Cell Distribution Width 13.4 % (11.5-14.5); Segmented Neutrophils % 85.1 %
[2016-10-25 03:47] LABS: Hemoglobin 7.1 g/dL (11.5-15.4)
[2016-10-25 03:57] LABS: Calcium 8.1 mg/dL (8.6-10.8); Magnesium 2.4 mg/dL (1.6-2.6); Phosphorous 4.1 mg/dL (2.3-4.7); Potassium 3.9 mEq/L (3.5-4.5)
[2016-10-25] MEDS: *HR* Heparin 5,000 UNIT/ML VIAL SQ SCH ×3 (05:00→21:10)
[2016-10-25] MEDS: Insulin LISPRO 300 UNITS/3 ML VIAL SQ SCH ×4 (07:36→20:47)
[2016-10-25] MEDS: Diltiazem CD (24hr) 240 MG CAPSULE PO SCH (07:37)
[2016-10-25] MEDS: Famotidine 20 MG TABLET PO SCH (07:37)
[2016-10-25] MEDS: Sennosides/Docusate Sodium TABLET PO SCH ×2 (07:37→21:09)
[2016-10-25] MEDS: Magnesium Oxide 400 MG TABLET PO SCH ×2 (07:37→21:10)
[2016-10-25] MEDS: predniSONE 20 MG TABLET PO SCH ×2 (07:37→21:08)
[2016-10-25] MEDS: Cholecalciferol (D-3) 1,000 UNIT TABLET PO SCH (07:37)
[2016-10-25] MEDS: Sulfamethoxazole/Trimeth SS 1 TAB PO SCH (07:37)
[2016-10-25 08:03] LABS: Basophils % 0.1 %; Eosinophils % 0.1 %; Hematocrit 24.7 % (35.3-44.9); Hemoglobin 8.4 g/dL (11.5-15.4); Immature Granulocytes % 3.9 % (0-4); Lymphocytes # 0.5 K/mcL (0.6-4.6); Lymphocytes % 4.5 %; Mean Corpuscular Hemoglobin 29.9 pg (28.0-33.3); Mean Corpuscular Volume 87.9 fL (83.0-100.0); Mean Platelet Volume 10.2 fL (9.4-12.4); Monocytes # 0.9 K/mcL (0.0-1.3); Monocytes % 7.9 %; Platelet Count 144 K/mcL (140-400); Red Blood Count 2.81 M/mcL (3.82-4.97); Red Cell Distribution Width 13.4 % (11.5-14.5); Segmented Neutrophils % 83.5 %
--- NOTE | 2016-10-25 09:56 | Internal Med Progress Note ---
Date of Encounter: 10/25/16 Time of Encounter: 09:42 - Assessment and plan (1) Atrial fibrillation with RVR Current Visit: Yes Status: Acute Assessment and plan: Cardiology input appreciated Added Metoprolol 25mg PO BID in addition to Cardizem 240mg PO qd HR currently controlled, however given tachycardia this morning, will observe for another day and adjust therapy as needed Likely d/c in am if remains stable overnight. No anticoagulation given anemia (2) Anemia Current Visit: Yes Status: Chronic Assessment and plan: Likely of chronic disease H&H low but acceptable No acute bleeding reported at this time monitor H&H and will transfuse as needed Qualifiers: Anemia type: unspecified type Qualified Code(s): D64.9 - Anemia, unspecified (3) CKD (chronic kidney disease), stage IV Current Visit: No Status: Chronic Assessment and plan: Renal function at baseline restarted home dose of lasix will continue to monitor (4) Diabetes mellitus Current Visit: Yes Status: Chronic Assessment and plan: BG within acceptable limits continue SS insulin algorithm continue to monitor FS and BG Qualifiers: Diabetes mellitus type: type 2 Diabetes mellitus complication status: with unspecified complications Diabetes mellitus intermodal dispatcher insulin use: without fci use Qualified Code(s): E11.8 - Type 2 diabetes mellitus with unspecified complications (5) DVT prophylaxis Current Visit: No Status: Acute Assessment and plan: Heparin SQ (6) HTN (hypertension) Current Visit: Yes Status: Chronic Assessment and plan: BP within acceptable range continue home medications Qualifiers: Hypertension type: essential hypertension Qualified Code(s): I10 - Essential (primary) hypertension (7) Hypothyroidism Current Visit: No Status: Chronic Assessment and plan: continue home medications (Levothyroxine) Qualifiers: Hypothyroidism type: acquired Qualified Code(s): E03.9 - Hypothyroidism, unspecified (8) Morbid obesity Current Visit: Yes Status: Chronic Qualifiers: Obesity type: drug-induced Qualified Code(s): E66.1 - Drug-induced obesity (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 Resting in bed and noted to be tachycardic this morning. Her rate was better controlled after she received her morning medications. She reports of feeling better at this time but reports of having severe palpitations and chest pain this morning, which is currently resolved. Will closely monitor patient for another day and titrate therapy as per her HR If remains asymptomatic, likely d/c in am. - Constitutional Vitals: Temp Pulse Resp BP Pulse Ox 97.8 F 134 18 143/89 95 10/25/16 06:56 10/25/16 06:56 10/25/16 06:56 10/25/16 06:56 10/25/16 06:56 General appearance: Present: A&O X 3, morbidly obese, no acute distress, answers questions appropriately - Head Head exam: Present: atraumatic, normocephalic - Eye Eye exam: Present: normal appearance, conjuntiva pink, sclera anicteric - Respiratory Respiratory exam: Present: CTAB. Absent: accessory muscle use, rales, rhonchi, wheezes - Cardiovascular Cardiovascular exam: Present: RRR, +S1, +S2. Absent: diastolic murmur, gallop, rubs, systolic murmur - GI/Abdominal GI/Abdominal exam: Present: normal bowel sounds, soft, no peritoneal signs. Absent: distended, tenderness - Extremities Exam Extremities exam: Present: pedal edema, warm, radial pulses palpable and symetrical. Absent: calf tenderness - Neurological Exam Neurological exam: Present: alert, oriented X3 - Psychiatric Psychiatric exam: Present: normal affect, normal mood Internal Medicine: Result - Labs CBC & Chem 7: 10/25/16 07:47 10/25/16 03:26 Labs: Short CBC 10/25/16 10/25/16 Range/Units 03:26 07:47 WBC 8.5 10.8 (4.3-11.1) K/mcL Hgb 7.1 L D 8.4 L (11.5-15.4) g/dL Hct 21.1 L 24.7 L (35.3-44.9) % Plt Count 117 L 144 (140-400) K/mcL Neutrophils # 7.2 9.0 H (1.6-8.9) K/mcL BMP 10/25/16 03:26 Sodium 137 Potassium 3.9 Chloride 99 Carbon Dioxide 30 H BUN 77 H Creatinine 4.64 H Glucose 113 H Calcium 8.1 L Cardiac Enzymes 10/24/16 Range/Units 12:34 Troponin I 0.40 H* (0-0.03) ng/mL - ABG Interpretation ABG results: PT/INR, D-dimer PT 9.2 Seconds (9.4-12.1) L 10/24/16 02:05 Consult Discharge Plan - Plan Referrals: Marcos Pierre MD [Primary Care Provider] - 11/04/16 10:00 am (Web Requested 10-24-16 Please follow up as schedule...)
--- NOTE | 2016-10-25 11:23 | Cardiology Progress Note ---
Date of Encounter: 10/25/16 Time of Encounter: 11:00 Assessment and Plan (1) Atrial fibrillation with RVR Current Visit: Yes Status: Acute Per cardiology: -KNown atrial fibrillation with recent admission September. -Patient with recurrent RVR this am, with HRs 130-140s. Patient was given cardizem IV x1 per primary service. Current HRs 100-110s. -Patient re-assessed at 1300 with Sinus rhythm, HR 60s. -Cardiology previously evaluated and increased cardizem and started beta batsheva. 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 Hemoglobin 11.5, 10/05/16 11.2, current 8.4. Patient denies active bleeding. Patient states anemia is new for her and she has not had outpatient follow up for anemia since last admission. Patient states she does not take asa at home per nephrology due to poor renal function. Patient educated on increased risk of stroke with a.fib and no anticoagulation. Patient states understanding. Recommend GI consultation to further work up anemia. Discussed and reviewed with and primary service-- GI panel pending per primary, will guaiac stools. -Lopressor increased to 50mg BID. One time dose of 25mg lopressor given this am to equal 50mg dose. -Occult blood stool ordered. Recommend GI consultation while inpatient to further evaluate anemia. Discussed with . -Further mcc anticoagulation recommendations prior to discharge. -Will continue to monitor HR and BP. (2) Elevated troponin Current Visit: Yes Status: Acute Per cardiology: -ELevated troponin in the setting of atrial fibrillation with RVR, anemia, and CKD. -Troponins 0.35, 0.41, 0.4. -ECG with no ischemic changes. -Denies chest pain. -Echocardiogram 10/07/16 with LVEF 60-65%, mild left ventricular diastolic dysfunction, severely dilated left atrium, mild pulmonary hypertension, all wall segments with normal motion, no significant valvular dysfunction. -At this time, patient is not a candidate for LHC due to anemia and CKD stage IV. -Do not suspect NSTEMI, suspect demand ischemia. No cardiac rehab warranted at this time. (3) Anemia Current Visit: Yes Status: Chronic Per cardiology: -Recent worsening of anemia. -Baseline hemoglobin 11s. -Hemoglobin October 05 admission noted to be 8-11. -Hemoglobin this admission noted to be 8.8, now 8.4. -May be contributing to elevated troponin and afib RVR. -Management per primary service. Qualifiers: Anemia type: unspecified type Qualified Code(s): D64.9 - Anemia, unspecified (4) CKD (chronic kidney disease) Current Visit: Yes Status: Chronic Per cardiology: -Known CKD stage IV. -Creatinine 4.89. 4.64. -Patient had NEYMAR 10/05/16 with creatinine increase to 5. -Previous baseline creatiine 3-4. -Patient requesting inpatient nephrology consult and has outpatient f/u this week. Discussed with primary service regarding patients request and recommend consider Nephrology c/s if deemed clinically appropriate. [facility] nephrology, , aware of patient's inpatient status with follow up appointment with nephrology scheduled for Tuesday. -May be contributing to elevated troponin. -Management per primary service. 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 -Management per primary service. Discussion w patient/family: The assessment and plan as outlined above was discussed with the patient who expressed understanding and agreement. All questions were answered. Thank you for involving us in the care of your patient. Please call with any questions. Patient seen and examined with PAMELA Robertson Subjective Principal diagnosis: atrial fibrillation Interval history: Patient with atrial fibrillation with RVR. Had previously been on cardizem drip. Cardizem was increased yesterday and patient was started on beta batsheva. Patient was doing well, until this morning when she had recurrent atrial fibrillation with RVR with HR 140s. Patient was given cardizem 10mg IV per primary service. Cardiology was asked to re-evaluate for better rate control. Currently HRs 110s. Patient denies current palpitations, however states she felt them this morning. Patient denies current chest pain. Denies shortness of breath. Patient states she is tired. Objective Vital Signs, Last 4 Hours Temp Pulse Resp BP Pulse Ox 10/25/16 10:00 97.8 F 91 17 136/71 95 05/01/17 07:30 95 General: Conversant, No Apparent Distress HEENT: Atraumatic, Normocephaly, Mucus Membranes Moist Neck: No JVD, Normal carotid pulses Cardiac: Other (Irregularly, irregular) Lungs: Normal Breath Sounds, No Wheeze, Rales, Rhonchi Neuro: Alert and responsive, No focal deficits noted Abdomen: Soft, Non-Tender Skin: No rashes noted on visualized skin Musculoskeletal: No Chest Wall Tenderness Extremities: No Clubbing, No Cyanosis, Normal Pulses, Other (Moderate bilateral lower extremity non-pitting edema. ) Results 10/25/16 07:47 10/25/16 03:26 Lab Results Active Medications Calcium Carbonate (Tums) 1,000 mg PO Q4HR PRN; Protocol PRN Reason: Heartburn Stop: 04/25/17 07:02 Dextrose/Water (Dextrose 50% (Syg)) 25 ml IVP AD PRN PRN Reason: Hypoglycemia Stop: 04/25/17 07:05 Diltiazem HCl (Cardizem Cd) 240 mg PO DAILY [facility] Stop: 04/25/17 09:01 Last Admin: 10/25/16 07:37 Dose: 240 mg Famotidine (Pepcid) 20 mg PO DAILY TY PRN Reason: Protocol Stop: 04/25/17 09:01 Last Admin: 10/25/16 07:37 Dose: 20 mg Furosemide (Lasix) 20 mg PO DAILY PRN PRN Reason: Edema Stop: 04/26/17 09:01 Glucagon (Glucagen) 1 mg IM ONCE PRN PRN Reason: Hypoglycemia Stop: 04/25/17 07:05 Glucose (Gluctose) 15 gm PO ONCE PRN PRN Reason: Hypoglycemia Stop: 04/25/17 07:05 Glucose (Gluctose) 30 gm PO ONCE PRN PRN Reason: Hypoglycemia Stop: 04/25/17 07:05 Heparin Sodium (Porcine) (Heparin) 5,000 unit SQ Q8HCO TY Stop: 04/25/17 14:01 Last Admin: 10/25/16 05:00 Dose: 5,000 unit Hydralazine HCl (Hydralazine) 50 mg PO BID PRN PRN Reason: Hypotension Dextrose (Dextrose 5%) 1,000 mls @ 100 mls/hr IVC .Q10H PRN PRN Reason: HYPOGLYCEMIA Stop: 04/25/17 07:05 Insulin Human Lispro (Humalog) 0 units SQ HS [facility] PRN Reason: Protocol Stop: 04/25/17 21:01 Last Admin: 10/24/16 22:49 Dose: Not Given Insulin Human Lispro (Humalog) 0 units SQ TIDAC [facility] PRN Reason: Protocol Stop: 04/25/17 07:31 Last Admin: 10/25/16 07:36 Dose: Not Given Levothyroxine Sodium (Synthroid) 112 mcg PO DAILY [facility] Stop: 04/25/17 09:01 Last Admin: 10/25/16 07:37 Dose: 112 mcg Lorazepam (Ativan) 0.5 mg PO BID PRN PRN Reason: Anxiety Stop: 04/25/17 07:02 Magnesium Oxide (Mag-Ox) 400 mg PO BID [facility] PRN Reason: Protocol Stop: 04/25/17 09:01 Last Admin: 10/25/16 07:37 Dose: 400 mg Metoprolol Tartrate (Lopressor) 50 mg PO BID [facility] Stop: 04/26/17 21:01 Naloxone HCl (Narcan) 0.4 mg IVP Q2MIN PRN PRN Reason: Opioid Reversal Stop: 04/25/17 06:59 Ondansetron HCl (Zofran Odt) 4 mg SL Q6HR PRN PRN Reason: Nausea And Vomiting Stop: 04/25/17 07:02 Prednisone (Prednisone) 10 mg PO HS [facility] Stop: 04/25/17 21:01 Last Admin: 10/24/16 22:44 Dose: 10 mg Prednisone (Prednisone) 20 mg PO BID [facility] Stop: 04/25/17 09:01 Last Admin: 10/25/16 07:37 Dose: 20 mg Senna/Docusate Sodium (Senna Plus) 2 each PO BID [facility] PRN Reason: Protocol Stop: 04/25/17 09:01 Last Admin: 10/25/16 07:37 Dose: 2 each Sodium Bicarbonate (Sodium Bicarbonate) 650 mg PO TID [facility] Stop: 04/25/17 09:01 Last Admin: 10/25/16 07:37 Dose: 650 mg Trimethoprim/Sulfamethoxazole (Bactrim Ss) 1 tab PO MOWEFR [facility] Stop: 04/26/17 07:02 Last Admin: 10/25/16 07:37 Dose: 1 tab Vitamin D (Vitamin D) 2,000 unit PO DAILY TY Stop: 04/25/17 09:01 Last Admin: 10/25/16 07:37 Dose: 2,000 unit Laboratory Tests 10/24/16 10/24/16 10/24/16 01:12 01:12 01:12 Hgb 8.8 L Hct Creatinine 4.89 H Magnesium 2.6 Troponin I 0.35 H* TSH 0.527 10/24/16 10/24/16 10/25/16 07:16 12:34 03:26 Hgb Hct 21.1 L Creatinine Magnesium Troponin I 0.41 H* 0.40 H* TSH 10/25/16 10/25/16 03:26 07:47 Hgb 8.4 L Hct Creatinine 4.64 H Magnesium 2.4 Troponin I TSH - Imaging and Cardiology Chest Xray: report reviewed Echo: report reviewed - EKG Interpretation EKG results cardiology: other (Telemetry reviewed with average HR previous 12 hours noted to be 70, atrial fibrillation. Episode of tachycardia noted this AM. Minumum HR 50 at 0142 am. Longest pause noted to be 2.6 seconds. PVCs noted and 2 couplets noted.) Consult Discharge Plan - Plan Referrals: Marcos Pierre MD [Primary Care Provider] - 11/04/16 10:00 am (Web Requested 10-24-16 Please follow up as schedule...)
--- NOTE | 2016-10-25 11:56 | Electrocardiograph Report ---
[address] [address] Test Date: 2016-10-24 Pat Name: Natalia Oreilly Department: 112 Room: 2A13 Gender: F Resident Physician In Radiology: : 1950 Requested By: Caryn Loomis Order Number: [id number] Reading MD: Jhonathan Monzon Measurements Intervals Quinter Rate: 63 P: 18 ME: 143 QRS: 3 QRSD: 98 T: 9 QT: 416 QTc: 424 Interpretive Statements SINUS RHYTHM Electronically Signed On 10-25-2016 11:54:15 EDT by Jhonathan Monzon
[2016-10-25] MEDS: predniSONE 10 MG TABLET PO SCH (21:10)
[2016-10-26 04:45] LABS: Basophils % 0.1 %; Eosinophils % 0.1 %; Hematocrit 23.1 % (35.3-44.9); Hemoglobin 7.8 g/dL (11.5-15.4); Immature Granulocytes % 4.4 % (0-4); Lymphocytes # 0.3 K/mcL (0.6-4.6); Mean Corpuscular HGB Conc 33.8 g/dL (31.6-35.5); Mean Corpuscular Hemoglobin 30.2 pg (28.0-33.3); Mean Corpuscular Volume 89.5 fL (83.0-100.0); Mean Platelet Volume 10.5 fL (9.4-12.4); Monocytes # 0.7 K/mcL (0.0-1.3); Neutrophils # 8.3 K/mcL (1.6-8.9); Platelet Count 125 K/mcL (140-400); Red Blood Count 2.58 M/mcL (3.82-4.97); Red Cell Distribution Width 13.2 % (11.5-14.5); Segmented Neutrophils % 85.4 %
[2016-10-26 05:06] LABS: Calcium 8.5 mg/dL (8.6-10.8); Magnesium 2.7 mg/dL (1.6-2.6); Phosphorous 3.8 mg/dL (2.3-4.7); Potassium 3.9 mEq/L (3.5-4.5)
[2016-10-26 05:08] LABS: % Iron Saturation 61 % (15-50); Iron 114 mcg/dL (50-170); Transferrin 134 mg/dL (180-382)
[2016-10-26 05:29] LABS: Ferritin 934 ng/ml (5-204)
[2016-10-26 05:42] LABS: Folate 6.3 ng/mL (7.0-31.4)
[2016-10-26] MEDS: Diltiazem CD (24hr) 240 MG CAPSULE PO SCH ×2 (06:19→06:20)
[2016-10-26] MEDS: *HR* Heparin 5,000 UNIT/ML VIAL SQ SCH ×3 (06:21→21:00)
[2016-10-26] MEDS: Insulin LISPRO 300 UNITS/3 ML VIAL SQ SCH ×4 (08:03→20:53)
[2016-10-26] MEDS: Sennosides/Docusate Sodium TABLET PO SCH ×2 (08:04→20:53)
[2016-10-26] MEDS: Magnesium Oxide 400 MG TABLET PO SCH (08:04)
[2016-10-26] MEDS: Cholecalciferol (D-3) 1,000 UNIT TABLET PO SCH (08:04)
[2016-10-26] MEDS: predniSONE 20 MG TABLET PO SCH ×2 (08:05→20:53)
[2016-10-26] MEDS: Famotidine 20 MG TABLET PO SCH (08:05)
--- NOTE | 2016-10-26 09:36 | Nephrology Consult Note ---
Date of Encounter: 10/26/16 Time of Encounter: 09:32 Assessment and Plan (1) CKD (chronic kidney disease), stage IV Current Visit: Yes Status: Acute Scr 4.79 GFR 9 Kidney function stable at this time Avoid nephrotoxins if possible (2) Atrial fibrillation with RVR Current Visit: Yes Status: Acute per cardiology team (3) Anemia Current Visit: Yes Status: Chronic Hgb 7.8 per primary team Qualifiers: Anemia type: unspecified type Qualified Code(s): D64.9 - Anemia, unspecified History of Present Illness - Reason for Consult Consult date: 10/26/16 Chronic Kidney Disease - Chief Complaint Atrial fibruillation with RVR, CKD stage 4 - History of Present Illness Ms. Oreilly is a 66 year old female with past medical history significant for rapidly progressive glomerulonephritis, paroxysmal atrial fibrillation, chronic kidney disease stage 4, hypertension, diabetes mellitus, and hypothyroidism. She was admitted for tachycardia with palpitations and shortness of breath with minimal exertion. Patient follows with both Dr Cook and Dr Ag and actually has an appointment with Dr Cook tomorrow. Nephrology has been consults at patient's insistence, she states she wants her kidney doctors to be aware and involved in her care while hospitalized. Past Med Surg Social Fam HX - Past Medical History Medical history: atrial fibrillation, hypertension, renal disease, thyroid disease Psychiatric history: anxiety, depression - Past Surgical History Surgical History: other - Social History Smoking Status: Never smoker Smokeless Tobacco Status: No Alcohol use: rarely Drug use: none - Family History Mother Hx Family Cancer: Yes Father Hx Family Endocrine Disorder: Yes Medications and Allergies Levothyroxine [Synthroid] 112 mcg PO DAILY 11/25/15 [History] Famotidine [Pepcid] 20 mg PO QPM 10/05/16 [History] Calcium Carbonate [Tums] 1,000 mg PO Q4HR PRN #0 tab.chew 10/12/16 [Rx] Cholecalciferol (D-3) [Vitamin D] 2,000 unit PO DAILY #30 tablet 10/12/16 [Rx] GlipiZIDE [Glipizide Xl] 5 mg PO DAILY #30 tab.er.24 10/12/16 [Rx] Hydralazine HCl 50 mg PO BID PRN #60 tablet 10/12/16 [Rx] LORazepam [Ativan] 0.5 mg PO BID PRN #30 tablet 10/12/16 [Rx] Magnesium Oxide [Mag-Ox] 400 mg PO BID #60 tablet 10/12/16 [Rx] Ondansetron ODT [Zofran ODT] 4 mg SL Q6HR PRN #30 tab.rapdis 10/12/16 [Rx] PredniSONE 10 mg PO HS #30 tablet 10/12/16 [Rx] PredniSONE 20 mg PO BID #60 tablet 10/12/16 [Rx] Sennosides/Docusate Sodium [Senna Plus] 2 each PO BID #120 tablet 10/12/16 [Rx] Sodium Bicarbonate 650 mg PO TID #90 tablet 10/12/16 [Rx] Sulfamethoxazole/Trimeth SS [Bactrim SS] 1 tab PO MOWEFR #30 tablet 10/12/16 [Rx ] Diltiazem HCl [Diltiazem ER] 240 mg PO DAILY 10/24/16 [History] Furosemide [Lasix] 20 mg PO DAILY PRN 10/24/16 [History] Sennosides/Docusate Sodium [Senna Plus] 2 tab PO BID 10/24/16 [History] Allergies codeine Adverse Reaction (Verified 10/24/16 00:46) Vomiting Review of Systems All Systems: reviewed and no additional remarkable complaints except as stated Constitutional: no anorexia, no lethargy Cardiovascular: dyspnea, dyspnea on exertion, leg edema, rapid heart rate, no chest pain Respiratory: cough, dyspnea, dyspnea on exertion Gastrointestinal: no constipation, no nausea, no vomiting Neurological: no behavioral changes Psychiatric: no behavioral changes Exam - Vital Signs Vital signs: Initial Vital Signs Temp Pulse Resp BP Pulse Ox 98 F 150 22 158/82 98 10/24/16 00:41 10/24/16 00:41 10/24/16 00:41 10/24/16 00:41 10/24/16 00:41 Vital Signs - Last 8 Hours Temp Pulse Resp BP Pulse Ox 10/26/16 07:57 97.8 F 58 16 134/80 94 10/26/16 05:05 97.9 F 18 153/74 94 Intake and Output 10/25/16 10/26/16 10/26/16 23:59 07:59 15:59 Output Total 1999 Balance -1999 Output: Urine 1999 Other: Blood Glucose* 200 134 - General Appearance General appearance: obese EENT: ATNC, mucous membranes moist, hearing intact, vision intact Neck: supple Respiratory: clear Cardiology: edema, normal S1, normal S2 Gastrointestinal: no tenderness, no guarding Neurologic: alert and oriented x3 Psychiatric: mood/affect appropriate, cooperative Results - Lab Results 10/26/16 04:19 10/26/16 04:19 Most recent lab results Calcium 8.5 mg/dL (8.6-10.8) L 10/26/16 04:19 Phosphorus 3.8 mg/dL (2.3-4.7) 10/26/16 04:19 Magnesium 2.7 mg/dL (1.6-2.6) H 10/26/16 04:19 Consult Discharge Plan - Plan Referrals: Marcos Pierre MD [Primary Care Provider] - 11/04/16 10:00 am (Please follow up as schedule...)
--- NOTE | 2016-10-26 09:57 | Internal Med Progress Note ---
Date of Encounter: 10/26/16 Time of Encounter: 09:05 - Assessment and plan (1) Atrial fibrillation with RVR Current Visit: Yes Status: Acute Assessment and plan: Cardiology input appreciated Rate controlled with increase in Metoprolol dosing continue Cardizem 240mg PO qd awaiting anemia work up prior to Initiation of intermission coordinator oral anticoagulation (2) Anemia Current Visit: Yes Status: Chronic Assessment and plan: H&H low but acceptable Iron studies consistent with anemia of chronic disease f/u occult stool GI consultation requested, patient to be started on clear liquid diet and likely colonoscopy in am to r/o GI bleed No acute bleeding reported at this time monitor H&H and will transfuse as needed Qualifiers: Anemia type: unspecified type Qualified Code(s): D64.9 - Anemia, unspecified (3) CKD (chronic kidney disease), stage IV Current Visit: No Status: Chronic Assessment and plan: Renal function at baseline continue home dose of lasix will continue to monitor Nephrology consultation appreciated given patient's anemia and CKD, she may benefit from Epogen, will f/u up with nephrology (4) Diabetes mellitus Current Visit: Yes Status: Chronic Assessment and plan: BG within acceptable limits continue SS insulin algorithm continue to monitor FS and BG Qualifiers: Diabetes mellitus type: type 2 Diabetes mellitus complication status: with unspecified complications Diabetes mellitus [facility] insulin use: without intermission coordinator use Qualified Code(s): E11.8 - Type 2 diabetes mellitus with unspecified complications (5) DVT prophylaxis Current Visit: No Status: Acute Assessment and plan: Heparin SQ (6) HTN (hypertension) Current Visit: Yes Status: Chronic Assessment and plan: BP within acceptable range continue home medications Qualifiers: Hypertension type: essential hypertension Qualified Code(s): I10 - Essential (primary) hypertension (7) Hypothyroidism Current Visit: No Status: Chronic Assessment and plan: continue home medications (Levothyroxine) Qualifiers: Hypothyroidism type: acquired Qualified Code(s): E03.9 - Hypothyroidism, unspecified (8) Morbid obesity Current Visit: Yes Status: Chronic Qualifiers: Obesity type: drug-induced Qualified Code(s): E66.1 - Drug-induced obesity (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 Patient has been angry and hostile towards the medical and nursing staff demanding nephrology consultation. She has been made aware that her renal function is at baseline and her H&H is at baseline. She needs to be on intermission coordinator anticoagulation for which GI is consulted to rule out GI bleed and nephrology will evaluate the patient today as per her request. She continues to be angry as she did not get to see the volcanologist the minute she demanded. I had a long detailed discussion with the patient explaining to her that her renal function has been at baseline and we are more concerned about her H&H which could be secondary to chronic disease vs. GI issues. She refuses to hear any rational and is persistently angry at the staff for not listening to her demands. HR controlled discharge pending GI work up - Constitutional Vitals: Temp Pulse Resp BP Pulse Ox 97.8 F 58 16 134/80 94 10/26/16 07:57 10/26/16 07:57 10/26/16 07:57 10/26/16 07:57 10/26/16 07:57 General appearance: Present: A&O X 3, morbidly obese, no acute distress, answers questions appropriately - Head Head exam: Present: atraumatic, normocephalic - Eye Eye exam: Present: normal appearance, conjuntiva pink, sclera anicteric - Respiratory Respiratory exam: Present: CTAB. Absent: accessory muscle use, rales, rhonchi, wheezes - Cardiovascular Cardiovascular exam: Present: RRR, +S1, +S2. Absent: diastolic murmur, gallop, rubs, systolic murmur - GI/Abdominal GI/Abdominal exam: Present: normal bowel sounds, soft, no peritoneal signs. Absent: distended, tenderness - Extremities Exam Extremities exam: Present: pedal edema, warm, radial pulses palpable and symetrical. Absent: calf tenderness - Neurological Exam Neurological exam: Present: alert, oriented X3 - Psychiatric Psychiatric exam: Present: agitated (angry/hostile ) Internal Medicine: Result - Labs CBC & Chem 7: 10/26/16 04:19 10/26/16 04:19 Labs: Short CBC 10/26/16 Range/Units 04:19 WBC 9.7 (4.3-11.1) K/mcL Hgb 7.8 L (11.5-15.4) g/dL Hct 23.1 L (35.3-44.9) % Plt Count 125 L (140-400) K/mcL Neutrophils # 8.3 (1.6-8.9) K/mcL BMP 10/26/16 04:19 Sodium 139 Potassium 3.9 Chloride 100 Carbon Dioxide 31 H BUN 79 H Creatinine 4.79 H Glucose 131 H Calcium 8.5 L - ABG Interpretation ABG results: PT/INR, D-dimer PT 9.2 Seconds (9.4-12.1) L 10/24/16 02:05 Consult Discharge Plan - Plan Referrals: Marcos Pierre MD [Primary Care Provider] - 11/04/16 10:00 am (Please follow up as schedule...)
[2016-10-26] MEDS ORDERED: SODIUM CHLORIDE/NAHCO3/KCL/PEG 4,000 ML SOLN.RECON PO ONE (10:25)
--- NOTE | 2016-10-26 11:33 | Cardiology Progress Note ---
Date of Encounter: 10/26/16 Time of Encounter: 08:00 Assessment and Plan (1) Atrial fibrillation with RVR Current Visit: Yes Status: Acute Per cardiology: -KNown atrial fibrillation with recent admission September. -Patient with recurrent PAF with RVR this am, with HRs 90-110s. Current HR 60s, sinus rhythm. -On cardizem and lopressor. At this time, no further titration of medications recommended due to HR currently 60s and nocturnal pause of 2.9 seconds. 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 Hemoglobin 11.5, 10/05/16 11.2, current 7.8. Patient denies active bleeding. Patient states anemia is new for her and she has not had outpatient follow up for anemia since last admission. Patient states she does not take asa at home per nephrology due to poor renal function. Patient educated on increased risk of stroke with a.fib and no anticoagulation. Patient states understanding. Discussed and reviewed with and primary service. GI consulted today. -Stool for occult blood negative. -Appreciate GI input. -Further intermodal dispatcher anticoagulation recommendations pending GI evaluation. -Will continue to monitor HR and BP. (2) Elevated troponin Current Visit: Yes Status: Acute Per cardiology: -ELevated troponin in the setting of atrial fibrillation with RVR, anemia, and CKD. -Troponins 0.35, 0.41, 0.4. -ECG with no ischemic changes. -Denies chest pain. -Echocardiogram 10/07/16 with LVEF 60-65%, mild left ventricular diastolic dysfunction, severely dilated left atrium, mild pulmonary hypertension, all wall segments with normal motion, no significant valvular dysfunction. -At this time, patient is not a candidate for LHC due to anemia and CKD stage IV. -Do not suspect NSTEMI, suspect demand ischemia. No cardiac rehab warranted at this time. (3) Anemia Current Visit: Yes Status: Chronic Per cardiology: -Recent worsening of anemia. -Baseline hemoglobin 11s. -Hemoglobin October 05 admission noted to be 8-11. -Hemoglobin this admission noted to be 8.8, 8.4, and now 7.8. -GI service consulted. -May be contributing to elevated troponin and afib RVR. -Management per primary and GI service. Qualifiers: Anemia type: unspecified type Qualified Code(s): D64.9 - Anemia, unspecified (4) CKD (chronic kidney disease) Current Visit: Yes Status: Chronic Per cardiology: -Known CKD stage IV. -Creatinine 4.89. 4.64, 4.79. -Patient had NEYMAR 10/05/16 with creatinine increase to 5. -Previous baseline creatiine 3-4. -Nephrology consulted. -May be contributing to elevated troponin. -Management per primary and nephrology services. 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 -Management per primary and nephrology services. Discussion w patient/family: The assessment and plan as outlined above was discussed with the patient who expressed understanding and agreement. All questions were answered. Thank you for involving us in the care of your patient. Please call with any questions. Patient seen and examined with PAMELA Robertson Subjective Principal diagnosis: atrial fibrillation Interval history: Patient with paroxysmal atrial fibrillation with RVR. Cardizem was increased and beta batsheva increased yesterday. Patient denies current palpitations, however states she felt them this morning. Patient denies current chest pain. Denies shortness of breath. Patient with worsening anemia today and GI has been consulted per primary service. Patient currently sinus rhythm. Objective Vital Signs, Last 4 Hours Temp Pulse Resp BP Pulse Ox 10/26/16 07:57 97.8 F 58 16 134/80 94 General: Conversant, No Apparent Distress HEENT: Atraumatic, Normocephaly, Mucus Membranes Moist Neck: No JVD, Normal carotid pulses Cardiac: Reg Rate and Rhythm, Normal S1 and S2, No Murmur Lungs: Normal Breath Sounds, No Wheeze, Rales, Rhonchi Neuro: Alert and responsive, No focal deficits noted Abdomen: Soft, Non-Tender Skin: No rashes noted on visualized skin Musculoskeletal: No Chest Wall Tenderness Extremities: No Clubbing, No Cyanosis, No Edema, Normal Pulses Results 10/26/16 13:43 10/26/16 04:19 Lab Results Active Medications Bisacodyl (Dulcolax) 20 mg PO ONCE ONE Stop: 10/26/16 14:01 Calcium Carbonate (Tums) 1,000 mg PO Q4HR PRN; Protocol PRN Reason: Heartburn Stop: 04/25/17 07:02 Dextrose/Water (Dextrose 50% (Syg)) 25 ml IVP AD PRN PRN Reason: Hypoglycemia Stop: 04/25/17 07:05 Diltiazem HCl (Cardizem Cd) 240 mg PO DAILY [facility] Stop: 04/25/17 09:01 Last Admin: 10/26/16 06:20 Dose: 240 mg Famotidine (Pepcid) 20 mg PO DAILY [facility] PRN Reason: Protocol Stop: 04/25/17 09:01 Last Admin: 10/26/16 08:05 Dose: 20 mg Furosemide (Lasix) 20 mg PO DAILY PRN PRN Reason: Edema Stop: 04/26/17 09:01 Glucagon (Glucagen) 1 mg IM ONCE PRN PRN Reason: Hypoglycemia Stop: 04/25/17 07:05 Glucose (Gluctose) 15 gm PO ONCE PRN PRN Reason: Hypoglycemia Stop: 04/25/17 07:05 Glucose (Gluctose) 30 gm PO ONCE PRN PRN Reason: Hypoglycemia Stop: 04/25/17 07:05 Heparin Sodium (Porcine) (Heparin) 5,000 unit SQ Q8HCO [facility] Stop: 04/25/17 14:01 Last Admin: 10/26/16 06:21 Dose: 5,000 unit Hydralazine HCl (Hydralazine) 50 mg PO BID PRN PRN Reason: Hypotension Dextrose (Dextrose 5%) 1,000 mls @ 100 mls/hr IVC .Q10H PRN PRN Reason: HYPOGLYCEMIA Stop: 04/25/17 07:05 Insulin Human Lispro (Humalog) 0 units SQ HS [facility] PRN Reason: Protocol Stop: 04/25/17 21:01 Last Admin: 10/25/16 20:47 Dose: Not Given Insulin Human Lispro (Humalog) 0 units SQ TIDAC [facility] PRN Reason: Protocol Stop: 04/25/17 07:31 Last Admin: 10/26/16 12:07 Dose: 4 units Levothyroxine Sodium (Synthroid) 112 mcg PO DAILY@0630 [facility] Stop: 04/25/17 09:01 Last Admin: 10/26/16 06:19 Dose: 112 mcg Lorazepam (Ativan) 0.5 mg PO BID PRN PRN Reason: Anxiety Stop: 04/25/17 07:02 Magnesium Oxide (Mag-Ox) 400 mg PO BID [facility] PRN Reason: Protocol Stop: 04/25/17 09:01 Last Admin: 10/26/16 08:04 Dose: 400 mg Metoprolol Tartrate (Lopressor) 50 mg PO BID [facility] Stop: 04/26/17 21:01 Last Admin: 10/26/16 08:05 Dose: 50 mg Naloxone HCl (Narcan) 0.4 mg IVP Q2MIN PRN PRN Reason: Opioid Reversal Stop: 04/25/17 06:59 Ondansetron HCl (Zofran Odt) 4 mg SL Q6HR PRN PRN Reason: Nausea And Vomiting Stop: 04/25/17 07:02 Prednisone (Prednisone) 10 mg PO HS [facility] Stop: 04/25/17 21:01 Last Admin: 10/25/16 21:10 Dose: 10 mg Prednisone (Prednisone) 20 mg PO BID [facility] Stop: 04/25/17 09:01 Last Admin: 10/26/16 08:05 Dose: 20 mg Senna/Docusate Sodium (Senna Plus) 2 each PO BID [facility] PRN Reason: Protocol Stop: 04/25/17 09:01 Last Admin: 10/26/16 08:04 Dose: 2 each Sodium Bicarbonate (Sodium Bicarbonate) 650 mg PO TID [facility] Stop: 04/25/17 09:01 Last Admin: 10/26/16 08:04 Dose: 650 mg Trimethoprim/Sulfamethoxazole (Bactrim Ss) 1 tab PO MOWEFR [facility] Stop: 04/26/17 07:02 Last Admin: 10/25/16 07:37 Dose: 1 tab Vitamin D (Vitamin D) 2,000 unit PO DAILY [facility] Stop: 04/25/17 09:01 Last Admin: 10/26/16 08:04 Dose: 2,000 unit Laboratory Tests 10/24/16 10/24/16 10/25/16 01:12 01:12 07:47 Hgb 8.8 L 8.4 L Hct 26.0 L Plt Count 176 Creatinine 4.89 H Est GFR (Non-Af Amer) Stool Occult Blood 10/26/16 10/26/16 10/26/16 04:19 04:19 10:00 Hgb 7.8 L Hct 23.1 L Plt Count 125 L Creatinine 4.79 H Est GFR (Non-Af Amer) 9 L Stool Occult Blood Negative - Imaging and Cardiology Chest Xray: report reviewed Echo: report reviewed - EKG Interpretation EKG results cardiology: other (Telemetry reviewed with average HR 63, sinus rhythm. Patient had one episode of PAF at 0441 that lasted until 0613. Highest HR 119. Minumum HR 50 at 0256. Longest pause 2.9seconds, nocturnal. PVCs noted. Rare couplet PVCs noted.) Consult Discharge Plan - Plan Referrals: Marcos Pierre MD [Primary Care Provider] - 11/04/16 10:00 am (Please follow up as schedule...)
[2016-10-26 13:56] LABS: Eosinophils % 0.1 %; Hematocrit 25.2 % (35.3-44.9); Hemoglobin 8.4 g/dL (11.5-15.4); Immature Granulocytes % 3.8 % (0-4); Lymphocytes # 0.2 K/mcL (0.6-4.6); Lymphocytes % 2.1 %; Mean Corpuscular HGB Conc 33.3 g/dL (31.6-35.5); Mean Corpuscular Hemoglobin 29.8 pg (28.0-33.3); Mean Corpuscular Volume 89.4 fL (83.0-100.0); Mean Platelet Volume 10.4 fL (9.4-12.4); Monocytes # 0.5 K/mcL (0.0-1.3); Monocytes % 4.3 %; Neutrophils # 10.4 K/mcL (1.6-8.9); Platelet Count 143 K/mcL (140-400); Red Blood Count 2.82 M/mcL (3.82-4.97); Red Cell Distribution Width 13.2 % (11.5-14.5); Segmented Neutrophils % 89.7 %
[2016-10-26] MEDS: Furosemide 20 MG TABLET PO PRN (15:05)
[2016-10-26] MEDS: predniSONE 10 MG TABLET PO SCH (20:53)
[2016-10-27 04:22] LABS: Basophils % 0.1 %; Eosinophils % 0.1 %; Hematocrit 22.6 % (35.3-44.9); Hemoglobin 7.6 g/dL (11.5-15.4); Immature Granulocytes % 4.6 % (0-4); Lymphocytes # 0.3 K/mcL (0.6-4.6); Lymphocytes % 2.5 %; Mean Corpuscular HGB Conc 33.6 g/dL (31.6-35.5); Mean Corpuscular Hemoglobin 30.4 pg (28.0-33.3); Mean Corpuscular Volume 90.4 fL (83.0-100.0); Monocytes # 0.5 K/mcL (0.0-1.3); Monocytes % 5.4 %; Neutrophils # 8.6 K/mcL (1.6-8.9); Platelet Count 129 K/mcL (140-400); Red Cell Distribution Width 13.2 % (11.5-14.5); Segmented Neutrophils % 87.3 %
[2016-10-27 04:39] LABS: Calcium 8.1 mg/dL (8.6-10.8); Magnesium 2.6 mg/dL (1.6-2.6); Phosphorous 4.4 mg/dL (2.3-4.7); Potassium 4.1 mEq/L (3.5-4.5)
[2016-10-27] MEDS: *HR* Heparin 5,000 UNIT/ML VIAL SQ SCH ×3 (06:28→22:31)
[2016-10-27] MEDS: Sulfamethoxazole/Trimeth SS 1 TAB PO SCH (06:28)
[2016-10-27] MEDS: Famotidine 20 MG TABLET PO SCH (08:13)
[2016-10-27] MEDS: Sennosides/Docusate Sodium TABLET PO SCH ×2 (08:13→22:32)
[2016-10-27] MEDS: Diltiazem CD (24hr) 240 MG CAPSULE PO SCH (08:13)
[2016-10-27] MEDS: Cholecalciferol (D-3) 1,000 UNIT TABLET PO SCH (08:14)
[2016-10-27] MEDS: Insulin LISPRO 300 UNITS/3 ML VIAL SQ SCH ×4 (08:14→22:31)
[2016-10-27] MEDS: predniSONE 20 MG TABLET PO SCH ×2 (08:14→14:57)
[2016-10-27] MEDS: Furosemide 20 MG TABLET PO PRN (09:22)
--- NOTE | 2016-10-27 11:52 | Gastroenterology Consult Note ---
<Rainer Carpio - Last Filed: 10/27/16 11:50> Date of Encounter: 10/27/16 Time of Encounter: 10:35 - Assessment and plan (1) Anemia Current Visit: Yes Status: Chronic Assessment and plan: Continue to monitor CBC and transfuse PRBC as needed. FOBT negative, iron 114, and ferritin 934. Check hemochromatosis panel. Attempted to prep patient overnight for colonoscopy today. Per pt, she did not complete colon prep because Dr. Norman told her recently that a colonoscopy would be very dangerous due to "thin skin". Qualifiers: Anemia type: unspecified type Qualified Code(s): D64.9 - Anemia, unspecified (2) CKD (chronic kidney disease), stage IV Current Visit: No Status: Chronic (3) Atrial fibrillation with RVR Current Visit: Yes Status: Acute - Time Spent With Patient Total time spent is greater than 50% in coordination of care (as documented) at patient's floor/unit and/or counseling patient: GI History of Present Illness - Data of Consult Patient: new to practice Consult date: 10/27/16 Requesting Physician: Caryn Loomis MD - Consult Narrative Reason for consult: anemia History of present illness: Ms. Oreilly is a 66 year old female with PMHx of Afib, HTN, glomerulonephritis, CKD, DM who was recently admitted to this hospital and was discharged home on diltiazem 180 mg a day for Afib. While at home, her HR increased to the 130s and Cardizem was increased to 240 mg. Her HR continued to worsen and was instructed to be evaluated in the ED. She denies fever, chills, abdominal pain, nausea, vomiting, constipation, diarrhea. On admission her Hgb 8.8 and this AM Hgb 7.6. 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 Procedures: EGD 02/13/2013 Dr. 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 Colonoscopy 08/28/2012 Dr. An: Diverticulosis NSAIDs: None Anticoagulation: None Past Med Surg Social Fam HX - Past Medical History Medical history: atrial fibrillation, hypertension, renal disease, thyroid disease Psychiatric history: anxiety, depression - Past Surgical History Surgical History: other - Social History Smoking Status: Never smoker Smokeless Tobacco Status: No Alcohol use: rarely Drug use: none - Family History Mother Hx Family Cancer: Yes Father Hx Family Endocrine Disorder: Yes - Gastrointestinal Gastrointestinal: Present: as per HPI - Constitutional Constitutional: as per HPI - EENT Eyes: as per HPI Ears: Present: as per HPI Nose, mouth and throat: Present: as per HPI - Cardiovascular Cardiovascular ROS: Present: as per HPI - Respiratory Respiratory IM: Present: as per HPI - Genitourinary Genitourinary: Absent: change in color, Urinary frequency - Neurological ROS Neurological GI: Present: as per HPI - Hematologic/Lymphatic Hematologic/Lymphatic pediatric: Present: as per HPI - Musculoskeletal Musculoskeletal ROS GI: Present: as per HPI - Integumentary Integumentary GI: Present: as per HPI - Psychiatric ROS Psychiatric GI: Present: as per HPI - Endocrine Endocrine IM: Present: as per HPI - Constitutional Vitals: Temp Pulse Resp BP Pulse Ox 97.6 F 58 17 169/73 95 10/27/16 10:56 10/27/16 10:56 10/27/16 10:56 10/27/16 10:56 10/27/16 10:56 General appearance: Present: cooperative, A&O X 3, no acute distress, answers questions appropriately - Head Head exam: Present: atraumatic, normocephalic - Eye Eye exam: Present: normal appearance, sclera anicteric - ENT ENT exam: Present: mucous membranes moist - Neck Neck exam general surgery: Present: normal inspection, trachea midline - Respiratory Respiratory exam: Present: CTAB. Absent: rales, rhonchi, wheezes - Cardiovascular Cardiovascular exam: Present: RRR, +S1, +S2 - GI/Abdominal GI/Abdominal exam: Present: normal bowel sounds, soft, no peritoneal signs - Rectal Rectal exam: Present: deferred - Extremities Exam Extremities exam: Present: warm - Neurological Exam Neurological exam: Present: no focal deficits - Psychiatric Psychiatric exam: Present: normal affect, normal mood - Skin Skin exam: Present: dry, intact, normal color, warm Results - Labs CBC & Chem 7: 10/27/16 03:27 10/27/16 03:27 Labs: Last Result Calcium 8.1 mg/dL (8.6-10.8) L 10/27/16 03:27 Iron 114 mcg/dL (50-170) 10/26/16 04:19 % Saturation 61 % (15-50) H 10/26/16 04:19 Transferrin 134 mg/dL (180-382) L 10/26/16 04:19 Ferritin 934 ng/ml (5-204) H 10/26/16 04:19 Troponin I 0.40 ng/mL (0-0.03) H* 10/24/16 12:34 Vitamin B12 518 pg/mL (213-816) 10/26/16 04:19 Folate 6.3 ng/mL (7.0-31.4) L 10/26/16 04:19 Stool Occult Blood Negative (Negative) 10/26/16 10:00 Entire Visit Hgb 7.6 g/dL (11.5-15.4) L 10/27/16 03:27 Hct 22.6 % (35.3-44.9) L 10/27/16 03:27 PT 9.2 Seconds (9.4-12.1) L 10/24/16 02:05 Ferritin 934 ng/ml (5-204) H 10/26/16 04:19 Folate 6.3 ng/mL (7.0-31.4) L 10/26/16 04:19 - ABG ABG results: PT/INR, D-dimer PT 9.2 Seconds (9.4-12.1) L 10/24/16 02:05 Consult Discharge Plan - Plan Referrals: Marcos Pierre MD [Primary Care Provider] - 11/04/16 10:00 am (Please follow up as schedule...) <Miracle Jones - Last Filed: 10/27/16 17:57> Date of Encounter: 10/27/16 Time of Encounter: 13:00 - Time Spent With Patient Total time spent is greater than 50% in coordination of care (as documented) at patient's floor/unit and/or counseling patient: GI History of Present Illness - Data of Consult Requesting Physician: Caryn Loomis MD - Consult Narrative History of present illness: Ms. Oreilly is a 66 year old female - Constitutional Vitals: Temp Pulse Resp BP Pulse Ox 97.7 F 55 17 147/74 97 10/27/16 16:59 10/27/16 16:59 10/27/16 16:59 10/27/16 17:20 10/27/16 16:59 Results - Labs CBC & Chem 7: 10/27/16 03:27 10/27/16 03:27 Labs: Last Result Calcium 8.1 mg/dL (8.6-10.8) L 10/27/16 03:27 Iron 114 mcg/dL (50-170) 10/26/16 04:19 % Saturation 61 % (15-50) H 10/26/16 04:19 Transferrin 134 mg/dL (180-382) L 10/26/16 04:19 Ferritin 934 ng/ml (5-204) H 10/26/16 04:19 Troponin I 0.40 ng/mL (0-0.03) H* 10/24/16 12:34 Vitamin B12 518 pg/mL (213-816) 10/26/16 04:19 Folate 6.3 ng/mL (7.0-31.4) L 10/26/16 04:19 Stool Occult Blood Negative (Negative) 10/26/16 10:00 Entire Visit Hgb 7.6 g/dL (11.5-15.4) L 10/27/16 03:27 Hct 22.6 % (35.3-44.9) L 10/27/16 03:27 PT 9.2 Seconds (9.4-12.1) L 10/24/16 02:05 Ferritin 934 ng/ml (5-204) H 10/26/16 04:19 Folate 6.3 ng/mL (7.0-31.4) L 10/26/16 04:19 - ABG ABG results: PT/INR, D-dimer PT 9.2 Seconds (9.4-12.1) L 10/24/16 02:05 - Attending Attestation I examined this patient and my medical decision-making was reviewed with the WET MIXER/PA/Advanced Practice Nurse/Resident Physician. I agree with the documented findings, disposition and treatment plan as described except to the extent set forth below. She is agreeable for scopes and after discussing with me and with the with nephrology
--- NOTE | 2016-10-27 12:59 | Cardiology Progress Note ---
Date of Encounter: 10/27/16 Time of Encounter: 11:30 Assessment and Plan (1) Atrial fibrillation with RVR Current Visit: Yes Status: Acute Per cardiology: -KNown atrial fibrillation with recent admission September. -Patient with recurrent PAF with RVR with 3 episodes noted, with HRs 90-120s. Current HR 52, sinus bradycardia. -On cardizem and lopressor. Per review of tele, most PAF occurs overnight. -[id number] score 4 (age, female, HTN, DM), would normally recommend snf anticoagulation, however has not been anticoagulated due to anemia. Hemoglobin 11.5, 10/05/16 11.2, current 7.6.. Patient denies active bleeding. Patient states anemia is new for her and she has not had outpatient follow up for anemia since last admission. Patient states she does not take asa at home per nephrology due to poor renal function. Patient educated on increased risk of stroke with a.fib and no anticoagulation. Patient states understanding. Discussed and reviewed with and primary service. GI consulted and were recommending colonoscopy, however per patient, colonoscopy will be performed as outpatient. -Stool for occult blood negative. -Appreciate GI input. -Further snf anticoagulation recommendations pending GI evaluation. May need to be addressed in outpatient setting based on GI recommendations. -Will change cardizem CD to 120mg BID-- will evaluate if resolves overnight PAF issues. Reluctant to increase rate controlling agents d/t bradycardia. Consider outpatient sleep study as well. Discussed with Dr. Magana antiarrhythmics, would be challenging at this time d/t no AC and no ischemia eval cpompleted and has CKD. -Will continue to monitor HR and BP. (2) Elevated troponin Current Visit: Yes Status: Acute Per cardiology: -ELevated troponin in the setting of atrial fibrillation with RVR, anemia, and CKD. -Troponins 0.35, 0.41, 0.4. -ECG with no ischemic changes. -Denies chest pain. -Echocardiogram 10/07/16 with LVEF 60-65%, mild left ventricular diastolic dysfunction, severely dilated left atrium, mild pulmonary hypertension, all wall segments with normal motion, no significant valvular dysfunction. -At this time, patient is not a candidate for LHC due to anemia and CKD stage IV. -Do not suspect NSTEMI, suspect demand ischemia. No cardiac rehab warranted at this time. (3) Anemia Current Visit: Yes Status: Chronic Per cardiology: -Recent worsening of anemia. -Baseline hemoglobin 11s. -Hemoglobin October 05 admission noted to be 8-11. -Hemoglobin this admission noted to be 8.8, 8.4, and now 7.6. -GI service consulted. -May be contributing to elevated troponin and afib RVR. -Management per primary and GI service. Qualifiers: Anemia type: unspecified type Qualified Code(s): D64.9 - Anemia, unspecified (4) CKD (chronic kidney disease) Current Visit: Yes Status: Chronic Per cardiology: -Known CKD stage IV. -Creatinine 4.89. 4.64, 4.79, 4.89. -Patient had NEYMAR 10/05/16 with creatinine increase to 5. -Previous baseline creatiine 3-4. -Nephrology consulted. -Patient had outpatient appointment today with . Discussed with and appointment re-scheduled for Tuesday. aware of inpatient status. -May be contributing to elevated troponin. -Management per primary and nephrology services. 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 -Management per primary and nephrology services. Discussion w patient/family: The assessment and plan as outlined above was discussed with the patient who expressed understanding and agreement. All questions were answered. Thank you for involving us in the care of your patient. Please call with any questions. Patient seen and examined with PAMELA Robertson Subjective Principal diagnosis: atrial fibrillation Interval history: Patient with paroxysmal atrial fibrillation with RVR. Cardizem was increased and beta batsheva increased yesterday. Patient denies current palpitations, however states she felt them this morning. Patient denies current chest pain. Denies shortness of breath. Patient with worsening anemia today and GI has been consulted per primary service. Patient currently sinus rhythm. Patient had 3 episodes overnigth of PAF. Longest episode lasting 1 hour and 45 minutes. Objective Vital Signs, Last 4 Hours Temp Pulse Resp BP Pulse Ox 10/27/16 10:56 97.6 F 58 17 169/73 95 General: Conversant, No Apparent Distress HEENT: Atraumatic, Normocephaly, Mucus Membranes Moist Neck: No JVD, Normal carotid pulses Cardiac: Reg Rate and Rhythm, Normal S1 and S2, No Murmur Lungs: Normal Breath Sounds, No Wheeze, Rales, Rhonchi Neuro: Alert and responsive, No focal deficits noted Abdomen: Soft, Non-Tender Skin: No rashes noted on visualized skin Musculoskeletal: No Chest Wall Tenderness Extremities: No Clubbing, No Cyanosis, Normal Pulses, Other (1+ bilateral lower extrimity pitting edema. ) Results 10/27/16 03:27 10/27/16 03:27 Lab Results Active Medications Calcium Carbonate (Tums) 1,000 mg PO Q4HR PRN; Protocol PRN Reason: Heartburn Stop: 04/25/17 07:02 Dextrose/Water (Dextrose 50% (Syg)) 25 ml IVP AD PRN PRN Reason: Hypoglycemia Stop: 04/25/17 07:05 Diltiazem HCl (Cardizem Cd) 120 mg PO BID [facility] Stop: 04/28/17 21:01 Famotidine (Pepcid) 20 mg PO DAILY [facility] PRN Reason: Protocol Stop: 04/25/17 09:01 Last Admin: 10/27/16 08:13 Dose: 20 mg Furosemide (Lasix) 20 mg PO DAILY PRN PRN Reason: Edema Stop: 04/26/17 09:01 Last Admin: 10/27/16 09:22 Dose: 20 mg Glucagon (Glucagen) 1 mg IM ONCE PRN PRN Reason: Hypoglycemia Stop: 04/25/17 07:05 Glucose (Gluctose) 15 gm PO ONCE PRN PRN Reason: Hypoglycemia Stop: 04/25/17 07:05 Glucose (Gluctose) 30 gm PO ONCE PRN PRN Reason: Hypoglycemia Stop: 04/25/17 07:05 Heparin Sodium (Porcine) (Heparin) 5,000 unit SQ Q8HCO [facility] Stop: 04/25/17 14:01 Last Admin: 10/27/16 06:28 Dose: 5,000 unit Dextrose (Dextrose 5%) 1,000 mls @ 100 mls/hr IVC .Q10H PRN PRN Reason: HYPOGLYCEMIA Stop: 04/25/17 07:05 Insulin Human Lispro (Humalog) 0 units SQ HS [facility] PRN Reason: Protocol Stop: 04/25/17 21:01 Last Admin: 10/26/16 20:53 Dose: Not Given Insulin Human Lispro (Humalog) 0 units SQ TIDAC [facility] PRN Reason: Protocol Stop: 04/25/17 07:31 Last Admin: 10/27/16 11:45 Dose: 4 units Levothyroxine Sodium (Synthroid) 112 mcg PO DAILY@0630 [facility] Stop: 04/25/17 09:01 Last Admin: 10/27/16 06:28 Dose: 112 mcg Lorazepam (Ativan) 0.5 mg PO BID PRN PRN Reason: Anxiety Stop: 04/25/17 07:02 Magnesium Oxide (Mag-Ox) 400 mg PO BID [facility] PRN Reason: Protocol Stop: 04/25/17 09:01 Last Admin: 10/26/16 08:04 Dose: 400 mg Metoprolol Tartrate (Lopressor) 50 mg PO BID [facility] Stop: 04/26/17 21:01 Last Admin: 10/27/16 08:13 Dose: 50 mg Naloxone HCl (Narcan) 0.4 mg IVP Q2MIN PRN PRN Reason: Opioid Reversal Stop: 04/25/17 06:59 Ondansetron HCl (Zofran Odt) 4 mg SL Q6HR PRN PRN Reason: Nausea And Vomiting Stop: 04/25/17 07:02 Prednisone (Prednisone) 10 mg PO HS [facility] Stop: 04/25/17 21:01 Last Admin: 10/26/16 20:53 Dose: 10 mg Prednisone (Prednisone) 20 mg PO 0800,1400 [facility] Stop: 04/28/17 14:01 Senna/Docusate Sodium (Senna Plus) 2 each PO BID [facility] PRN Reason: Protocol Stop: 04/25/17 09:01 Last Admin: 10/27/16 08:13 Dose: 2 each Sodium Bicarbonate (Sodium Bicarbonate) 650 mg PO TID [facility] Stop: 04/25/17 09:01 Last Admin: 10/27/16 08:13 Dose: 650 mg Trimethoprim/Sulfamethoxazole (Bactrim Ss) 1 tab PO MOWEFR [facility] Stop: 04/26/17 07:02 Last Admin: 10/27/16 06:28 Dose: 1 tab Vitamin D (Vitamin D) 2,000 unit PO DAILY [facility] Stop: 04/25/17 09:01 Last Admin: 10/27/16 08:14 Dose: 2,000 unit Laboratory Tests 10/24/16 10/24/16 10/24/16 01:12 07:16 12:34 Hgb Hct Plt Count Potassium Creatinine Est GFR (Non-Af Amer) Magnesium Troponin I 0.35 H* 0.41 H* 0.40 H* Stool Occult Blood 10/26/16 10/27/16 10/27/16 10:00 03:27 03:27 Hgb 7.6 L Hct 22.6 L Plt Count 129 L Potassium 4.1 Creatinine 4.89 H Est GFR (Non-Af Amer) 9 L Magnesium 2.6 Troponin I Stool Occult Blood Negative - Imaging and Cardiology Chest Xray: report reviewed Echo: report reviewed - EKG Interpretation EKG results cardiology: other (Telemetry reviewed with average HR 73, patient mostly SR-SB. 3 Episodes of paroxysmal atrial fibrillation at 0008, 0454, and 0850. Highest HR noted to be 123. Minimum HR 52. PVCs noted. Longest pause 2.5 seconds.) Consult Discharge Plan - Plan Referrals: Marcos Pierre MD [Primary Care Provider] - 11/04/16 10:00 am (Please follow up as schedule...)
--- NOTE | 2016-10-27 13:58 | Event Note ---
Date of Encounter: 10/27/16 Time of Encounter: 13:20 Natalia Oreilly is a very pleasant 66 y/o WF lady with a pmh of T2DM, HTN and renal biopsy proven Crescentic Fibrillary Glomerulonephritis s/p pulse dose steroids and 3 weeks of Cytoxan (which was stopped d/t N/V and no renal response ) who presented with PAF and worsening Anemia. I saw her in the hospital on for a courtesy visit. We discussed her worsening anemia and renal function. I do recommend she have a full GI work up and encouraged her to proceed with endoscopy. Previously this had been postponed while as an outpatient and while on I/S meds, but now she needs potentially A/C meds d/t the PAF and should have endoscopy to r/o a GIB. I also informed her that she is close to needing to start HD. I'll also ask that the LUE be guarded from venous sticks and lab draws. She thanked me for the visit. I've also rescheduled her f/ u appt on Tuesday at 4pm. Thank you.
--- NOTE | 2016-10-27 14:02 | Internal Med Progress Note ---
Date of Encounter: 10/27/16 Time of Encounter: 10:25 - Assessment and plan (1) Atrial fibrillation with RVR Current Visit: Yes Status: Acute Assessment and plan: Cardiology input appreciated Continues to have variations in rate control Will add Cardizem 120mg PO qhs and continue Cardizem 240mg PO qd continue Metoprolol awaiting anemia work up prior to Initiation of chcf oral anticoagulation (2) Anemia Current Visit: Yes Status: Chronic Assessment and plan: H&H low but acceptable Iron studies consistent with anemia of chronic disease occult stool: negative GI consultation appreciated, patient to be started on clear liquid diet and likely colonoscopy in am to r/o GI bleed No acute bleeding reported at this time monitor H&H and will transfuse as needed Will give first dose of Aranesp today Qualifiers: Anemia type: unspecified type Qualified Code(s): D64.9 - Anemia, unspecified (3) CKD (chronic kidney disease), stage IV Current Visit: No Status: Chronic Assessment and plan: Renal function at baseline continue home dose of lasix will continue to monitor Nephrology consultation appreciated given patient's anemia and CKD, will start Aranesp today (4) Diabetes mellitus Current Visit: Yes Status: Chronic Assessment and plan: BG within acceptable limits continue SS insulin algorithm continue to monitor FS and BG Qualifiers: Diabetes mellitus type: type 2 Diabetes mellitus complication status: with unspecified complications Diabetes mellitus chcf insulin use: without manager terminal use Qualified Code(s): E11.8 - Type 2 diabetes mellitus with unspecified complications (5) DVT prophylaxis Current Visit: No Status: Acute Assessment and plan: Heparin SQ (6) HTN (hypertension) Current Visit: Yes Status: Chronic Assessment and plan: BP within acceptable range continue home medications Hydralazine 10mg IVP q6h prn SBP>160 Qualifiers: Hypertension type: essential hypertension Qualified Code(s): I10 - Essential (primary) hypertension (7) Hypothyroidism Current Visit: No Status: Chronic Assessment and plan: continue home medications (Levothyroxine) Qualifiers: Hypothyroidism type: acquired Qualified Code(s): E03.9 - Hypothyroidism, unspecified (8) Morbid obesity Current Visit: Yes Status: Chronic Qualifiers: Obesity type: drug-induced Qualified Code(s): E66.1 - Drug-induced obesity (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 Patient was in agreement yesterday to undergo colonoscopy to rule out GI sources of anemia however she changed her mind later on the evening and stated that she will not undergo any procedures until she speaks with her primary health spa manager (Dr. Palacios). Pt continues to remain difficult with the entire team.She was noted to have fluctuating rhythm overnight and this morning, varying between 50s-150. Cardiology evaluated the patient and medications were adjusted. Dr. Palacios visited the patient and she is in agreement to undergoing colonoscopy tomorrow. She will however receive a dose of Aranesp as per health spa manager's recommendations. - Constitutional Vitals: Temp Pulse Resp BP Pulse Ox 97.6 F 58 17 169/73 95 10/27/16 10:56 10/27/16 10:56 10/27/16 10:56 10/27/16 10:56 10/27/16 10:56 General appearance: Present: A&O X 3, morbidly obese, no acute distress, answers questions appropriately. Absent: cooperative - Head Head exam: Present: atraumatic, normocephalic - Eye Eye exam: Present: normal appearance, conjuntiva pink, sclera anicteric - Respiratory Respiratory exam: Present: CTAB. Absent: accessory muscle use, rales, rhonchi, wheezes - Cardiovascular Cardiovascular exam: Present: RRR, +S1, +S2 - GI/Abdominal GI/Abdominal exam: Present: normal bowel sounds, soft, no peritoneal signs. Absent: distended, tenderness - Extremities Exam Extremities exam: Present: pedal edema, warm, radial pulses palpable and symetrical. Absent: calf tenderness, tenderness - Neurological Exam Neurological exam: Present: alert, oriented X3 - Psychiatric Psychiatric exam: Present: normal affect, normal mood Internal Medicine: Result - Labs CBC & Chem 7: 10/27/16 03:27 10/27/16 03:27 Labs: Short CBC 10/27/16 Range/Units 03:27 WBC 9.8 (4.3-11.1) K/mcL Hgb 7.6 L (11.5-15.4) g/dL Hct 22.6 L (35.3-44.9) % Plt Count 129 L (140-400) K/mcL Neutrophils # 8.6 (1.6-8.9) K/mcL BMP 10/27/16 03:27 Sodium 138 Potassium 4.1 Chloride 99 Carbon Dioxide 30 H BUN 83 H Creatinine 4.89 H Glucose 164 H Calcium 8.1 L - ABG Interpretation ABG results: PT/INR, D-dimer PT 9.2 Seconds (9.4-12.1) L 10/24/16 02:05 Consult Discharge Plan - Plan Referrals: Marcos Pierre MD [Primary Care Provider] - 11/04/16 10:00 am (Please follow up as schedule...)
--- NOTE | 2016-10-27 17:29 | Nephrology Progress Note ---
Date of Encounter: 10/27/16 Time of Encounter: 17:26 - Assessment and Plan (1) CKD (chronic kidney disease), stage IV Current Visit: Yes Status: Acute Patient now with Stage 5 CKD. No acute need for dialysis. Will let the patient follow-up with Dr. Cook for discussion. Creatinine stable. (2) Anemia Current Visit: Yes Status: Chronic Patient now agreeable to colonoscopy. Qualifiers: Anemia type: unspecified type Qualified Code(s): D64.9 - Anemia, unspecified Subjective Principal diagnosis: atrial fibrillation Interval history: Patient seen this am. Still refusing colonoscopy until she has personally spoken with Dr. Cook (See his event note). No new complaint. Objective - Vital Signs Vital signs: Vital Signs Temp Pulse Resp BP Pulse Ox 10/27/16 17:20 147/74 10/27/16 16:59 97.7 F 55 17 147/74 97 10/27/16 10:56 97.6 F 58 17 169/73 95 10/27/16 06:44 97.9 F 60 18 152/63 96 10/27/16 03:41 98.1 F 60 16 148/61 95 10/26/16 23:30 97.9 F 98 16 162/82 94 10/26/16 19:06 97.8 F 55 18 163/63 95 Intake and Output 10/27/16 10/27/16 10/27/16 07:59 15:59 23:59 Intake Total 120 / 120 Output Total 600 / 600 Balance -600 / -600 120 / 120 Intake: Oral 120 / 120 Output: Urine 600 / 600 Other: Meal Breakfast Percent of Meal Consumed 100% Stool Size Small Stool Consistency soft formed Stool Color Brown Taylor # Voids 1 # Bowel Movements 1 Weight 114.2 kg Blood Glucose* 156 217 239 Patient Weight 10/27/16 23:59 Weight 114.2 kg - General Appearance General appearance: Present: well-developed, well-nourished EENT: Present: ATNC Neck: Present: supple Additional Comments: respirations are unlabored. Additional Comments: tachycardic on telemetry. Neurologic: Present: alert and oriented x3 Psychiatric: Present: mood/affect appropriate - Lab 10/27/16 03:27 10/27/16 03:27 Most recent lab results Calcium 8.1 mg/dL (8.6-10.8) L 10/27/16 03:27 Phosphorus 4.4 mg/dL (2.3-4.7) 10/27/16 03:27 Magnesium 2.6 mg/dL (1.6-2.6) 10/27/16 03:27 Consult Discharge Plan - Plan Referrals: Marcos Pierre MD [Primary Care Provider] - 11/04/16 10:00 am (Please follow up as schedule...)
[2016-10-27] MEDS ORDERED: SODIUM CHLORIDE/NAHCO3/KCL/PEG 4,000 ML SOLN.RECON PO ONE (17:58)
[2016-10-27] MEDS: predniSONE 10 MG TABLET PO SCH (22:32)
[2016-10-27] MEDS: Diltiazem CD (24hr) 120 MG CAPSULE PO SCH (22:32)
[2016-10-28 03:21] LABS: Basophils % 0.1 %; Hematocrit 23.4 % (35.3-44.9); Hemoglobin 7.9 g/dL (11.5-15.4); Immature Granulocytes % 5.1 % (0-4); Lymphocytes # 0.2 K/mcL (0.6-4.6); Lymphocytes % 2.1 %; Mean Corpuscular HGB Conc 33.8 g/dL (31.6-35.5); Monocytes # 0.5 K/mcL (0.0-1.3); Monocytes % 4.4 %; Neutrophils # 9.8 K/mcL (1.6-8.9); Platelet Count 126 K/mcL (140-400); Red Blood Count 2.63 M/mcL (3.82-4.97); Red Cell Distribution Width 13.2 % (11.5-14.5); Segmented Neutrophils % 88.3 %
[2016-10-28 03:36] LABS: Magnesium 2.5 mg/dL (1.6-2.6); Phosphorous 4.5 mg/dL (2.3-4.7)
[2016-10-28 03:45] LABS: Platelet Estimate Slight Decrease (Normal)
[2016-10-28] MEDS: *HR* Heparin 5,000 UNIT/ML VIAL SQ SCH ×3 (05:19→20:44)
[2016-10-28] MEDS: Diltiazem CD (24hr) 120 MG CAPSULE PO SCH ×2 (07:38→20:44)
[2016-10-28] MEDS: Cholecalciferol (D-3) 1,000 UNIT TABLET PO SCH (07:38)
[2016-10-28] MEDS: predniSONE 20 MG TABLET PO SCH ×2 (07:38→16:39)
[2016-10-28] MEDS: Famotidine 20 MG TABLET PO SCH (07:38)
[2016-10-28] MEDS: Sennosides/Docusate Sodium TABLET PO SCH ×2 (07:38→20:45)
[2016-10-28] MEDS: Insulin LISPRO 300 UNITS/3 ML VIAL SQ SCH ×4 (07:45→20:45)
--- NOTE | 2016-10-28 09:09 | Nephrology Progress Note ---
Date of Encounter: 10/28/16 Time of Encounter: 09:06 - Assessment and Plan (1) CKD (chronic kidney disease), stage V Current Visit: Yes Status: Acute Has progressed to CKD stage 5. No acute need for dialysis at this time, however anticipate will need renal replacement therapy in near future. Scr stable at 4.85 and GFR at 11 (2) Atrial fibrillation with RVR Current Visit: Yes Status: Acute per cardiology team (3) Anemia Current Visit: Yes Status: Chronic Hgb 7.9 Continue Aranesp Goes for colonoscopy today per GI team Qualifiers: Anemia type: unspecified type Qualified Code(s): D64.9 - Anemia, unspecified Subjective Principal diagnosis: atrial fibrillation Interval history: Patient seen and examined. Going for colonoscopy today. Objective - Vital Signs Vital signs: Vital Signs Temp Pulse Resp BP Pulse Ox 10/28/16 07:47 97.6 F 57 16 163/80 95 10/28/16 04:12 98.3 F 49 18 143/66 95 10/28/16 01:33 98.2 F 57 16 159/85 95 10/27/16 19:18 97.9 F 61 18 170/95 96 10/27/16 17:20 147/74 10/27/16 16:59 97.7 F 55 17 147/74 97 10/27/16 10:56 97.6 F 58 17 169/73 95 Intake and Output 10/27/16 10/28/16 10/28/16 23:59 07:59 15:59 Intake Total 1600 / 1600 Balance 1600 / 1600 Intake: Oral 1600 / 1600 Other: Meal Dinner Stool Size Moderate Stool Consistency liquid Stool Color Brown Yellow # Voids 1 # Bowel Movements 1 Weight 114.1 kg Blood Glucose* 220 187 Patient Weight 10/28/16 23:59 Weight 114.1 kg - General Appearance General appearance: Present: obese EENT: Present: ATNC, mucous membranes moist, hearing intact, vision intact Neck: Present: supple Respiratory: Present: clear Cardiology: Present: edema, normal S1, normal S2 Gastrointestinal: Present: no tenderness, no guarding Integumentary: Present: warm and dry Neurologic: Present: alert and oriented x3 Psychiatric: Present: mood/affect appropriate, cooperative - Lab 10/28/16 02:38 10/28/16 02:38 Most recent lab results Calcium 8.0 mg/dL (8.6-10.8) L 10/28/16 02:38 Phosphorus 4.5 mg/dL (2.3-4.7) 10/28/16 02:38 Magnesium 2.5 mg/dL (1.6-2.6) 10/28/16 02:38 Consult Discharge Plan - Plan Referrals: Marcos Pierre MD [Primary Care Provider] - 11/04/16 10:00 am (Please follow up as schedule...)
--- NOTE | 2016-10-28 09:10 | Internal Med Progress Note ---
Date of Encounter: 10/28/16 Time of Encounter: 09:07 - Assessment and plan (1) Atrial fibrillation with RVR Current Visit: Yes Status: Acute Assessment and plan: Cardiology input appreciated Rate better control but noted to have episodes of sinus bradycardia but clinically asymptomatic Will discuss with cardiology in regards to director long term care rate control medications will continue cardizem and metoprolol at this time awaiting anemia work up prior to Initiation of director long term care oral anticoagulation (2) Anemia Current Visit: Yes Status: Chronic Assessment and plan: H&H low but acceptable Iron studies consistent with anemia of chronic disease occult stool: negative GI consultation appreciated,Scheduled for colonoscopy today (10/28/16) No acute bleeding reported at this time monitor H&H and will transfuse as needed Pt received first dose of Aranesp yesterday(10/27/16) Qualifiers: Qualified Code(s): D64.9 - Anemia, unspecified (3) CKD (chronic kidney disease), stage IV Current Visit: No Status: Chronic Assessment and plan: Renal function at baseline continue home dose of lasix will continue to monitor Nephrology consultation appreciated (4) Diabetes mellitus Current Visit: Yes Status: Chronic Assessment and plan: BG within acceptable limits continue SS insulin algorithm continue to monitor FS and BG Qualifiers: Qualified Code(s): E11.8 - Type 2 diabetes mellitus with unspecified complications (5) DVT prophylaxis Current Visit: No Status: Acute Assessment and plan: Heparin SQ (6) HTN (hypertension) Current Visit: Yes Status: Chronic Assessment and plan: BP within acceptable range continue home medications Hydralazine 10mg IVP q6h prn SBP>160 Qualifiers: Qualified Code(s): I10 - Essential (primary) hypertension (7) Hypothyroidism Current Visit: No Status: Chronic Assessment and plan: continue home medications (Levothyroxine) Qualifiers: Qualified Code(s): E03.9 - Hypothyroidism, unspecified (8) Morbid obesity Current Visit: Yes Status: Chronic Qualifiers: Qualified Code(s): E66.1 - Drug-induced obesity (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 Resting in bed. HR better controlled. Clinically asymptomatic. Scheduled for colonoscopy later today. Likely d/c in am pending negative colonoscopy report. - Constitutional Vitals: Temp Pulse Resp BP Pulse Ox 97.6 F 57 16 163/80 95 10/28/16 07:47 10/28/16 07:47 10/28/16 07:47 10/28/16 07:47 10/28/16 07:47 General appearance: Present: A&O X 3, morbidly obese, no acute distress, answers questions appropriately - Head Head exam: Present: atraumatic, normocephalic - Eye Eye exam: Present: normal appearance, conjuntiva pink, sclera anicteric - Respiratory Respiratory exam: Present: CTAB. Absent: respiratory distress, wheezes - Cardiovascular Cardiovascular exam: Present: irregular rhythm, +S1, +S2. Absent: diastolic murmur, gallop, rubs, systolic murmur - GI/Abdominal GI/Abdominal exam: Present: normal bowel sounds, soft, no peritoneal signs. Absent: distended, tenderness - Extremities Exam Extremities exam: Present: pedal edema, warm, radial pulses palpable and symetrical. Absent: calf tenderness - Neurological Exam Neurological exam: Present: alert, oriented X3, no focal deficits - Psychiatric Psychiatric exam: Present: normal affect, normal mood Internal Medicine: Result - Labs CBC & Chem 7: 10/28/16 02:38 10/28/16 02:38 Labs: Short CBC 10/28/16 Range/Units 02:38 WBC 11.1 (4.3-11.1) K/mcL Hgb 7.9 L (11.5-15.4) g/dL Hct 23.4 L (35.3-44.9) % Plt Count 126 L (140-400) K/mcL Neutrophils # 9.8 H (1.6-8.9) K/mcL BMP 10/28/16 02:38 Sodium 137 Potassium 4.0 Chloride 98 Carbon Dioxide 30 H BUN 81 H Creatinine 4.85 H Glucose 174 H Calcium 8.0 L - ABG Interpretation ABG results: PT/INR, D-dimer PT 9.2 Seconds (9.4-12.1) L 10/24/16 02:05 Consult Discharge Plan - Plan Referrals: Marcos Pierre MD [Primary Care Provider] - 11/04/16 10:00 am (Please follow up as schedule...)
--- NOTE | 2016-10-28 09:43 | Cardiology Progress Note ---
Date of Encounter: 10/28/16 Time of Encounter: 09:00 Assessment and Plan (1) Atrial fibrillation with RVR Current Visit: Yes Status: Acute PAF noted during recent admission in mid September. Continued to have recurrent episodes of PAF during this inpatient stay. AV latesha blocking agents adjusted yesterday; now on Cardizem 120 mg BID and Lopressor 50 mg BID. Telemetry review: avg HR 56. NO evidence of PAF noted overnight. Continue current regimen. [id number] score 4 (age, female, HTN, DM), would normally recommend care home anticoagulation, however has not been anticoagulated due to worsening anemia of unclear etiology. Patient has not been on ASA d/t Nephrology recs. Appreciate GI input; further care home anticoagulation recommendations pending GI evaluation, will be addressed in outpatient setting based on GI/Nephrology recommendations. She is aware of increased risk for CVA. The patient was discussed and reviewed with Dr. Magana who agrees with plan. Cardiology will sign-off, please call with questions. (2) Elevated troponin Current Visit: Yes Status: Acute Per cardiology: -ELevated troponin in the setting of atrial fibrillation with RVR, anemia, and CKD. -Troponins 0.35, 0.41, 0.4. -ECG with no ischemic changes. -Denies chest pain. -Echocardiogram 10/07/16 with LVEF 60-65%, mild left ventricular diastolic dysfunction, severely dilated left atrium, mild pulmonary hypertension, all wall segments with normal motion, no significant valvular dysfunction. -At this time, patient is not a candidate for LHC due to anemia and CKD stage IV. -Do not suspect NSTEMI, suspect demand ischemia. No cardiac rehab warranted at this time. (3) Anemia Current Visit: Yes Status: Chronic H/H continues to downtrend; prior baseline HgB ~11. Denies abnormal or unusual bleeding. Not an ideal candidate for full AC (afib) due to worsening anemia and thrombocytopenia. Plan for colonoscopy today. Further mgmt per primary team and GI. Will follow-up in the outpatient setting as scheduled next week to further discuss starting AC. Qualifiers: Anemia type: unspecified type Qualified Code(s): D64.9 - Anemia, unspecified (4) CKD (chronic kidney disease) Current Visit: Yes Status: Chronic Per cardiology: Known CKD stage IV secondary to RPGN Follows with Dr. Cook as outpatient--has appt. scheduled for Tuesday. Further mgmt per Nephrology. Qualifiers: Chronic kidney disease stage: unspecified stage Qualified Code(s): N18.9 - Chronic kidney disease, unspecified Discussion w patient/family: The assessment and plan as outlined above was discussed with the patient and/or family members who expressed understanding and agreement. All questions were answered. Thank you for involving us in the care of your patient. Please call with any questions. The patient was discussed and reviewed with Dr. Magana who agrees with plan as stated above. Cardiology will sign-off. Subjective Principal diagnosis: atrial fibrillation Interval history: Seen and examined this morning. No complaints this morning upon examination--has completed bowel prep overnight for colonscopy scheduled for today. Discussed plan in detail with patient who agrees with plan. Will further discuss full anticoagulation recommendations once patient has completed GI work-up and has follow-up with Nephrology on Tuesday in the outpatient setting. Objective Vital Signs, Last 4 Hours Temp Pulse Resp BP Pulse Ox 10/28/16 07:47 97.6 F 57 16 163/80 95 General: Conversant, No Apparent Distress HEENT: Atraumatic, Normocephaly, Mucus Membranes Moist Cardiac: Reg Rate and Rhythm, Normal S1 and S2 Lungs: Normal Breath Sounds Neuro: Alert and responsive Abdomen: Soft Skin: No rashes noted on visualized skin Musculoskeletal: No Chest Wall Tenderness Extremities: No Edema, Normal Pulses Results 10/28/16 02:38 10/28/16 02:38 Lab Results 10/28/16 10/28/16 02:38 02:38 WBC 11.1 Hgb 7.9 L Hct 23.4 L Plt Count 126 L Sodium 137 Potassium 4.0 Chloride 98 Carbon Dioxide 30 H BUN 81 H Creatinine 4.85 H Glucose 174 H Calcium 8.0 L Magnesium 2.5 Active Medications Calcium Carbonate (Tums) 1,000 mg PO Q4HR PRN; Protocol PRN Reason: Heartburn Stop: 04/25/17 07:02 Darbepoetin Raza (Aranesp) 60 mcg SQ QWEEK TY PRN Reason: Protocol Stop: 04/28/17 14:16 Last Admin: 10/27/16 17:20 Dose: 60 mcg Dextrose/Water (Dextrose 50% (Syg)) 25 ml IVP AD PRN PRN Reason: Hypoglycemia Stop: 04/25/17 07:05 Diltiazem HCl (Cardizem Cd) 120 mg PO BID [facility] Stop: 04/28/17 21:01 Last Admin: 10/28/16 07:38 Dose: Not Given Famotidine (Pepcid) 20 mg PO DAILY [facility] PRN Reason: Protocol Stop: 04/25/17 09:01 Last Admin: 10/28/16 07:38 Dose: Not Given Furosemide (Lasix) 20 mg PO DAILY PRN PRN Reason: Edema Stop: 04/26/17 09:01 Last Admin: 10/27/16 09:22 Dose: 20 mg Glucagon (Glucagen) 1 mg IM ONCE PRN PRN Reason: Hypoglycemia Stop: 04/25/17 07:05 Glucose (Gluctose) 15 gm PO ONCE PRN PRN Reason: Hypoglycemia Stop: 04/25/17 07:05 Glucose (Gluctose) 30 gm PO ONCE PRN PRN Reason: Hypoglycemia Stop: 04/25/17 07:05 Heparin Sodium (Porcine) (Heparin) 5,000 unit SQ Q8HCO [facility] Stop: 04/25/17 14:01 Last Admin: 10/28/16 05:19 Dose: 5,000 unit Hydralazine HCl (Hydralazine) 10 mg IVP Q6HR PRN PRN Reason: SBP>160 Stop: 04/28/17 13:58 Dextrose (Dextrose 5%) 1,000 mls @ 100 mls/hr IVC .Q10H PRN PRN Reason: HYPOGLYCEMIA Stop: 04/25/17 07:05 Insulin Human Lispro (Humalog) 0 units SQ HS [facility] PRN Reason: Protocol Stop: 04/25/17 21:01 Last Admin: 10/27/16 22:31 Dose: 2 units Insulin Human Lispro (Humalog) 0 units SQ TIDAC [facility] PRN Reason: Protocol Stop: 04/25/17 07:31 Last Admin: 10/28/16 07:45 Dose: Not Given Levothyroxine Sodium (Synthroid) 112 mcg PO DAILY@0630 [facility] Stop: 04/25/17 09:01 Last Admin: 10/28/16 05:19 Dose: 112 mcg Lorazepam (Ativan) 0.5 mg PO BID PRN PRN Reason: Anxiety Stop: 04/25/17 07:02 Magnesium Oxide (Mag-Ox) 400 mg PO BID TY PRN Reason: Protocol Stop: 04/25/17 09:01 Last Admin: 10/26/16 08:04 Dose: 400 mg Metoprolol Tartrate (Lopressor) 50 mg PO BID [facility] Stop: 04/26/17 21:01 Last Admin: 10/28/16 07:38 Dose: Not Given Naloxone HCl (Narcan) 0.4 mg IVP Q2MIN PRN PRN Reason: Opioid Reversal Stop: 04/25/17 06:59 Ondansetron HCl (Zofran Odt) 4 mg SL Q6HR PRN PRN Reason: Nausea And Vomiting Stop: 04/25/17 07:02 Prednisone (Prednisone) 10 mg PO HS [facility] Stop: 04/25/17 21:01 Last Admin: 10/27/16 22:32 Dose: 10 mg Prednisone (Prednisone) 20 mg PO 0800,1400 [facility] Stop: 04/28/17 14:01 Last Admin: 10/28/16 07:38 Dose: Not Given Senna/Docusate Sodium (Senna Plus) 2 each PO BID [facility] PRN Reason: Protocol Stop: 04/25/17 09:01 Last Admin: 10/28/16 07:38 Dose: Not Given Sodium Bicarbonate (Sodium Bicarbonate) 650 mg PO TID [facility] Stop: 04/25/17 09:01 Last Admin: 10/28/16 07:38 Dose: Not Given Trimethoprim/Sulfamethoxazole (Bactrim Ss) 1 tab PO MOWEFR [facility] Stop: 04/26/17 07:02 Last Admin: 10/27/16 06:28 Dose: 1 tab Vitamin D (Vitamin D) 2,000 unit PO DAILY [facility] Stop: 04/25/17 09:01 Last Admin: 10/28/16 07:38 Dose: Not Given - Imaging and Cardiology Echo: report reviewed - EKG Interpretation EKG results cardiology: personally reviewed Consult Discharge Plan - Plan Referrals: Marcos Pierre MD [Primary Care Provider] - 11/04/16 10:00 am (Please follow up as schedule...)
--- NOTE | 2016-10-28 10:27 | Electrocardiograph Report ---
[place] [id number] Test Date: 2016-10-27 Pat Name: Natalia Oreilly Department: 112 Room: 2A13 Gender: F Bond Manager: IDALIA : [id number] Requested By: Duarte Rainey Order Number: [id number] Reading MD: Jhonathan Monzon Measurements Intervals [facility] Rate: 107 P: OR: 0 QRS: -8 QRSD: 92 T: 13 QT: 352 QTc: 415 Interpretive Statements ATRIAL FLUTTER/TACHYCARDIA WITH RAPID VENTRICULAR RESPONSE ABNORMAL RHYTHM ECG Electronically Signed On 10-28-2016 10:25:40 EDT by Jhonathan Monzon
--- NOTE | 2016-10-28 13:49 | Anesthesia Evaluation PreOp ---
Date of Encounter: 10/28/16 Time of Encounter: 13:47 - Past History Planned Operation: EGD/Colonoscopy Cardiac History: HTN, Arrhythmia (A-Fib) Pulmonary History: Denies Any Significant HX ASSEMBLER TRACTOR History: Denies Any Significant HX Other Medical History: Renal (stage 4 CKD), Diabetes Type II, Thyroid, Other ( obesity BMI=46) Anesthesia History: Past Anesthesia (no prior general anesthesia) Alcohol Use: rarely Drug use: none Medications and Allergies Levothyroxine [Synthroid] 112 mcg PO DAILY 11/25/15 [History] Famotidine [Pepcid] 20 mg PO QPM 10/05/16 [History] Calcium Carbonate [Tums] 1,000 mg PO Q4HR PRN #0 tab.chew 10/12/16 [Rx] Cholecalciferol (D-3) [Vitamin D] 2,000 unit PO DAILY #30 tablet 10/12/16 [Rx] GlipiZIDE [Glipizide Xl] 5 mg PO DAILY #30 tab.er.24 10/12/16 [Rx] Hydralazine HCl 50 mg PO BID PRN #60 tablet 10/12/16 [Rx] LORazepam [Ativan] 0.5 mg PO BID PRN #30 tablet 10/12/16 [Rx] Magnesium Oxide [Mag-Ox] 400 mg PO BID #60 tablet 10/12/16 [Rx] Ondansetron ODT [Zofran ODT] 4 mg SL Q6HR PRN #30 tab.rapdis 10/12/16 [Rx] PredniSONE 10 mg PO HS #30 tablet 10/12/16 [Rx] PredniSONE 20 mg PO BID #60 tablet 10/12/16 [Rx] Sennosides/Docusate Sodium [Senna Plus] 2 each PO BID #120 tablet 10/12/16 [Rx] Sodium Bicarbonate 650 mg PO TID #90 tablet 10/12/16 [Rx] Sulfamethoxazole/Trimeth SS [Bactrim SS] 1 tab PO MOWEFR #30 tablet 10/12/16 [Rx ] Diltiazem HCl [Diltiazem ER] 240 mg PO DAILY 10/24/16 [History] Furosemide [Lasix] 20 mg PO DAILY PRN 10/24/16 [History] Sennosides/Docusate Sodium [Senna Plus] 2 tab PO BID 10/24/16 [History] Allergies codeine Adverse Reaction (Verified 10/24/16 00:46) Vomiting - Meds/Allergy Pre-op Review Medications Reviewed: Yes Allergies Reviewed: Yes Beta Blockers on Current Med List: No Anesthesia Results - Labs 10/28/16 02:38 10/28/16 02:38 Laboratory Tests 10/24/16 02:05 PT 9.2 L INR 0.9 APTT 19.4 L - Imaging EKG: report reviewed (10/27/2016 A-Fib/Flutter with RVR) Additional studies: 10/07/2016 Echo LVEF 60-65% mild LV diastolic dysfunction severly dilated LA mild pulmonary HTN, estimated RVSP 38 mmHg no significant valvular dysfunction Anesthesia Exam Vital Signs/O2 Sat/Glucose, Most Recent Temp Pulse Resp BP Pulse Ox 97.6 F 117 19 151/79 97 10/28/16 11:16 10/28/16 11:16 10/28/16 11:16 10/28/16 11:16 10/28/16 11:16 Blood Glucose* 180 Height: 5'2''/1.57 m Weight: 251 lbs/114.1 kg NPO (# of Hours): 8 Pain Scale: 0 Pain Scale Used: Numeric (1 - 10) - HEENT Pupil (Motor): EOMI Mallampati: III Teeth: Normal Oral Opening: Greater than 3 - ASSEMBLER TRACTOR LOC: Oriented ASSEMBLER TRACTOR Motor: Normal RUE, Normal LUE, Normal RLE, Normal LLE, Normal Face ASSEMBLER TRACTOR Sensory: Normal: RUE, LUE, RLE, LLE, Face - Cardiac Rhythm: Regular Murmur: None - Pulmonary Breath Sounds: bilateral Clear Respiratory Effort: Symmetrical Anesthesia Assess/Plan ASA Score: 4 Modified Gela Scale for Level of Consciousness: Cooperative, oriented, and tranquil Anesthetic Plan: MAC Monitoring Plan: Standard Monitors
[2016-10-28] MEDS ORDERED: *HR* Propofol 500 MG/50 ML BOTTLE IVC ONE (13:51)
[2016-10-28] MEDS ORDERED: Lidocaine -MPF 2% 5 ML VIAL INFILT ONE (13:51)
[2016-10-28] MEDS ORDERED: Tetracaine/Benzocaine/Butamben 200MG/SPRAY (100SPY/BOT) ONE (14:16)
[2016-10-28] MEDS ORDERED: *HR* Metoprolol 5 MG/5 ML VIAL IVP ONE ×2 (19:48→19:54)
[2016-10-28] MEDS: predniSONE 10 MG TABLET PO SCH (20:43)
[2016-10-29] MEDS ORDERED: 0.9 % Sodium Chloride 1,000 ML ONE (03:19)
[2016-10-29 05:18] LABS: Hematocrit 23.4 % (35.3-44.9); Hemoglobin 7.8 g/dL (11.5-15.4); Mean Corpuscular HGB Conc 33.3 g/dL (31.6-35.5); Mean Corpuscular Hemoglobin 29.8 pg (28.0-33.3); Mean Corpuscular Volume 89.3 fL (83.0-100.0); Mean Platelet Volume 10.6 fL (9.4-12.4); Platelet Count 133 K/mcL (140-400); Red Blood Count 2.62 M/mcL (3.82-4.97); Red Cell Distribution Width 13.4 % (11.5-14.5)
[2016-10-29 05:38] LABS: Calcium 7.5 mg/dL (8.6-10.8); Magnesium 2.1 mg/dL (1.6-2.6); Phosphorous 4.6 mg/dL (2.3-4.7); Potassium 3.8 mEq/L (3.5-4.5)
[2016-10-29 05:41] LABS: Lymphocytes # 0.2 K/mcL (0.6-4.6); Monocytes # 0.2 K/mcL (0.0-1.3); Neutrophils # 9.6 K/mcL (1.6-8.9)
[2016-10-29 05:42] LABS: Platelet Estimate Slight Decrease (Normal)
[2016-10-29] MEDS: Sulfamethoxazole/Trimeth SS 1 TAB PO SCH (06:23)
[2016-10-29] MEDS: *HR* Heparin 5,000 UNIT/ML VIAL SQ SCH ×3 (06:23→20:20)
[2016-10-29] MEDS: Insulin LISPRO 300 UNITS/3 ML VIAL SQ SCH ×4 (08:05→20:59)
[2016-10-29] MEDS: Diltiazem CD (24hr) 120 MG CAPSULE PO SCH ×2 (08:06→20:20)
[2016-10-29] MEDS: Cholecalciferol (D-3) 1,000 UNIT TABLET PO SCH (08:06)
[2016-10-29] MEDS: Sennosides/Docusate Sodium TABLET PO SCH ×2 (08:06→20:20)
[2016-10-29] MEDS: Famotidine 20 MG TABLET PO SCH (08:06)
[2016-10-29] MEDS: predniSONE 20 MG TABLET PO SCH ×2 (08:17→13:47)
--- NOTE | 2016-10-29 09:45 | Internal Med Progress Note ---
Date of Encounter: 10/29/16 Time of Encounter: 09:43 - Assessment and plan (1) Atrial fibrillation with RVR Current Visit: Yes Status: Acute Assessment and plan: Cardiology input appreciated Pt noted to be in afib overnight requiring cardizem gtt for rate control Titrating off cardizem gtt and she received her PO cardizem this morning. Rate currently controlled Colonoscopy and EGD done yesterday: no active bleeding reported, EGD consistent with gastritis without bleeding (2) Anemia Current Visit: Yes Status: Chronic Assessment and plan: H&H low but acceptable Iron studies consistent with anemia of chronic disease occult stool: negative GI consultation appreciated s/p EGD and colonoscopy: NO bleeding reported, gastritis without bleeding reported. No acute bleeding reported at this time monitor H&H and will transfuse as needed Pt received first dose of Aranesp (10/27/16) Anemia likely secondary to CKD Qualifiers: Anemia type: unspecified type Qualified Code(s): D64.9 - Anemia, unspecified (3) CKD (chronic kidney disease), stage IV Current Visit: No Status: Chronic Assessment and plan: Renal function at baseline continue home dose of lasix will continue to monitor Nephrology consultation appreciated (4) Diabetes mellitus Current Visit: Yes Status: Chronic Assessment and plan: BG within acceptable limits continue SS insulin algorithm continue to monitor FS and BG Qualifiers: Diabetes mellitus type: type 2 Diabetes mellitus complication status: with unspecified complications Diabetes mellitus termination clerk insulin use: without termination clerk use Qualified Code(s): E11.8 - Type 2 diabetes mellitus with unspecified complications (5) DVT prophylaxis Current Visit: No Status: Acute Assessment and plan: Heparin SQ (6) HTN (hypertension) Current Visit: Yes Status: Chronic Assessment and plan: BP within acceptable range continue home medications Hydralazine 10mg IVP q6h prn SBP>160 Qualifiers: Hypertension type: essential hypertension Qualified Code(s): I10 - Essential (primary) hypertension (7) Hypothyroidism Current Visit: No Status: Chronic Assessment and plan: continue home medications (Levothyroxine) Qualifiers: Hypothyroidism type: acquired Qualified Code(s): E03.9 - Hypothyroidism, unspecified (8) Morbid obesity Current Visit: Yes Status: Chronic Qualifiers: Obesity type: drug-induced Qualified Code(s): E66.1 - Drug-induced obesity (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 Overnight patient was noted to have tachycardia (Afib with RVR), HR in 140s. Cardizem gtt was started. Currently rate is controlled, titrating off cardizem gtt and she has received her morning dose of Cardizem PO. Cardiology consultation is requested for re-evaluation. Pt denies any discomfort at this time. - Constitutional Vitals: Temp Pulse Resp BP Pulse Ox 98.0 F 85 16 140/86 97 10/29/16 07:13 10/29/16 07:13 10/29/16 07:13 10/29/16 07:13 10/29/16 07:13 General appearance: Present: A&O X 3, morbidly obese, no acute distress, answers questions appropriately - Head Head exam: Present: atraumatic, normocephalic - Eye Eye exam: Present: normal appearance, conjuntiva pink, sclera anicteric - Respiratory Respiratory exam: Present: CTAB. Absent: accessory muscle use, rales, rhonchi, wheezes - Cardiovascular Cardiovascular exam: Present: irregular rhythm, +S1, +S2 - GI/Abdominal GI/Abdominal exam: Present: normal bowel sounds, soft, no peritoneal signs. Absent: distended, tenderness - Extremities Exam Extremities exam: Present: pedal edema, warm, radial pulses palpable and symetrical. Absent: calf tenderness - Neurological Exam Neurological exam: Present: alert, oriented X3 - Psychiatric Psychiatric exam: Present: normal affect, normal mood Internal Medicine: Result - Labs CBC & Chem 7: 10/29/16 04:46 10/29/16 04:46 Labs: Short CBC 10/29/16 Range/Units 04:46 WBC 10.2 (4.3-11.1) K/mcL Hgb 7.8 L (11.5-15.4) g/dL Hct 23.4 L (35.3-44.9) % Plt Count 133 L (140-400) K/mcL Neutrophils # 9.6 H (1.6-8.9) K/mcL BMP 10/29/16 04:46 Sodium 136 Potassium 3.8 Chloride 98 Carbon Dioxide 27 BUN 73 H Creatinine 4.63 H Glucose 140 H Calcium 7.5 L - ABG Interpretation ABG results: PT/INR, D-dimer PT 9.2 Seconds (9.4-12.1) L 10/24/16 02:05 Consult Discharge Plan - Plan Referrals: Marcos Pierre MD [Primary Care Provider] - 11/04/16 10:00 am (Please follow up as schedule...)
--- NOTE | 2016-10-29 11:07 | Nephrology Progress Note ---
Date of Encounter: 10/29/16 Time of Encounter: 09:35 - Assessment and Plan (1) CKD (chronic kidney disease), stage V Current Visit: Yes Status: Acute Patient in the hospital being treated for her atrial fibrillation, newly diagnosed during her last hospital stay. Patient renal function has remained relatively stable with GFR 11 during duration of admission. Patient reports continued to make urine and has no urinary symptoms. No hemodialysis needed at this time, but anticipate patient will require dialysis in the near future as she is CKD stage V. 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 She has continued on prednisone after the Cytoxan was discontinued due to side effects, she has a follow-up appointment to see her livestock rancher next week. Avoid potentially nephrotoxic agents (2) Atrial fibrillation with RVR Current Visit: Yes Status: Acute Patient atrial fibrillation with RVR and treated with Cardizem drip and oral Cardizem. Further management her outpatient primary team (3) Anemia Current Visit: Yes Status: Chronic Patient hemoglobin has remained stable at 7.8. She underwent EGD and colonoscopy yesterday with Dr. Jones. One nonbleeding polyp was found colonoscopy as well as gastritis and EGD. Patient on Aranesp, continue as outpatient Patient is not iron deficient Patient is not B12 deficient Patient folate slightly low We will replace folic acid Further management per primary team and GI Qualifiers: Anemia type: unspecified type Qualified Code(s): D64.9 - Anemia, unspecified Subjective Principal diagnosis: atrial fibrillation Interval history: She reports that she is feeling well. She had a colonoscopy and EGD yesterday. Her hemoglobin has remained stable. She reports that she does occasionally feel that she becomes weak during episodes of tachycardia. Objective - Vital Signs Vital signs: Vital Signs Temp Pulse Resp BP Pulse Ox 10/29/16 07:13 98.0 F 85 16 140/86 97 10/29/16 05:10 98.2 F 82 16 127/77 96 10/29/16 00:09 98.0 F 87 17 113/71 96 10/28/16 20:00 97.7 F 142 16 130/92 96 10/28/16 16:09 97.7 F 57 14 174/77 98 10/28/16 13:50 97.6 F 84 16 151/79 97 10/28/16 11:16 97.6 F 117 19 151/79 97 Intake and Output 10/28/16 10/29/16 10/29/16 23:59 07:59 15:59 Intake Total 1.9 / 1.9 92.5 / 92.5 2.9 / 2.9 Balance 1.9 / 1.9 92.5 / 92.5 2.9 / 2.9 Intake: IV Fluids 1.9 / 1.9 92.5 / 92.5 2.9 / 2.9 Cardizem 125 MG In 1.9 / 1.9 92.5 / 92.5 2.9 / 2.9 Dextrose 5% 100 ML @ 5 MG /HR 5 mls/hr IVC .Q24H TY Rx#:[id number] Other: Stool Size Moderate Stool Consistency liquid # Bowel Movements 1 Weight 114.3 kg Blood Glucose* 221 161 Patient Weight 10/29/16 23:59 Weight 114.3 kg - General Appearance Exam: General: Cooperative, pleasant, no acute distress, alert and oriented 3, answers questions appropriately HEENT: Normocephalic, atraumatic, neck supple, trachea midline, Conjunctiva pink , sclera anicteric, EOMI, PERRL, oral mucosa moist, no orophargeal erythema or exudates Respiratory: No accessory muscle usage, clear to auscultation bilaterally, no wheezes/rhonchi/rales appreciated Cardiovascular: Regular rate and rhythm, S1 and S2 present, no murmurs/rubs/ gallops/clicks appreciated GI/abdominal: Nondistended, nontender, soft, normal bowel sounds, no peritoneal signs Extremities: No calf tenderness, noncyanotic, 1+ pedal edema appreciated, warm, lower extremity pulses palpable and symmetrical Neurological: Alert and oriented 3, no facial droop, no focal deficits Skin: Dry, intact, normal color - Lab 10/29/16 04:46 10/29/16 04:46 Most recent lab results Calcium 7.5 mg/dL (8.6-10.8) L 10/29/16 04:46 Phosphorus 4.6 mg/dL (2.3-4.7) 10/29/16 04:46 Magnesium 2.1 mg/dL (1.6-2.6) 10/29/16 04:46 Consult Discharge Plan - Plan Referrals: Marcos Pierre MD [Primary Care Provider] - 11/04/16 10:00 am (Please follow up as schedule...)
--- NOTE | 2016-10-29 12:21 | Cardiology Progress Note ---
Date of Encounter: 10/29/16 Time of Encounter: 12:18 Assessment and Plan (1) Atrial fibrillation with RVR Current Visit: Yes Status: Acute PAF diagnosed mid September of this year. Continued to have recurrent episodes of PAF during this inpatient stay. PAF noted during recent admission in mid September. Now on Cardizem 120 mg BID and Lopressor 50 mg BID. Telemetry review: Shows avg HR 88 bpm over 12 hours. Atrial fibrillation with RVR last night. Max HR 130 bpm. Minimum HR 50 bpm at 0911. After converting to sinus bradycardia HR usually in the 50's. She was started on cardizem gtt last night and then taken off this morning after converting to SB. Ussww3itax score 4 (age, female, HTN, DM), would normally recommend buttermaker anticoagulation. D/t severe anemia she is not a good candidate for anticoagulation with coumadin. Discussed with primary team and nephrology resident. Colonoscopy did not show any active bleeding. Anemia likely chronic in the setting of CKD stage IV. Start asa 81 mg daily. Discussed aspirin with patient and she agrees to take. Discussed with Dr. Magana. Hesitant to increase scheduled AV latesha blockers d/t bradycardia when in NSR. Will have to allow occasional breakthrough PAF. Recommend adding PRN metoprolol tartrate 25 mg one time dose for HR above 120. F/u with electrophysiolist in out-pt setting. (2) Elevated troponin Current Visit: No Status: Acute Per cardiology: -ELevated troponin in the setting of atrial fibrillation with RVR, anemia, and CKD. -Troponins 0.35, 0.41. Third troponin pending. Scheduled to be drawn at 1300. -ECG with no ischemic changes. -Denies chest pain. -Echocardiogram 10/07/16 with LVEF 60-65%, mild left ventricular diastolic dysfunction, severely dilated left atrium, mild pulmonary hypertension, all wall segments with normal motion, no significant valvular dysfunction. -At this time, patient is not a candidate for LHC due to anemia and CKD stage IV. -Continue medical management. Discussion w patient/family: The assessment and plan as outlined above was discussed with the patient and/or family members who expressed understanding and agreement. All questions were answered. Thank you for involving us in the care of your patient. Please call with any questions. Subjective Principal diagnosis: atrial fibrillation Interval history: Cardiology asked to evaluate patient again d/t afib with RVR requiring cardizem gtt overnight. Cardizem gtt was stopped this morning after she converted to NSR. She admits to occasional palpitations overnight. Denies chest pain or SOB. Denies signs of bleeding. Objective Vital Signs, Last 4 Hours Temp Pulse Resp BP Pulse Ox 10/29/16 10:56 97.8 F 57 16 139/80 95 General: Conversant, No Apparent Distress HEENT: Atraumatic, Normocephaly, Mucus Membranes Moist Neck: No JVD, Normal carotid pulses Cardiac: Reg Rate and Rhythm, Normal S1 and S2, No Murmur Lungs: Normal Breath Sounds, No Wheeze, Rales, Rhonchi Neuro: Alert and responsive, No focal deficits noted Abdomen: Soft, Non-Tender Skin: No rashes noted on visualized skin Musculoskeletal: No Chest Wall Tenderness Extremities: No Clubbing, No Cyanosis, Normal Pulses, Other (2+ ankle edema. ) Results 10/29/16 04:46 10/29/16 04:46 Lab Results 10/29/16 10/29/16 04:46 04:46 WBC 10.2 Hgb 7.8 L Hct 23.4 L Plt Count 133 L Sodium 136 Potassium 3.8 Chloride 98 Carbon Dioxide 27 BUN 73 H Creatinine 4.63 H Glucose 140 H Calcium 7.5 L Magnesium 2.1 - EKG Interpretation EKG results cardiology: other (12 hour telemetry review shows avg HR 88 bpm. Afib with RVR seen last night, HR up to 130 bpm. Currently sinus bradycardia, HR 50's. Minimum HR 50 bpm.) Consult Discharge Plan - Plan Referrals: Marcos Pierre MD [Primary Care Provider] - 11/04/16 10:00 am (Please follow up as schedule...)
[2016-10-29] MEDS: Aspirin Enteric Coated 81 MG Tablet PO SCH (13:47)
[2016-10-29] MEDS: Furosemide 20 MG TABLET PO PRN (13:52)
--- NOTE | 2016-10-29 17:45 | Electrocardiograph Report ---
[address] [place], [place] [address] Test Date: 2016-10-28 Pat Name: Natalia Oreilly Department: 112 Room: 2A13 Gender: F Program Professional: ALLY : 1950 Requested By: Duarte Rainey Order Number: [id number] Reading MD: Norma Monzon Measurements Intervals [place] Rate: 142 P: AK: 0 QRS: 3 QRSD: 112 T: 49 QT: 336 QTc: 418 Interpretive Statements ATRIAL FLUTTER WITH RAPID VENTRICULAR RESPONSE MODERATE INTRAVENTRICULAR CONDUCTION DELAY ABNORMAL RHYTHM ECG Electronically Signed On 10-29-2016 17:43:29 EDT by Norma Monzon
[2016-10-29] MEDS: predniSONE 10 MG TABLET PO SCH (20:19)
[2016-10-30 04:58] LABS: Hematocrit 21.5 % (35.3-44.9); Hemoglobin 7.4 g/dL (11.5-15.4); Mean Corpuscular HGB Conc 34.4 g/dL (31.6-35.5); Mean Corpuscular Hemoglobin 30.7 pg (28.0-33.3); Mean Corpuscular Volume 89.2 fL (83.0-100.0); Mean Platelet Volume 11.2 fL (9.4-12.4); Nucleated Red Blood Cells 0.3 /100 WBC (0); Platelet Count 119 K/mcL (140-400); Red Blood Count 2.41 M/mcL (3.82-4.97); Red Cell Distribution Width 13.6 % (11.5-14.5)
[2016-10-30 05:17] LABS: Calcium 7.7 mg/dL (8.6-10.8); Phosphorous 4.8 mg/dL (2.3-4.7); Potassium 3.9 mEq/L (3.5-4.5)
[2016-10-30] MEDS: *HR* Heparin 5,000 UNIT/ML VIAL SQ SCH (05:33)
[2016-10-30 06:11] LABS: Anisocytosis 1+ (Not Present); Lymphocytes # 0.6 K/mcL (0.6-4.6); Monocytes # 0.8 K/mcL (0.0-1.3); Neutrophils # 8.2 K/mcL (1.6-8.9); Platelet Estimate Slight Decrease (Normal)
[2016-10-30 06:12] LABS: Microcytosis Present (Not Present); Polychromasia 1+ (Not Present)
[2016-10-30 07:12] VITALS: BP 143/66
[2016-10-30] MEDS ORDERED: Folic Acid 1 MG TABLET PO SCH (09:00)
[2016-10-30] MEDS: Insulin LISPRO 300 UNITS/3 ML VIAL SQ SCH ×2 (09:02→12:40)
[2016-10-30] MEDS: Sennosides/Docusate Sodium TABLET PO SCH (09:02)
[2016-10-30] MEDS: Cholecalciferol (D-3) 1,000 UNIT TABLET PO SCH (09:02)
[2016-10-30] MEDS: Aspirin Enteric Coated 81 MG Tablet PO SCH (09:03)
[2016-10-30] MEDS: Famotidine 20 MG TABLET PO SCH (09:03)
[2016-10-30] MEDS: predniSONE 20 MG TABLET PO SCH (09:07)
--- NOTE | 2016-10-30 09:23 | Discharge Summary ---
Date of Encounter: 10/30/16 Time of Encounter: 08:45 - Discharge Diagnosis (1) Atrial fibrillation with RVR Priority: Primary Status: Acute (2) Anemia Priority: Secondary Status: Chronic Qualifiers: Anemia type: unspecified type Qualified Code(s): D64.9 - Anemia, unspecified (3) CKD (chronic kidney disease), stage IV Priority: Secondary Status: Chronic (4) Diabetes mellitus Priority: Secondary Status: Chronic Qualifiers: Diabetes mellitus type: type 2 Diabetes mellitus complication status: with unspecified complications Diabetes mellitus buttermaker insulin use: without care home use Qualified Code(s): E11.8 - Type 2 diabetes mellitus with unspecified complications (5) DVT prophylaxis Priority: Secondary Status: Acute (6) HTN (hypertension) Priority: Secondary Status: Chronic Qualifiers: Hypertension type: essential hypertension Qualified Code(s): I10 - Essential (primary) hypertension (7) Hypothyroidism Priority: Secondary Status: Chronic Qualifiers: Hypothyroidism type: acquired Qualified Code(s): E03.9 - Hypothyroidism, unspecified (8) Morbid obesity Priority: Secondary Status: Chronic Qualifiers: Obesity type: drug-induced Qualified Code(s): E66.1 - Drug-induced obesity (9) RPGN (rapidly progressive glomerulonephritis) Priority: Secondary Status: Chronic - Discharge Medications Prescriptions: Aspirin Enteric Coated [Aspirin EC] 81 mg PO DAILY #30 tablet.dr Diltiazem HCl [Diltiazem ER] 120 mg PO BID #30 cap.er.deg Metoprolol [Lopressor] 25 mg PO BID #60 tablet Home Medications: Levothyroxine [Synthroid] 112 mcg PO DAILY 11/25/15 [History] Famotidine [Pepcid] 20 mg PO QPM 10/05/16 [History] Calcium Carbonate [Tums] 1,000 mg PO Q4HR PRN #0 tab.chew 10/12/16 [Rx] Cholecalciferol (D-3) [Vitamin D] 2,000 unit PO DAILY #30 tablet 10/12/16 [Rx] GlipiZIDE [Glipizide Xl] 5 mg PO DAILY #30 tab.er.24 10/12/16 [Rx] LORazepam [Ativan] 0.5 mg PO BID PRN #30 tablet 10/12/16 [Rx] Magnesium Oxide [Mag-Ox] 400 mg PO BID #60 tablet 10/12/16 [Rx] Ondansetron ODT [Zofran ODT] 4 mg SL Q6HR PRN #30 tab.rapdis 10/12/16 [Rx] PredniSONE 10 mg PO HS #30 tablet 10/12/16 [Rx] PredniSONE 20 mg PO BID #60 tablet 10/12/16 [Rx] Sennosides/Docusate Sodium [Senna Plus] 2 each PO BID #120 tablet 10/12/16 [Rx] Sodium Bicarbonate 650 mg PO TID #90 tablet 10/12/16 [Rx] Sulfamethoxazole/Trimeth SS [Bactrim SS] 1 tab PO MOWEFR #30 tablet 10/12/16 [Rx ] Furosemide [Lasix] 20 mg PO DAILY PRN 10/24/16 [History] Sennosides/Docusate Sodium [Senna Plus] 2 tab PO BID 10/24/16 [History] Aspirin Enteric Coated [Aspirin EC] 81 mg PO DAILY #30 tablet.dr 10/30/16 [Rx] Diltiazem HCl [Diltiazem ER] 120 mg PO BID #30 cap.er.deg 10/30/16 [Rx] Hydralazine HCl 50 mg PO BID PRN #60 tablet 10/30/16 [Rx] Metoprolol [Lopressor] 25 mg PO BID #60 tablet 10/30/16 [Rx] Allergies/Adverse Reactions: Allergies codeine Adverse Reaction (Verified 10/24/16 00:46) Vomiting Procedures/tests Complete & Pending: Procedures Performed prior 72 hours Category Date Time Status ECG 12 lead ECG [ECG] Stat Y 10/28/16 19:48 Completed Date of admission: 10/24/16 04:12 Primary care physician: Marcos Pierre MD Consults: 10/24/16 07:00 Consult to Cardiology [CONS] Routine Comment: Consulting Provider: Cardiology [place] Reason for Consult: A fib with RVR Call Completed: No 10/26/16 07:30 Consult to Nephrology [CONS] Routine Consulting Provider: Gumaro Barnes Reason for Consult: anemia of chronic disease secondary to renal disease Call Completed: Yes 10/26/16 09:46 Consult to Gastroenterology [CONS] Routine Consulting Provider: Gastroenterology [place] Reason for Consult: anemia, r/o GI Bleed, need to be on buttermaker anticoagulation for AFIB Call Completed: Yes Discharging clinician: Caryn Loomis Anticipated date of discharge: 10/30/16 - Patient Status Disposition: Home, Self-Care Condition: Good Functional capacity at discharge: independent ambulation Overall status at discharge: patient is back to baseline - Discharge Instructions Follow Up With: Marcos Pierre MD [Primary Care Provider] - 11/04/16 10:00 am (Please follow up as schedule...) Additional Instructions: Please follow up with your primary care physician within five days after your discharge from the hospital. Please follow up with cardiology and nephrology within one week after your discharge from the hospital. Your home dose of Cardizem has been changed to 120mg twice a day. Metoprolol 25mg twice a day has been added to your home medications. Hold Metoprolol dose if your HR is below 60 and inform your primary care physician. If your HR is above 120, please take an additional 25mg Metoprolol. Closely monitor your blood pressure. Hold Metoprolol if your SBP<110. Take Hydralazine as prescribed if your SBP>160. Aspirin 81mg has been added to your home medications. Please resume all your other home medications as prescribed by your primary care physician. - Diet and Activity Activity: resume usual activities as tolerated Diet: low salt diet Hospital course: Ms. Oreilly is a 66 year old female with PMH of RPGN, morbid obesity, Afib, HtN , CKD stage 5 who was admitted for management of poorly rate controlled Afib with RVR. She was started on cardizem gtt and cardiology was consulted. Initially HR was appropriately controlled however given her anemia GI was consulted to r/o any acute bleeds prior to starting any oral anticoagulation. Pt underwent EGD and Colonoscopy and no acute bleeds were reported. Nephrology was consulted as per patient's request and she was started on aranesp given her anemia of chronic disease secondary to CKD. Pt's hospital course was prolonged due to poor rate control as she fluctuated between sinus bradycardia and Afib w/ RVR at 140bpm. At this time patient is hemodynamically stable. Rate appropriately controlled. She will be discharged to home with follow up with PCP , Cardiology, and Nephrology. Patient demonstrates understanding of her diagnosis and agrees with the discharge care and plan. - Time Spent with Patient Total time spent providing and/or coordinating discharge services: Greater than 30 minutes - Constitutional Vitals: Temp Pulse Resp BP Pulse Ox 97.7 F 57 18 143/66 95 10/30/16 07:11 10/30/16 07:11 10/30/16 07:11 10/30/16 07:11 10/30/16 07:11 General appearance: Present: A&O X 3, morbidly obese, no acute distress, answers questions appropriately - Head Head exam: Present: atraumatic, normocephalic - Respiratory Respiratory exam: Present: CTAB. Absent: accessory muscle use, rales, rhonchi, wheezes - Cardiovascular Cardiovascular exam: Present: RRR, +S1, +S2 - GI/Abdominal GI/Abdominal exam: Present: normal bowel sounds, soft, no peritoneal signs. Absent: distended, tenderness - Extremities Exam Extremities exam: Present: pedal edema, warm, radial pulses palpable and symetrical. Absent: calf tenderness - Neurological Exam Neurological exam: Present: alert, oriented X3 - Psychiatric Psychiatric exam: Present: normal affect, normal mood
[2016-10-30 09:33] LABS: Basophils % 0.1 %; Eosinophils % 0.1 %; Hematocrit 24.6 % (35.3-44.9); Hemoglobin 8.4 g/dL (11.5-15.4); Immature Granulocytes % 5.6 % (0-4); Lymphocytes # 0.4 K/mcL (0.6-4.6); Lymphocytes % 3.2 %; Mean Corpuscular HGB Conc 34.1 g/dL (31.6-35.5); Mean Corpuscular Volume 87.9 fL (83.0-100.0); Monocytes # 0.6 K/mcL (0.0-1.3); Monocytes % 5.1 %; Nucleated Red Blood Cells 0.7 /100 WBC (0); Platelet Count 129 K/mcL (140-400); Red Cell Distribution Width 13.4 % (11.5-14.5); Segmented Neutrophils % 85.9 %
[2016-10-30 09:34] LABS: Neutrophils # 9.5 K/mcL (1.6-8.9)
[2016-10-30 09:56] LABS: Platelet Estimate Slight Decrease (Normal)
--- NOTE | 2016-10-30 10:51 | Physician Discharge Referral ---
Home Health/Hosp Referral Info Transfer to: Home Health Provider in Charge Post Discharge: PCP - Diagnosis (1) Atrial fibrillation with RVR Priority: Primary Status: Acute (2) Anemia Priority: Secondary Status: Chronic (3) CKD (chronic kidney disease), stage IV Priority: Secondary Status: Chronic (4) Diabetes mellitus Priority: Secondary Status: Chronic (5) DVT prophylaxis Priority: Secondary Status: Acute (6) HTN (hypertension) Priority: Secondary Status: Chronic (7) Hypothyroidism Priority: Secondary Status: Chronic (8) Morbid obesity Priority: Secondary Status: Chronic (9) RPGN (rapidly progressive glomerulonephritis) Priority: Secondary Status: Chronic - Respiratory Orders Smoking Cessation: Smoking cessation has been advised. For more information, call the [place] Tobacco Quit Line at 7-174-CZQE-NOW. - Services Needed Following services are medically necessary services: Nursing, Home Health Aide, Physical Therapy, Occupational Therapy - Transfer Medications Prescriptions: Aspirin Enteric Coated [Aspirin EC] 81 mg PO DAILY #30 tablet.dr Diltiazem HCl [Diltiazem ER] 120 mg PO BID #30 cap.er.deg Metoprolol [Lopressor] 25 mg PO BID #60 tablet Home Medications: Levothyroxine [Synthroid] 112 mcg PO DAILY 11/25/15 [History] Famotidine [Pepcid] 20 mg PO QPM 10/05/16 [History] Calcium Carbonate [Tums] 1,000 mg PO Q4HR PRN #0 tab.chew 10/12/16 [Rx] Cholecalciferol (D-3) [Vitamin D] 2,000 unit PO DAILY #30 tablet 10/12/16 [Rx] GlipiZIDE [Glipizide Xl] 5 mg PO DAILY #30 tab.er.24 10/12/16 [Rx] LORazepam [Ativan] 0.5 mg PO BID PRN #30 tablet 10/12/16 [Rx] Magnesium Oxide [Mag-Ox] 400 mg PO BID #60 tablet 10/12/16 [Rx] Ondansetron ODT [Zofran ODT] 4 mg SL Q6HR PRN #30 tab.rapdis 10/12/16 [Rx] PredniSONE 10 mg PO HS #30 tablet 10/12/16 [Rx] PredniSONE 20 mg PO BID #60 tablet 10/12/16 [Rx] Sennosides/Docusate Sodium [Senna Plus] 2 each PO BID #120 tablet 10/12/16 [Rx] Sodium Bicarbonate 650 mg PO TID #90 tablet 10/12/16 [Rx] Sulfamethoxazole/Trimeth SS [Bactrim SS] 1 tab PO MOWEFR #30 tablet 10/12/16 [Rx ] Furosemide [Lasix] 20 mg PO DAILY PRN 10/24/16 [History] Sennosides/Docusate Sodium [Senna Plus] 2 tab PO BID 10/24/16 [History] Aspirin Enteric Coated [Aspirin EC] 81 mg PO DAILY #30 tablet.dr 10/30/16 [Rx] Diltiazem HCl [Diltiazem ER] 120 mg PO BID #30 cap.er.deg 10/30/16 [Rx] Hydralazine HCl 50 mg PO BID PRN #60 tablet 10/30/16 [Rx] Metoprolol [Lopressor] 25 mg PO BID #60 tablet 10/30/16 [Rx] Allergies/Adverse Reactions: Allergies codeine Adverse Reaction (Verified 10/24/16 00:46) Vomiting Certification: Further, I certify that my clinical findings support that this patient is homebound (i.e. absences from home require considerable and taxing effort and are for medical reasons or jewish services or infrequently or short duration when for other reasons) because: Homebound Reason: Patient requires assistance of a person or device to safely leave home Attestation: My signature below is to certify that this patient is under my care and that I, or nurse practitioner, or a physician's assistant curator working with me, has a face-to -face encounter with this patient.
[2016-10-30] MEDS: Diltiazem CD (24hr) 120 MG CAPSULE PO SCH (12:40)
== END 2016-10-30 12:17 | disposition home health service (06) ==
LOC: 2ANU 00:32 → EMEROO 00:32 → 2ANU 05:10
PROVIDERS: ADMIT Internal Medicine; ATTEND Internal Medicine
PROC: ENDOCBX (2016-10-28 14:30)
PROC: ENDOEBX (2016-10-28 14:30)

== ENCOUNTER 2016-12-06 10:00 | Inpatient (IN) ==
[2016-12-06] MEDS ORDERED: 0.9 % Sodium Chloride 1,000 ML IVC SCH (10:15)
[2016-12-06 10:43] LABS: Basophils % 0.6 %; Eosinophils % 0.6 %; Hematocrit 20.2 % (35.3-44.9); Immature Granulocytes % 2.8 % (0-4); Lymphocytes # 0.5 K/mcL (0.6-4.6); Lymphocytes % 9.3 %; Mean Corpuscular HGB Conc 31.2 g/dL (31.6-35.5); Mean Corpuscular Hemoglobin 31.2 pg (28.0-33.3); Mean Platelet Volume 9.4 fL (9.4-12.4); Monocytes # 0.7 K/mcL (0.0-1.3); Platelet Count 318 K/mcL (140-400); Red Blood Count 2.02 M/mcL (3.82-4.97); Red Cell Distribution Width 15.2 % (11.5-14.5); Segmented Neutrophils % 74.7 %
[2016-12-06 10:44] LABS: Hemoglobin 6.3 g/dL (11.5-15.4)
[2016-12-06 10:55] LABS: Calcium 8.5 mg/dL (8.6-10.8); Potassium 3.5 mEq/L (3.5-4.5)
--- NOTE | 2016-12-06 11:43 | Emergency Department Note ---
Disposition Clinical Impression: Symptomatic anemia Disposition: Admitted As Inpatient General Adult HPI - General Chief complaint: ED Recheck/Abnormal Lab/Rx Stated complaint: blood transfusion Time Seen by Provider: 12/06/16 10:12 Source: patient Limitations: no limitations Nursing Notes Reviewed: Yes Vital Signs Reviewed: Yes - History of Present Illness Pain Scale: 0 - Related Data Home Medications Medication Instructions Recorded Confirmed Levothyroxine [Synthroid] 112 mcg PO DAILY 11/25/15 12/06/16 Famotidine [Pepcid] 20 mg PO QPM 10/05/16 12/06/16 Furosemide [Lasix] 20 mg PO DAILY PRN 10/24/16 12/06/16 Sennosides/Docusate Sodium [Senna 1 - 22 tab PO BID 10/24/16 12/06/16 Plus] Amiodarone [Cordarone] 200 mg PO BID 12/06/16 12/06/16 Mycophenolate Mofetil [Cellcept] 1,000 mg PO BID 12/06/16 12/06/16 Previous Rx's Medication Instructions Recorded Cholecalciferol (D-3) [Vitamin D] 2,000 unit PO DAILY #30 tablet 10/12/16 GlipiZIDE [Glipizide Xl] 5 mg PO DAILY #30 tab.er.24 10/12/16 LORazepam [Ativan] 0.5 mg PO BID PRN #30 tablet 10/12/16 Magnesium Oxide [Mag-Ox] 400 mg PO BID #60 tablet 10/12/16 Sodium Bicarbonate 650 mg PO TID #90 tablet 10/12/16 Sulfamethoxazole/Trimeth SS 1 tab PO MOWEFR #30 tablet 10/12/16 [Bactrim SS] Aspirin Enteric Coated [Aspirin EC] 81 mg PO DAILY #30 tablet. 10/30/16 Diltiazem HCl [Diltiazem ER] 120 mg PO BID #30 cap.er.deg 10/30/16 Hydralazine HCl 50 mg PO BID PRN #60 tablet 10/30/16 Metoprolol [Lopressor] 25 mg PO BID #60 tablet 10/30/16 Allergies Allergy/AdvReac Type Severity Reaction Status Date / Time codeine AdvReac Vomiting Verified 10/24/16 00:46 Past Medical History - Past Medical History Medical history: Reports: atrial fibrillation, hypertension, renal disease, thyroid disease Surgical history: Reports: other Psychiatric history: Reports: anxiety, depression - Social History Smoking Status: Never smoker Smokeless Tobacco Status: No Alcohol use: Reports: none Drug use: Reports: none Physical Exam - General Limitations: no limitations General appearance: alert Course Vital Signs Temperature 97.7 F 12/06/16 10:01 Pulse Rate 63 12/06/16 10:01 Respiratory Rate 18 12/06/16 10:01 Blood Pressure 167/76 12/06/16 10:01 O2 Sat by Pulse Oximetry 100 12/06/16 10:01 Temperature 98.2 F 12/06/16 13:02 Pulse Rate 66 12/06/16 13:14 Respiratory Rate 16 12/06/16 13:18 Blood Pressure 182/98 12/06/16 13:18 O2 Sat by Pulse Oximetry 100 12/06/16 13:14 Oxygen Delivery Oxygen Delivery Room Air Medical Decision Making - MDM Narrative Medical decision making narrative: I examined this patient and my medical decision-making was reviewed with the [employer] CHECKER/PA/Advanced Practice Nurse/Resident Physician. I agree with the documented findings, disposition and treatment plan as described except to the extent set forth below. Patient was sent in today by nephrology, Dr. Brooks, patient 's had worsening renal insufficiency and feeling poorly, had lab work done on Tuesday and his results today show she is anemic. With hemoglobin and 6.9 range. She says she is feeling overall poor but denies any chest pain or fevers. Were checking labs on her she will most likely need admission and transfusion. Patient is not on dialysis at this point. But nephrology states her creatinine is worsening. 100 hours: Patient's hemoglobin has dropped down in the low 6 range. Her renal insufficiency is gotten worse. Can bring her to the hospital transfusions started that blood work down here. Spoke with hospitalist as accepted the patient. Spoke with nephrology also and they will consult. Impression is chronic renal insufficiency worsening, anemia requiring transfusion. Patient's critical care time excluding separately billable procedures is 20 minutes. - Lab Data Result diagrams: 12/06/16 10:27 12/06/16 10:27 Lab Results 12/06/16 12/06/16 12/06/16 Range/Units 10:27 10:27 10:27 WBC 5.4 (4.3-11.1) K/mcL RBC 2.02 L (3.82-4.97) M/mcL Hgb 6.3 L (11.5-15.4) g/dL Hct 20.2 L (35.3-44.9) % MCV 100.0 D (83.0-100.0) fL MCH 31.2 (28.0-33.3) pg MCHC 31.2 L (31.6-35.5) g/dL RDW 15.2 H (11.5-14.5) % Plt Count 318 (140-400) K/mcL MPV 9.4 (9.4-12.4) fL Immature Gran % 2.8 (0-4) % Seg Neutrophils % 74.7 % Lymphocytes % 9.3 % Monocytes % 12.0 % Eosinophils % 0.6 % Basophils % 0.6 % Neutrophils # 4.0 (1.6-8.9) K/mcL Lymphocytes # 0.5 L (0.6-4.6) K/mcL Monocytes # 0.7 (0.0-1.3) K/mcL Eosinophils # 0.0 (0.0-0.6) K/mcL Basophils # 0.0 (0.0-0.2) K/mcL PT (9.4-12.1) Seconds INR APTT (26.0-36.0) Seconds Sodium 142 (136-145) mEq/L Potassium 3.5 (3.5-4.5) mEq/L Chloride 101 (98-109) mEq/L Carbon Dioxide 28 (19-29) mEq/L BUN 50 H (7-20) mg/dL Creatinine 4.92 H (0.57-1.11) mg/dL Est GFR ( Amer) 11 L (> 60) Est GFR (Non-Af Amer) 9 L (> 60) BUN/Creatinine Ratio 10 (6-26) Glucose 104 H (70-99) mg/dL Calculated Osmolality 308 H (280-300) Calcium 8.5 L (8.6-10.8) mg/dL Blood Type A POSITIVE Antibody Screen NEGATIVE Crossmatch See Detail 12/06/16 Range/Units 10:27 WBC (4.3-11.1) K/mcL RBC (3.82-4.97) M/mcL Hgb (11.5-15.4) g/dL Hct (35.3-44.9) % MCV (83.0-100.0) fL MCH (28.0-33.3) pg MCHC (31.6-35.5) g/dL RDW (11.5-14.5) % Plt Count (140-400) K/mcL MPV (9.4-12.4) fL Immature Gran % (0-4) % Seg Neutrophils % % Lymphocytes % % Monocytes % % Eosinophils % % Basophils % % Neutrophils # (1.6-8.9) K/mcL Lymphocytes # (0.6-4.6) K/mcL Monocytes # (0.0-1.3) K/mcL Eosinophils # (0.0-0.6) K/mcL Basophils # (0.0-0.2) K/mcL PT 10.1 (9.4-12.1) Seconds INR 0.9 APTT 27.9 (26.0-36.0) Seconds Sodium (136-145) mEq/L Potassium (3.5-4.5) mEq/L Chloride (98-109) mEq/L Carbon Dioxide (19-29) mEq/L BUN (7-20) mg/dL Creatinine (0.57-1.11) mg/dL Est GFR ( Amer) (> 60) Est GFR (Non-Af Amer) (> 60) BUN/Creatinine Ratio (6-26) Glucose (70-99) mg/dL Calculated Osmolality (280-300) Calcium (8.6-10.8) mg/dL Blood Type Antibody Screen Crossmatch
--- NOTE | 2016-12-06 12:03 | Emergency Department Note ---
Disposition Clinical Impression: Symptomatic anemia Disposition: Admitted As Inpatient Condition: Good Recheck wound or abnormal lab - General Chief Complaint: ED Recheck/Abnormal Lab/Rx Stated Complaint: blood transfusion Time Seen by Provider: 12/06/16 10:12 Source: patient Limitations: no limitations Nursing Notes Reviewed: Yes Vital Signs Reviewed: Yes - History of Present Illness HPI Narrative: Call was placed by Dr. Bright regarding him sending a patient to the ER for further evaluation. This patient had been seen on Tuesday secondary to weakness. Labs were drawn and the patient was told over the weekend to come to the emergency department for low hemoglobin. Patient states that she felt too weak and was unable to come to the ER for evaluation. Patient currently denies any fever, chills, chest pain, shortness of breath, abdominal pain or constipation. Review of systems positive for diarrhea. Patient has not noticed any blood red blood or black melanotic stools. Stool guaiac is negative. - Related Data Home Medications Medication Instructions Recorded Confirmed Levothyroxine [Synthroid] 112 mcg PO DAILY 11/25/15 12/06/16 Famotidine [Pepcid] 20 mg PO QPM 10/05/16 12/06/16 Furosemide [Lasix] 20 mg PO DAILY PRN 10/24/16 12/06/16 Sennosides/Docusate Sodium [Senna 1 - 22 tab PO BID 10/24/16 12/06/16 Plus] Amiodarone [Cordarone] 200 mg PO BID 12/06/16 12/06/16 Diltiazem HCl [Diltiazem 24Hr Cd] 240 mg PO DAILY 12/06/16 12/06/16 Mycophenolate Mofetil [Cellcept] 1,000 mg PO BID 12/06/16 12/06/16 Previous Rx's Medication Instructions Recorded Cholecalciferol (D-3) [Vitamin D] 2,000 unit PO DAILY #30 tablet 10/12/16 GlipiZIDE [Glipizide Xl] 5 mg PO DAILY #30 tab.er.24 10/12/16 LORazepam [Ativan] 0.5 mg PO BID PRN #30 tablet 10/12/16 Magnesium Oxide [Mag-Ox] 400 mg PO BID #60 tablet 10/12/16 Sodium Bicarbonate 650 mg PO TID #90 tablet 10/12/16 Sulfamethoxazole/Trimeth SS 1 tab PO MOWEFR #30 tablet 10/12/16 [Bactrim SS] Aspirin Enteric Coated [Aspirin EC] 81 mg PO DAILY #30 tablet. 10/30/16 Hydralazine HCl 50 mg PO BID PRN #60 tablet 10/30/16 Metoprolol [Lopressor] 25 mg PO BID #60 tablet 10/30/16 Allergies Allergy/AdvReac Type Severity Reaction Status Date / Time codeine AdvReac Vomiting Verified 10/24/16 00:46 Review of Systems: CONSTITUTIONAL: Weakness and fatigue; No weight loss, fever, chills HEENT: Eyes: No visual changes. Ears, Nose, Throat: No hearing loss, difficulty talking or unable to swallow. SKIN: No rash or itching. CARDIOVASCULAR: No chest pain, chest pressure or chest discomfort. No palpitations or edema. RESPIRATORY: No shortness of breath, cough or sputum. GASTROINTESTINAL: No anorexia, nausea, vomiting or diarrhea. No abdominal pain or blood. GENITOURINARY: No burning on urination or hematuria. NEUROLOGICAL: No headache, dizziness, syncope, paralysis, ataxia, numbness or tingling in the extremities. No change in bowel or bladder control. MUSCULOSKELETAL: No muscle pain, back pain, joint pain or stiffness. Past Medical History - Past Medical History Medical history: Reports: atrial fibrillation, hypertension, renal disease, thyroid disease Surgical history: Reports: other Psychiatric history: Reports: anxiety, depression - Social History Smoking Status: Never smoker Smokeless Tobacco Status: No Alcohol use: Reports: none Drug use: Reports: none Physical Exam General appearance: NAD, conversant Eyes: anicteric sclerae, moist conjunctivae; PERRL HENT: Atraumatic; oropharynx clear with moist mucous membranes and no mucosal ulcerations Neck: Normal inspection; Trachea midline; FROM, supple Lungs: CTA, with normal respiratory effort and no intercostal retractions CV: RRR, no MRGs Abdomen: Soft, non-tender; no rebound or gaurding Extremities: No peripheral edema or extremity lymphadenopathy Skin: Normal temperature; no rash, ulcers or lesions Psych: Appropriate mood and affect Neuro: alert and oriented to person, place and time - General Limitations: no limitations General appearance: alert Course - Reevaluation(s) Reevaluation #1: Discussed low hemoglobin with patient. Rectal exam negative. Patient will receive PRBC 1 unit transfusion in emergency department. Will be admitted to the hospital for further evaluation. - Consultations Consultation #1: Discussed with Dr. Conner. Patient accepted for admission. Vital Signs Temperature 97.7 F 12/06/16 10:01 Pulse Rate 63 12/06/16 10:01 Respiratory Rate 18 12/06/16 10:01 Blood Pressure 167/76 12/06/16 10:01 O2 Sat by Pulse Oximetry 100 12/06/16 10:01 Temperature 97.3 F L 12/06/16 16:07 Pulse Rate 62 12/06/16 16:07 Respiratory Rate 19 12/06/16 16:07 Blood Pressure 180/85 12/06/16 16:07 O2 Sat by Pulse Oximetry 97 12/06/16 16:07 Oxygen Delivery Oxygen Delivery Room Air Recheck wound or abnormal lab - Lab Data Result diagrams: 12/06/16 10:27 12/06/16 10:27 Lab Results 12/06/16 12/06/16 12/06/16 Range/Units 10:27 10:27 10:27 WBC 5.4 (4.3-11.1) K/mcL RBC 2.02 L (3.82-4.97) M/mcL Hgb 6.3 L (11.5-15.4) g/dL Hct 20.2 L (35.3-44.9) % MCV 100.0 D (83.0-100.0) fL MCH 31.2 (28.0-33.3) pg MCHC 31.2 L (31.6-35.5) g/dL RDW 15.2 H (11.5-14.5) % Plt Count 318 (140-400) K/mcL MPV 9.4 (9.4-12.4) fL Immature Gran % 2.8 (0-4) % Seg Neutrophils % 74.7 % Lymphocytes % 9.3 % Monocytes % 12.0 % Eosinophils % 0.6 % Basophils % 0.6 % Neutrophils # 4.0 (1.6-8.9) K/mcL Lymphocytes # 0.5 L (0.6-4.6) K/mcL Monocytes # 0.7 (0.0-1.3) K/mcL Eosinophils # 0.0 (0.0-0.6) K/mcL Basophils # 0.0 (0.0-0.2) K/mcL PT (9.4-12.1) Seconds INR APTT (26.0-36.0) Seconds Sodium 142 (136-145) mEq/L Potassium 3.5 (3.5-4.5) mEq/L Chloride 101 (98-109) mEq/L Carbon Dioxide 28 (19-29) mEq/L BUN 50 H (7-20) mg/dL Creatinine 4.92 H (0.57-1.11) mg/dL Est GFR ( Amer) 11 L (> 60) Est GFR (Non-Af Amer) 9 L (> 60) BUN/Creatinine Ratio 10 (6-26) Glucose 104 H (70-99) mg/dL Calculated Osmolality 308 H (280-300) Calcium 8.5 L (8.6-10.8) mg/dL Blood Type A POSITIVE Antibody Screen NEGATIVE Crossmatch See Detail 12/06/16 Range/Units 10:27 WBC (4.3-11.1) K/mcL RBC (3.82-4.97) M/mcL Hgb (11.5-15.4) g/dL Hct (35.3-44.9) % MCV (83.0-100.0) fL MCH (28.0-33.3) pg MCHC (31.6-35.5) g/dL RDW (11.5-14.5) % Plt Count (140-400) K/mcL MPV (9.4-12.4) fL Immature Gran % (0-4) % Seg Neutrophils % % Lymphocytes % % Monocytes % % Eosinophils % % Basophils % % Neutrophils # (1.6-8.9) K/mcL Lymphocytes # (0.6-4.6) K/mcL Monocytes # (0.0-1.3) K/mcL Eosinophils # (0.0-0.6) K/mcL Basophils # (0.0-0.2) K/mcL PT 10.1 (9.4-12.1) Seconds INR 0.9 APTT 27.9 (26.0-36.0) Seconds Sodium (136-145) mEq/L Potassium (3.5-4.5) mEq/L Chloride (98-109) mEq/L Carbon Dioxide (19-29) mEq/L BUN (7-20) mg/dL Creatinine (0.57-1.11) mg/dL Est GFR ( Amer) (> 60) Est GFR (Non-Af Amer) (> 60) BUN/Creatinine Ratio (6-26) Glucose (70-99) mg/dL Calculated Osmolality (280-300) Calcium (8.6-10.8) mg/dL Blood Type Antibody Screen Crossmatch
[2016-12-06] MEDS ORDERED: 0.9 % Sodium Chloride 1,000 ML ONE (12:29)
[2016-12-06 12:35] LABS: INR 0.9; Prothrombin Time 10.1 Seconds (9.4-12.1)
[2016-12-06 12:38] LABS: Activated Partial Thrombo Time 27.9 Seconds (26.0-36.0)
[2016-12-06] MEDS ORDERED: Naloxone 0.4 MG/ML INJ IVP PRN (13:04)
[2016-12-06] MEDS ORDERED: Acetaminophen 325 MG TABLET PO PRN (13:04)
[2016-12-06] MEDS ORDERED: *HR* LORazepam 0.5 MG TABLET PO PRN (13:08)
[2016-12-06] MEDS ORDERED: Furosemide 20 MG TABLET PO PRN (13:08)
[2016-12-06] MEDS ORDERED: hydrALAZINE 25 MG TABLET PO PRN (13:08)
[2016-12-06] MEDS ORDERED: Dextrose Gel 15 GM PO PRN ×2 (13:11)
[2016-12-06] MEDS ORDERED: *HR* Dextrose 50 % in Water (Syg) 50 ML SYRINGE IVP PRN (13:11)
[2016-12-06] MEDS ORDERED: D5% in Water 1,000 ML IVC PRN (13:11)
--- NOTE | 2016-12-06 13:21 | Internal Med History&Physical ---
<Suzy Moise - Last Filed: 12/06/16 13:55> Date of Encounter: 12/06/16 Time of Encounter: 13:19 Assessment and Plan (1) Symptomatic anemia Current visit: Yes Status: Acute 1 patient has been experiencing increased weakness and fatigue for approximately a week. She does have history of anemia. Hemoglobin this a.m. was 6.3. Patient was typed and screened for one of PRBCs and transfused. Patient did have a anemic workup last month colonoscopy revealed nonbleeding polyps, anemia related to chronic end-stage renal disease She does have history of end-stage renal disease consulted nephrology. 2 continue to monitor H&H and transfuse as needed 3 continue to hold aspirin for now 4 stool for occult blood (2) CKD (chronic kidney disease), stage V Current visit: No Status: Acute 1 history of crescentic Fibrillary glomerularnephritis- she is seen by Dr Cook, she was to undergo HD catheter placement on Tuesday of this week. We will consult nephrology 2 creatinine is stable at this time it is 4.9-2 4wewillcontinuetomonitor 3 avoid nephrotoxins 4 monitor intake and output daily weights (3) PAF (paroxysmal atrial fibrillation) Current visit: No Status: Chronic 1 patient has history of paroxysmal atrial fibrillation. She is not anticoagulated due to history of anemia. She has been on aspirin however this is been held since in anticipation of HD catheter placement on Tuesday. We will continue to hold aspirin for now due to symptomatic anemia 2. We will continue with amiodarone, Presently QTC is 479, we will continue to monitor and check EKG in the a.m. 3 consult cardiology as needed (4) Diabetes mellitus Current visit: No Status: Chronic 1 we will hold oral glipizide for now. Accu-Cheks before meals at bedtime with sliding scale insulin as needed goal was to maintain postprandial less than 180 2 diabetic diet Qualifiers: Diabetes mellitus type: type 2 Diabetes mellitus complication status: with unspecified complications Diabetes mellitus chcf insulin use: without terminal press operator use Qualified Code(s): E11.8 - Type 2 diabetes mellitus with unspecified complications (5) HTN (hypertension) Current visit: No Status: Chronic 1 presently is controlled we will continue with home medications hydralazine as needed Qualifiers: Hypertension type: essential hypertension Qualified Code(s): I10 - Essential (primary) hypertension (6) Hypothyroidism Current visit: No Status: Chronic 1 continue with Synthroid Qualifiers: Hypothyroidism type: acquired Qualified Code(s): E03.9 - Hypothyroidism, unspecified (7) DVT prophylaxis Current visit: No Status: Acute 1 we will obtain SCDs due to symptomatic anemia Internal Medicine - H&P: HPI Chief complaint: weakness Admitted From: Emergency Dept Plans for Post Hospital Care: Home History of present illness: Ms. Oreilly is a 66 year old female with a past medical hx of paroxsymal afib HTN cresentic fibrillary glomernulonephritis thyroid disease DM2 iron deficiency anemia. Upon review of records patient was recently admitted to this facility last month for anemia proximal atrial fibrillation. The time she did have a complete anemia workup which she underwent a colonoscopy that was negative for any active bleeding. Cardiology did see patient and adjusted medications . She was discharged home and was doing well up until approximately a week ago. Patient states she has been using increased weakness fatigue. She was seen by her logistics planning engineer on Tuesday lab work was obtained and was advised to report to the ER for any signs or symptoms of active bleeding further weakness. Patient presented to the ER today complaining of increased weakness and fatigue. Patient denies any fevers chills she does admit to some nausea as well as loose stools but denies any hematochezia or melanotic stools. Lab work did reveal hemoglobin of 6.3 which was down from Tuesday 7.1. Patient was typed and screened transfused 1 unit in the emergency department. She has been admitted for further workup and evaluation.Patient denies any chest , palpitations pain shortness of breath. She does have some lower extremity edema which she states has been chronic. According to records patient has been seen by and wants to have a HD catheter placed on Tuesday per Dr. Grijalva. I reviewed this case with who agrees with plan Past Med Surg Social Fam HX - Past Medical History Medical history: atrial fibrillation, hypertension, renal disease, thyroid disease Psychiatric history: anxiety, depression - Past Surgical History Surgical History: other - Social History Smoking Status: Never smoker Smokeless Tobacco Status: No Alcohol use: none Drug use: none - Family History Mother Hx Family Cancer: Yes Father Hx Family Endocrine Disorder: Yes Internal Medicine - H&P: Meds Levothyroxine [Synthroid] 112 mcg PO DAILY 11/25/15 [History] Famotidine [Pepcid] 20 mg PO QPM 10/05/16 [History] Cholecalciferol (D-3) [Vitamin D] 2,000 unit PO DAILY #30 tablet 10/12/16 [Rx] GlipiZIDE [Glipizide Xl] 5 mg PO DAILY #30 tab.er.24 10/12/16 [Rx] LORazepam [Ativan] 0.5 mg PO BID PRN #30 tablet 10/12/16 [Rx] Magnesium Oxide [Mag-Ox] 400 mg PO BID #60 tablet 10/12/16 [Rx] Sodium Bicarbonate 650 mg PO TID #90 tablet 10/12/16 [Rx] Sulfamethoxazole/Trimeth SS [Bactrim SS] 1 tab PO MOWEFR #30 tablet 10/12/16 [Rx ] Furosemide [Lasix] 20 mg PO DAILY PRN 10/24/16 [History] Sennosides/Docusate Sodium [Senna Plus] 1 - 22 tab PO BID 10/24/16 [History] Aspirin Enteric Coated [Aspirin EC] 81 mg PO DAILY #30 tablet.dr 10/30/16 [Rx] Hydralazine HCl 50 mg PO BID PRN #60 tablet 10/30/16 [Rx] Metoprolol [Lopressor] 25 mg PO BID #60 tablet 10/30/16 [Rx] Amiodarone [Cordarone] 200 mg PO BID 12/06/16 [History] Diltiazem HCl [Diltiazem 24Hr Cd] 240 mg PO DAILY 12/06/16 [History] Mycophenolate Mofetil [Cellcept] 1,000 mg PO BID 12/06/16 [History] Allergies codeine Adverse Reaction (Verified 10/24/16 00:46) Vomiting All Systems PM: A 10-system review of systems was performed and is negative for pertinent findings except as documented above in the HPI. - Constitutional Constitutional: fatigue, weakness, no chills, no fever(s), no night sweats - EENT Eyes: no change in vision, no discharge, no pain, no photophobia Nose, mouth and throat: no dysphagia, no nasal discharge, no neck pain, no sore throat - Cardiovascular Cardiovascular ROS IM: edema, no chest pain, no diaphoresis, no dyspnea, no lightheadedness, no palpitations, no syncope - Respiratory Respiratory: no cough, no dyspnea, no wheezing, no excessive phlegm production - Gastrointestinal Gastrointestinal: diarrhea, nausea, no abdominal pain, no hematemesis, no hematochezia, no melena, no vomiting - Genitourinary Genitourinary: no change in urinary stream, no dysuria, no flank pain, no hematuria - Integumentary Integumentary IM: no rash, no unusual bruising - Neurological Neurological ROS: no confusion, no convulsions, no focal weakness, no numbness, no tingling, no tremor(s) - Constitutional Vitals: Temp Pulse Resp BP Pulse Ox 98.2 F 66 16 182/98 100 12/06/16 13:02 12/06/16 13:14 12/06/16 13:14 12/06/16 13:14 12/06/16 13:14 General appearance: Present: A&O X 3, answers questions appropriately - Head Head exam: Present: atraumatic, normocephalic - Eye Eye exam: Present: PERRL, conjuntiva pink, sclera anicteric Pupils: Present: PERRL - Neck Neck exam general surgery: Present: supple, trachea midline. Absent: lymphadenopathy - Respiratory Respiratory exam: Present: CTAB. Absent: accessory muscle use, rales, rhonchi, wheezes - Cardiovascular Cardiovascular exam: Present: RRR, +S1, +S2. Absent: diastolic murmur, gallop, rubs, systolic murmur - Extremities Exam Extremities exam: Present: pedal edema, warm, radial pulses palpable and symetrical. Absent: calf tenderness, cyanotic Additional comments: +2 pitting edema up to knees bilaterally - Neurological Exam Neurological exam: Present: CN II-XII intact, oriented X3, no focal deficits. Absent: pronater drift, facial droop, speech deficit - Skin Skin exam: Present: dry, intact Internal Med - H&P Results - Labs CBC & Chem 7: 12/06/16 10:27 12/06/16 10:27 - EKG Data EKG shows normal: sinus rhythm - EKG Data Prior EKG available for review: yes When compared to previous EKG: there is no significant change <Nellie Fong E - Last Filed: 12/06/16 18:38> Date of Encounter: 12/06/16 Internal Medicine - H&P: HPI History of present illness: Ms. Oreilly is a 66 year old female All Systems PM: A 10-system review of systems was performed and is negative for pertinent findings except as documented above in the HPI. - Constitutional Vitals: Temp Pulse Resp BP Pulse Ox 97.3 F L 62 19 180/85 97 12/06/16 16:07 12/06/16 16:07 12/06/16 16:07 12/06/16 16:07 12/06/16 16:07 Internal Med - H&P Results - Labs CBC & Chem 7: 12/06/16 10:27 12/06/16 10:27 - Attending Attestation I examined this patient and reviewed laboratory, imaging and all diagnostic data. My medical decision-making was reviewed with Suzy Moise - CELESTINA. I agree with the documented findings, disposition and treatment plan as described above. History and exam by me shows: symptomatic anemia with hgb at 6.3. Hemodynamically stable. Transfused 1 unit PRBC. close monitoring. Nephrology consult
--- NOTE | 2016-12-06 14:58 | Nephrology Consult Note ---
Date of Encounter: 12/06/16 Time of Encounter: 14:57 Assessment and Plan (1) CKD (chronic kidney disease), stage V Current Visit: No Status: Acute Patient with CKD stage V with underlying fibrillary glomerulonephritis. Creatinine on admission 4.92 with GFR 9. Patient has worsening uremic symptoms with fatigue, nausea, myoclonus and anemia. Because of the worsening uremic symptoms, patient is a candidate for dialysis. Plan for placement of PD cath and permacath with Dr. Norman on 12/08/2016. Patient will likely require hemodialysis that same day. Closely monitor kidney function, electrolytes and uremic symptoms. If patient has acute worsening prior to permacath placement, she may require placement of temporary dialysis catheter and acute hemodialysis. In the mean time will maximize the patient's status: will check iron, B12, folate. Will start IV iron if needed. Plan on starting epo after checking labs. Transfuse as needed. Renal protective strategy: renal dose medications and avoid nephrotoxic agents if at all possible. (2) Anemia Current Visit: No Status: Chronic Patient with hemoglobin of 6.3 today from 7.1 on Tuesday. Transfused 1 unit pRBCs. Likely secondary to patient's underlying kidney disease. No signs of active bleeding. Recent GI work up showed one nonbleeding polyp on colonoscopy and gastritis on EGD. Last labs showed patient was not iron deficient or B12 deficient. Folic acid was replaced. Will recheck iron studies, B12 and folate. Monitor Hgb closely. Transfusion goals per primary team. Qualifiers: Anemia type: unspecified type Qualified Code(s): D64.9 - Anemia, unspecified (3) Diabetes mellitus Current Visit: No Status: Chronic Patient with underlying diabetes. Maintain adequate glycemic control. Diabetic, renal diet. Qualifiers: Diabetes mellitus type: type 2 Diabetes mellitus complication status: with unspecified complications Diabetes mellitus intermediate project manager insulin use: without intermediate project manager use Qualified Code(s): E11.8 - Type 2 diabetes mellitus with unspecified complications (4) Fibrillary glomerulonephritis Current Visit: Yes Status: Acute History of Present Illness - Reason for Consult Consult date: 12/06/16 Chronic Kidney Disease, end stage renal disease, glomerulonephritis - Chief Complaint Anemia, end stage renal disease, uremic symptoms - History of Present Illness Ms. Oreilly is a 66yo female with PMH including paroxysmal atrial fibrillation, HTN, thyroid disease, T2DM and iron deficiency anemia. She is known to the nephrology clinic with her history of cresentic fibrillary glomerulonephritis. Patient was seen by Dr. Cook on Tuesday. Due to abnormal labs and significantly low hemoglobin patient was instructed to come to the ED. Patient has this chronic kidney disease but she has been progressively worsening. Creatinine has been stable around 4.8-5.0 however she has been developing uremic symptoms including fatigue, worsening anemia, myoclonus, and nausea. These worsening uremic symptoms call for a more urgent dialysis. Patient has elected to go with peritoneal dialysis. Dr. Norman has been consulted and patient is scheduled for placement of PD cath on 12/08. Because patient requires more urgent dialysis than allowed with PD, Dr. Norman has agreed to place a permacath for hemodialysis as well. Patient seen and examined. She reports that she is starting to feel better after the transfusion of 1 unit pRBC. She reports decreased PO intake and nausea over the past several days. She states that she has been dry heaving after taking just her medications. She reports generalized weakness and shakiness. Patient also reports that she has an ammonia taste in her mouth all the time. She denies headache or changes in vision, chest pain or pressure, shortness of breath, abdominal pain. She denies any vomiting blood, blood in stool or blood in urine. Past Med Surg Social Fam HX - Past Medical History Medical history: atrial fibrillation, hypertension, renal disease, thyroid disease Psychiatric history: anxiety, depression - Past Surgical History Surgical History: other - Social History Smoking Status: Never smoker Smokeless Tobacco Status: No Alcohol use: none Drug use: none - Family History Mother Hx Family Cancer: Yes Father Hx Family Endocrine Disorder: Yes Medications and Allergies Levothyroxine [Synthroid] 112 mcg PO DAILY 11/25/15 [History] Famotidine [Pepcid] 20 mg PO QPM 10/05/16 [History] Cholecalciferol (D-3) [Vitamin D] 2,000 unit PO DAILY #30 tablet 10/12/16 [Rx] GlipiZIDE [Glipizide Xl] 5 mg PO DAILY #30 tab.er.24 10/12/16 [Rx] LORazepam [Ativan] 0.5 mg PO BID PRN #30 tablet 10/12/16 [Rx] Magnesium Oxide [Mag-Ox] 400 mg PO BID #60 tablet 10/12/16 [Rx] Sodium Bicarbonate 650 mg PO TID #90 tablet 10/12/16 [Rx] Sulfamethoxazole/Trimeth SS [Bactrim SS] 1 tab PO MOWEFR #30 tablet 10/12/16 [Rx ] Furosemide [Lasix] 20 mg PO DAILY PRN 10/24/16 [History] Sennosides/Docusate Sodium [Senna Plus] 1 - 22 tab PO BID 10/24/16 [History] Aspirin Enteric Coated [Aspirin EC] 81 mg PO DAILY #30 tablet. 10/30/16 [Rx] Hydralazine HCl 50 mg PO BID PRN #60 tablet 10/30/16 [Rx] Metoprolol [Lopressor] 25 mg PO BID #60 tablet 10/30/16 [Rx] Amiodarone [Cordarone] 200 mg PO BID 12/06/16 [History] Diltiazem HCl [Diltiazem 24Hr Cd] 240 mg PO DAILY 12/06/16 [History] Mycophenolate Mofetil [Cellcept] 1,000 mg PO BID 12/06/16 [History] Allergies codeine Adverse Reaction (Verified 10/24/16 00:46) Vomiting Review of Systems Constitutional: fatigue, lethargy Cardiovascular: edema, irregular heart rhythm, no chest pain, no diaphoresis, no dyspnea on exertion, no syncope Respiratory: no cough, no dyspnea, no hemoptysis, no wheezing Gastrointestinal: nausea, no abdominal pain, no change in bowel habits, no coffee ground emesis, no diarrhea, no hematemesis, no hematochezia, no melena Neurological: tremor(s), no behavioral changes, no confusion, no dizziness, no numbness, no syncope Exam - Vital Signs Vital signs: Initial Vital Signs Temp Pulse Resp BP Pulse Ox 97.7 F 63 18 167/76 100 12/06/16 10:01 12/06/16 10:01 12/06/16 10:01 12/06/16 10:01 12/06/16 10:01 Vital Signs - Last 8 Hours Temp Pulse Resp BP Pulse Ox 12/06/16 14:22 99 12/06/16 14:06 99 12/06/16 13:44 97.5 F L 68 17 176/85 99 12/06/16 13:18 16 182/98 12/06/16 13:14 66 16 182/98 100 12/06/16 13:02 98.2 F 70 16 192/80 100 Intake and Output 12/05/16 12/06/16 12/06/16 23:59 07:59 15:59 Intake Total 0 / 0 Output Total 0 / 0 Balance 0 / 0 Intake: Oral 0 / 0 Output: Urine 0 / 0 Other: Weight 113.6 kg Blood Glucose* 103 Patient Weight 12/06/16 23:59 Weight 113.6 kg - General Appearance General appearance: well-developed, well-nourished, appears started age EENT: PERRL, mucous membranes moist, hearing intact, vision intact Neck: no JVD Respiratory: clear Cardiology: no murmurs, no rub, no gallops, regular rate, regular rhythm Gastrointestinal: normoactive bowel sounds, no tenderness, no guarding Integumentary: no rash, warm and dry Neurologic: alert and oriented x3 Psychiatric: mood/affect appropriate, cooperative Results - Lab Results 12/06/16 10:27 12/06/16 10:27 Most recent lab results Calcium 8.5 mg/dL (8.6-10.8) L 12/06/16 10:27 Consult Discharge Plan - Plan Referrals: Marcos Pierre MD [Primary Care Provider] -
[2016-12-06] MEDS: Insulin LISPRO 300 UNITS/3 ML VIAL SQ SCH ×2 (16:47→21:09)
[2016-12-06] MEDS: Famotidine 20 MG TABLET PO SCH (17:02)
[2016-12-06] MEDS ORDERED: Diltiazem CD (24hr) 120 MG CAPSULE PO SCH (21:00)
[2016-12-06] MEDS: Magnesium Oxide 400 MG TABLET PO SCH (21:21)
[2016-12-06] MEDS: *HR* Amiodarone 200 MG TABLET PO SCH (21:21)
[2016-12-06] MEDS ORDERED: Magic Mouthwash 10 ML UD Cup PO PRN (23:18)
[2016-12-07 06:25] LABS: Basophils % 0.4 %; Eosinophils % 0.9 %; Hematocrit 19.2 % (35.3-44.9); Hemoglobin 6.3 g/dL (11.5-15.4); Immature Granulocytes % 2.2 % (0-4); Lymphocytes # 0.4 K/mcL (0.6-4.6); Lymphocytes % 9.2 %; Mean Corpuscular HGB Conc 32.8 g/dL (31.6-35.5); Mean Corpuscular Volume 94.6 fL (83.0-100.0); Mean Platelet Volume 9.5 fL (9.4-12.4); Monocytes # 0.4 K/mcL (0.0-1.3); Monocytes % 9.9 %; Neutrophils # 3.5 K/mcL (1.6-8.9); Platelet Count 288 K/mcL (140-400); Red Blood Count 2.03 M/mcL (3.82-4.97); Red Cell Distribution Width 17.2 % (11.5-14.5); Segmented Neutrophils % 77.4 %
[2016-12-07 06:40] LABS: Calcium 7.4 mg/dL (8.6-10.8); Magnesium 1.3 mg/dL (1.6-2.6); Phosphorous 3.5 mg/dL (2.3-4.7); Potassium 3.2 mEq/L (3.5-4.5)
[2016-12-07 07:03] LABS: Hepatitis B Surface Antibody 0.04 mIU/mL; Hepatitis B Surface Antigen Nonreactive (Nonreactive)
[2016-12-07 07:17] LABS: Folate 8.5 ng/mL (7.0-31.4)
[2016-12-07] MEDS ORDERED: Magnesium Sulfate 2 GM in D5% in Water 100 ML IVPB ONE (08:21)
--- NOTE | 2016-12-07 08:48 | Electrocardiograph Report ---
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
[2016-12-07] MEDS: Insulin LISPRO 300 UNITS/3 ML VIAL SQ SCH ×4 (08:54→20:13)
[2016-12-07] MEDS: *HR* Amiodarone 200 MG TABLET PO SCH ×2 (08:57→20:13)
[2016-12-07] MEDS: Magnesium Oxide 400 MG TABLET PO SCH ×2 (08:58→20:12)
[2016-12-07] MEDS: Diltiazem CD (24hr) 240 MG CAPSULE PO SCH (08:58)
[2016-12-07] MEDS ORDERED: Cholecalciferol (D-3) 1,000 UNIT TABLET PO SCH (09:00)
--- NOTE | 2016-12-07 09:02 | Nephrology Progress Note ---
Date of Encounter: 12/07/16 Time of Encounter: 09:02 - Assessment and Plan (1) CKD (chronic kidney disease), stage V Current Visit: No Status: Acute Patient with CKD stage V with underlying fibrillary glomerulonephritis. Creatinine today 4.48 from 4.92 on admission. GFR stable at 10. Patient presented with worsening uremic symptoms with fatigue, nausea, myoclonus and anemia. Because of the worsening uremic symptoms, patient is a candidate for dialysis. Plan for placement of PD cath and permacath with Dr. Norman on 12/08/2016. Patient will likely require hemodialysis that same day. Closely monitor kidney function, electrolytes and uremic symptoms. If patient has acute worsening prior to permacath placement, she may require placement of temporary dialysis catheter and acute hemodialysis. Renal protective strategy: renal dose medications and avoid nephrotoxic agents if at all possible. (2) Anemia Current Visit: No Status: Chronic Patient with hemoglobin of 6.3 today from 7.1 on Tuesday. Transfused 1 unit pRBCs in ED. Repeat Hgb this morning of 7.2. Will transfuse another unit, with patient symptoms and underlying kidney disease, would like Hgb to be closer to 8. Likely secondary to patient's underlying kidney disease. No signs of active bleeding. Recent GI work up showed one nonbleeding polyp on colonoscopy and gastritis on EGD. Irone, percent saturation, and transferrin were within normal limits. Ferritin and vitamin B12 were elevated. Start patient on aranesp 40mg SQ weekly while in the hospital - first dose today. Monitor Hgb closely. Transfusion goals per primary team. Qualifiers: Anemia type: unspecified type Qualified Code(s): D64.9 - Anemia, unspecified (3) Diabetes mellitus Current Visit: No Status: Chronic Patient with underlying diabetes. Maintain adequate glycemic control. Diabetic, renal diet. Qualifiers: Diabetes mellitus type: type 2 Diabetes mellitus complication status: with unspecified complications Diabetes mellitus fdc insulin use: without fdc use Qualified Code(s): E11.8 - Type 2 diabetes mellitus with unspecified complications (4) Fibrillary glomerulonephritis Current Visit: Yes Status: Acute Patient with biopsy confirmed fibrillary glomerulonephritis. Patient was weaned off steroids prior to admission. Continue mycophenolate mofetil 1000mg PO BID. Subjective Principal diagnosis: Anemia, Uremic symptoms Interval history: Ms. Oreilly is a 66yo female admitted with anemia requiring transfusion and uremic symptoms secondary to stage V chronic kidney disease and cresentic fibrillary glomerulonephritis. Patient received 1 unit pRBCs yesterday in the ED for Hgb of 6.3. No acute events overnight. Afebrile, vital signs within normal limits. Patient seen and examined this morning. Awake and alert, in no acute distress. She states that she feels a little better than yesterday but she though she would feel even better after getting blood. However she is alert and oriented, conversing appropriately. She still feels nauseous and hasn't wanted to eat. On exam, lungs are clear bilaterally. Bilateral pedal edema is improved from yesterday. Objective - Vital Signs Vital signs: Vital Signs Temp Pulse Resp BP Pulse Ox 12/07/16 08:20 97.8 F 70 18 175/75 98 12/07/16 04:10 97.7 F 85 15 155/74 95 12/07/16 00:40 98.3 F 65 15 160/76 95 12/06/16 21:34 99 12/06/16 20:35 98 F 69 16 156/72 98 12/06/16 16:07 97.3 F L 62 19 180/85 97 12/06/16 16:00 97.3 F L 62 19 180/85 97 12/06/16 14:22 99 12/06/16 14:06 99 12/06/16 13:44 97.5 F L 68 17 176/85 99 12/06/16 13:18 16 182/98 12/06/16 13:14 66 16 182/98 100 12/06/16 13:02 98.2 F 70 16 192/80 100 Intake and Output 12/06/16 12/07/16 12/07/16 23:59 07:59 15:59 Intake Total 470 / 470 Output Total 300 / 300 800 / 800 200 / 200 Balance 170 / 170 -800 / -800 -200 / -200 Intake: Oral 120 / 120 Blood Product 350 / 350 Rbcs Leuko Poor As-1 350 / 350 Unit [id number] Output: Urine 300 / 300 800 / 800 200 / 200 Other: Meal Dinner Percent of Meal Consumed 100% Weight 113.58 kg Blood Glucose* 147 104 Patient Weight 12/07/16 23:59 Weight 113.58 kg - General Appearance General appearance: Present: well-developed, well-nourished, appears started age EENT: Present: PERRL, mucous membranes moist Neck: Present: no JVD Respiratory: Present: clear. Absent: wheezing, rales, rhonchi Cardiology: Present: no murmurs, no rub, no gallops, regular rate, regular rhythm Gastrointestinal: Present: no tenderness, no guarding Integumentary: Present: warm and dry Neurologic: Present: no focal deficit, alert and oriented x3 Psychiatric: Present: mood/affect appropriate, cooperative - Lab 12/07/16 08:49 12/07/16 05:36 Most recent lab results Calcium 7.4 mg/dL (8.6-10.8) L 12/07/16 05:36 Phosphorus 3.5 mg/dL (2.3-4.7) 12/07/16 05:36 Magnesium 1.3 mg/dL (1.6-2.6) L 12/07/16 05:36 Consult Discharge Plan - Plan Referrals: Marcos Pierre MD [Primary Care Provider] - 12/16/16 3:00 pm
[2016-12-07 09:11] LABS: Hemoglobin 7.2 g/dL (11.5-15.4)
[2016-12-07] MEDS ORDERED: 0.9 % Sodium Chloride 250 ML ONE (14:10)
--- NOTE | 2016-12-07 16:05 | Internal Med Progress Note ---
Date of Encounter: 12/07/16 Time of Encounter: 16:05 - Assessment and plan (1) Symptomatic anemia Current Visit: Yes Status: Acute Assessment and plan: Present with weakness and fatigue for approximately a week. She does have history of anemia. Hemoglobin was 6.3 on admission 12/06. Patient did have a anemic workup last month colonoscopy revealed nonbleeding polyps, anemia related to chronic end-stage renal disease. FOBT is negative. No signs of external bleeding. Anemia likely secondary to chronic kidney disease. Hgb is 6.3 today after she received 1 unit PRBC. Repeat hgb was 7.2. will transfuse one more unit. started on aranesp. (2) CKD (chronic kidney disease), stage IV Current Visit: No Status: Chronic Assessment and plan: Appreciate nephrology input. plan for placement of PD cath and permacath with Dr Norman on 12/08. 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 continue home meds. Qualifiers: Hypertension type: essential hypertension Qualified Code(s): I10 - Essential (primary) hypertension (5) PAF (paroxysmal atrial fibrillation) Current Visit: No Status: Chronic Assessment and plan: Hr is adequate. continue home dose amiodarone, cardizem, metoprolol. - Subjective Interval history: No bleeding. no chest pain. no shortness of breath. - Constitutional Vitals: Temp Pulse Resp BP Pulse Ox 97.9 F 64 14 146/66 98 12/07/16 14:14 12/07/16 14:14 12/07/16 14:14 12/07/16 15:19 12/07/16 14:14 General appearance: Present: cooperative, A&O X 3, morbidly obese, pleasant, no acute distress, answers questions appropriately - Eye Eye exam: Present: PERRL, sclera anicteric - Neck Neck exam general surgery: Present: supple, trachea midline. Absent: lymphadenopathy - Respiratory Respiratory exam: Present: CTAB. Absent: wheezes, tachypnea - Cardiovascular Cardiovascular exam: Present: RRR - GI/Abdominal GI/Abdominal exam: Present: normal bowel sounds, soft. Absent: distended, tenderness - Extremities Exam Extremities exam: Absent: pedal edema - Back Exam Back exam: Absent: CVA tenderness (L), CVA tenderness (R) - Neurological Exam Neurological exam: Present: alert, oriented X3. Absent: facial droop, speech deficit - Skin Skin exam: Absent: rash Internal Medicine: Result - Labs CBC & Chem 7: 12/07/16 08:49 12/07/16 05:36 - ABG Interpretation ABG results: PT/INR, D-dimer PT 10.1 Seconds (9.4-12.1) 12/06/16 10:27 - VTE Documentation of Mechanical Device: Intermittent pneumatic compression device Consult Discharge Plan - Plan Referrals: Marcos Pierre MD [Primary Care Provider] - 12/16/16 3:00 pm
--- NOTE | 2016-12-07 17:26 | Anesthesia Evaluation PreOp ---
Date of Encounter: 12/07/16 Time of Encounter: 17:23 - Past History Planned Operation: Lap peritoneal dialysis catheter insertion Cardiac History: HTN, Arrhythmia (A fib) Pulmonary History: Denies Any Significant HX PHARMACEUTICAL COMPOUNDING SUPERVISOR History: Denies Any Significant HX Other Medical History: Renal (ckd stage 5), Diabetes Type II (only on medications while on steroids), Thyroid (hypothyroidism), Other (BMI 44) Anesthesia History: Problems (nausea) Alcohol Use: none Drug use: none Medications and Allergies Levothyroxine [Synthroid] 112 mcg PO DAILY 11/25/15 [History] Famotidine [Pepcid] 20 mg PO QPM 10/05/16 [History] Cholecalciferol (D-3) [Vitamin D] 2,000 unit PO DAILY #30 tablet 10/12/16 [Rx] GlipiZIDE [Glipizide Xl] 5 mg PO DAILY #30 tab.er.24 10/12/16 [Rx] LORazepam [Ativan] 0.5 mg PO BID PRN #30 tablet 10/12/16 [Rx] Magnesium Oxide [Mag-Ox] 400 mg PO BID #60 tablet 10/12/16 [Rx] Sodium Bicarbonate 650 mg PO TID #90 tablet 10/12/16 [Rx] Sulfamethoxazole/Trimeth SS [Bactrim SS] 1 tab PO MOWEFR #30 tablet 10/12/16 [Rx ] Furosemide [Lasix] 20 mg PO DAILY PRN 10/24/16 [History] Sennosides/Docusate Sodium [Senna Plus] 1 - 22 tab PO BID 10/24/16 [History] Aspirin Enteric Coated [Aspirin EC] 81 mg PO DAILY #30 tablet. 10/30/16 [Rx] Hydralazine HCl 50 mg PO BID PRN #60 tablet 10/30/16 [Rx] Metoprolol [Lopressor] 25 mg PO BID #60 tablet 10/30/16 [Rx] Amiodarone [Cordarone] 200 mg PO BID 12/06/16 [History] Diltiazem HCl [Diltiazem 24Hr Cd] 240 mg PO DAILY 12/06/16 [History] Mycophenolate Mofetil [Cellcept] 1,000 mg PO BID 12/06/16 [History] Allergies codeine Adverse Reaction (Verified 10/24/16 00:46) Vomiting - Meds/Allergy Pre-op Review Medications Reviewed: Yes Allergies Reviewed: Yes Beta Blockers on Current Med List: Yes (metoprolol) Anesthesia Results - Labs 12/07/16 08:49 12/07/16 05:36 patient has received 1 U PRBC's already; is to receive 1 more unit tonight - Imaging EKG: report reviewed, image reviewed (SR; minimal voltage criteria for LVH ( possibly normal variant); prolonged QT) Additional studies: TTE: LVEF 60-65% normal LV chamber size/function mild LV diastolic dysfunction normal RV structure/function severely dilated LA mild pulm htn Anesthesia Exam Last Vital Signs Temp 97.7 F 12/07/16 16:25 Pulse 61 12/07/16 16:25 Resp 18 12/07/16 16:25 BP 147/66 12/07/16 16:25 Pulse Ox 97 12/07/16 16:25 Weight: 114 kg - HEENT Pupil (Motor): Pupils equal, EOMI Mallampati: III Teeth: Poor dentition Oral Opening: Greater than 3 - PHARMACEUTICAL COMPOUNDING SUPERVISOR LOC: Oriented PHARMACEUTICAL COMPOUNDING SUPERVISOR Motor: Normal RUE, Normal LUE, Normal RLE, Normal LLE, Normal Face - Cardiac Rhythm: Regular Murmur: None - Pulmonary Breath Sounds: bilateral Clear Respiratory Effort: Symmetrical Anesthesia Assess/Plan ASA Score: 4 Modified Gela Scale for Level of Consciousness: Cooperative, oriented, and tranquil Anesthetic Plan: General Monitoring Plan: Standard Monitors Recovery Plan: PACU
[2016-12-07] MEDS: Famotidine 20 MG TABLET PO SCH (17:39)
[2016-12-08 05:10] LABS: Basophils % 0.4 %; Eosinophils # 0.1 K/mcL (0.0-0.6); Eosinophils % 1.2 %; Hemoglobin 7.6 g/dL (11.5-15.4); Lymphocytes # 0.5 K/mcL (0.6-4.6); Lymphocytes % 9.8 %; Mean Corpuscular Hemoglobin 29.9 pg (28.0-33.3); Mean Corpuscular Volume 90.6 fL (83.0-100.0); Mean Platelet Volume 8.9 fL (9.4-12.4); Monocytes # 0.5 K/mcL (0.0-1.3); Monocytes % 9.8 %; Neutrophils # 3.8 K/mcL (1.6-8.9); Platelet Count 259 K/mcL (140-400); Red Blood Count 2.54 M/mcL (3.82-4.97); Red Cell Distribution Width 18.3 % (11.5-14.5); Segmented Neutrophils % 76.8 %
[2016-12-08 05:22] LABS: Calcium 7.6 mg/dL (8.6-10.8); Potassium 3.1 mEq/L (3.5-4.5)
[2016-12-08] MEDS: Insulin LISPRO 300 UNITS/3 ML VIAL SQ SCH ×2 (09:01→23:02)
[2016-12-08] MEDS: Diltiazem CD (24hr) 240 MG CAPSULE PO SCH (09:28)
[2016-12-08] MEDS: *HR* Amiodarone 200 MG TABLET PO SCH ×2 (09:28→20:30)
--- NOTE | 2016-12-08 09:35 | Internal Med Progress Note ---
Date of Encounter: 12/08/16 Time of Encounter: 09:33 - Assessment and plan (1) Symptomatic anemia Current Visit: Yes Status: Acute Assessment and plan: Present with weakness and fatigue for approximately a week. She does have history of anemia. Hemoglobin was 6.3 on admission 12/06. Patient did have a anemic workup last month colonoscopy revealed nonbleeding polyps, anemia related to chronic end-stage renal disease. FOBT is negative. No signs of external bleeding. Anemia likely is secondary to chronic kidney disease. 12/07: Hgb was 6.3 and she received 1 unit PRBC. started on aranesp. 12/08: hgb is 7.6. hemodynamically stable. close monitor. no bleeding. (2) CKD (chronic kidney disease), stage IV Current Visit: No Status: Chronic Assessment and plan: Appreciate nephrology input. plan for placement of PD cath and permacath with Dr Emerson sagastume. 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 continue home meds. Qualifiers: Hypertension type: essential hypertension Qualified Code(s): I10 - Essential (primary) hypertension (5) PAF (paroxysmal atrial fibrillation) Current Visit: No Status: Chronic Assessment and plan: Hr is adequate. continue home dose amiodarone, cardizem, metoprolol. - Subjective Interval history: No bleeding. no chest pain. no shortness of breath. low appetite. - Constitutional Vitals: Temp Pulse Resp BP Pulse Ox 98.3 F 66 18 168/65 95 12/08/16 07:19 12/08/16 07:19 12/08/16 07:19 12/08/16 07:19 12/08/16 08:02 General appearance: Present: cooperative, A&O X 3, morbidly obese, pleasant, no acute distress, answers questions appropriately - Eye Eye exam: Present: PERRL, sclera anicteric - Neck Neck exam general surgery: Present: supple, trachea midline. Absent: lymphadenopathy - Respiratory Respiratory exam: Present: CTAB - Cardiovascular Cardiovascular exam: Present: RRR - GI/Abdominal GI/Abdominal exam: Present: normal bowel sounds, soft. Absent: distended, tenderness - Extremities Exam Extremities exam: Present: pedal edema - Back Exam Back exam: Absent: CVA tenderness (L), CVA tenderness (R) - Neurological Exam Neurological exam: Present: alert, oriented X3, no focal deficits, strengths equal and symetr throughout. Absent: facial droop, speech deficit - Skin Skin exam: Absent: rash Internal Medicine: Result - Labs CBC & Chem 7: 12/08/16 05:01 12/08/16 05:01 Labs: Short CBC 12/08/16 Range/Units 05:01 WBC 5.0 (4.3-11.1) K/mcL Hgb 7.6 L (11.5-15.4) g/dL Hct 23.0 L (35.3-44.9) % Plt Count 259 (140-400) K/mcL Neutrophils # 3.8 (1.6-8.9) K/mcL BMP 12/08/16 05:01 Sodium 141 Potassium 3.1 L Chloride 104 Carbon Dioxide 28 BUN 44 H Creatinine 4.17 H Glucose 96 Calcium 7.6 L - ABG Interpretation ABG results: PT/INR, D-dimer PT 10.1 Seconds (9.4-12.1) 12/06/16 10:27 - VTE Documentation of Mechanical Device: Intermittent pneumatic compression device Consult Discharge Plan - Plan Referrals: Marcos Pierre MD [Primary Care Provider] - 12/16/16 3:00 pm
[2016-12-08] MEDS ORDERED: 0.9 % Sodium Chloride 250 ML IVC PRN ×2 (10:01→15:50)
[2016-12-08] MEDS ORDERED: *HR* Heparin 10,000 UNIT/10 ML VIAL IV PRN (10:08)
[2016-12-08] MEDS ORDERED: 0.9 % Sodium Chloride 1,000 ML PRIME SCH ×2 (10:15→15:50)
[2016-12-08] MEDS ORDERED: 0.9 % Sodium Chloride 2,000 ML ONE (11:00)
--- NOTE | 2016-12-08 11:36 | History & Physical Report ---
Date of Encounter: 12/08/16 Time of Encounter: 11:35 24 Hour HP Update - Instructions Instructions: If the History and Physical is less than 30 days old and was completed prior to A.M. admission and or procedure and has NOT been updated on calendar day of procedure please complete this update prior to performing procedure. - Update Patient reports changes in Medical Condition: No Changes in examination, assessment, or condition: No Changes in Medication: No Preop tests/diagnostics Reviewed: Yes Surgery Remains Indicated: Yes Consent for Planned Operative Procedure(s) Verified: Yes - Pre-Operative Checklist Preoperative Checklist Indicated: Yes Prophylactic Antibiotic Ordered: Yes Home Medications Include Beta John: Yes Beta John Taken Today (Day of Surgery): No Beta John Taken Yesterday (Day Prior to Surgery): Yes
[2016-12-08] MEDS ORDERED: *HR* Heparin 5,000 UNIT/ML VIAL ONE (11:43)
[2016-12-08] MEDS ORDERED: Heparin 1,000 UNITS/500 mL NS 1,000 ML ONE (11:44)
--- NOTE | 2016-12-08 13:53 | Nephrology Progress Note ---
Date of Encounter: 12/08/16 Time of Encounter: 13:52 - Assessment and Plan (1) CKD (chronic kidney disease), stage V Current Visit: No Status: Acute Patient with CKD stage V with underlying fibrillary glomerulonephritis. Creatinine improving 4.92 > 4.48 > 4.17. GFR stable at 11. Patient presented with worsening uremic symptoms with fatigue, nausea, myoclonus and anemia. Because of the worsening uremic symptoms, patient is a candidate for dialysis. Plan for placement of PD cath and permacath with Dr. Norman today. Will then do a session of hemodialysis this afternoon and again tomorrow. Closely monitor kidney function, electrolytes and uremic symptoms. Renal protective strategy: renal dose medications and avoid nephrotoxic agents if at all possible. (2) Anemia Current Visit: No Status: Chronic Patient with hemoglobin of 7.6 today from 7.2 yesterday. Status post 2 units pRBCs. Likely secondary to patient's underlying kidney disease. No signs of active bleeding. Recent GI work up showed one nonbleeding polyp on colonoscopy and gastritis on EGD. Iron, percent saturation, and transferrin were within normal limits. Patient started on aranesp weekly while in the hospital. Monitor Hgb closely. Transfusion goals per primary team. Qualifiers: Anemia type: unspecified type Qualified Code(s): D64.9 - Anemia, unspecified (3) Diabetes mellitus Current Visit: No Status: Chronic Patient with underlying diabetes. Maintain adequate glycemic control. Diabetic, renal diet. 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 Patient was weaned off steroids prior to admission. Continue mycophenolate mofetil 1000mg PO BID. Also continue prophylactic Bactrim. Subjective Principal diagnosis: Anemia, Uremic symptoms Interval history: Ms. Oreilly is a 66yo female admitted with anemia requiring transfusion and uremic symptoms secondary to stage V chronic kidney disease and cresentic fibrillary glomerulonephritis. Patient received a 2nd unit pRBCs yesterday for a Hgb of 7.3. No acute events overnight. Afebrile, vital signs within normal limits. Patient seen and examined this morning. Awake and alert, in no acute distress. She states that she is still tired but overall feeling okay. She says she becomes a little dizzy when she stands up and walks around. On exam, lungs are clear bilaterally. Bilateral pedal edema is still significant but improved from yesterday. Objective - Vital Signs Vital signs: Vital Signs Temp Pulse Resp BP Pulse Ox 12/08/16 13:40 61 14 154/77 97 12/08/16 13:30 97.1 F L 67 12 147/79 93 12/08/16 10:37 97.9 F 58 18 160/71 96 12/08/16 08:02 95 12/08/16 07:19 98.3 F 66 18 168/65 95 12/08/16 04:53 98.0 F 62 16 143/70 96 12/08/16 00:38 97.6 F 64 16 146/64 97 12/07/16 22:50 97.8 F 66 18 172/75 12/07/16 20:25 98 12/07/16 19:41 97.6 F 65 16 181/75 97 12/07/16 17:46 97.7 F 64 18 155/66 98 12/07/16 17:31 97.8 F 63 16 157/76 12/07/16 16:25 97.7 F 61 18 147/66 97 12/07/16 15:19 146/66 12/07/16 14:14 97.9 F 64 14 146/66 98 Intake and Output 12/07/16 12/08/16 12/08/16 23:59 07:59 15:59 Intake Total 470 / 470 0 / 0 Output Total 900 / 900 2 / 2 Balance 470 / 470 -900 / -900 -2 / -2 Intake: Oral 120 / 120 0 / 0 Blood Product 350 / 350 Rbcs Leuko Poor As-1 350 / 350 Unit [id number] Output: Urine 900 / 900 Estimated Blood Loss 2 / 2 Other: Meal Dinner npo Percent of Meal Consumed 100% 0% Weight 114.2 kg Blood Glucose* 154 98 113 Patient Weight 12/08/16 23:59 Weight 114.2 kg - General Appearance General appearance: Present: well-developed, well-nourished, appears started age EENT: Present: PERRL, mucous membranes moist Neck: Present: no JVD Respiratory: Present: clear. Absent: wheezing, rales, rhonchi Cardiology: Present: no murmurs, no rub, no gallops, regular rate, regular rhythm Gastrointestinal: Present: no tenderness, no guarding Integumentary: Present: warm and dry Neurologic: Present: no focal deficit, alert and oriented x3 Psychiatric: Present: mood/affect appropriate, cooperative - Lab 12/08/16 05:01 12/08/16 05:01 Most recent lab results Calcium 7.6 mg/dL (8.6-10.8) L 12/08/16 05:01 Phosphorus 3.5 mg/dL (2.3-4.7) 12/07/16 05:36 Magnesium 1.3 mg/dL (1.6-2.6) L 12/07/16 05:36 - VTE Documentation of Mechanical Device: Intermittent pneumatic compression device Consult Discharge Plan - Plan Referrals: Marcos Pierre MD [Primary Care Provider] - 12/16/16 3:00 pm
--- NOTE | 2016-12-08 13:58 | Operative Note ---
Date of procedure: 12/08/16 Pre-op diagnosis: End-stage renal disease Post-op diagnosis: same Procedure: Insertion of left subclavian vein hemodialysis catheter Laparoscopic insertion of peritoneal dialysis catheter Anesthesia: LESLEY Surgeon: Jamir Norman Estimated blood loss (cc): 5 Specimen: none Condition: stable Disposition: same day Procedure in Detail: After informed consent, the patient was taken to the operating room. After adequate sedation anesthesia the abdomen was prepped and draped. A 18-gauge guide needle was then used to cannulate the left subclavian vein. Guidewire was inserted. There was ectopy noted on the EKG. At this point the guidewire was pulled back. A dilator was placed over the guidewire and removed. The hemodialysis catheter was then inserted over the guidewire and into the superior vena cava. Once completed it was sewn to the skin with 3-0 nylon suture. Was flushed with heparin. A 5 mm cannula was placed in the upper abdomen. A pneumoperitoneum was created. Camera was then inserted. A 5 mm cannula was also placed in the left abdominal region at the level of the umbilicus. Once catheters in place I made an incision inferior to the umbilicus. A needle and guidewire was placed. A dilator and sheath placed over the guidewire. Peritoneal dialysis catheter was placed in the abdomen. It was sewn to the posterior aspect of the abdominal wall with an 0 Ethibond suture. The pigtail of the catheter was placed just inferior to the bladder. The Doen cuff was sewn to the fascia. The catheter was incised tunneled to the left abdominal wall and the port was removed. At this point it was irrigated and suctioned dry and there was good flow of saline. Skin was closed with 4-0 Vicryl suture in inverted interrupted fashion followed by Dermabond.
--- NOTE | 2016-12-08 13:58 | Anesthesia Evaluation Post Op ---
Date of Encounter: 12/08/16 Time of Encounter: 13:58 - Vital Signs Vital Signs: vss - Lungs Lungs: Clear Ascult./Percussion - Airway Airway: Non-obstructed - Cardiovascular Baseline Rhythm - Mental Status Mental Status: Asleep with brisk response to light stimulation - Pain Pain Scale used: Pk (Faces) - Nausea Vomiting Nausea Vomiting: Not Present - Hydration Hydration: Ice chips - Discharge PostOp Status: Transfer Patient to floor
[2016-12-08] MEDS ORDERED: Naloxone 0.4 MG/ML INJ IVP PRN (15:50)
[2016-12-08] MEDS ORDERED: Furosemide 20 MG TABLET PO PRN (15:50)
[2016-12-08] MEDS ORDERED: *HR* LORazepam 0.5 MG TABLET PO PRN (15:50)
[2016-12-08] MEDS ORDERED: D5% in Water 1,000 ML IVC PRN (15:50)
[2016-12-08] MEDS ORDERED: Magic Mouthwash 10 ML UD Cup PO PRN (15:50)
[2016-12-08] MEDS ORDERED: Acetaminophen 325 MG TABLET PO PRN (15:50)
[2016-12-08] MEDS ORDERED: Dextrose Gel 15 GM PO PRN ×2 (15:50)
[2016-12-08] MEDS ORDERED: *HR* Dextrose 50 % in Water (Syg) 50 ML SYRINGE IVP PRN (15:50)
[2016-12-08] MEDS ORDERED: hydrALAZINE 25 MG TABLET PO PRN (15:50)
[2016-12-08] MEDS ORDERED: *HR* Promethazine 25 MG/ML VIAL IVP PRN (16:44)
[2016-12-08] MEDS: Ondansetron 4 MG/2 ML VIAL IVP PRN (17:38)
[2016-12-08] MEDS: Famotidine 20 MG TABLET PO SCH (17:39)
[2016-12-08] MEDS: Magnesium Oxide 400 MG TABLET PO SCH (20:29)
[2016-12-09 05:07] LABS: Basophils % 0.7 %; Eosinophils % 0.7 %; Hematocrit 22.5 % (35.3-44.9); Hemoglobin 7.3 g/dL (11.5-15.4); Immature Granulocytes % 1.2 % (0-4); Lymphocytes # 0.4 K/mcL (0.6-4.6); Lymphocytes % 7.3 %; Mean Corpuscular HGB Conc 32.4 g/dL (31.6-35.5); Mean Corpuscular Hemoglobin 30.2 pg (28.0-33.3); Mean Platelet Volume 9.8 fL (9.4-12.4); Monocytes # 0.5 K/mcL (0.0-1.3); Monocytes % 9.1 %; Neutrophils # 4.8 K/mcL (1.6-8.9); Platelet Count 269 K/mcL (140-400); Red Blood Count 2.42 M/mcL (3.82-4.97); Red Cell Distribution Width 17.9 % (11.5-14.5)
[2016-12-09 05:33] LABS: Calcium 7.6 mg/dL (8.6-10.8); Magnesium 1.8 mg/dL (1.6-2.6); Potassium 3.5 mEq/L (3.5-4.5)
[2016-12-09] MEDS: Insulin LISPRO 300 UNITS/3 ML VIAL SQ SCH ×5 (07:09→22:14)
[2016-12-09] MEDS ORDERED: Diltiazem CD (24hr) 240 MG CAPSULE PO SCH (08:00)
[2016-12-09] MEDS: Cholecalciferol (D-3) 1,000 UNIT TABLET PO SCH (08:15)
[2016-12-09] MEDS: Magnesium Oxide 400 MG TABLET PO SCH ×2 (08:16→22:27)
[2016-12-09] MEDS: *HR* Amiodarone 200 MG TABLET PO SCH ×2 (08:16→22:26)
--- NOTE | 2016-12-09 08:21 | Nephrology Progress Note ---
Date of Encounter: 12/09/16 Time of Encounter: 08:21 - Assessment and Plan (1) CKD (chronic kidney disease), stage V Current Visit: No Status: Acute Patient with CKD stage V with underlying fibrillary glomerulonephritis. Presented with worsening uremic symptoms with fatigue, nausea, myoclonus and anemia. Because of the worsening uremic symptoms, patient is a candidate for dialysis. PD cath and permacath were placed 12/08/2016. First session of hemodialysis yesterday. Plan fo another session of dialysis today and tomorrow Creatinine and BUN improved after dialysis. Closely monitor kidney function, electrolytes and uremic symptoms. Renal protective strategy: renal dose medications and avoid nephrotoxic agents if at all possible. (2) Anemia Current Visit: No Status: Chronic Patient with hemoglobin of 6.3 on admission. She received 2 units pRBCs. Hgb 7.3 today. Will give another unit pRBC with hemodialysis. Likely secondary to patient's underlying kidney disease. No signs of active bleeding. Recent GI work up showed one nonbleeding polyp on colonoscopy and gastritis on EGD. Iron, percent saturation, and transferrin were within normal limits. Patient started on aranesp weekly while in the hospital. Monitor Hgb closely. Transfusion goals per primary team. Qualifiers: Anemia type: unspecified type Qualified Code(s): D64.9 - Anemia, unspecified (3) Diabetes mellitus Current Visit: No Status: Chronic Patient with underlying diabetes. Maintain adequate glycemic control. Diabetic, renal diet. 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 Patient was weaned off steroids prior to admission. Continue mycophenolate mofetil 1000mg PO BID. Also continue prophylactic Bactrim. Subjective Principal diagnosis: Anemia, Uremic symptoms Interval history: Ms. Oreilly is a 66yo female admitted with anemia and uremic symptoms secondary to stage V chronic kidney disease and cresentic fibrillary glomerulonephritis. Yesterday, patient had a peritoneal dialysis catheter and a permacath placed by general surgery. She then underwent a dialysis treatment. No acute events overnight. Afebrile, vital signs within normal limits. Patient seen and examined this morning. She is awake and alert, in no acute distress. She states that she is feeling okay today. She states that she was really nauseous last night after surgery but she is feeling better this morning. On exam, lungs are clear bilaterally. Permacath on left chest is clean, dry and dressed appropriately. Incision sites and PD cath site on abdomen are clean, dry and intact. Bilateral pedal edema is improving. Objective - Vital Signs Vital signs: Vital Signs Temp Pulse Resp BP Pulse Ox 12/09/16 07:30 98.1 F 63 16 149/71 92 12/09/16 04:36 98.4 F 64 16 152/69 96 12/08/16 23:51 98.3 F 60 16 149/67 95 12/08/16 20:12 97.5 F L 63 16 146/78 100 12/08/16 19:00 98.1 F 18 149/85 12/08/16 18:45 166/77 12/08/16 18:30 163/65 12/08/16 18:15 156/76 12/08/16 18:00 162/63 12/08/16 17:45 164/77 12/08/16 17:30 169/81 12/08/16 17:15 167/81 12/08/16 17:00 164/81 12/08/16 16:45 97.5 F L 18 164/81 12/08/16 15:40 97.6 F 57 16 162/80 98 12/08/16 15:10 98 F 55 16 154/80 98 12/08/16 14:55 98 F 55 16 153/78 98 12/08/16 14:40 97.9 F 55 16 155/77 99 12/08/16 14:25 98.4 F 55 16 150/77 97 12/08/16 14:00 97.3 F L 57 16 144/84 97 12/08/16 13:50 57 16 152/75 97 12/08/16 13:40 61 14 154/77 97 12/08/16 13:30 97.1 F L 67 12 147/79 93 12/08/16 10:37 97.9 F 58 18 160/71 96 Intake and Output 12/08/16 12/09/16 12/09/16 23:59 07:59 15:59 Intake Total 600 / 600 Output Total 1600 / 1600 Balance -1000 / -1000 Intake: Oral 0 / 0 Intake, Rinseback and 600 / 600 Flushes Output: Urine 0 / 0 Total Dialysis (HD) 1600 / 1600 Output Other: Weight 114.5 kg Blood Glucose* 107 93 Hemodialysis Net Fluid 1000 Removed (mL) Patient Weight 12/09/16 23:59 Weight 114.5 kg - General Appearance General appearance: Present: well-developed, well-nourished, appears started age EENT: Present: PERRL, mucous membranes moist Neck: Present: no JVD Respiratory: Present: clear. Absent: wheezing, rales, rhonchi Cardiology: Present: no murmurs, no rub, no gallops, edema, regular rate, regular rhythm Gastrointestinal: Present: no guarding. Absent: distended Additional Comments: PD cath site and incision sites are clean, dry and intact. Integumentary: Present: warm and dry Neurologic: Present: no focal deficit, alert and oriented x3 Psychiatric: Present: mood/affect appropriate, cooperative - Lab 12/09/16 04:00 12/09/16 04:00 Most recent lab results Calcium 7.6 mg/dL (8.6-10.8) L 12/09/16 04:00 Phosphorus 3.5 mg/dL (2.3-4.7) 12/07/16 05:36 Magnesium 1.8 mg/dL (1.6-2.6) 12/09/16 04:00 - VTE Documentation of Mechanical Device: Intermittent pneumatic compression device Consult Discharge Plan - Plan Referrals: Marcos Pierre MD [Primary Care Provider] - 12/16/16 3:00 pm
[2016-12-09] MEDS ORDERED: 0.9 % Sodium Chloride 1,000 ML PRIME SCH (09:00)
[2016-12-09] MEDS ORDERED: 0.9 % Sodium Chloride 250 ML IVC PRN (09:00)
[2016-12-09] MEDS: Ondansetron 4 MG/2 ML VIAL IVP PRN (09:27)
[2016-12-09] MEDS ORDERED: 0.9 % Sodium Chloride 2,000 ML ONE (11:22)
--- NOTE | 2016-12-09 15:54 | Internal Med Progress Note ---
Date of Encounter: 12/09/16 Time of Encounter: 10:00 - Assessment and plan (1) Symptomatic anemia Current Visit: Yes Status: Acute Assessment and plan: Present with weakness and fatigue for approximately a week. She does have history of anemia. Hemoglobin was 6.3 on admission 12/06. Patient did have a anemic workup last month colonoscopy revealed nonbleeding polyps, anemia related to chronic end-stage renal disease. FOBT is negative. No signs of external bleeding. Anemia likely is secondary to chronic kidney disease. 12/07: Hgb was 6.3 and she received 1 unit PRBC. started on aranesp. 12/09: hgb is 7.2. hemodynamically stable. close monitor. no bleeding. (2) CKD (chronic kidney disease), stage IV Current Visit: No Status: Chronic Assessment and plan: Appreciate nephrology input. Patient had placement of PD cath and permacath followed by first dialysis session on 12/08. Today she is undergoing her second dialysis session. 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 continue home meds. Qualifiers: Hypertension type: essential hypertension Qualified Code(s): I10 - Essential (primary) hypertension (5) PAF (paroxysmal atrial fibrillation) Current Visit: No Status: Chronic Assessment and plan: Hr is adequate. continue home dose amiodarone, cardizem, metoprolol. - Subjective Interval history: Patient is having her second session of HD. no chest pain. no shortness of breath. no bleeding. - Constitutional Vitals: Temp Pulse Resp BP Pulse Ox 98.0 F 54 18 177/76 92 12/09/16 13:56 12/09/16 11:52 12/09/16 13:56 12/09/16 13:56 12/09/16 07:30 General appearance: Present: cooperative, A&O X 3, morbidly obese, pleasant, no acute distress, answers questions appropriately - Neck Neck exam general surgery: Present: supple, trachea midline. Absent: lymphadenopathy - Respiratory Respiratory exam: Present: CTAB - Cardiovascular Cardiovascular exam: Present: RRR - GI/Abdominal GI/Abdominal exam: Present: normal bowel sounds, soft. Absent: distended, tenderness - Extremities Exam Extremities exam: Present: pedal edema - Back Exam Back exam: Absent: CVA tenderness (L), CVA tenderness (R) - Neurological Exam Neurological exam: Present: alert, oriented X3, no focal deficits, strengths equal and symetr throughout. Absent: facial droop, speech deficit Internal Medicine: Result - Labs CBC & Chem 7: 12/09/16 04:00 12/09/16 04:00 Labs: Short CBC 12/09/16 Range/Units 04:00 WBC 5.9 (4.3-11.1) K/mcL Hgb 7.3 L (11.5-15.4) g/dL Hct 22.5 L (35.3-44.9) % Plt Count 269 (140-400) K/mcL Neutrophils # 4.8 (1.6-8.9) K/mcL BMP 12/09/16 04:00 Sodium 140 Potassium 3.5 Chloride 103 Carbon Dioxide 26 BUN 30 H D Creatinine 3.16 H Glucose 87 Calcium 7.6 L - ABG Interpretation ABG results: PT/INR, D-dimer PT 10.1 Seconds (9.4-12.1) 12/06/16 10:27 - VTE Documentation of Mechanical Device: Intermittent pneumatic compression device Consult Discharge Plan - Plan Referrals: Marcos Pierre MD [Primary Care Provider] - 12/16/16 3:00 pm
[2016-12-09] MEDS: Diltiazem CD (24hr) 240 MG CAPSULE PO SCH (17:15)
[2016-12-09] MEDS: Famotidine 20 MG TABLET PO SCH (17:16)
[2016-12-10 04:29] LABS: Basophils % 0.6 %; Eosinophils # 0.1 K/mcL (0.0-0.6); Eosinophils % 0.9 %; Hematocrit 25.2 % (35.3-44.9); Hemoglobin 8.2 g/dL (11.5-15.4); Immature Granulocytes % 3.3 % (0-4); Lymphocytes # 0.5 K/mcL (0.6-4.6); Lymphocytes % 8.7 %; Mean Corpuscular HGB Conc 32.5 g/dL (31.6-35.5); Mean Corpuscular Hemoglobin 30.5 pg (28.0-33.3); Mean Corpuscular Volume 93.7 fL (83.0-100.0); Mean Platelet Volume 9.5 fL (9.4-12.4); Monocytes # 0.6 K/mcL (0.0-1.3); Monocytes % 10.3 %; Neutrophils # 4.1 K/mcL (1.6-8.9); Platelet Count 223 K/mcL (140-400); Red Blood Count 2.69 M/mcL (3.82-4.97); Red Cell Distribution Width 17.2 % (11.5-14.5); Segmented Neutrophils % 76.2 %
[2016-12-10 04:43] LABS: Calcium 7.8 mg/dL (8.6-10.8); Magnesium 1.8 mg/dL (1.6-2.6); Potassium 3.5 mEq/L (3.5-4.5)
[2016-12-10] MEDS: Insulin LISPRO 300 UNITS/3 ML VIAL SQ SCH ×4 (07:57→21:00)
[2016-12-10] MEDS ORDERED: 0.9 % Sodium Chloride 250 ML IVC PRN (09:33)
[2016-12-10] MEDS: Cholecalciferol (D-3) 1,000 UNIT TABLET PO SCH (09:42)
[2016-12-10] MEDS: *HR* Amiodarone 200 MG TABLET PO SCH ×2 (09:42→21:08)
[2016-12-10] MEDS: Magnesium Oxide 400 MG TABLET PO SCH ×2 (09:42→21:45)
[2016-12-10] MEDS ORDERED: 0.9 % Sodium Chloride 1,000 ML PRIME SCH (09:45)
--- NOTE | 2016-12-10 10:16 | Discharge Summary ---
Date of Encounter: 12/10/16 Time of Encounter: 10:14 - Discharge Diagnosis (1) Symptomatic anemia Priority: Primary Status: Acute (2) CKD (chronic kidney disease), stage IV Priority: Secondary Status: Chronic (3) Fibrillary glomerulonephritis Priority: Secondary Status: Chronic (4) HTN (hypertension) Priority: Secondary Status: Chronic Qualifiers: Hypertension type: essential hypertension Qualified Code(s): I10 - Essential (primary) hypertension (5) PAF (paroxysmal atrial fibrillation) Priority: Secondary Status: Chronic - Discharge Medications Home Medications: Levothyroxine [Synthroid] 112 mcg PO DAILY 11/25/15 [History] Famotidine [Pepcid] 20 mg PO QPM 10/05/16 [History] Cholecalciferol (D-3) [Vitamin D] 2,000 unit PO DAILY #30 tablet 10/12/16 [Rx] GlipiZIDE [Glipizide Xl] 5 mg PO DAILY #30 tab.er.24 10/12/16 [Rx] LORazepam [Ativan] 0.5 mg PO BID PRN #30 tablet 10/12/16 [Rx] Magnesium Oxide [Mag-Ox] 400 mg PO BID #60 tablet 10/12/16 [Rx] Sodium Bicarbonate 650 mg PO TID #90 tablet 10/12/16 [Rx] Sulfamethoxazole/Trimeth SS [Bactrim SS] 1 tab PO MOWEFR #30 tablet 10/12/16 [Rx ] Furosemide [Lasix] 20 mg PO DAILY PRN 10/24/16 [History] Sennosides/Docusate Sodium [Senna Plus] 1 - 22 tab PO BID 10/24/16 [History] Aspirin Enteric Coated [Aspirin EC] 81 mg PO DAILY #30 tablet.dr 10/30/16 [Rx] Hydralazine HCl 50 mg PO BID PRN #60 tablet 10/30/16 [Rx] Metoprolol [Lopressor] 25 mg PO BID #60 tablet 10/30/16 [Rx] Amiodarone [Cordarone] 200 mg PO BID 12/06/16 [History] Diltiazem HCl [Diltiazem 24Hr Cd] 240 mg PO 1800 12/06/16 [History] Mycophenolate Mofetil [Cellcept] 1,000 mg PO 0630,2100 12/06/16 [History] Darbepoetin [Aranesp] 40 mcg SQ QWEEK #0 syringe 12/10/16 [Rx] Allergies/Adverse Reactions: Allergies codeine Adverse Reaction (Verified 10/24/16 00:46) Vomiting Date of admission: 12/07/16 10:40 Primary care physician: Marcos Pierre MD Consults: 12/07/16 14:44 Consult to Invasive Line Access Team [CONS] Routine Reason for Consult: Poor vascular Line Type: EPIV 12/08/16 10:15 Consult to Dialysis [CONS] ONCE 12/09/16 09:00 Consult to Dialysis [CONS] ONCE 12/10/16 09:00 Consult to Dialysis [CONS] ONCE 12/10/16 09:45 Consult to Dialysis [CONS] ONCE - Patient Status Disposition: Home, Self-Care Condition: Good Functional capacity at discharge: independent ambulation Overall status at discharge: patient is progressing back to baseline - Discharge Instructions Instructions: Diabetes Mellitus Type 2 in Adults (DC), Chronic Hypertension (DC ), Anemia (GEN) Follow Up With: Marcos Pierre MD [Primary Care Provider] - 12/16/16 3:00 pm Additional Instructions: pls check your blood pressure twice daily, same time in the morning and evening. write down the numbers and bring record to doctor's appointment. Follow up with primary care doctor - Diet and Activity Activity: resume usual activities as tolerated Diet: low fat, low cholesterol, low salt diet, other (renal) Interval History: no complaints. no shortness of breath. no chest pain. Hospital course: Ms. 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 Patient presents with weakness and fatigue for approximately a week. Hemoglobin was 6.3 on admission 12/06. Patient did have an anemic workup last month colonoscopy revealed nonbleeding polyps, anemia related to chronic end-stage renal disease. FOBT is negative. No signs of external bleeding. She was transfused 2 units of PRBC and started on aranesp. Anemia is likely secondary to chronic kidney disease. Her hgb remained in the 7- 8 and she was hemodynamically stable. A Permcath and PD catheter was placed and she was started on HD. PLAN; f/u in the nephrology clinic. CBC in 1 week. - Time Spent with Patient Total time spent providing and/or coordinating discharge services: - Constitutional Vitals: Temp Pulse Resp BP Pulse Ox 98.2 F 64 16 152/82 96 12/10/16 07:40 12/10/16 07:40 12/10/16 07:40 12/10/16 07:40 12/10/16 07:40 General appearance: Present: cooperative, A&O X 3, morbidly obese, pleasant, no acute distress, answers questions appropriately - Eye Eye exam: Present: PERRL, sclera anicteric - Neck Neck exam general surgery: Present: supple, trachea midline. Absent: lymphadenopathy - Respiratory Respiratory exam: Present: CTAB - Cardiovascular Cardiovascular exam: Present: RRR - GI/Abdominal GI/Abdominal exam: Present: normal bowel sounds, soft. Absent: distended Additional comments: PD catheter in place. - Extremities Exam Extremities exam: Present: pedal edema - Back Exam Back exam: Absent: CVA tenderness (L), CVA tenderness (R) - Neurological Exam Neurological exam: Present: alert, oriented X3, no focal deficits, strengths equal and symetr throughout. Absent: pronater drift, facial droop, speech deficit - VTE Documentation of Mechanical Device: Intermittent pneumatic compression device
--- NOTE | 2016-12-10 10:46 | Nephrology Progress Note ---
Date of Encounter: 12/10/16 Time of Encounter: 10:43 - Assessment and Plan (1) CKD (chronic kidney disease), stage V Current Visit: No Status: Acute Patient with CKD stage V with underlying fibrillary glomerulonephritis. Presented with worsening uremic symptoms with fatigue, nausea, myoclonus and anemia. Because of the worsening uremic symptoms, patient is a candidate for dialysis. PD cath and permacath were placed 12/08/2016. Patient scheduled for dialysis today. Patient is cleared from [facility] perspective for discharge. She will start outpatient dialysis on Tuesday. Creatinine and BUN improved appropriately with dialysis. Closely monitor kidney function, electrolytes and uremic symptoms. Renal protective strategy: renal dose medications and avoid nephrotoxic agents if at all possible. (2) Anemia Current Visit: No Status: Chronic Patient with hemoglobin of 6.3 on admission. She received 2 units pRBCs. Hgb 7.3 today. Will give another unit pRBC with hemodialysis. Likely secondary to patient's underlying kidney disease. No signs of active bleeding. Recent GI work up showed one nonbleeding polyp on colonoscopy and gastritis on EGD. Iron, percent saturation, and transferrin were within normal limits. Patient started on aranesp weekly while in the hospital. Will be adjusted for continuation outpatient by dialysis. Monitor Hgb closely. Transfusion goals per primary team. Qualifiers: Anemia type: unspecified type Qualified Code(s): D64.9 - Anemia, unspecified (3) Diabetes mellitus Current Visit: No Status: Chronic Patient with underlying diabetes. Maintain adequate glycemic control. Diabetic, renal diet. 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 Patient was weaned off steroids prior to admission. Continue mycophenolate mofetil 1000mg PO BID. Also continue prophylactic Bactrim. Subjective Principal diagnosis: Anemia, Uremic symptoms Interval history: Ms. Oreilly is a 66yo female admitted with anemia and uremic symptoms secondary to stage V chronic kidney disease and cresentic fibrillary glomerulonephritis. Yesterday, patient had dialysis. No acute events overnight. Afebrile, vital signs within normal limits. Patient seen and examined this morning. She is awake and alert, in no acute distress. She states that she feels much better than admission. Nausea has improved. She wants to go home. On exam, lungs are clear bilaterally. Permacath on left chest is clean, dry and dressed appropriately. Incision sites and PD cath site on abdomen are clean, dry and intact. Bilateral pedal edema is improving. Objective - Vital Signs Vital signs: Vital Signs Temp Pulse Resp BP Pulse Ox 12/10/16 07:40 98.2 F 64 16 152/82 96 12/10/16 04:51 98.6 F 58 15 141/96 95 12/09/16 23:52 98.0 F 60 16 131/72 95 12/09/16 22:15 95 12/09/16 20:35 97.6 F 61 15 151/67 95 12/09/16 18:51 96 12/09/16 15:44 98.0 F 63 13 163/70 96 12/09/16 13:56 98.0 F 18 177/76 12/09/16 13:30 178/77 12/09/16 13:15 179/86 12/09/16 13:00 165/75 12/09/16 12:45 161/65 12/09/16 12:15 171/70 12/09/16 12:00 168/74 12/09/16 11:52 98.1 F 54 20 163/70 12/09/16 11:49 98.1 F 56 20 163/70 12/09/16 11:45 167/68 12/09/16 11:30 168/75 12/09/16 11:15 171/79 12/09/16 11:09 97.9 F 51 18 163/76 12/09/16 11:00 174/77 12/09/16 10:54 98.1 F 59 18 149/76 12/09/16 10:45 162/79 Intake and Output 12/09/16 12/10/16 12/10/16 23:59 07:59 15:59 Intake Total 320 / 320 100 / 100 Balance 320 / 320 100 / 100 Intake: Oral 320 / 320 100 / 100 Other: Meal Dinner Breakfast Percent of Meal Consumed 50% 90% Blood Glucose* 123 103 - General Appearance General appearance: Present: well-developed, well-nourished, appears started age EENT: Present: PERRL, mucous membranes moist Neck: Present: no JVD Respiratory: Present: clear. Absent: wheezing, rales, rhonchi Cardiology: Present: no murmurs, no rub, no gallops, edema, regular rate, regular rhythm Additional Comments: Permacath site in left chest clean, dry and intact. Gastrointestinal: Present: normoactive bowel sounds, no tenderness. Absent: distended Integumentary: Present: no rash, warm and dry Neurologic: Present: no focal deficit, alert and oriented x3 Psychiatric: Present: mood/affect appropriate, cooperative - Lab 12/10/16 04:14 12/10/16 04:14 Most recent lab results Calcium 7.8 mg/dL (8.6-10.8) L 12/10/16 04:14 Phosphorus 3.5 mg/dL (2.3-4.7) 12/07/16 05:36 Magnesium 1.8 mg/dL (1.6-2.6) 12/10/16 04:14 - VTE Documentation of Mechanical Device: Intermittent pneumatic compression device Consult Discharge Plan - Plan Additional Instructions: pls check your blood pressure twice daily, same time in the morning and evening. write down the numbers and bring record to doctor's appointment. Follow up with primary care doctor Referrals: Marcos Pierre MD [Primary Care Provider] - 12/16/16 3:00 pm
[2016-12-10] MEDS ORDERED: Lidocaine -MPF 1% 5 ML AMPUL INFILT ONE (12:43)
[2016-12-10] MEDS ORDERED: *HR* Alteplase (Cathflo) 2 MG VIAL IVP ONE (12:43)
[2016-12-10] MEDS: Diltiazem CD (24hr) 240 MG CAPSULE PO SCH (17:16)
[2016-12-10] MEDS: Famotidine 20 MG TABLET PO SCH (17:16)
[2016-12-11] MEDS: [UNRECOGNIZED DRUG - OTHER] PERITONEAL SCH ×5 (00:07→18:56)
--- NOTE | 2016-12-11 08:19 | Nephrology Progress Note ---
Date of Encounter: 12/12/16 Time of Encounter: 09:30 - Assessment and Plan (1) ESRD (end stage renal disease) on dialysis Current Visit: Yes Status: Acute Progression to ESRD. 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 Remains on MMF, but I rec starting the weaning and will decrease to 500mg po bid. Hx of metabolic acidosis from CKD, but now that she's receiving [employer], no need for sodium bicarb Anemia of chronic disease: goal Hgb 10-11. CRISTI and / or periodic IV iron Dialysis access: She was to have a Permacath placed so as to allow a scheduled outpt PD training. She ultimately wants PD long-term. However, yesterday the Permacath developed significant problems and so PD was ordered yesterday afternoon: to use lower volumes of Dianeal 2.5%. However, the PD catheter connector equipment is apparently not available in the hospital. I will attempt to contact the [facility] PD RN to see if she is available this weekend: she returned my call and said that she'll bring the supplies tonight. As for discharge timing, now that PD was started: the outpt PD RN said that she and her asistant should be able to help arrange the outpt training and supplies next week. BPs remaining a little elevated, but will address antihypertensives as an outpt. 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 I had a very long conversation with her and her sister while sitting with them in her exam room. She said that the HD catheter was not working well and was replaced. The new one caused severe pains and she voiced fear in ever using it again. She did not affirm N/V/D or uremic symptoms. I spoke with the outpt HD RN Michelle from [facility] who said that she'll be able to drop off the transfer set "connector" so that PD could be started in the hospital. PD was ordered on Tuesday but could not be started since there was no connector available in the hospital. Objective - Vital Signs Vital signs: Vital Signs Temp Pulse Resp BP Pulse Ox 12/11/16 03:51 98.3 F 68 17 152/54 95 12/10/16 23:31 98.1 F 63 17 160/81 98 12/10/16 20:08 97.9 F 67 17 179/81 96 12/10/16 18:53 98.1 F 18 167/84 12/10/16 18:05 167/84 12/10/16 17:25 178/84 12/10/16 17:10 165/77 12/10/16 16:55 176/87 12/10/16 16:40 165/65 12/10/16 16:25 173/81 12/10/16 16:10 188/86 12/10/16 15:55 197/89 12/10/16 15:40 195/86 12/10/16 15:25 98.2 F 18 193/90 12/10/16 11:09 98.4 F 60 16 147/82 96 12/10/16 10:01 96 Intake and Output 12/10/16 12/11/16 12/11/16 23:59 07:59 15:59 Output Total 2437 / 2437 Balance -2437 / -2437 Output: Urine 400 / 400 Total Dialysis (HD) 2036 / 2036 Output Other: Meal Dinner Percent of Meal Consumed 100% # Voids 2 Blood Glucose* 92 Hemodialysis Net Fluid 1737 Removed (mL) - General Appearance General appearance: Present: well-developed, well-nourished, appears started age , obese EENT: Present: ATNC, PERRL, mucous membranes moist Neck: Present: supple Respiratory: Present: clear Cardiology: Present: edema, regular rate, regular rhythm, normal S1, normal S2 Additional Comments: PD catheter with dressing C/D/I. Nontender abd in surrounding area. There is also a left tunneled dialysis catheter with three lumens and appeared to have clean dressing as well. Mild tenderness palpated along the tunnel site Gastrointestinal: Present: normoactive bowel sounds, no tenderness, obese Integumentary: Present: warm and dry Neurologic: Present: no focal deficit, no asterixis, alert and oriented x3 Musculoskeletal: Present: no erythema, no cyanosis Psychiatric: Present: mood/affect appropriate, cooperative - Lab 12/12/16 05:35 12/12/16 05:35 Most recent lab results Calcium 7.8 mg/dL (8.6-10.8) L 12/10/16 04:14 Phosphorus 3.5 mg/dL (2.3-4.7) 12/07/16 05:36 Magnesium 1.8 mg/dL (1.6-2.6) 12/10/16 04:14 - VTE Documentation of Mechanical Device: Intermittent pneumatic compression device Consult Discharge Plan - Plan Instructions: Diabetes Mellitus Type 2 in Adults (DC), Chronic Hypertension (DC ), Anemia (GEN) Additional Instructions: pls check your blood pressure twice daily, same time in the morning and evening. write down the numbers and bring record to doctor's appointment. Follow up with primary care doctor Referrals: Marcos Pierre MD [Primary Care Provider] - 12/16/16 3:00 pm
[2016-12-11] MEDS: Insulin LISPRO 300 UNITS/3 ML VIAL SQ SCH ×4 (09:31→21:36)
[2016-12-11] MEDS: *HR* Amiodarone 200 MG TABLET PO SCH ×2 (11:11→21:41)
[2016-12-11] MEDS: Magnesium Oxide 400 MG TABLET PO SCH ×2 (11:11→21:41)
[2016-12-11] MEDS: Cholecalciferol (D-3) 1,000 UNIT TABLET PO SCH (11:11)
--- NOTE | 2016-12-11 11:24 | Internal Med Progress Note ---
Date of Encounter: 12/11/16 Time of Encounter: 11:22 - Assessment and plan (1) Symptomatic anemia Current Visit: Yes Status: Acute Assessment and plan: Present with weakness and fatigue for approximately a week. She does have history of anemia. Hemoglobin was 6.3 on admission 12/06. Patient did have a anemic workup last month colonoscopy revealed nonbleeding polyps, anemia related to chronic end-stage renal disease. FOBT is negative. No signs of external bleeding. Anemia likely is secondary to chronic kidney disease. 12/07: Hgb was 6.3 and she received 1 unit PRBC. started on aranesp. 12/11: hgb remains 7-8. hemodynamically stable. close monitor. no bleeding. (2) CKD (chronic kidney disease), stage IV Current Visit: No Status: Chronic Assessment and plan: Patient had placement of PD cath and permacath followed by first dialysis session on 12/08. No PD catheter connector available. Nurse unable to aspirate or flush HD catheter. Appreciate nephrology input. Appreciate surgery input. 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 continue home meds. Qualifiers: Hypertension type: essential hypertension Qualified Code(s): I10 - Essential (primary) hypertension (5) PAF (paroxysmal atrial fibrillation) Current Visit: No Status: Chronic Assessment and plan: Hr is adequate. continue home dose amiodarone, cardizem, metoprolol. - Subjective Interval history: no chest pain. no shortness of breath. - Constitutional Vitals: Temp Pulse Resp BP Pulse Ox 98.0 F 76 16 142/80 95 12/11/16 08:27 12/11/16 08:27 12/11/16 08:27 12/11/16 08:27 12/11/16 08:27 General appearance: Present: cooperative, A&O X 3, morbidly obese, pleasant, no acute distress, answers questions appropriately - Neck Neck exam general surgery: Present: supple, trachea midline - Respiratory Respiratory exam: Present: CTAB - Cardiovascular Cardiovascular exam: Present: RRR - GI/Abdominal GI/Abdominal exam: Present: normal bowel sounds, soft. Absent: distended, tenderness - Extremities Exam Extremities exam: Present: pedal edema - Back Exam Back exam: Absent: CVA tenderness (L), CVA tenderness (R) - Neurological Exam Neurological exam: Present: alert, oriented X3, no focal deficits, strengths equal and symetr throughout. Absent: facial droop, speech deficit - Skin Skin exam: Absent: rash Internal Medicine: Result - Labs CBC & Chem 7: 12/11/16 11:30 12/10/16 04:14 - ABG Interpretation ABG results: PT/INR, D-dimer PT 10.1 Seconds (9.4-12.1) 12/06/16 10:27 - Impressions Impressions Chest X-Ray 12/10/16 13:27 IMPRESSION: Midline positioning of temporary vascular catheter. No pneumothorax. D/ / Tyrese Dunn MD / Tyrese Dunn MD Interpreting Provider: Tyrese Dunn MD - VTE Documentation of Mechanical Device: Intermittent pneumatic compression device Consult Discharge Plan - Plan Instructions: Diabetes Mellitus Type 2 in Adults (DC), Chronic Hypertension (DC ), Anemia (GEN) Additional Instructions: pls check your blood pressure twice daily, same time in the morning and evening. write down the numbers and bring record to doctor's appointment. Follow up with primary care doctor Referrals: Marcos Pierre MD [Primary Care Provider] - 12/16/16 3:00 pm
[2016-12-11 11:55] LABS: Hematocrit 27.2 % (35.3-44.9); Hemoglobin 8.8 g/dL (11.5-15.4); Immature Platelets 3.1 % (1.1-6.1); Mean Corpuscular HGB Conc 32.4 g/dL (31.6-35.5); Mean Corpuscular Hemoglobin 30.1 pg (28.0-33.3); Mean Corpuscular Volume 93.2 fL (83.0-100.0); Mean Platelet Volume 9.5 fL (9.4-12.4); Platelet Count 284 K/mcL (140-400); Red Blood Count 2.92 M/mcL (3.82-4.97); Red Cell Distribution Width 16.4 % (11.5-14.5)
[2016-12-11 13:02] LABS: Eosinophils # 0.1 K/mcL (0.0-0.6); Lymphocytes # 0.3 K/mcL (0.6-4.6); Monocytes # 0.3 K/mcL (0.0-1.3); Neutrophils # 6.8 K/mcL (1.6-8.9); Platelet Estimate Normal (Normal)
[2016-12-11 14:47] LABS: Calcium 8.4 mg/dL (8.6-10.8); Potassium 4.4 mEq/L (3.5-4.5)
[2016-12-11] MEDS: Famotidine 20 MG TABLET PO SCH (18:35)
[2016-12-11] MEDS: Diltiazem CD (24hr) 240 MG CAPSULE PO SCH (18:35)
[2016-12-12] MEDS: [UNRECOGNIZED DRUG - OTHER] PERITONEAL SCH (02:37)
[2016-12-12] MEDS: Gentamicin Oint 15 GM TUBE TP SCH ×2 (02:37→13:10)
[2016-12-12 05:46] LABS: Basophils # 0.1 K/mcL (0.0-0.2); Basophils % 0.7 %; Eosinophils # 0.1 K/mcL (0.0-0.6); Eosinophils % 1.3 %; Hematocrit 24.2 % (35.3-44.9); Hemoglobin 7.9 g/dL (11.5-15.4); Immature Granulocytes % 2.2 % (0-4); Lymphocytes # 0.5 K/mcL (0.6-4.6); Lymphocytes % 6.6 %; Mean Corpuscular HGB Conc 32.6 g/dL (31.6-35.5); Mean Corpuscular Hemoglobin 30.7 pg (28.0-33.3); Mean Corpuscular Volume 94.2 fL (83.0-100.0); Mean Platelet Volume 9.9 fL (9.4-12.4); Monocytes # 0.8 K/mcL (0.0-1.3); Neutrophils # 5.3 K/mcL (1.6-8.9); Platelet Count 208 K/mcL (140-400); Red Blood Count 2.57 M/mcL (3.82-4.97); Red Cell Distribution Width 16.4 % (11.5-14.5); Segmented Neutrophils % 78.2 %
[2016-12-12 05:58] LABS: Calcium 8.3 mg/dL (8.6-10.8); Potassium 3.8 mEq/L (3.5-4.5)
[2016-12-12] MEDS: Insulin LISPRO 300 UNITS/3 ML VIAL SQ SCH ×4 (07:27→20:40)
[2016-12-12] MEDS: *HR* Amiodarone 200 MG TABLET PO SCH ×2 (09:34→20:47)
[2016-12-12] MEDS: Cholecalciferol (D-3) 1,000 UNIT TABLET PO SCH (09:34)
[2016-12-12] MEDS: Magnesium Oxide 400 MG TABLET PO SCH ×2 (09:34→20:46)
--- NOTE | 2016-12-12 11:19 | Nephrology Progress Note ---
Date of Encounter: 12/12/16 Time of Encounter: 08:45 - Assessment and Plan (1) ESRD (end stage renal disease) on dialysis Current Visit: Yes Status: Acute Due to the Dialysis catheter not working and her associated pain from it, we have started PD. The outpt HD RN from [facility] was able to deliver the transefer set (the converter), and started 500mL fills while supine. No leaking and she appears to be tolerating PD thus far. Will uptitrate to 1000mL fills today of 2.5% Dianeal. If she continues to tolerate, then tomorrow, she may be able to progress to 2000mL fills. If so, then I would also have the Tunneled dialysis catheter removed before discharge. The outpt [facility] RN said that between her and her assistant distribution manager, that the pt should be able to immediately continue outpt PD training upon discharge. Progression to ESRD. 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 Remains on MMF, but I rec starting the weaning and will decrease to 500mg po bid. Hx of metabolic acidosis from CKD, but now that she's receiving INSURANCE [employer]ODUCER, no need for sodium bicarb Anemia of chronic disease: goal Hgb 10-11. CRISTI and / or periodic IV iron Dialysis access: S Renal diet with high protein: goal serum Albumin 4 (2) Anemia of chronic disease Current Visit: Yes Status: Chronic (3) Fibrillary glomerulonephritis Current Visit: Yes Status: Chronic (4) HTN (hypertension) Current Visit: Yes Status: Chronic Qualifiers: Hypertension type: essential hypertension Qualified Code(s): I10 - Essential (primary) hypertension (5) Metabolic acidosis Current Visit: No Status: Chronic Subjective Principal diagnosis: Anemia, Uremic symptoms Interval history: Pt was s/e. She did not affirm N/V/D. She denied abd pain, leaking fluid from the PD ports. She did not affirm uremic complaints. Objective - Vital Signs Vital signs: Vital Signs Temp Pulse Resp BP Pulse Ox 12/12/16 07:56 97.9 F 65 16 153/71 94 12/12/16 04:33 97.8 F 60 16 137/73 95 12/12/16 00:04 97.7 F 66 16 131/64 96 12/11/16 20:26 98.4 F 71 18 159/67 96 12/11/16 16:09 98.1 F 67 16 166/75 100 12/11/16 11:40 98.2 F 74 18 158/80 92 12/11/16 11:23 95 Intake and Output 12/11/16 12/12/16 12/12/16 23:59 07:59 15:59 Intake Total 960 / 960 0 / 0 Output Total 200 / 200 0 / 0 Balance 960 / 960 -200 / -200 0 / 0 Intake: Oral 960 / 960 0 / 0 Output: Urine 200 / 200 0 / 0 Other: Meal Lunch Percent of Meal Consumed 100% Total Peritoneal Dialysis 320 Output # Voids 4 Weight 242.6 kg Blood Glucose* 193 127 174 Patient Weight 12/12/16 23:59 Weight 242.6 kg - General Appearance Exam: General appearance: Present: well-developed, well-nourished, appears started age , obese EENT: Present: ATNC, PERRL, mucous membranes moist Neck: Present: supple Respiratory: Present: clear Cardiology: Present: edema, regular rate, regular rhythm, normal S1, normal S2 Additional Comments: PD catheter with dressing C/D/I. Nontender abd in surrounding area. There is also a left tunneled dialysis catheter with three lumens and appeared to have clean dressing as well. Mild tenderness palpated along the tunnel site Gastrointestinal: Present: normoactive bowel sounds, no tenderness, obese Integumentary: Present: warm and dry Neurologic: Present: no focal deficit, no asterixis, alert and oriented x3 Musculoskeletal: Present: no erythema, no cyanosis Psychiatric: Present: mood/affect appropriate, cooperative - Lab 12/12/16 05:35 12/12/16 05:35 Most recent lab results Calcium 8.3 mg/dL (8.6-10.8) L 12/12/16 05:35 Phosphorus 3.5 mg/dL (2.3-4.7) 12/07/16 05:36 Magnesium 1.8 mg/dL (1.6-2.6) 12/10/16 04:14 - VTE Documentation of Mechanical Device: Intermittent pneumatic compression device Consult Discharge Plan - Plan Instructions: Diabetes Mellitus Type 2 in Adults (DC), Chronic Hypertension (DC ), Anemia (GEN) Additional Instructions: pls check your blood pressure twice daily, same time in the morning and evening. write down the numbers and bring record to doctor's appointment. Follow up with primary care doctor Referrals: Marcos Pierre MD [Primary Care Provider] - 12/16/16 3:00 pm
--- NOTE | 2016-12-12 11:41 | Internal Med Progress Note ---
Date of Encounter: 12/12/16 Time of Encounter: 09:45 - Assessment and plan (1) CKD (chronic kidney disease), stage IV Current Visit: No Status: Chronic Assessment and plan: Patient had placement of PD cath and permacath followed by first dialysis session on 12/08. Appreciate nephrology input. Appreciate surgery input. HD permacath stopped working on 12/10 after two dialysis sessions. She started PD yesterday. continue PD. (2) Symptomatic anemia Current Visit: Yes Status: Acute Assessment and plan: Present with weakness and fatigue for approximately a week. She does have history of anemia. Hemoglobin was 6.3 on admission 12/06. Patient did have a anemic workup last month colonoscopy revealed nonbleeding polyps, anemia related to chronic end-stage renal disease. FOBT is negative. No signs of external bleeding. Anemia likely is secondary to chronic kidney disease. 12/07: Hgb was 6.3 and she received 1 unit PRBC. started on aranesp. 12/12: hgb remains 7.9. hemodynamically stable. close monitor. no bleeding. 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 continue home meds. Qualifiers: Hypertension type: essential hypertension Qualified Code(s): I10 - Essential (primary) hypertension (5) PAF (paroxysmal atrial fibrillation) Current Visit: No Status: Chronic Assessment and plan: Hr is adequate. continue home dose amiodarone, cardizem, metoprolol. - Subjective Interval history: no chest pain. no shortness of breath. no bleeding. - Constitutional Vitals: Temp Pulse Resp BP Pulse Ox 97.7 F 67 17 159/77 92 12/12/16 11:25 12/12/16 11:25 12/12/16 11:25 12/12/16 11:25 12/12/16 11:25 General appearance: Present: cooperative, A&O X 3, morbidly obese, pleasant, no acute distress, answers questions appropriately - Neck Neck exam general surgery: Present: supple, trachea midline. Absent: nuchal rigidity - Respiratory Respiratory exam: Present: CTAB - Cardiovascular Cardiovascular exam: Present: RRR - GI/Abdominal GI/Abdominal exam: Present: normal bowel sounds, soft. Absent: distended, tenderness - Extremities Exam Extremities exam: Present: pedal edema (ankle) - Back Exam Back exam: Absent: CVA tenderness (L), CVA tenderness (R) - Neurological Exam Neurological exam: Present: alert, oriented X3, no focal deficits, strengths equal and symetr throughout. Absent: facial droop, speech deficit Internal Medicine: Result - Labs CBC & Chem 7: 12/12/16 05:35 12/12/16 05:35 Labs: Short CBC 12/11/16 12/12/16 Range/Units 11:30 05:35 WBC 7.5 6.8 (4.3-11.1) K/mcL Hgb 8.8 L 7.9 L (11.5-15.4) g/dL Hct 27.2 L 24.2 L (35.3-44.9) % Plt Count 284 208 (140-400) K/mcL Neutrophils # 6.8 5.3 (1.6-8.9) K/mcL BMP 12/11/16 12/12/16 13:00 05:35 Sodium 137 138 Potassium 4.4 3.8 Chloride 100 101 Carbon Dioxide 27 28 BUN 19 28 H Creatinine 3.50 H 4.31 H Glucose 151 H 141 H Calcium 8.4 L 8.3 L - ABG Interpretation ABG results: PT/INR, D-dimer PT 10.1 Seconds (9.4-12.1) 12/06/16 10:27 - VTE Documentation of Mechanical Device: Intermittent pneumatic compression device Consult Discharge Plan - Plan Instructions: Diabetes Mellitus Type 2 in Adults (DC), Chronic Hypertension (DC ), Anemia (GEN) Additional Instructions: pls check your blood pressure twice daily, same time in the morning and evening. write down the numbers and bring record to doctor's appointment. Follow up with primary care doctor Referrals: Marcos Pierre MD [Primary Care Provider] - 12/16/16 3:00 pm
[2016-12-12] MEDS: [UNRECOGNIZED DRUG - OTHER] PERITONEAL SCH ×2 (12:45→20:47)
[2016-12-12] MEDS: DEXTROSE PERITONEAL SCH ×2 (12:45→20:47)
[2016-12-12] MEDS: Ondansetron 4 MG/2 ML VIAL IVP PRN (16:40)
[2016-12-12] MEDS: Famotidine 20 MG TABLET PO SCH (18:19)
[2016-12-12] MEDS: Sennosides/Docusate Sodium TABLET PO SCH ×2 (18:19→20:47)
[2016-12-12] MEDS: Diltiazem CD (24hr) 240 MG CAPSULE PO SCH (18:19)
[2016-12-12] MEDS ORDERED: Gentamicin Oint 15 GM TUBE TP SCH (19:00)
[2016-12-13] MEDS: [UNRECOGNIZED DRUG - OTHER] PERITONEAL SCH ×4 (02:21→20:32)
[2016-12-13] MEDS: DEXTROSE PERITONEAL SCH ×4 (02:21→20:32)
[2016-12-13] MEDS: Gentamicin Oint 15 GM TUBE TP SCH ×2 (02:22→09:11)
[2016-12-13] MEDS: Ondansetron 4 MG/2 ML VIAL IVP PRN ×2 (02:49→08:46)
[2016-12-13 03:21] LABS: Basophils % 0.5 %; Eosinophils # 0.1 K/mcL (0.0-0.6); Eosinophils % 1.1 %; Hematocrit 24.5 % (35.3-44.9); Hemoglobin 7.8 g/dL (11.5-15.4); Immature Granulocytes % 2.1 % (0-4); Lymphocytes # 0.5 K/mcL (0.6-4.6); Mean Corpuscular HGB Conc 31.8 g/dL (31.6-35.5); Mean Corpuscular Volume 94.2 fL (83.0-100.0); Mean Platelet Volume 9.7 fL (9.4-12.4); Monocytes # 0.8 K/mcL (0.0-1.3); Neutrophils # 4.8 K/mcL (1.6-8.9); Platelet Count 258 K/mcL (140-400); Red Cell Distribution Width 16.1 % (11.5-14.5); Segmented Neutrophils % 76.3 %
[2016-12-13 03:27] LABS: INR 0.9; Prothrombin Time 10.1 Seconds (9.4-12.1)
[2016-12-13 03:35] LABS: Calcium 8.7 mg/dL (8.6-10.8); Magnesium 1.8 mg/dL (1.6-2.6); Potassium 3.9 mEq/L (3.5-4.5)
[2016-12-13] MEDS: Sennosides/Docusate Sodium TABLET PO SCH ×2 (08:49→20:31)
[2016-12-13] MEDS: Magnesium Oxide 400 MG TABLET PO SCH ×2 (08:49→20:31)
[2016-12-13] MEDS: Cholecalciferol (D-3) 1,000 UNIT TABLET PO SCH (08:49)
[2016-12-13] MEDS: *HR* Amiodarone 200 MG TABLET PO SCH ×2 (08:49→20:31)
[2016-12-13] MEDS: Insulin LISPRO 300 UNITS/3 ML VIAL SQ SCH ×4 (08:50→21:02)
--- NOTE | 2016-12-13 11:22 | Internal Med Progress Note ---
Date of Encounter: 12/13/16 Time of Encounter: 11:20 - Assessment and plan (1) CKD (chronic kidney disease), stage IV Current Visit: No Status: Chronic Assessment and plan: Patient had placement of PD cath and permacath followed by first dialysis session on 12/08. Appreciate nephrology and surgery input. HD permacath stopped working on 12/10 after two dialysis sessions. She started PD om 12/11. continue PD. (2) Symptomatic anemia Current Visit: Yes Status: Acute Assessment and plan: Present with weakness and fatigue for approximately a week. She does have history of anemia. Hemoglobin was 6.3 on admission 12/06. Patient did have a anemic workup last month colonoscopy revealed nonbleeding polyps, anemia related to chronic end-stage renal disease. FOBT is negative. No signs of external bleeding. Anemia likely is secondary to chronic kidney disease. 12/07: Hgb was 6.3 and she received 1 unit PRBC. started on aranesp. 12/13: hgb is 7.8. hemodynamically stable. close monitor. no bleeding. 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 continue home meds. Qualifiers: Hypertension type: essential hypertension Qualified Code(s): I10 - Essential (primary) hypertension (5) PAF (paroxysmal atrial fibrillation) Current Visit: No Status: Chronic Assessment and plan: Hr is adequate. continue home dose amiodarone, cardizem, metoprolol. - Subjective Interval history: no complains. she is eager to go home. - Constitutional Vitals: Temp Pulse Resp BP Pulse Ox 97.6 F 66 18 139/73 96 12/13/16 10:53 12/13/16 10:53 12/13/16 10:53 12/13/16 10:53 12/13/16 10:53 General appearance: Present: cooperative, A&O X 3, morbidly obese, pleasant, no acute distress, answers questions appropriately - Neck Neck exam general surgery: Present: supple, trachea midline. Absent: lymphadenopathy - Respiratory Respiratory exam: Present: CTAB - Cardiovascular Cardiovascular exam: Present: RRR - GI/Abdominal GI/Abdominal exam: Present: normal bowel sounds, soft. Absent: distended, tenderness - Extremities Exam Extremities exam: Present: pedal edema (ankle) - Back Exam Back exam: Absent: CVA tenderness (L), CVA tenderness (R) - Neurological Exam Neurological exam: Present: alert, oriented X3, no focal deficits, strengths equal and symetr throughout. Absent: facial droop, speech deficit - Skin Skin exam: Absent: rash Internal Medicine: Result - Labs CBC & Chem 7: 12/13/16 03:10 12/13/16 03:10 Labs: Short CBC 12/13/16 Range/Units 03:10 WBC 6.2 (4.3-11.1) K/mcL Hgb 7.8 L (11.5-15.4) g/dL Hct 24.5 L (35.3-44.9) % Plt Count 258 (140-400) K/mcL Neutrophils # 4.8 (1.6-8.9) K/mcL BMP 12/13/16 03:10 Sodium 138 Potassium 3.9 Chloride 101 Carbon Dioxide 28 BUN 27 H Creatinine 4.29 H Glucose 131 H Calcium 8.7 - ABG Interpretation ABG results: PT/INR, D-dimer PT 10.1 Seconds (9.4-12.1) 12/13/16 03:10 - VTE Documentation of Mechanical Device: Intermittent pneumatic compression device Consult Discharge Plan - Plan Instructions: Diabetes Mellitus Type 2 in Adults (DC), Chronic Hypertension (DC ), Anemia (GEN) Additional Instructions: pls check your blood pressure twice daily, same time in the morning and evening. write down the numbers and bring record to doctor's appointment. Follow up with primary care doctor Referrals: Marcos Pierre MD [Primary Care Provider] - 12/16/16 3:00 pm
[2016-12-13] MEDS ORDERED: *HR* Promethazine 25 MG/ML VIAL IVP PRN (13:24)
--- NOTE | 2016-12-13 13:47 | General Surgery Progress Note ---
Date of Encounter: 12/13/16 Time of Encounter: 12:45 - Assessment and Plan (1) ESRD (end stage renal disease) on dialysis Current Visit: Yes Status: Acute Discussed plan of care with nephrology: Continue to use PD catheter as patient is tolerating- slowly increasing volumes to goal Complete US of left chest wall to r/o DVT today Tentatively plan to remove temporary HD catheter in the next 24 hours as long as patient continues to tolerate PD Subjective Patient reports: nausea, afebrile, other (Patient states that she is tolerating PD without difficulty and her catheter has been working well.) Objective Vital Signs - Last 8 Hours Temp Pulse Resp BP Pulse Ox 12/13/16 10:53 97.6 F 66 18 139/73 96 12/13/16 06:51 98.5 F 69 18 138/71 96 Intake and Output 12/12/16 12/13/16 12/13/16 23:59 07:59 15:59 Intake Total 560 / 560 150 / 150 Output Total 0 / 0 400 / 400 0 / 0 Balance 560 / 560 -400 / -400 150 / 150 Intake: Oral 560 / 560 150 / 150 Output: Urine 0 / 0 400 / 400 0 / 0 Other: Meal Dinner Lunch Percent of Meal Consumed 70% 0% Total Peritoneal Dialysis 820 40 20 Output Weight 111.402 kg 109.2 kg 111.737 kg Blood Glucose* 142 135 168 Patient Weight 12/13/16 23:59 Weight 111.737 kg - General physical appearance well developed, well nourished, no distress - ENT normal mucosa, atraumatic, normocephalic - Neck Neck exam: trachea midline - Respiratory normal respiratory effort - Abdomen Abdomen: Present: bowel sounds present, soft, non tender, wound (PD catheter C/D /I without surrounding erythema or induration) - Neurologic CN 2-12 grossly intact - Musculoskeletal normal gait, normal posture - Psychiatric oriented to time, oriented to person, oriented to place, speech is normal, memory intact - Labs 12/13/16 03:10 12/13/16 03:10 Diabetes panel 12/13/16 Range/Units 03:10 Sodium 138 (136-145) mEq/L Potassium 3.9 (3.5-4.5) mEq/L Chloride 101 (98-109) mEq/L Carbon Dioxide 28 (19-29) mEq/L BUN 27 H (7-20) mg/dL Creatinine 4.29 H (0.57-1.11) mg/dL Glucose 131 H (70-99) mg/dL Calcium 8.7 (8.6-10.8) mg/dL Calcium panel 12/13/16 Range/Units 03:10 Calcium 8.7 (8.6-10.8) mg/dL Pituitary panel 12/13/16 Range/Units 03:10 Sodium 138 (136-145) mEq/L Potassium 3.9 (3.5-4.5) mEq/L Chloride 101 (98-109) mEq/L Carbon Dioxide 28 (19-29) mEq/L BUN 27 H (7-20) mg/dL Creatinine 4.29 H (0.57-1.11) mg/dL Glucose 131 H (70-99) mg/dL Calcium 8.7 (8.6-10.8) mg/dL Adrenal panel 12/13/16 Range/Units 03:10 Sodium 138 (136-145) mEq/L Potassium 3.9 (3.5-4.5) mEq/L Chloride 101 (98-109) mEq/L Carbon Dioxide 28 (19-29) mEq/L BUN 27 H (7-20) mg/dL Creatinine 4.29 H (0.57-1.11) mg/dL Glucose 131 H (70-99) mg/dL Calcium 8.7 (8.6-10.8) mg/dL - VTE Documentation of Mechanical Device: Intermittent pneumatic compression device Consult Discharge Plan - Plan Instructions: Diabetes Mellitus Type 2 in Adults (DC), Chronic Hypertension (DC ), Anemia (GEN) Additional Instructions: pls check your blood pressure twice daily, same time in the morning and evening. write down the numbers and bring record to doctor's appointment. Follow up with primary care doctor Referrals: Marcos Pierre MD [Primary Care Provider] - 12/16/16 3:00 pm
--- NOTE | 2016-12-13 16:40 | Nephrology Progress Note ---
Date of Encounter: 12/13/16 Time of Encounter: 16:37 - Assessment and Plan (1) ESRD (end stage renal disease) on dialysis Current Visit: Yes Status: Acute Patient with ESRD. HD was unsuccessful secondary to a poorly functioning line. CAPD seems to be going well. Anticipate removal of HD line Tuesday and possible discharge. Will increase dwell volume from 1000cc/exchange to 1500cc/exchange. (2) Anemia of chronic disease Current Visit: Yes Status: Chronic on aranesp. (3) HTN (hypertension) Current Visit: Yes Status: Chronic Blood pressure controlled. Monitor and adjust medication as needed. Qualifiers: Hypertension type: essential hypertension Qualified Code(s): I10 - Essential (primary) hypertension Subjective Principal diagnosis: Anemia, Uremic symptoms Interval history: Mrs. Oreilly claims to be in her usual state of health. She has chronic nausea especially in the am. She denies having problems with her CAPD site or abdominal discomfort. Her ROS otherwise is stable. Objective - Vital Signs Vital signs: Vital Signs Temp Pulse Resp BP Pulse Ox 12/13/16 15:41 98.3 F 63 18 162/75 97 12/13/16 10:53 97.6 F 66 18 139/73 96 12/13/16 06:51 98.5 F 69 18 138/71 96 12/13/16 05:43 97.7 F 70 16 139/72 96 12/13/16 00:56 98.2 F 69 16 137/76 94 12/12/16 20:30 98.2 F 71 16 160/78 96 Intake and Output 12/13/16 12/13/16 12/13/16 07:59 15:59 23:59 Intake Total 150 / 150 Output Total 400 / 400 0 / 0 Balance -400 / -400 150 / 150 Intake: Oral 150 / 150 Output: Urine 400 / 400 0 / 0 Other: Meal Lunch Percent of Meal Consumed 0% Total Peritoneal Dialysis 40 -240 Output Weight 109.2 kg 110.858 kg Blood Glucose* 135 133 Patient Weight 12/13/16 23:59 Weight 110.858 kg - General Appearance General appearance: Present: well-developed, well-nourished EENT: Present: ATNC Neck: Present: supple Respiratory: Present: clear Cardiology: Present: edema, regular rate Additional Comments: CAPD catheter. Gastrointestinal: Present: no tenderness Integumentary: Present: warm and dry Neurologic: Present: alert and oriented x3 Musculoskeletal: Present: no cyanosis Psychiatric: Present: mood/affect appropriate - Lab 12/13/16 03:10 12/13/16 03:10 Most recent lab results Calcium 8.7 mg/dL (8.6-10.8) 12/13/16 03:10 Phosphorus 3.5 mg/dL (2.3-4.7) 12/07/16 05:36 Magnesium 1.8 mg/dL (1.6-2.6) 12/13/16 03:10 - VTE Documentation of Mechanical Device: Intermittent pneumatic compression device Consult Discharge Plan - Plan Instructions: Diabetes Mellitus Type 2 in Adults (DC), Chronic Hypertension (DC ), Anemia (GEN) Additional Instructions: pls check your blood pressure twice daily, same time in the morning and evening. write down the numbers and bring record to doctor's appointment. Follow up with primary care doctor Referrals: Marcos Pierre MD [Primary Care Provider] - 12/16/16 3:00 pm
[2016-12-13] MEDS: Diltiazem CD (24hr) 240 MG CAPSULE PO SCH (17:17)
[2016-12-13] MEDS: Famotidine 20 MG TABLET PO SCH (17:17)
[2016-12-14] MEDS: DEXTROSE PERITONEAL SCH (03:52)
[2016-12-14] MEDS: [UNRECOGNIZED DRUG - OTHER] PERITONEAL SCH (03:52)
[2016-12-14] MEDS: Gentamicin Oint 15 GM TUBE TP SCH ×2 (03:52→09:51)
[2016-12-14 04:17] LABS: Basophils # 0.1 K/mcL (0.0-0.2); Basophils % 0.8 %; Eosinophils # 0.1 K/mcL (0.0-0.6); Eosinophils % 0.8 %; Hematocrit 23.1 % (35.3-44.9); Hemoglobin 7.5 g/dL (11.5-15.4); Immature Granulocytes % 2.4 % (0-4); Lymphocytes # 0.7 K/mcL (0.6-4.6); Lymphocytes % 11.5 %; Mean Corpuscular HGB Conc 32.5 g/dL (31.6-35.5); Mean Corpuscular Hemoglobin 30.2 pg (28.0-33.3); Mean Corpuscular Volume 93.1 fL (83.0-100.0); Mean Platelet Volume 9.5 fL (9.4-12.4); Monocytes # 0.9 K/mcL (0.0-1.3); Monocytes % 14.7 %; Neutrophils # 4.1 K/mcL (1.6-8.9); Platelet Count 224 K/mcL (140-400); Red Blood Count 2.48 M/mcL (3.82-4.97); Segmented Neutrophils % 69.8 %
[2016-12-14 04:30] LABS: Calcium 8.5 mg/dL (8.6-10.8); Magnesium 1.8 mg/dL (1.6-2.6); Potassium 3.6 mEq/L (3.5-4.5)
[2016-12-14] MEDS ORDERED: [UNRECOGNIZED DRUG - OTHER] PERITONEAL SCH ×3 (04:30→12:00)
[2016-12-14] MEDS ORDERED: DEXTROSE PERITONEAL SCH ×3 (04:30→12:00)
[2016-12-14] MEDS: Insulin LISPRO 300 UNITS/3 ML VIAL SQ SCH ×2 (08:12→12:38)
[2016-12-14] MEDS: Magnesium Oxide 400 MG TABLET PO SCH (09:52)
[2016-12-14] MEDS: *HR* Amiodarone 200 MG TABLET PO SCH (09:52)
[2016-12-14] MEDS: Cholecalciferol (D-3) 1,000 UNIT TABLET PO SCH (09:52)
[2016-12-14] MEDS: Sennosides/Docusate Sodium TABLET PO SCH (09:52)
--- NOTE | 2016-12-14 10:08 | Nephrology Progress Note ---
Date of Encounter: 12/14/16 Time of Encounter: 10:04 - Assessment and Plan (1) ESRD (end stage renal disease) on dialysis Current Visit: Yes Status: Acute CAPD going well; plan to increase dwell volume from 1000cc/exchange to 1500cc/ exchange From a kidney standpoint, once her HD line has been removed she could be discharged. Michelle RN-PD nurse with [facility] has made room in her schedule to work with patient once she is discharged. Cotinue renal diet (2) Anemia of chronic disease Current Visit: Yes Status: Chronic hgb 7.5 Goal 10-11 (3) HTN (hypertension) Current Visit: Yes Status: Chronic per primary team Blood pressure controlled at this time Qualifiers: Hypertension type: essential hypertension Qualified Code(s): I10 - Essential (primary) hypertension Subjective Principal diagnosis: Anemia, Uremic symptoms Interval history: Patient seen and examined. Doing well. Objective - Vital Signs Vital signs: Vital Signs Temp Pulse Resp BP Pulse Ox 12/14/16 08:03 98.6 F 79 16 171/75 93 12/14/16 03:24 98 F 66 17 147/68 95 12/13/16 23:10 98.6 F 67 16 153/70 94 12/13/16 20:29 98.2 F 72 16 155/76 93 12/13/16 15:41 98.3 F 63 18 162/75 97 12/13/16 10:53 97.6 F 66 18 139/73 96 Intake and Output 12/13/16 12/14/16 12/14/16 23:59 07:59 15:59 Intake Total 50 / 50 240 / 240 Output Total 0 / 0 400 / 400 Balance 50 / 50 -400 / -400 240 / 240 Intake: Oral 50 / 50 240 / 240 Output: Urine 0 / 0 400 / 400 Other: Meal Breakfast Percent of Meal Consumed 100% Total Peritoneal Dialysis 360 -440 Output Weight 110.858 kg 110.132 kg Blood Glucose* 157 113 Patient Weight 12/14/16 23:59 Weight 110.132 kg - General Appearance General appearance: Present: well-developed, well-nourished, obese EENT: Present: ATNC, mucous membranes moist, hearing intact, vision intact Neck: Present: supple Respiratory: Present: clear Cardiology: Present: edema, normal S1, normal S2 Dialysis Vascular Access: Venous Catheter Gastrointestinal: Present: no tenderness, no guarding, obese Integumentary: Present: warm and dry Neurologic: Present: alert and oriented x3 Psychiatric: Present: mood/affect appropriate, cooperative - Lab 12/14/16 04:05 12/14/16 04:05 Most recent lab results Calcium 8.5 mg/dL (8.6-10.8) L 12/14/16 04:05 Phosphorus 3.5 mg/dL (2.3-4.7) 12/07/16 05:36 Magnesium 1.8 mg/dL (1.6-2.6) 12/14/16 04:05 - VTE Documentation of Mechanical Device: Intermittent pneumatic compression device Consult Discharge Plan - Plan Instructions: Diabetes Mellitus Type 2 in Adults (DC), Chronic Hypertension (DC ), Anemia (GEN) Additional Instructions: pls check your blood pressure twice daily, same time in the morning and evening. write down the numbers and bring record to doctor's appointment. Follow up with primary care doctor Referrals: Marcos Pierre MD [Primary Care Provider] - 12/16/16 3:00 pm
--- NOTE | 2016-12-14 11:01 | Event Note ---
Date of Encounter: 12/14/16 Time of Encounter: 10:00 Discussed the patient's case with Dr. Barnes. Patient is tolerating PD without difficulty. Doppler negative for DVT. Temporary HD cath removed without difficulty and patient tolerated well. Occlusive, dry dressing applied and patient instructed that she may remove in 24 hours. No complications noted. Patient may follow-up as needed in the surgical office.
[2016-12-14 11:25] VITALS: BP 160/82
--- NOTE | 2016-12-14 12:25 | Venous Imaging Report ---
UE Venous Duplex Patient Name:Natalia Oreilly Order Number:[id number] Procedure Date:12/13/2016 Date:1950Age:66 yrs Gender:Female Location:[facility] Room #: 2A62 Information Manager:Almita Ibarra Referring MD:Juan Cook DO surveillance sensor operator:Marcos Pierre MD Reading MD:Fredi yAoub MD Primary Indications:Checking for IJV thrombus Secondary Indications: Impressions: Normal left upper extremity deep and superficial venous exam. Normal contralateral subclavian vein. Findings Prior Study: No prior study available for comparison. Upper Extremity Venous Duplex Side Vein Compress Spontaneous Flow Augment Left Jugular Normal Yes Phasic Yes Left Subclavian Normal Yes Phasic Yes Left Axillary Normal Yes Phasic Yes Left Brachial Normal Yes Phasic Yes Left Cephalic Normal Yes Phasic Yes Left Basilic Normal Yes Phasic Yes Left Radial Normal Yes Phasic Yes Left Ulnar Normal Yes Phasic Yes Right Subclavian Normal Yes Phasic Yes Updated by Fredi Ayoub MD on 12/14/2016 12:19:08 PM electronically signed on 12/14/2016 12:19:24 PM with status of Final
--- NOTE | 2016-12-14 13:28 | Discharge Summary ---
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 (5) Diabetes mellitus Priority: Secondary Status: Chronic Qualifiers: Diabetes mellitus type: type 2 Diabetes mellitus complication status: with unspecified complications Diabetes mellitus assisted insulin use: without assisted use Qualified Code(s): E11.8 - Type 2 diabetes mellitus with unspecified complications - Discharge Medications Home Medications: Levothyroxine [Synthroid] 112 mcg PO DAILY 11/25/15 [History] Famotidine [Pepcid] 20 mg PO QPM 10/05/16 [History] Cholecalciferol (D-3) [Vitamin D] 2,000 unit PO DAILY #30 tablet 10/12/16 [Rx] GlipiZIDE [Glipizide Xl] 5 mg PO DAILY #30 tab.er.24 10/12/16 [Rx] LORazepam [Ativan] 0.5 mg PO BID PRN #30 tablet 10/12/16 [Rx] Magnesium Oxide [Mag-Ox] 400 mg PO BID #60 tablet 10/12/16 [Rx] Furosemide [Lasix] 20 mg PO DAILY PRN 10/24/16 [History] Sennosides/Docusate Sodium [Senna Plus] 1 - 22 tab PO BID 10/24/16 [History] Aspirin Enteric Coated [Aspirin EC] 81 mg PO DAILY #30 tablet. 10/30/16 [Rx] Hydralazine HCl 50 mg PO BID PRN #60 tablet 10/30/16 [Rx] Metoprolol [Lopressor] 25 mg PO BID #60 tablet 10/30/16 [Rx] Amiodarone [Cordarone] 200 mg PO BID 12/06/16 [History] Diltiazem HCl [Diltiazem 24Hr Cd] 240 mg PO 1800 12/06/16 [History] Darbepoetin [Aranesp] 40 mcg SQ QWEEK #0 syringe 12/10/16 [Rx] Mycophenolate Mofetil [Cellcept] 500 mg PO BID #60 12/14/16 [Rx] Allergies/Adverse Reactions: Allergies codeine Adverse Reaction (Verified 10/24/16 00:46) Vomiting Procedures/tests Complete & Pending: Procedures Performed prior 72 hours Category Date Time Status Venous Doppler [EV venous imaging UE RT] Stat Y 12/13/16 13:45 Completed Date of admission: 12/07/16 10:40 Primary care physician: Marcos Pierre MD Consults: 12/07/16 14:44 Consult to Invasive Line Access Team [CONS] Routine Reason for Consult: Poor vascular Line Type: EPIV 12/08/16 10:15 Consult to Dialysis [CONS] ONCE 12/09/16 09:00 Consult to Dialysis [CONS] ONCE 12/10/16 09:00 Consult to Dialysis [CONS] ONCE 12/10/16 09:45 Consult to Dialysis [CONS] ONCE - Patient Status Disposition: Home Health Service Condition: Good Overall status at discharge: patient is progressing back to baseline - Discharge Instructions Instructions: Diabetes Mellitus Type 2 in Adults (DC), Chronic Hypertension (DC ), Anemia (GEN) Follow Up With: Marcos Pierre MD [Primary Care Provider] - 12/16/16 3:00 pm Additional Instructions: pls check your blood pressure twice daily, same time in the morning and evening. write down the numbers and bring record to doctor's appointment. Follow up with primary care doctor within the next 7 days. Follow-up with nephrology within the next week for peritoneal dialysis training. Discontinue sodium bicarbonate, mycophenolate mofetil was decreased down to 500 mg twice a day. - Diet and Activity Activity: increase activity as tolerated Diet: low fat, low cholesterol Hospital course: Ms. 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 Patient presented with weakness and fatigue for approximately a week. Hemoglobin was 6.3 on admission 12/06. Patient did have an anemic workup last month colonoscopy revealed nonbleeding polyps, anemia related to chronic end-stage renal disease. FOBT was negative. No signs of external bleeding. She was transfused 2 units of PRBC and started on aranesp. Anemia is likely secondary to chronic kidney disease. Her hgb remained in the 7- 8 and she was hemodynamically stable. A Permcath and PD catheter were placed and she was started on HD. Progression to ESRD. Underlying etiology is cresentic fibrillary GN s/p pulse dose steroids, short course of Cytoxan (interrupted d/t severe N/V), switched to MMF and has slowly been weaned off oral Prednisone. Mycophenolate mofetil was decreased to 500 mg twice a day. Bicarbonate was discontinued Nephrology recommended to remove perma cath for dialdysis and to continue peritoneal dialysis at home. - Time Spent with Patient Total time spent providing and/or coordinating discharge services: Greater than 30 minutes (40 min) - Constitutional Vitals: Temp Pulse Resp BP Pulse Ox 98.4 F 64 14 160/82 93 12/14/16 11:15 12/14/16 11:15 12/14/16 11:15 12/14/16 11:15 12/14/16 11:15 General appearance: Present: cooperative, A&O X 3, morbidly obese, pleasant, no acute distress, answers questions appropriately - Head Head exam: Present: atraumatic, normocephalic - Eye Eye exam: Present: PERRL, conjuntiva pink, sclera anicteric Pupils: Present: PERRL - Neck Neck exam general surgery: Present: supple, trachea midline. Absent: lymphadenopathy - Respiratory Respiratory exam: Present: chest wall tenderness (Left upper chest small wound from permacath without signs of hematoma or infection), CTAB. Absent: accessory muscle use, rales, rhonchi, wheezes - Cardiovascular Cardiovascular exam: Present: RRR, +S1, +S2. Absent: diastolic murmur, gallop, rubs, systolic murmur - GI/Abdominal GI/Abdominal exam: Present: distended (Peritoneal catheter in place), normal bowel sounds, soft, no peritoneal signs. Absent: tenderness - Extremities Exam Extremities exam: Present: warm, radial pulses palpable and symetrical. Absent : calf tenderness, cyanotic, pedal edema - Neurological Exam Neurological exam: Present: CN II-XII intact, oriented X3, no focal deficits. Absent: pronater drift, facial droop, speech deficit - Skin Skin exam: Present: dry, intact - VTE Documentation of Mechanical Device: Intermittent pneumatic compression device
--- NOTE | 2016-12-14 13:43 | Physician Discharge Referral ---
Home Health/Hosp Referral Info Transfer to: Home Health Provider in Charge Post Discharge: PCP - Diagnosis (1) ESRD (end stage renal disease) on dialysis Status: Acute (2) HTN (hypertension) Status: Chronic (3) Anemia Status: Chronic (4) Fibrillary glomerulonephritis Status: Chronic (5) Diabetes mellitus Status: Chronic - Respiratory Orders Smoking Cessation: Smoking cessation has been advised. For more information, call the [facility] Tobacco Quit Line at 6-089-ALPU-NOW. - Diet/Nutrition Diet/Nutrition Orders: Renal - Activity Activity: List: Follow up with primary care doctor within the next 7 days. Follow-up with nephrology within the next week for peritoneal dialysis training. Discontinue sodium bicarbonate, mycophenolate mofetil was decreased down to 500 mg twice a day. - Transfer Medications Home Medications: Levothyroxine [Synthroid] 112 mcg PO DAILY 11/25/15 [History] Famotidine [Pepcid] 20 mg PO QPM 10/05/16 [History] Cholecalciferol (D-3) [Vitamin D] 2,000 unit PO DAILY #30 tablet 10/12/16 [Rx] GlipiZIDE [Glipizide Xl] 5 mg PO DAILY #30 tab.er.24 10/12/16 [Rx] LORazepam [Ativan] 0.5 mg PO BID PRN #30 tablet 10/12/16 [Rx] Magnesium Oxide [Mag-Ox] 400 mg PO BID #60 tablet 10/12/16 [Rx] Furosemide [Lasix] 20 mg PO DAILY PRN 10/24/16 [History] Sennosides/Docusate Sodium [Senna Plus] 1 - 22 tab PO BID 10/24/16 [History] Aspirin Enteric Coated [Aspirin EC] 81 mg PO DAILY #30 tablet. 10/30/16 [Rx] Hydralazine HCl 50 mg PO BID PRN #60 tablet 10/30/16 [Rx] Metoprolol [Lopressor] 25 mg PO BID #60 tablet 10/30/16 [Rx] Amiodarone [Cordarone] 200 mg PO BID 12/06/16 [History] Diltiazem HCl [Diltiazem 24Hr Cd] 240 mg PO 1800 12/06/16 [History] Darbepoetin [Aranesp] 40 mcg SQ QWEEK #0 syringe 12/10/16 [Rx] Mycophenolate Mofetil [Cellcept] 500 mg PO BID #60 12/14/16 [Rx] Allergies/Adverse Reactions: Allergies codeine Adverse Reaction (Verified 10/24/16 00:46) Vomiting Certification: Further, I certify that my clinical findings support that this patient is homebound (i.e. absences from home require considerable and taxing effort and are for medical reasons or alevism services or infrequently or short duration when for other reasons) because: Homebound Reason: Patient requires assistance of a person or device to safely leave home Attestation: My signature below is to certify that this patient is under my care and that I, or nurse practitioner, or a physician's marketing assistant working with me, has a face-to -face encounter with this patient.
== END 2016-12-14 14:22 | disposition home health service (06) | DRG 981 ==
LOC: EMEROO 10:00 → 2ANU 10:00 → SUATTDRO 12:49 → 2ANU 13:30 → UNDODISIN 12-10 15:49
PROVIDERS: ADMIT Internal Medicine; ATTEND Internal Medicine

== ENCOUNTER 2019-06-24 09:08 | Inpatient (IN) ==
[2019-06-24 09:40] LABS: Bilirubin,Urine Small (Negative); Blood,Urine Large (Negative); Clarity,Urine Turbid (Clear); Color,Urine Yellow (Yellow); Glucose,Urine (UA) 100 mg/dL (Normal); Ketones,Urine Negative (Negative); Leukocyte Esterase,Urine Small (Negative); Nitrite,Urine Negative (Negative); PH,Urine 6.5 pH Units (5.0-8.0); Protein,Urine >=1000 mg/dL (Neg-Trace); Specific Gravity,Urine 1.024 (1.010-1.025); Urobilinogen,Urine Normal (Normal)
[2019-06-24 09:42] LABS: Squamous Epithelial Cell,Urine Many per lpf (None-Few)
[2019-06-24 09:50] LABS: Hyaline Casts,Urine None Seen per lpf (None-Few); RBC,Urine 15-30 per hpf (0-3)
[2019-06-24 09:51] LABS: Bacteria,Urine Moderate per hpf (None-Few)
[2019-06-24] MEDS ORDERED: Promethazine 12.5 MG in 0.9 % Sodium Chloride 50 ML IVPB STA (10:05)
[2019-06-24] MEDS ORDERED: 0.9 % Sodium Chloride 1,000 ML IVC ONE (10:05)
[2019-06-24 10:32] LABS: INR 0.9; Prothrombin Time 10.5 Seconds (9.4-12.1)
[2019-06-24 10:35] LABS: Activated Partial Thrombo Time 25.9 Seconds (26.0-36.0)
[2019-06-24 10:43] LABS: Mean Platelet Volume 10.6 fL (9.4-12.4)
[2019-06-24 10:45] LABS: Hematocrit 30.3 % (35.3-44.9); Hemoglobin 9.8 g/dL (11.5-15.4); Mean Corpuscular HGB Conc 32.3 g/dL (31.6-35.5); Mean Corpuscular Hemoglobin 33.2 pg (28.0-33.3); Mean Corpuscular Volume 102.7 fL (83.0-100.0); Nucleated Red Blood Cells 0.3 /100 WBC (0); Platelet Count 261 K/mcL (140-400); Red Blood Count 2.95 M/mcL (3.82-4.97)
[2019-06-24 10:47] LABS: Albumin 2.9 g/dL (3.5-5.7); Bilirubin,Indirect 0.4 mg/dL (0.0-1.0); Bilirubin,Total 0.4 mg/dL (0.3-1.0); Calcium 7.7 mg/dL (8.6-10.3); Globulin 2.9 g/dL (2.4-3.5); Magnesium 2.1 mg/dL (1.6-2.6); Phosphorous 7.3 mg/dL (2.7-4.5); Potassium 3.8 mEq/L (3.5-5.1); Total Protein 5.8 g/dL (6.4-8.9)
[2019-06-24 10:53] LABS: Troponin I 0.07 ng/mL (< 0.04)
[2019-06-24 10:58] LABS: White Blood Count 35.4 K/mcL (4.3-11.1)
[2019-06-24 11:01] LABS: Eosinophils # 0.7 K/mcL (0.0-0.6); Lymphocytes # 1.4 K/mcL (0.6-4.6); Monocytes # 2.1 K/mcL (0.0-1.3); Neutrophils # 29.7 K/mcL (1.6-8.9); Platelet Estimate Normal (Normal)
[2019-06-24] MEDS ORDERED: cefTRIAXone 2,000 MG in Water for inj. (sterile) 20 ML IVP STA (11:32)
[2019-06-24] MEDS ORDERED: MetroNIDAZOLE 500 MG/100 ML 500 MG/100 ML BAG IVPB ONE (12:25)
[2019-06-24] MEDS ORDERED: *HR* OxyCODONE Immed Rel 5 MG TABLET PO PRN (14:22)
[2019-06-24] MEDS ORDERED: *HR* HYDROcodone/Acet 5/325 mg TABLET PO PRN (14:22)
[2019-06-24] MEDS ORDERED: Naloxone 0.4 MG/ML INJ IVP PRN (14:22)
[2019-06-24] MEDS ORDERED: *HR* Metoprolol 5 MG/5 ML VIAL IVP PRN (14:26)
[2019-06-24 14:30] LABS: Appearance of Peritoneal Fl CLOUDY (Clear); Volume of Peritoneal Fluid 2.5 mL
[2019-06-24] MEDS ORDERED: Ringers Solution, Lactated 1,000 ML IVC SCH (14:30)
[2019-06-24 15:12] LABS: Adenovirus F 40/41 PCR Not detected (Not detect); Astrovirus PCR Not detected (Not detect); C.difficile Toxin A/B Gene PCR DETECTED (Not detect); Campylobacter by PCR Not detected (Not detect); Cryptosporidium by PCR Not detected (Not detect); Cyclospora cayetanensis PCR Not detected (Not detect); E. coli O157 by PCR Not detected (Not detect); Entamoeba histolytica PCR Not detected (Not detect); Enteroaggregative E.coli(EAEC) Not detected (Not detect); Enteropathogenic E.coli(EPEC) Not detected (Not detect); Enterotoxigenic E.coli (ETEC) Not detected (Not detect); Giardia lamblia PCR Not detected (Not detect); Norovirus GI/GII PCR Not detected (Not detect); Plesiomonas shigelloides PCR Not detected (Not detect); Rotavirus A PCR Not detected (Not detect); Salmonella PCR Not detected (Not detect); Sapovirus PCR Not detected (Not detect); Shig/EnteroinvasiveE coli EIEC Not detected (Not detect); Shigalike tox-prod E coli STEC Not detected (Not detect); Vibrio PCR Not detected (Not detect); Vibrio cholerae PCR Not detected (Not detect); Yersinia enterocolitica PCR Not detected (Not detect)
[2019-06-24 16:03] LABS: Hepatitis B Surface Antibody < 3.10 mIU/mL
[2019-06-24 16:13] LABS: Hepatitis B Surface Antigen Nonreactive (Nonreactive)
[2019-06-24] MEDS: Piperacillin/Tazobactam 3.375 GM in 0.9 % Sodium Chloride Mini Bag 100 ML IVPB SCH (16:45)
[2019-06-24] MEDS: *HR* Heparin 5,000 UNIT/ML VIAL SQ SCH (16:50)
[2019-06-24] MEDS: Vancomycin Oral Soln 125 MG/2.5 ML UDC PO SCH ×3 (17:10→20:30)
[2019-06-24] MEDS: Insulin LISPRO 300 UNITS/3 ML VIAL SQ SCH ×2 (17:52→20:21)
[2019-06-24] MEDS: Diltiazem CD (24hr) 120 MG CAPSULE PO SCH (18:44)
[2019-06-24] MEDS: Famotidine 20 MG TABLET PO SCH (18:44)
[2019-06-24] MEDS ORDERED: Perit. Dialysis with Dex 2.5 % 12,000 ML PERITONEAL ONE (19:00)
[2019-06-24] MEDS ORDERED: Perit. Dialysis with Dex 1.5 % 6,000 ML PERITONEAL ONE (19:00)
[2019-06-24] MEDS ORDERED: Perit. Dialysis with Dex 2.5 % 6,000 ML PERITONEAL ONE (19:00)
[2019-06-24] MEDS: Lactobacillus 1 EACH CAP.SPRINK PO SCH (20:29)
[2019-06-24] MEDS: Sennosides/Docusate Sodium TABLET PO SCH (20:29)
[2019-06-25] MEDS: Calcium Gluconate 1gm/50mL 1 GM/50 ML BAG IVPB SCH ×2 (00:13→02:11)
[2019-06-25] MEDS: Piperacillin/Tazobactam 3.375 GM in 0.9 % Sodium Chloride Mini Bag 100 ML IVPB SCH ×2 (03:39→16:31)
[2019-06-25 05:32] LABS: Mean Corpuscular Hemoglobin 33.5 pg (28.0-33.3); Mean Platelet Volume 11.1 fL (9.4-12.4)
[2019-06-25 05:33] LABS: Hematocrit 30.9 % (35.3-44.9); Hemoglobin 10.8 g/dL (11.5-15.4); Platelet Count 189 K/mcL (140-400); Red Blood Count 3.22 M/mcL (3.82-4.97); Red Cell Distribution Width 12.1 % (11.5-14.5)
[2019-06-25 05:37] LABS: White Blood Count 47.2 K/mcL (4.3-11.1)
[2019-06-25 06:08] LABS: Calcium 7.7 mg/dL (8.6-10.3); Potassium 3.5 mEq/L (3.5-5.1)
[2019-06-25] MEDS: *HR* Heparin 5,000 UNIT/ML VIAL SQ SCH ×2 (06:44→18:11)
[2019-06-25] MEDS: Vancomycin Oral Soln 125 MG/2.5 ML UDC PO SCH ×4 (10:01→23:25)
[2019-06-25] MEDS: Cholecalciferol (D-3) 1,000 UNIT (25MCG) TABLET PO SCH (10:01)
[2019-06-25] MEDS: MetroNIDAZOLE 500 MG/100 ML 500 MG/100 ML BAG IVPB SCH ×2 (10:01→20:05)
[2019-06-25] MEDS: Lactobacillus 1 EACH CAP.SPRINK PO SCH ×2 (10:02→23:25)
[2019-06-25] MEDS: Sennosides/Docusate Sodium TABLET PO SCH ×2 (10:02→23:39)
[2019-06-25] MEDS: Insulin LISPRO 300 UNITS/3 ML VIAL SQ SCH ×4 (10:02→23:41)
[2019-06-25] MEDS: *HR* Amiodarone 200 MG TABLET PO SCH (10:02)
[2019-06-25] MEDS: Gentamicin Oint 15 GM TUBE TP SCH (10:21)
[2019-06-25] MEDS: Diltiazem CD (24hr) 120 MG CAPSULE PO SCH (18:10)
[2019-06-25] MEDS: Famotidine 20 MG TABLET PO SCH (18:10)
[2019-06-25] MEDS ORDERED: Perit. Dialysis with Dex 2.5 % 6,000 ML PERITONEAL ONE (19:00)
[2019-06-25] MEDS ORDERED: Perit. Dialysis with Dex 1.5 % 6,000 ML PERITONEAL ONE (19:00)
[2019-06-26] MEDS ORDERED: *HR* HYDROmorphone 2 MG TABLET PO ONE (01:42)
[2019-06-26] MEDS: Piperacillin/Tazobactam 3.375 GM in 0.9 % Sodium Chloride Mini Bag 100 ML IVPB SCH (04:53)
[2019-06-26] MEDS: *HR* Heparin 5,000 UNIT/ML VIAL SQ SCH ×2 (05:19→18:02)
[2019-06-26 07:27] LABS: Hematocrit 29.8 % (35.3-44.9); Mean Corpuscular HGB Conc 33.6 g/dL (31.6-35.5); Mean Corpuscular Volume 98.3 fL (83.0-100.0); Mean Platelet Volume 10.7 fL (9.4-12.4); Nucleated Red Blood Cells 0.6 /100 WBC (0); Platelet Count 149 K/mcL (140-400); Red Blood Count 3.03 M/mcL (3.82-4.97); Red Cell Distribution Width 12.3 % (11.5-14.5)
[2019-06-26 07:33] LABS: White Blood Count 38.1 K/mcL (4.3-11.1)
[2019-06-26 07:44] LABS: Calcium 7.3 mg/dL (8.6-10.3); Potassium 3.4 mEq/L (3.5-5.1)
[2019-06-26] MEDS: Insulin LISPRO 300 UNITS/3 ML VIAL SQ SCH (08:09)
[2019-06-26] MEDS: *HR* Amiodarone 200 MG TABLET PO SCH (08:15)
[2019-06-26] MEDS: Cholecalciferol (D-3) 1,000 UNIT (25MCG) TABLET PO SCH (08:15)
[2019-06-26] MEDS: Vancomycin Oral Soln 125 MG/2.5 ML UDC PO SCH ×4 (08:16→23:18)
[2019-06-26] MEDS: Lactobacillus 1 EACH CAP.SPRINK PO SCH ×2 (08:16→23:16)
[2019-06-26] MEDS: Sennosides/Docusate Sodium TABLET PO SCH (08:17)
[2019-06-26] MEDS: Gentamicin Oint 15 GM TUBE TP SCH (08:17)
[2019-06-26 10:01] LABS: Lymphocytes # 5.3 K/mcL (0.6-4.6); Monocytes # 3.8 K/mcL (0.0-1.3); Neutrophils # 24.4 K/mcL (1.6-8.9)
[2019-06-26 10:09] LABS: Platelet Estimate Normal (Normal)
[2019-06-26 10:15] LABS: RBC,Peritoneal Fluid < 0.002 M/mcL
[2019-06-26] MEDS ORDERED: D5% in Water 1,000 ML IVC PRN (11:07)
[2019-06-26] MEDS ORDERED: *HR* Dextrose 50 % in Water (Syg) 50 ML SYRINGE IVP PRN (11:07)
[2019-06-26] MEDS ORDERED: Dextrose Gel 15 GM/37.5 ML TUBE PO PRN ×2 (11:07)
[2019-06-26] MEDS ORDERED: Insulin LISPRO 300 UNITS/3 ML VIAL SQ SCH (11:30)
[2019-06-26 11:51] LABS: Basophils,Peritoneal Fluid 0 %; Eosinophils,Peritoneal Fluid 0 %
[2019-06-26 11:55] LABS: Appearance of Peritoneal Fl CLEAR (Clear)
[2019-06-26] MEDS ORDERED: cefTRIAXone 2,000 MG in 0.9 % Sodium Chloride Mini Bag 100 ML IVPB SCH (16:00)
[2019-06-26] MEDS: MetroNIDAZOLE 500 MG/100 ML 500 MG/100 ML BAG IVPB SCH ×2 (16:37→23:14)
[2019-06-26] MEDS ORDERED: Perit. Dialysis with Dex 2.5 % 12,000 ML PERITONEAL ONE (18:00)
[2019-06-26] MEDS: Diltiazem CD (24hr) 120 MG CAPSULE PO SCH (18:01)
[2019-06-26] MEDS: Famotidine 20 MG TABLET PO SCH (18:02)
[2019-06-27] MEDS: *HR* Heparin 5,000 UNIT/ML VIAL SQ SCH ×2 (05:01→18:03)
[2019-06-27 06:15] LABS: Mean Platelet Volume 10.6 fL (9.4-12.4); Nucleated Red Blood Cells 0.9 /100 WBC (0)
[2019-06-27 06:16] LABS: Hematocrit 29.5 % (35.3-44.9); Hemoglobin 9.7 g/dL (11.5-15.4); Mean Corpuscular HGB Conc 32.9 g/dL (31.6-35.5); Mean Corpuscular Hemoglobin 33.8 pg (28.0-33.3); Mean Corpuscular Volume 102.8 fL (83.0-100.0); Platelet Count 126 K/mcL (140-400); Red Blood Count 2.87 M/mcL (3.82-4.97); Red Cell Distribution Width 12.1 % (11.5-14.5)
[2019-06-27 06:20] LABS: White Blood Count 30.7 K/mcL (4.3-11.1)
[2019-06-27 06:39] LABS: Eosinophils # 1.2 K/mcL (0.0-0.6); Lymphocytes # 5.5 K/mcL (0.6-4.6); Monocytes # 4.3 K/mcL (0.0-1.3); Neutrophils # 15.4 K/mcL (1.6-8.9)
[2019-06-27 06:45] LABS: Calcium 7.1 mg/dL (8.6-10.3); Potassium 3.3 mEq/L (3.5-5.1)
[2019-06-27] MEDS ORDERED: cefTRIAXone 2,000 MG in Water for inj. (sterile) 20 ML IVP SCH (08:00)
[2019-06-27] MEDS: MetroNIDAZOLE 500 MG/100 ML 500 MG/100 ML BAG IVPB SCH ×3 (08:29→23:32)
[2019-06-27] MEDS: *HR* Amiodarone 200 MG TABLET PO SCH (08:31)
[2019-06-27] MEDS: Lactobacillus 1 EACH CAP.SPRINK PO SCH ×2 (08:31→21:52)
[2019-06-27] MEDS: Vancomycin Oral Soln 125 MG/2.5 ML UDC PO SCH ×4 (08:31→21:52)
[2019-06-27] MEDS: Gentamicin Oint 15 GM TUBE TP SCH (08:31)
[2019-06-27] MEDS: Cholecalciferol (D-3) 1,000 UNIT (25MCG) TABLET PO SCH (08:32)
[2019-06-27] MEDS: Acetaminophen 325 MG TABLET PO PRN (13:48)
[2019-06-27] MEDS: Calcium Gluconate 1gm/50mL 1 GM/50 ML BAG IVPB SCH ×2 (16:49→18:04)
[2019-06-27] MEDS: Famotidine 20 MG TABLET PO SCH (18:03)
[2019-06-27] MEDS: Diltiazem CD (24hr) 120 MG CAPSULE PO SCH (18:04)
[2019-06-27] MEDS ORDERED: Perit. Dialysis with Dex 2.5 % 12,000 ML PERITONEAL ONE (19:00)
[2019-06-28] MEDS: Calcium Gluconate 1gm/50mL 1 GM/50 ML BAG IVPB SCH ×5 (01:15→10:36)
[2019-06-28] MEDS: *HR* Heparin 5,000 UNIT/ML VIAL SQ SCH ×2 (05:52→16:58)
[2019-06-28 06:17] LABS: Basophils # 0.1 K/mcL (0.0-0.2); Basophils % 0.5 %; Eosinophils # 0.2 K/mcL (0.0-0.6); Eosinophils % 1.2 %; Hematocrit 31.6 % (35.3-44.9); Hemoglobin 10.4 g/dL (11.5-15.4); Immature Granulocytes % 35.6 % (0-4); Lymphocytes # 1.3 K/mcL (0.6-4.6); Lymphocytes % 7.4 %; Mean Corpuscular HGB Conc 32.9 g/dL (31.6-35.5); Mean Corpuscular Hemoglobin 32.3 pg (28.0-33.3); Mean Corpuscular Volume 98.1 fL (83.0-100.0); Mean Platelet Volume 10.4 fL (9.4-12.4); Monocytes # 1.8 K/mcL (0.0-1.3); Monocytes % 9.8 %; Nucleated Red Blood Cells 1.2 /100 WBC (0); Platelet Count 146 K/mcL (140-400); Red Blood Count 3.22 M/mcL (3.82-4.97); Segmented Neutrophils % 45.5 %; White Blood Count 17.9 K/mcL (4.3-11.1)
[2019-06-28 06:18] LABS: Neutrophils # 8.1 K/mcL (1.6-8.9)
[2019-06-28 06:37] LABS: Calcium 8.3 mg/dL (8.6-10.3); Platelet Estimate Decreased (Normal); Potassium 3.7 mEq/L (3.5-5.1)
[2019-06-28] MEDS: cefTRIAXone 2,000 MG in 0.9 % Sodium Chloride Mini Bag 100 ML IVPB SCH (10:24)
[2019-06-28] MEDS: MetroNIDAZOLE 500 MG/100 ML 500 MG/100 ML BAG IVPB SCH (10:24)
[2019-06-28] MEDS: Vancomycin Oral Soln 125 MG/2.5 ML UDC PO SCH ×4 (10:24→21:08)
[2019-06-28] MEDS: Cholecalciferol (D-3) 1,000 UNIT (25MCG) TABLET PO SCH (10:25)
[2019-06-28] MEDS: Lactobacillus 1 EACH CAP.SPRINK PO SCH ×2 (10:25→21:07)
[2019-06-28] MEDS: *HR* Amiodarone 200 MG TABLET PO SCH (10:26)
[2019-06-28] MEDS: Gentamicin Oint 15 GM TUBE TP SCH (10:36)
[2019-06-28] MEDS: Diltiazem CD (24hr) 120 MG CAPSULE PO SCH (16:57)
[2019-06-28] MEDS: Famotidine 20 MG TABLET PO SCH (16:57)
[2019-06-28] MEDS: metroNIDAZOLE 500 MG TABLET PO SCH ×2 (16:58→21:07)
[2019-06-28] MEDS ORDERED: Perit. Dialysis with Dex 2.5 % 12,000 ML PERITONEAL ONE (19:00)
[2019-06-29 04:48] LABS: Hematocrit 29.6 % (35.3-44.9); Hemoglobin 9.6 g/dL (11.5-15.4); Mean Corpuscular HGB Conc 32.4 g/dL (31.6-35.5); Mean Corpuscular Hemoglobin 33.2 pg (28.0-33.3); Mean Corpuscular Volume 102.4 fL (83.0-100.0); Mean Platelet Volume 10.1 fL (9.4-12.4); Platelet Count 132 K/mcL (140-400); Red Blood Count 2.89 M/mcL (3.82-4.97); White Blood Count 12.1 K/mcL (4.3-11.1)
[2019-06-29 04:56] LABS: Calcium 8.3 mg/dL (8.6-10.3); Potassium 3.7 mEq/L (3.5-5.1)
[2019-06-29] MEDS: *HR* Heparin 5,000 UNIT/ML VIAL SQ SCH ×2 (06:32→18:00)
[2019-06-29] MEDS: metroNIDAZOLE 500 MG TABLET PO SCH ×3 (09:33→21:11)
[2019-06-29] MEDS: Cholecalciferol (D-3) 1,000 UNIT (25MCG) TABLET PO SCH (09:33)
[2019-06-29] MEDS: Lactobacillus 1 EACH CAP.SPRINK PO SCH ×2 (09:33→21:10)
[2019-06-29] MEDS: *HR* Amiodarone 200 MG TABLET PO SCH (09:34)
[2019-06-29] MEDS: cefTRIAXone 2,000 MG in 0.9 % Sodium Chloride Mini Bag 100 ML IVPB SCH (09:34)
[2019-06-29] MEDS: Vancomycin Oral Soln 125 MG/2.5 ML UDC PO SCH ×4 (09:35→21:11)
[2019-06-29] MEDS: Gentamicin Oint 15 GM TUBE TP SCH (09:35)
[2019-06-29] MEDS: Calcium Gluconate 1gm/50mL 1 GM/50 ML BAG IVPB SCH ×2 (17:43→18:50)
[2019-06-29] MEDS: Diltiazem CD (24hr) 120 MG CAPSULE PO SCH (17:59)
[2019-06-29] MEDS: Famotidine 20 MG TABLET PO SCH (17:59)
[2019-06-29] MEDS ORDERED: Perit. Dialysis with Dex 2.5 % 12,000 ML PERITONEAL ONE (19:00)
[2019-06-30] MEDS: *HR* Heparin 5,000 UNIT/ML VIAL SQ SCH ×2 (05:25→16:53)
[2019-06-30 07:39] LABS: Hematocrit 28.1 % (35.3-44.9); Hemoglobin 9.2 g/dL (11.5-15.4); Mean Corpuscular HGB Conc 32.7 g/dL (31.6-35.5); Mean Corpuscular Hemoglobin 33.1 pg (28.0-33.3); Mean Corpuscular Volume 101.1 fL (83.0-100.0); Mean Platelet Volume 10.3 fL (9.4-12.4); Nucleated Red Blood Cells 1.2 /100 WBC (0); Platelet Count 145 K/mcL (140-400); Red Blood Count 2.78 M/mcL (3.82-4.97); Red Cell Distribution Width 12.1 % (11.5-14.5); White Blood Count 8.4 K/mcL (4.3-11.1)
[2019-06-30 07:51] LABS: Calcium 8.1 mg/dL (8.6-10.3); Potassium 3.6 mEq/L (3.5-5.1)
[2019-06-30 08:05] LABS: Platelet Estimate Normal (Normal)
[2019-06-30 08:08] LABS: Eosinophils # 0.5 K/mcL (0.0-0.6); Lymphocytes # 0.8 K/mcL (0.6-4.6); Monocytes # 0.8 K/mcL (0.0-1.3); Neutrophils # 6.1 K/mcL (1.6-8.9)
[2019-06-30] MEDS: Cholecalciferol (D-3) 1,000 UNIT (25MCG) TABLET PO SCH (09:20)
[2019-06-30] MEDS: cefTRIAXone 2,000 MG in 0.9 % Sodium Chloride Mini Bag 100 ML IVPB SCH (09:21)
[2019-06-30] MEDS: *HR* Amiodarone 200 MG TABLET PO SCH (09:21)
[2019-06-30] MEDS: Vancomycin Oral Soln 125 MG/2.5 ML UDC PO SCH ×4 (09:21→21:09)
[2019-06-30] MEDS: metroNIDAZOLE 500 MG TABLET PO SCH ×3 (09:21→21:07)
[2019-06-30] MEDS: Lactobacillus 1 EACH CAP.SPRINK PO SCH ×2 (09:21→21:07)
[2019-06-30] MEDS: Gentamicin Oint 15 GM TUBE TP SCH (09:22)
[2019-06-30] MEDS ORDERED: Calcium Gluconate 1gm/50mL 1 GM/50 ML BAG IVPB PRN (10:10)
[2019-06-30] MEDS: Cefdinir 300 MG CAPSULE PO SCH (13:45)
[2019-06-30] MEDS: Famotidine 20 MG TABLET PO SCH (16:49)
[2019-06-30] MEDS: Diltiazem CD (24hr) 120 MG CAPSULE PO SCH (16:50)
[2019-06-30] MEDS ORDERED: Perit. Dialysis with Dex 2.5 % 12,000 ML PERITONEAL ONE (19:00)
[2019-07-01] MEDS: *HR* Heparin 5,000 UNIT/ML VIAL SQ SCH ×2 (05:33→17:39)
[2019-07-01 10:30] LABS: Hematocrit 27.7 % (35.3-44.9); Hemoglobin 9.5 g/dL (11.5-15.4); Mean Corpuscular HGB Conc 34.3 g/dL (31.6-35.5); Mean Corpuscular Hemoglobin 33.1 pg (28.0-33.3); Mean Corpuscular Volume 96.5 fL (83.0-100.0); Mean Platelet Volume 10.3 fL (9.4-12.4); Nucleated Red Blood Cells 0.6 /100 WBC (0); Platelet Count 159 K/mcL (140-400); Red Blood Count 2.87 M/mcL (3.82-4.97)
[2019-07-01] MEDS ORDERED: Levothyroxine 25 MCG TABLET PO ONE (10:45)
[2019-07-01] MEDS: Lactobacillus 1 EACH CAP.SPRINK PO SCH ×2 (10:46→21:59)
[2019-07-01 10:47] LABS: Calcium 7.9 mg/dL (8.6-10.3); Potassium 3.7 mEq/L (3.5-5.1)
[2019-07-01] MEDS: Cholecalciferol (D-3) 1,000 UNIT (25MCG) TABLET PO SCH (10:47)
[2019-07-01] MEDS: Cefdinir 300 MG CAPSULE PO SCH (10:47)
[2019-07-01] MEDS: *HR* Amiodarone 200 MG TABLET PO SCH (10:47)
[2019-07-01] MEDS: Vancomycin Oral Soln 125 MG/2.5 ML UDC PO SCH ×4 (10:47→22:01)
[2019-07-01] MEDS: metroNIDAZOLE 500 MG TABLET PO SCH ×3 (10:47→21:59)
[2019-07-01] MEDS: Gentamicin Oint 15 GM TUBE TP SCH (10:48)
[2019-07-01 10:51] LABS: Eosinophils # 0.4 K/mcL (0.0-0.6); Monocytes # 0.4 K/mcL (0.0-1.3); Neutrophils # 5.2 K/mcL (1.6-8.9); Platelet Estimate Normal (Normal)
[2019-07-01] MEDS: Calcium Gluconate 1gm/50mL 1 GM/50 ML BAG IVPB SCH ×2 (11:57→12:50)
[2019-07-01] MEDS: Acetaminophen 325 MG TABLET PO PRN (16:18)
[2019-07-01] MEDS: Famotidine 20 MG TABLET PO SCH (17:39)
[2019-07-01] MEDS: Diltiazem CD (24hr) 120 MG CAPSULE PO SCH (17:39)
[2019-07-01] MEDS ORDERED: Perit. Dialysis with Dex 2.5 % 12,000 ML PERITONEAL ONE (19:00)
[2019-07-02] MEDS: Acetaminophen 325 MG TABLET PO PRN (01:14)
[2019-07-02] MEDS: *HR* Heparin 5,000 UNIT/ML VIAL SQ SCH (05:51)
[2019-07-02 06:05] LABS: Basophils # 0.1 K/mcL (0.0-0.2); Basophils % 1.1 %; Eosinophils # 0.3 K/mcL (0.0-0.6); Eosinophils % 3.5 %; Hematocrit 28.1 % (35.3-44.9); Hemoglobin 9.3 g/dL (11.5-15.4); Immature Granulocytes % 3.7 % (0-4); Lymphocytes # 1.1 K/mcL (0.6-4.6); Lymphocytes % 15.1 %; Mean Corpuscular HGB Conc 33.1 g/dL (31.6-35.5); Mean Corpuscular Hemoglobin 33.5 pg (28.0-33.3); Mean Corpuscular Volume 101.1 fL (83.0-100.0); Mean Platelet Volume 10.8 fL (9.4-12.4); Monocytes # 0.8 K/mcL (0.0-1.3); Monocytes % 11.7 %; Neutrophils # 4.6 K/mcL (1.6-8.9); Nucleated Red Blood Cells 0.3 /100 WBC (0); Platelet Count 165 K/mcL (140-400); Red Blood Count 2.78 M/mcL (3.82-4.97); Segmented Neutrophils % 64.9 %; White Blood Count 7.1 K/mcL (4.3-11.1)
[2019-07-02 06:28] LABS: Calcium 8.5 mg/dL (8.6-10.3); Potassium 3.7 mEq/L (3.5-5.1)
[2019-07-02] MEDS ORDERED: Levothyroxine 25 MCG TABLET PO ONE (07:41)
[2019-07-02] MEDS: Lactobacillus 1 EACH CAP.SPRINK PO SCH (09:26)
[2019-07-02] MEDS: metroNIDAZOLE 500 MG TABLET PO SCH (09:26)
[2019-07-02] MEDS: Cholecalciferol (D-3) 1,000 UNIT (25MCG) TABLET PO SCH (09:26)
[2019-07-02] MEDS: Vancomycin Oral Soln 125 MG/2.5 ML UDC PO SCH ×2 (09:26→13:06)
[2019-07-02] MEDS: *HR* Amiodarone 200 MG TABLET PO SCH (09:26)
[2019-07-02] MEDS: Gentamicin Oint 15 GM TUBE TP SCH (09:27)
[2019-07-02 12:01] VITALS: BP 129/63
[2019-07-02] MEDS ORDERED: Cefdinir 300 MG CAPSULE PO SCH (17:00)
== END 2019-07-02 13:12 | disposition home health service (06) | DRG 391 ==
LOC: EMEROOARM 09:08 → 2ANU 09:08
PROVIDERS: ADMIT Internal Medicine; ATTEND Internal Medicine